=== PATIENT | female | born 1965 | race Caucasian/White ===

== ENCOUNTER 2019-01-25 20:58 | Inpatient (IN) ==
[2019-01-25] MEDS ORDERED: ACETAMINOPHEN 1,000 MG/100 ML VIAL IV STA (22:01)
[2019-01-25] MEDS ORDERED: SODIUM CHLORIDE 0.9% 1000ML 2,000 ML IV ONE (22:03)
[2019-01-25] MEDS ORDERED: METOCLOPRAMIDE HCL INJ 5 MG/ML 2 ML VIAL IV STA (22:03)
[2019-01-25] MEDS ORDERED: PANTOprazole 40 MG in SYRINGE 0 ML IV ONE (22:03)
[2019-01-25 22:33] LABS: Basophils # (auto) 0.04 K/uL (0-0.2); Basophils % (auto) 0.4 %; Eosinophils # (auto) 0.18 K/uL (0-0.5); Eosinophils % (auto) 1.7 %; Hematocrit (blood only) 42.1 % (37-47); Hemoglobin 14.2 g/dL (12.0-16.0); Immature Granulocytes # (auto) 0.02 K/uL (0.00-0.02); Immature Granulocytes % (auto) 0.2 %; Lymphocytes # (auto) 3.02 K/uL (1.2-3.4); Lymphocytes % (auto) 28.4 %; Mean Corpuscular Hgb Conc 33.7 g/dL (32-36); Mean Corpuscular Volume 88.3 fL (80-100); Monocytes # (auto) 0.67 K/uL (0.11-0.59); Monocytes % (auto) 6.3 %; Platelet Count 239 K/uL (130-400); RDW Coefficient of Variation 16.3 % (11.5-14.5); RDW Standard Deviation 53.2 fL (36.4-46.3); Red Blood Count 4.77 M/uL (4.2-5.4); White Blood Count 10.63 K/uL (4.8-10.8)
[2019-01-25 22:42] LABS: Prothrombin Time 10.3 Seconds (9.0-12.0)
[2019-01-25] MEDS ORDERED: AMPICILLIN/SULBACTAM SOD 3,000 MG in 0.9 % SODIUM CHLORIDE 100 ML IV STA (22:55)
[2019-01-25] MEDS ORDERED: MoRPHine SULFATE 4 MG/ML 1 ML CARP\\VIAL IV STA (22:56)
[2019-01-25 23:06] LABS: Albumin Globulin Ratio 0.9 (0.9-2); Albumin Level 3.7 gm/dl (3.4-5.0); BUN Creatinine Ratio 10.9 (10-20); Bilirubin,Total 0.4 mg/dl (0.2-1); Calcium 8.5 mg/dl (8.5-10.1); Creatinine Clr Calc Pharmacy 120.5 ml/min; Est GFR (African American) 121.1; Est GFR (Non-African American) 104.5; Globulin 3.9 gm/dl (2.5-4.0); Total Protein 7.6 gm/dl (6.4-8.2)
[2019-01-25 23:38] LABS: Potassium 3.8 mmol/L (3.5-5.1)
--- NOTE | 2019-01-26 00:06 | Emergency Department Note ---
Entered by Raquel De La Cruz acting as a scribe for History of Present Illness General Chief complaint: Rectal Bleed Stated complaint: RECTAL BLEEDING,ABDOMINAL PAIN,VOMITING Time Seen by Provider: 01/25/19 21:34 Source: patient Mode of arrival: ambulatory Limitations: no limitations History of Present Illness Provider complaint: rectal bleeding Onset (ago): hour(s) (APPLICATIONS COORDINATOR) Location: abdomen Pain Consistency: + other (episode) Maximum Pain Intensity: 10 Current Pain Intensity: 9 Quality: + other (rectal bleeding) Associated symptoms: + cough, + nausea/vomiting and + other (abdominal pain, gas, hematemesis) The patient is a 54 year old female who presents to the Emergency Room with complaints of an episode of rectal bleeding that occurred prior to arrival. The patient reports that following the episode, she also had a severe abdominal pain and gas, so she contacted the hospital who suggested she present to the ER. She states that she has had the same abdominal pain intermittently for the past month. She notes that she has also been vomiting and coughing. She states that she was evaluated by her PCP last week and referred to [facility] ER for hematemesis where she had an NG tube inserted which showed no blood. She denies being on any blood thinners. The patient also denies any alcohol use but does admit to being an everyday smoker. She reports that she has a history of a bowel obstruction as well as a back surgery and notes she does have chronic back pain and is prescribed oxycodone. She states that her last endoscopy was several years ago. Per EMR, the patient was seen at this hospital earlier today for abdominal pain which has been ongoing for past month. Today the patient had a normal WBC. The patient had multiple complaints including hematemesis, but her hemoglobin was 14.7 and her kidney and liver function were normal. CT showed increased stool burden, with question of diverticulitis. She was given Dilaudid. She was ordered for antibiotics and Magnesium citrate and was offered admission but declined stating she was upset with her care and was going to go to [facility]. Home Medications Home Medications Medication Instructions Recorded Confirmed Type oxycodone 10 mg PO Q6H PRN 07/30/18 01/25/19 History trazodone 300 mg PO HS 10/12/18 01/25/19 History amoxicillin-pot clavulanate 1 tab PO BID #20 tab 01/25/19 01/25/19 Rx [Augmentin] buspirone 15 - 45 mg PO DAILY 01/25/19 01/25/19 History carisoprodol 350 mg PO Q8H 01/25/19 01/25/19 History docusate sodium [Colace] 100 mg PO BID #60 cap 01/25/19 01/25/19 Rx famotidine [Pepcid] 40 mg PO HS #30 tab 01/25/19 01/25/19 Rx levothyroxine 125 mcg PO DAILY 01/25/19 01/25/19 History ondansetron HCl [Zofran] 4 mg PO Q6 PRN #6 tab 01/25/19 01/25/19 Rx oxcarbazepine 300 mg PO BID 01/25/19 01/25/19 History pramipexole 1 mg PO HS 01/25/19 01/25/19 History sennosides [Senokot] 8.6 mg PO HS #30 tab 01/25/19 01/25/19 Rx venlafaxine [Effexor XR] 75 mg PO HS 01/25/19 01/25/19 History venlafaxine [Effexor XR] 150 mg PO HS 01/25/19 01/25/19 History Allergies Allergy/AdvReac Type Severity Reaction Status Date / Time Sulfa (Sulfonamide Allergy Mild Gastrointestinal Verified 01/25/19 22:07 Antibiotics) Upset tetracycline Allergy Mild Rash Verified 01/25/19 22:07 Past Med/Surg History Medical History PTSD (post-traumatic stress disorder) (Chronic) Suicidal thoughts (Resolved) Anxiety (Chronic) Depression (Chronic) Chronic, continuous use of opioids 10 mg oxycodone every 6 hours as needed Broken wrist (Resolved) Surgical History Abnormal colonoscopy 2019: States she has a history of polyps on colonoscopy. Was told to return in 7 years, and is overdue for repeat scan. Previous back surgery Family History Other No pertinent family history Social History Preferred Language: Slovak Beliefs That Will Affect Care: None Current Living Situation: Alone Feels Safe at Home: Yes Safety Concerns: Feels Safe At This Time Smoking Status: Current every day smoker Hx Alcohol Use: No Hx Substance Use: Yes Review of Systems See HPI for pertinent positives & negatives. and A total of 10 systems reviewed and were otherwise negative Physical Exam Vital Signs Vital Signs - 24 hr 01/25/19 21:05 01/25/19 23:00 01/26/19 00:36 Temperature 36.7 C Temperature Source Oral Sepsis Recent Fever Within 48 Hours No Sepsis New/Unexplained Change in Mental Status No Sepsis Action Taken by Nursing No Action Required Pulse Rate 104 H Pulse Rate [Right Finger] 70 74 Pulse Rhythm Regular Pulse Rhythm [Right Finger] Pulse Strength Normal Respiratory Rate 20 18 18 Respiratory Effort / Characteristics Non-Labored Spontaneous Respiratory Depth Normal Respiratory Pattern Regular Blood Pressure 170/100 H Blood Pressure [Right Arm] 128/90 163/103 H Blood Pressure Mean 123 Blood Pressure Mean [Right Arm] 102 123 Blood Pressure Position Sitting Blood Pressure Position [Right Arm] Pulse Oximetry 93 94 95 Oxygen Delivery Method Room Air Room Air Room Air 01/26/19 02:33 01/26/19 03:11 01/26/19 07:21 Temperature 36.2 C L 36.7 C Temperature Source Oral Oral Sepsis Recent Fever Within 48 Hours Sepsis New/Unexplained Change in Mental Status Sepsis Action Taken by Nursing Pulse Rate Pulse Rate [Right Finger] 78 78 58 L Pulse Rhythm Pulse Rhythm [Right Finger] Regular Pulse Strength Respiratory Rate 20 24 16 Respiratory Effort / Characteristics Non-Labored Spontaneous Respiratory Depth Shallow Respiratory Pattern Tachypnea Blood Pressure Blood Pressure [Right Arm] 155/98 H 176/98 H 145/88 H Blood Pressure Mean Blood Pressure Mean [Right Arm] 117 124 107 Blood Pressure Position Blood Pressure Position [Right Arm] Lying Lying Pulse Oximetry 95 96 94 Oxygen Delivery Method Room Air Room Air 01/26/19 07:58 01/26/19 11:27 Temperature 36.8 C Temperature Source Oral Sepsis Recent Fever Within 48 Hours Sepsis New/Unexplained Change in Mental Status Sepsis Action Taken by Nursing Pulse Rate 60 Pulse Rate [Right Finger] 61 Pulse Rhythm Pulse Rhythm [Right Finger] Pulse Strength Respiratory Rate 18 Respiratory Effort / Characteristics Respiratory Depth Respiratory Pattern Blood Pressure Blood Pressure [Right Arm] 140/71 Blood Pressure Mean Blood Pressure Mean [Right Arm] 94 Blood Pressure Position Blood Pressure Position [Right Arm] Lying Pulse Oximetry 95 Oxygen Delivery Method Room Air GENERAL: Awake, alert, anxious, uncomfortable appearing, in no distress HENT: Normocephalic, atraumatic. Oropharynx with dry mucous membranes and otherwise unremarkable. EYES: Normal conjunctiva. Sclera non-icteric. NECK: Supple. No nuchal rigidity. FROM. No JVD. RESPIRATORY: Clear to auscultation. CARDIAC: Regular rate, normal rhythm. Extremities warm and well perfused. Pulses equal. ABDOMEN: Soft, non-distended. Generalized abdominal tenderness to palpation greatest in the LLQ. No rebound or guarding. No masses. RECTAL: Scant blood tinged brown stool, guaiac positive MUSCULOSKELETAL: Chest examination reveals no tenderness. The back is symmetrical on inspection without obvious abnormality. There is no CVA tenderness to palpation. No joint edema. LOWER EXTREMITIES: Calves are equal size bilaterally and non-tender. No edema. No discoloration. NEURO: Normal sensorium. No sensory or motor deficits noted. SKIN: No rash or jaundice noted. Course 2143: Past medical records reviewed. The patient was evaluated in room A2, and a complete history and physical examination were performed. 1145: I reviewed the patient's case with Dr. Gaytan - [facility] Hospitalist. He will evaluate the patient for further management. Administered Medications Diphenhydramine HCl (Benadryl) 12.5 mg IV HSZ PRN PRN Reason: Anxiety/Insomnia Stop: 02/25/19 03:50 Last Admin: 01/26/19 04:54 Dose: 12.5 mg Documented by: [id number] Sodium Chloride (Nss 1000ml) 1,000 mls @ 100 mls/hr IV .Q10H MADELYN Stop: 01/28/19 03:50 Last Infusion: 01/26/19 07:22 Dose: 100 mls/hr Documented by: [id number] Admin: 01/26/19 04:53 Dose: 100 mls/hr Documented by: [id number] Metronidazole (Flagyl) 500 mg in 100 mls @ 100 mls/hr IV Q8H MADELYN Stop: 02/05/19 03:59 Last Admin: 01/26/19 13:08 Dose: 100 mls/hr Documented by: [id number] Infusion: 01/26/19 07:21 Dose: 0 mls/hr Documented by: [id number] Admin: 01/26/19 05:56 Dose: 100 mls/hr Documented by: [id number] Ceftriaxone Sodium 1,000 mg/ (Dextrose) 50 mls @ 100 mls/hr IV Q24H MADELYN; Protocol Stop: 02/05/19 05:59 Last Infusion: 01/26/19 06:13 Dose: 0 mls/hr Documented by: [id number] Admin: 01/26/19 05:56 Dose: 100 mls/hr Documented by: [id number] Levothyroxine Sodium 65 mcg/ (Syringe) 3.25 mls @ 2 mls/min IV DAILY@0900 MADELYN Stop: 02/25/19 08:59 Last Admin: 01/26/19 10:10 Dose: 2 mls/min Documented by: [id number] Pantoprazole Sodium 40 mg/ (Syringe) 10 mls @ 5 mls/min IV BID MADELYN Stop: 02/25/19 08:59 Last Admin: 01/26/19 10:04 Dose: 5 mls/min Documented by: [id number] Acetaminophen (Ofirmev) 1,000 mg in 100 mls @ 400 mls/hr IV Q8H PRN PRN Reason: Pain or Fever Stop: 02/25/19 11:14 Last Admin: 01/26/19 12:48 Dose: 400 mls/hr Documented by: [id number] Morphine Sulfate (Morphine Sulfate) 4 mg IV Q4H PRN PRN Reason: Pain Stop: 02/09/19 03:50 Last Admin: 01/26/19 10:04 Dose: 4 mg Documented by: [id number] Admin: 01/26/19 04:53 Dose: 4 mg Documented by: [id number] Ondansetron HCl (Zofran) 4 mg IV Q4H PRN PRN Reason: Nausea Stop: 02/25/19 03:50 Last Admin: 01/26/19 04:54 Dose: 4 mg Documented by: [id number] Discontinued Medications Acetaminophen (Ofirmev) 1,000 mg in 100 mls @ 400 mls/hr IV NOW STA Stop: 01/25/19 22:15 Last Infusion: 01/25/19 22:39 Dose: 0 mls/hr Documented by: [id number] Admin: 01/25/19 22:23 Dose: 400 mls/hr Documented by: [id number] Pantoprazole Sodium 40 mg/ (Syringe) 10 mls @ 5 mls/min IV NOW ONE Stop: 01/25/19 22:04 Last Admin: 01/25/19 22:49 Dose: 5 mls/min Documented by: [id number] Sodium Chloride (Nss 1000ml) 2,000 mls @ 999 mls/hr IV .Q2H1M ONE Stop: 01/26/19 00:03 Last Infusion: 01/26/19 00:30 Dose: 0 mls/hr Documented by: [id number] Admin: 01/25/19 22:23 Dose: 999 mls/hr Documented by: [id number] Ampicillin Sodium/Sulbactam Sodium 3,000 mg/ Sodium Chloride 108 mls @ 200 mls/hr IV NOW STA Stop: 01/25/19 23:27 Last Infusion: 01/25/19 23:42 Dose: 0 mls/hr Documented by: [id number] Admin: 01/25/19 23:05 Dose: 200 mls/hr Documented by: [id number] Metoclopramide HCl (Reglan) 10 mg IV NOW STA Stop: 01/25/19 22:04 Last Admin: 01/25/19 22:23 Dose: 10 mg Documented by: [id number] Morphine Sulfate (Morphine Sulfate) 4 mg IV NOW STA Stop: 01/25/19 22:57 Last Admin: 01/25/19 23:04 Dose: 4 mg Documented by: [id number] Medical Decision Making Differential Diagnosis Differential Diagnosis includes: esophagitis, variceal bleed, [id number], [place] tear, gastritis, peptic ulcer disease, AVM, inflammatory bowel disease, ischemia, diverticulosis, colitis, malignancy, coagulopathy, thrombocytopenia, fissure, hemorrhoid, epistaxis , as well as others were entertained. Medical Records Attestation: I reviewed the patient's medical records. Home Medications Current Medication List: was personally reviewed by me Laboratory Data Attestation: I reviewed the patient's lab results. Result diagrams: 01/26/19 10:37 01/26/19 10:37 Lab Results 01/25/19 01/25/19 01/25/19 Range/Units 22:13 22:13 22:13 WBC 10.63 (4.8-10.8) K/uL RBC 4.77 (4.2-5.4) M/uL Hgb 14.2 (12.0-16.0) g/dL Hct 42.1 (37-47) % MCV 88.3 (80-100) fL MCH 29.8 (25-34) pg MCHC 33.7 (32-36) g/dL RDW Std Deviation 53.2 H (36.4-46.3) fL RDW Coeff of Xavi 16.3 H (11.5-14.5) % Plt Count 239 (130-400) K/uL MPV 11.0 H (7.4-10.4) fL Immature Gran % (Auto) 0.2 % Neut % (Auto) 63.0 % Lymph % (Auto) 28.4 % [place] % (Auto) 6.3 % Eos % (Auto) 1.7 % Baso % (Auto) 0.4 % Immature Gran # (Auto) 0.02 (0.00-0.02) K/uL Neut # (Auto) 6.70 H (1.4-6.5) K/uL Lymph # (Auto) 3.02 (1.2-3.4) K/uL [place] # (Auto) 0.67 H (0.11-0.59) K/uL Eos # (Auto) 0.18 (0-0.5) K/uL Baso # (Auto) 0.04 (0-0.2) K/uL PT 10.3 (9.0-12.0) Seconds INR 1.0 (0.9-1.1) Sodium 138 (136-145) mmol/L Potassium (3.5-5.1) mmol/L Chloride 107 (98-107) mmol/L Carbon Dioxide 25 (21-32) mmol/L Anion Gap 6.0 (3-11) BUN 6 L (7-18) mg/dl Creatinine 0.58 L (0.6-1.2) mg/dl Est Cr Clr Drug Dosing 120.5 ml/min Est GFR ( Amer) 121.1 Est GFR (Non-Af Amer) 104.5 BUN/Creatinine Ratio 10.9 (10-20) Glucose 107 H (70-99) mg/dl Calcium 8.5 (8.5-10.1) mg/dl Total Bilirubin 0.4 (0.2-1) mg/dl AST (15-37) U/L ALT 38 (12-78) U/L Alkaline Phosphatase 109 (45-117) U/L Total Protein 7.6 (6.4-8.2) gm/dl Albumin 3.7 (3.4-5.0) gm/dl Globulin 3.9 (2.5-4.0) gm/dl Albumin/Globulin Ratio 0.9 (0.9-2) Lipase 61 L (73-393) U/L TSH (0.300-4.500) uIu/ml Free T4 (0.8-1.6) ng/dl 01/25/19 01/26/19 01/26/19 Range/Units 23:14 10:37 10:37 WBC 11.11 H (4.8-10.8) K/uL RBC 4.66 (4.2-5.4) M/uL Hgb 13.8 (12.0-16.0) g/dL Hct 41.9 (37-47) % MCV 89.9 (80-100) fL MCH 29.6 (25-34) pg MCHC 32.9 (32-36) g/dL RDW Std Deviation 54.6 H (36.4-46.3) fL RDW Coeff of Xavi 16.6 H (11.5-14.5) % Plt Count 226 (130-400) K/uL MPV 10.7 H (7.4-10.4) fL Immature Gran % (Auto) 0.1 % Neut % (Auto) 69.3 % Lymph % (Auto) 21.7 % [place] % (Auto) 6.8 % Eos % (Auto) 1.8 % Baso % (Auto) 0.3 % Immature Gran # (Auto) 0.01 (0.00-0.02) K/uL Neut # (Auto) 7.71 H (1.4-6.5) K/uL Lymph # (Auto) 2.41 (1.2-3.4) K/uL Montgomery # (Auto) 0.75 H (0.11-0.59) K/uL Eos # (Auto) 0.20 (0-0.5) K/uL Baso # (Auto) 0.03 (0-0.2) K/uL PT (9.0-12.0) Seconds INR (0.9-1.1) Sodium 141 (136-145) mmol/L Potassium 3.8 3.9 (3.5-5.1) mmol/L Chloride 111 H (98-107) mmol/L Carbon Dioxide 26 (21-32) mmol/L Anion Gap 4.0 (3-11) BUN 4 L (7-18) mg/dl Creatinine 0.59 L (0.6-1.2) mg/dl Est Cr Clr Drug Dosing 122.3 ml/min Est GFR ( Amer) 120.4 Est GFR (Non-Af Amer) 103.9 BUN/Creatinine Ratio 7.2 L (10-20) Glucose 142 H (70-99) mg/dl Calcium 8.0 L (8.5-10.1) mg/dl Total Bilirubin (0.2-1) mg/dl AST 21 (15-37) U/L ALT (12-78) U/L Alkaline Phosphatase (45-117) U/L Total Protein (6.4-8.2) gm/dl Albumin (3.4-5.0) gm/dl Globulin (2.5-4.0) gm/dl Albumin/Globulin Ratio (0.9-2) Lipase (73-393) U/L TSH 6.130 H (0.300-4.500) uIu/ml Free T4 0.97 (0.8-1.6) ng/dl Blood Pressure Blood Pressure Findings: Normal blood pressure Blood Pressure Disposition: did not require urgent referral MDM Narrative The patient is a 54-year-old woman with a past medical history of chronic back pain chronically on oxycodone, anxiety/depression who presents to emergency department with 1 month of constant abdominal pain with development of which she reports has hematemesis and hematochezia per HPI. Of note the patient was evaluated at [facility] emergency department for these similar symptoms last week and had an unremarkable CT scan and per the patient's description received nasogastric lavage which was negative for blood. The patient was seen in the emergency department earlier today for the symptoms and had a CT scan that demonstrated mild stranding which could be consistent with colitis and possible diverticulitis. The patient left the emergency department despite being offered option for admission and did not receive her dose of IV Unasyn was given prescription for Augmentin for her diverticulitis. Additionally there is a significant stool burden throughout her colon which given the patient's report t hat she has not had regular bowel movements is highly suggestive of constipation which is likely contributing to her significant pain in the setting of her history of chronic pain on oxycodone regularly. On arrival patient is anxious appearing and uncomfortable but no acute distress, afebrile stable vital signs. On exam the patient has generalized abdominal tenderness which is most pronounced in the left lower quadrant. There are no peritoneal signs. Rectal exam demonstrates scant blood-tinged brown stool that is guaiac positive. However, WBC, H/H, platelets wnl. Chemistry without acidosis. LFTs and electrolytes unremarkable. Labs are essentially unchanged from 10 hours prior. Given the patient's rectal exam and her CT findings symptoms could be related to diverticulitis and her significant discomfort is likely related to her chronic narcotic use and constipation. I did explain this to the patient, however given her report of hematemesis in the setting of her hematochezia we will keep n.p.o. for now and provide equivalent IV Morphine dose of her regular 10 mg of oxycodone. Given IV dose of Unasyn. Of note, patient is unlikely to be having significant bleeding to the extent that she describes given her stable H&H. Case was discussed with Dr. Gaytan, [facility] hospitalist, who will evaluated the patient for admission. Impression & Plan Diverticulitis, Hematochezia Discharge Plan Visit Data *Final* Discharge Date/Time: 01/26/19 02:52 Chief Complaint: Rectal Bleed Stated Complaint: RECTAL BLEEDING,ABDOMINAL PAIN,VOMITING ED Provider: Segundo Mark Discharge Problem: Diverticulitis, Hematochezia Patient Disposition: Admitted As Inpatient Discharge Instructions Interventions: ED Discharge Assessment Last Done: 01/26/19 02:52 The scribe's documentation has been prepared under my direction and personally reviewed by me in its entirety. I confirm that the note above accurately reflects all work, treatment, procedures, and medical decision making performed by me.
--- NOTE | 2019-01-26 01:14 | History & Physical Report ---
Date of Service January 26, 2019 Assessment & Plan (1) Diverticulitis: 54 F here with intractable abdominal pain, melena concerning for diverticulitis complicated by severe constipation. Assessment -Diverticulitis on exam and CT Plan - observe med/tele - NPO, advance as tolerated - metronidazole + ceftriaxone -additional gastrointestinal problems as below, consider GI consult. FEN/GI: NSS @ 100ml/hr, NPO. Protonix BID for h/o coffee ground emesis prior to admission, per report. DVT ppx: will hold off on chemical anticoagulation at this time to see if bleeding becomes more evident/persistent. SCDs. CODE STATUS: patient states she is DNR/DNI -- pt does have documented h/o suicidal thoughts -- she denies suicidal ideation at this time, and declines a psychiatric consult. RECOMMEND REASSESS this in AM. DISPO: med/tele (2) Abdominal pain: Bowel rest, NPO -advance diet as tolerated -morphine 4 mg q4h -Please note: pt normally takes up to 60 morphine equivalents daily for her back pain chronically, may require up titration to cover acute pain. (3) Nausea & vomiting: pt has h/o SBO, but currently not visualized on CT. Likely etiology more c/w constipation as above. -zofran 4mg q4h PRN ordered IV -bowel rest as above (4) Constipation: Likely 2/2 chronic opioid use. Bowel regimen -daily suppository x 2 days -then PRN -add PO miralax, colace etc once tolerating PO (5) Hematochezia: +guaiac stool in ED. -Suspect internal hemorrhoids, given h/o constipation. Asymptomatic. -H/H stable upon admission, not anemic -monitor daily CBCs (6) Coffee ground vomiting: Not present on admission -CT is concerning for cirrhotic changes of liver. -CBC and CMP not consistent with acute coagualable issues. Pt is not anemic or thrombocytopenic. -NPO -Pt is on pepsid daily at home - will change to Protonix (IV while NPO) BID. (7) Anxiety: Restart Buspar, nightly trazodone once tolerating PO. -ordered IV benadryl nightly while NPO (8) Depression: Pt has not been able to take PO meds x 1 week d/t nausea -exam/history not concerning for withdrawal at this time. -restart effexor XR once tolerating PO -pt desires to be DNR/DNI code status, see discussion above. (9) Abnormal colonoscopy: Per pt, has h/o polyps on colonoscopy and was told to repeat colonoscopy in 7 years. Is overdue. -recommend f/u outpatient colonoscopy this year. (10) PTSD (post-traumatic stress disorder): No acute issues. History of Present Illness Primary Care Provider: Dimple Pandya DO This is a 54-year-old female who presents with complaint of intractable abdomin al pain, nausea, coffee-ground emesis, rectal bleed. Patient is somewhat of a poor historian, history reviewed from outpatient records as patient has been seen by multiple providers this month. Per outpatient records she was seen on January 16 in her outpatient office with complaint of nausea vomiting for 4 days. Complained of coffee-ground emesis, and fatigue. Normal bowel movements. Epigastric complaint radiating to the back. Patient does have a history of pancreatitis and pancreatic pseudocyst, last episode was in 2011 which resulted in a feeding tube for 6 months. Patient at that time also had complained of inability to keep fluids down, resulting in emesis. Also fevers 100-102, was taking Tylenol. She denied NSAID or alcohol use at that time. She was advised to go to the emergency room. She went to [facility]. I have reviewed the emergency room records which showed she was given fluids, Zofran, ketorolac. Other management details were not provided in this report. Per report was seen earlier today in the ER and was offered admission, but patient declined at the time stating she was upset with her care and wanted to go to [place]. Since then, her nausea and abdominal pain were persistent and so she sought medical care. She says she has felt sick in her stomach for an entire month. She vomits every day 5-6 times. This is associated with night sweats. She states she had [id number] vomit this morning. She is also had intermittent constipation all month. She denies any recent increase in her opioid medication which she takes chronically for back pain. She states she has lost 16 pounds this month because of decreased p.o. intake. She denies any rectal pain or itching. She states she hydrates well, at least half a gallon of water per day. Per reports she has not taken any of her psychiatric medications for at least a week due to these issues. She denies suicidality. She states her mood is at her baseline. ED course: Stool was found to be guac positive. 2 L fluid given. Tylenol, pantoprazole, Unasyn, Reglan, morphine given. Significant stool burden and possible diverticulitis on CT scan from earlier today. Labs reveal no anemia. H&H 14.2/42.1. White blood cell count is normal. Chemistry profile unremarkable. BUN/creatinine 6/0.58. Lipase normal. No transaminitis. Urinalysis negative for ketones, blood, nitrites. PMH: 1. PTSD 2. History of suicidal thoughts 3. Anxiety 4. Depression 5. Diabetes 6. History of bowel resection 7. History of pancreatitis 8. Hyperlipidemia 9. Hypothyroidism 10. Chronic back pain, on chronic opioid medication. 11. History of polyps seen on colonoscopy--was told to return in 7 years for repeat colonoscopy, she has yet to do so and she has passed the 7-year fausto. PSH 1. Back surgery 2. Bowel resection 3. Colonoscopy Social history: Lives alone. Denies alcohol. Endorses 1 pack of cigarettes per week. Endorses 3 rounds of marijuana smoked via pipe per day which she says she takes for her back pain. Follows with a psychiatrist Allergies Allergy/AdvReac Type Severity Reaction Status Date / Time Sulfa (Sulfonamide Allergy Mild Gastrointestinal Verified 01/25/19 22:07 Antibiotics) Upset tetracycline Allergy Mild Rash Verified 01/25/19 22:07 Home Medications Home Medications Medication Instructions Recorded Confirmed Type oxycodone 10 mg PO Q6H PRN 07/30/18 01/25/19 History trazodone 300 mg PO HS 10/12/18 01/25/19 History amoxicillin-pot clavulanate 1 tab PO BID #20 tab 01/25/19 01/25/19 Rx [Augmentin] buspirone 15 - 45 mg PO DAILY 01/25/19 01/25/19 History carisoprodol 350 mg PO Q8H 01/25/19 01/25/19 History docusate sodium [Colace] 100 mg PO BID #60 cap 01/25/19 01/25/19 Rx famotidine [Pepcid] 40 mg PO HS #30 tab 01/25/19 01/25/19 Rx levothyroxine 125 mcg PO DAILY 01/25/19 01/25/19 History ondansetron HCl [Zofran] 4 mg PO Q6 PRN #6 tab 01/25/19 01/25/19 Rx oxcarbazepine 300 mg PO BID 01/25/19 01/25/19 History pramipexole 1 mg PO HS 01/25/19 01/25/19 History sennosides [Senokot] 8.6 mg PO HS #30 tab 01/25/19 01/25/19 Rx venlafaxine [Effexor XR] 75 mg PO HS 01/25/19 01/25/19 History venlafaxine [Effexor XR] 150 mg PO HS 01/25/19 01/25/19 History Past Med/Surg History Medical History PTSD (post-traumatic stress disorder) (Chronic) Suicidal thoughts (Resolved) Anxiety (Chronic) Depression (Chronic) Chronic, continuous use of opioids 10 mg oxycodone every 6 hours as needed GERD (gastroesophageal reflux disease) Neuropathy Post-menopausal Broken wrist (Resolved) Surgical History Abnormal colonoscopy 2019: States she has a history of polyps on colonoscopy. Was told to return in 7 years, and is overdue for repeat scan. Previous back surgery Family History Other No pertinent family history Social History Preferred Language: Amharic Beliefs That Will Affect Care: None marital status: Single Current Living Situation: Alone Feels Safe at Home: Yes Safety Concerns: Feels Safe At This Time Smoking Status: Current every day smoker Hx Alcohol Use: No Hx Substance Use: Yes Review of Systems All systems reviewed & are unremarkable except as noted in HPI & below Physical Exam Vital Signs (Past 24 Hours): Last Vital Signs Temp 36.7 C 01/25/19 21:05 Pulse 74 01/26/19 00:36 Resp 18 01/26/19 00:36 BP 163/103 H 03/21/19 00:36 Pulse Ox 95 01/26/19 00:36 Physical Exam: Vitals noted as above and within normal limits with the exception of hypertension. GENERAL: Awake, alert to person, place, and time, nontoxic-appearing, in moderate distress HENT: Normocephalic, atraumatic. . Mucus membranes appear dry. EYES: Normal conjunctiva. Sclera non-icteric. EOMI. NECK: Supple. Full range of motion. RESPIRATORY: Expiratory wheeze heard bilaterally.. Normal work of breathing. On room air. CARDIAC: Regular rate, normal rhythm. Extremities warm and well perfused, ; . ABDOMEN: Soft, non-distended. + tenderness to palpation left lower quadrant. Bowel sounds are normal. NEURO: No focal gross focal motor deficits noted. . CN II-XII grossly in tact. SKIN: Rash not present. No jaundice noted. Significant lesions not present. PSYCH: Appropriate mood and affect. Cooperative. Denies suicidal ideation. Denies depressed mood at this time. Exam as done by Nancy Shahid MD, [employer]. Results & Data Laboratory Results 01/25/19 01/25/19 01/25/19 Range/Units 23:14 22:13 22:13 WBC 10.63 (4.8-10.8) K/uL RBC 4.77 (4.2-5.4) M/uL Hgb 14.2 (12.0-16.0) g/dL Hct 42.1 (37-47) % MCV 88.3 (80-100) fL MCH 29.8 (25-34) pg MCHC 33.7 (32-36) g/dL RDW Std Deviation 53.2 H (36.4-46.3) fL RDW Coeff of Xavi 16.3 H (11.5-14.5) % Plt Count 239 (130-400) K/uL MPV 11.0 H (7.4-10.4) fL Immature Gran % (Auto) 0.2 % Neut % (Auto) 63.0 % Lymph % (Auto) 28.4 % [place] % (Auto) 6.3 % Eos % (Auto) 1.7 % Baso % (Auto) 0.4 % Immature Gran # (Auto) 0.02 (0.00-0.02) K/uL Neut # (Auto) 6.70 H (1.4-6.5) K/uL Lymph # (Auto) 3.02 (1.2-3.4) K/uL [place] # (Auto) 0.67 H (0.11-0.59) K/uL Eos # (Auto) 0.18 (0-0.5) K/uL Baso # (Auto) 0.04 (0-0.2) K/uL PT (9.0-12.0) Seconds INR (0.9-1.1) Sodium 138 (136-145) mmol/L Potassium 3.8 (3.5-5.1) mmol/L Chloride 107 (98-107) mmol/L Carbon Dioxide 25 (21-32) mmol/L Anion Gap 6.0 (3-11) BUN 6 L (7-18) mg/dl Creatinine 0.58 L (0.6-1.2) mg/dl Est Cr Clr Drug Dosing 120.5 ml/min Est GFR ( Amer) 121.1 Est GFR (Non-Af Amer) 104.5 BUN/Creatinine Ratio 10.9 (10-20) Glucose 107 H (70-99) mg/dl Calcium 8.5 (8.5-10.1) mg/dl Total Bilirubin 0.4 (0.2-1) mg/dl AST 21 (15-37) U/L ALT 38 (12-78) U/L Alkaline Phosphatase 109 (45-117) U/L Total Protein 7.6 (6.4-8.2) gm/dl Albumin 3.7 (3.4-5.0) gm/dl Globulin 3.9 (2.5-4.0) gm/dl Albumin/Globulin Ratio 0.9 (0.9-2) Lipase 61 L (73-393) U/L 01/25/19 Range/Units 22:13 WBC (4.8-10.8) K/uL RBC (4.2-5.4) M/uL Hgb (12.0-16.0) g/dL Hct (37-47) % MCV (80-100) fL MCH (25-34) pg MCHC (32-36) g/dL RDW Std Deviation (36.4-46.3) fL RDW Coeff of Xavi (11.5-14.5) % Plt Count (130-400) K/uL MPV (7.4-10.4) fL Immature Gran % (Auto) % Neut % (Auto) % Lymph % (Auto) % [place] % (Auto) % Eos % (Auto) % Baso % (Auto) % Immature Gran # (Auto) (0.00-0.02) K/uL Neut # (Auto) (1.4-6.5) K/uL Lymph # (Auto) (1.2-3.4) K/uL [place] # (Auto) (0.11-0.59) K/uL Eos # (Auto) (0-0.5) K/uL Baso # (Auto) (0-0.2) K/uL PT 10.3 (9.0-12.0) Seconds INR 1.0 (0.9-1.1) Sodium (136-145) mmol/L Potassium (3.5-5.1) mmol/L Chloride (98-107) mmol/L Carbon Dioxide (21-32) mmol/L Anion Gap (3-11) BUN (7-18) mg/dl Creatinine (0.6-1.2) mg/dl Est Cr Clr Drug Dosing ml/min Est GFR ( Amer) Est GFR (Non-Af Amer) BUN/Creatinine Ratio (10-20) Glucose (70-99) mg/dl Calcium (8.5-10.1) mg/dl Total Bilirubin (0.2-1) mg/dl AST (15-37) U/L ALT (12-78) U/L Alkaline Phosphatase (45-117) U/L Total Protein (6.4-8.2) gm/dl Albumin (3.4-5.0) gm/dl Globulin (2.5-4.0) gm/dl Albumin/Globulin Ratio (0.9-2) Lipase (73-393) U/L Supervising Physician Co-Signing Physician Notes Attending addendum: I have physically seen this patient, have supervised the medical residents activities, and agree with the H&P unless as otherwise noted. Assessment and Plan: Diverticulitis/intractable abdominal pain/severe constipation-- NPO tonight, until assessed by gastroenterology. Ceftriaxone 1 g IV daily. Flagyl 500 mg IV every 8 hours. Pantoprazole 40 mg IV daily. Zofran 4 mg IV every 6 hours as needed. NSS 100 mils per hour. Repeat laboratories in a.m. H&H every 6 hours x4. Consult gastroenterology. Remainder of orders and notations as noted. Resident Activity Tracking Resident Involvement: Resident Care Provided Care Provided: Adult [facility] (1) Abdominal pain Abdominal location: unspecified location Qualified Code(s): R10.9 - Unspecified abdominal pain (2) Constipation Constipation type: unspecified constipation type Qualified Code(s): K59.00 - Constipation, unspecified
[2019-01-26] MEDS ORDERED: DiphenhydrAMINE HCL 50 MG/ML VIAL IV PRN (03:51)
[2019-01-26] MEDS: MoRPHine SULFATE 4 MG/ML 1 ML CARP\\VIAL IV PRN ×4 (04:53→21:03)
[2019-01-26] MEDS: SODIUM CHLORIDE 0.9% 1000ML 1,000 ML IV SCH ×2 (04:53→16:15)
[2019-01-26] MEDS: ONDANSETRON INJ 2 MG/ML 2 ML VIAL IV PRN ×2 (04:54→16:14)
[2019-01-26] MEDS: metroNIDAZOLE 500 MG/100 ML BAG IV SCH ×3 (05:56→21:01)
[2019-01-26] MEDS: cefTRIAXone SODIUM 1,000 MG in DEXTROSE 5% 50 ML IV SCH (05:56)
[2019-01-26] MEDS ORDERED: LEVOTHYROXINE SODIUM IV SCH (09:00)
[2019-01-26] MEDS: PANTOprazole 40 MG in SYRINGE 0 ML IV SCH ×2 (10:04→21:01)
[2019-01-26 10:50] LABS: Basophils # (auto) 0.03 K/uL (0-0.2); Basophils % (auto) 0.3 %; Eosinophils % (auto) 1.8 %; Hematocrit (blood only) 41.9 % (37-47); Hemoglobin 13.8 g/dL (12.0-16.0); Immature Granulocytes # (auto) 0.01 K/uL (0.00-0.02); Immature Granulocytes % (auto) 0.1 %; Lymphocytes # (auto) 2.41 K/uL (1.2-3.4); Lymphocytes % (auto) 21.7 %; Mean Corpuscular Hgb Conc 32.9 g/dL (32-36); Mean Corpuscular Volume 89.9 fL (80-100); Mean Platelet Volume 10.7 fL (7.4-10.4); Monocytes # (auto) 0.75 K/uL (0.11-0.59); Monocytes % (auto) 6.8 %; Neutrophils # (auto) 7.71 K/uL (1.4-6.5); Neutrophils % (auto) 69.3 %; Platelet Count 226 K/uL (130-400); RDW Coefficient of Variation 16.6 % (11.5-14.5); RDW Standard Deviation 54.6 fL (36.4-46.3); Red Blood Count 4.66 M/uL (4.2-5.4); White Blood Count 11.11 K/uL (4.8-10.8)
--- NOTE | 2019-01-26 11:03 | Gastrointestinal Consultation ---
Date of Consultation January 26, 2019 Assessment & Plan (1) Abdominal pain: 54 year old female with history of PTSD, anxiet, depression self D/C home psychiatric medications, history of chronic pain on home narcotics who presents with worsening abd pain, report of coffee ground emesis prior to arrival. CT w/ concern of nodularity to the liver with normal LFTs, PLT and coagulation studies. Imaging also suggestive of constipation w ?mild diverticulitis She is awake, alert and orietned x 3. She is hemodynamically stable w/ BP 145/88 and stable serial HGBs since arrival w/o elevation of BUN. - NPO - IV PPI bolus and drip - Trend H&H - Transfuse PRN per protocol - Monitor and document all GI output - Can have Bentyl 10 mg TID PRN pain - EGD timing to be determined - Thank you for allowing us to participate in the care of this patient. Please call with any acute changes, questions or concerns. Please see addendum below with additional recommendation from my supervising physician. Present on Admission?: Yes Supervising Physician Co-Signing Physician Notes Attending attestation I have seen, examined this patient, and agree with the findings and above by our mid-level provider HERMELINDA Glaser. Complicated medical and psychiatric history, patient with suspected coffee- ground emesis with abdominal pain in the left lower quadrant and CT scan findi ngs significant for possible diverticulitis. Hemodynamically stable no witnessed coffee-ground emesis since admission, hemodynamics and blood count stable. Planning for EGD today. She has had some quite bizarre behavior on the floor with opening the window, trying to climb out, smoking in her room, as well as leaving the hospital in which time she had to be escorted back. Will plan for EGD and then further recommendations but should have psychiatric consultation. History of Present Illness Reason for Consultation: coffee ground emesis, abd pain Requesting Physician: Kirill Attending Physician: Davis Roy MD History of Present Illness 54 year old female with history of PTSD, anxiety, depression, prior SI currently self-DC her psych meds, prior episode of pancreatitis, prior bowel resection she is unable to tell me why, chronic pain in OP narcotics who presents to the ED w/ abd pain, nausea and report of coffee ground emesis, BRBPR. Pt was seen and evaluated chart reviewed. She is histrionic on exam. She notes chronic abd pain which has acutely worsened over the past month. This is constant. Bilateral lower quadrants. Sharp. Unchanged with PO. Worse with bowel. Associated with worsening constipation. Moving small amount of stool w/ excessive straining. Will have BRBPR coating the stool or on the toilet tissue. No melena. Over the past week, worsening UGI symptoms. Daily GERD, epigastric burning, pressure. Daily nausea, vomiting. Emesis is either coffee ground in appearance or will have some flecks of BRB. No dysphagia. No lightheadedness, dizziness, CP, SOB. No fever, chills, CP, SOB.Per nursing, no vomiting since admission. They have not witinessed any coffee ground emesis or hematemesis. CT: Mild infiltration adjacent to the proximal sigmoid colon which is distended by stool. This represents a nonspecific colitis. Acute diverticulitis is within the differential. No free air or abscess. No bowel obstruction.Nodularity of the liver surface which raises the possibility of cirrhosis. Colonoscopy: per patient 10+ years ago due for recall EGD: per patient 10+ years ago Allergies Allergy/AdvReac Type Severity Reaction Status Date / Time Sulfa (Sulfonamide Allergy Mild Gastrointestinal Verified 01/25/19 22:07 Antibiotics) Upset tetracycline Allergy Mild Rash Verified 01/25/19 22:07 Home Medications Home Medications Medication Instructions Recorded Confirmed Type oxycodone 10 mg PO Q6H PRN 07/30/18 01/25/19 History trazodone 300 mg PO HS 10/12/18 01/25/19 History amoxicillin-pot clavulanate 1 tab PO BID #20 tab 01/25/19 01/25/19 Rx [Augmentin] buspirone 15 - 45 mg PO DAILY 01/25/19 01/25/19 History carisoprodol 350 mg PO Q8H 01/25/19 01/25/19 History docusate sodium [Colace] 100 mg PO BID #60 cap 01/25/19 01/25/19 Rx famotidine [Pepcid] 40 mg PO HS #30 tab 01/25/19 01/25/19 Rx levothyroxine 125 mcg PO DAILY 01/25/19 01/25/19 History ondansetron HCl [Zofran] 4 mg PO Q6 PRN #6 tab 01/25/19 01/25/19 Rx oxcarbazepine 300 mg PO BID 01/25/19 01/25/19 History pramipexole 1 mg PO HS 01/25/19 01/25/19 History sennosides [Senokot] 8.6 mg PO HS #30 tab 01/25/19 01/25/19 Rx venlafaxine [Effexor XR] 75 mg PO HS 01/25/19 01/25/19 History venlafaxine [Effexor XR] 150 mg PO HS 01/25/19 01/25/19 History Patient History Medical History PTSD (post-traumatic stress disorder) (Chronic) Suicidal thoughts (Resolved) Anxiety (Chronic) Depression (Chronic) Chronic, continuous use of opioids 10 mg oxycodone every 6 hours as needed Broken wrist (Resolved) Surgical History Abnormal colonoscopy 2019: States she has a history of polyps on colonoscopy. Was told to return in 7 years, and is overdue for repeat scan. Previous back surgery Family History Other No pertinent family history Social History Preferred Language: Icelandic Beliefs That Will Affect Care: None Current Living Situation: Alone Feels Safe at Home: Yes Safety Concerns: Feels Safe At This Time Smoking Status: Current every day smoker Hx Alcohol Use: No Hx Substance Use: Yes Review of Systems Constitutional: no fever, no body aches, no weakness and no weight gain Respiratory: no cough, no dyspnea, no pain on inspiration and no wheezing Cardiovascular: no chest pain, no radiating jaw, neck or arm pain, no dyspnea on exertion, no palpitations and no syncope Gastrointestinal: + heartburn, + nausea, + vomiting (prior to arrival), + coffee ground emesis (prior to arrival), + hematemesis (prior to arrival), + cramping, + change in bowel habits, + change in stools (worsening constipation w/ BRB on stool), + constipation and + blood in stools (BRB coating formed stool); no belching, no bloating, no early satiety, no pain with swallowing, no dysphagia, no excessive flatulence, no diarrhea/loose stools, no fecal incontinence, no constant urge to pass stools and no melena Physical Exam Vital Signs (Past 24 Hours): Last Vital Signs Temp 36.7 C 01/26/19 07:21 Pulse 60 01/26/19 07:58 Resp 16 01/26/19 07:21 BP 145/88 H 01/26/19 07:21 Pulse Ox 94 01/26/19 07:21 Constitutional: + acute distress (pt is crying in bed, reporting CADENA and abd pain) and + behavioral limitations; + uncooperative and + uncomfortable Respiratory: normal respiratory effort, lungs clear to auscultation Cardiovascular: Rate/Rhythm: regular rate and regular rhythm Heart Sounds: no click, no murmur and no cardiac rub Gastrointestinal (Abdomen): Inspection/Auscultation: normal bowel sounds Percussion/Palpation: + abdomen tender and abdomen soft; no guarding, abdomen not rigid and no abdominal mass Skin: no rashes, warm and dry Results & Data Laboratory Results 01/26/19 01/26/19 01/25/19 Range/Units 10:37 10:37 23:14 WBC 11.11 H (4.8-10.8) K/uL RBC 4.66 (4.2-5.4) M/uL Hgb 13.8 (12.0-16.0) g/dL Hct 41.9 (37-47) % MCV 89.9 (80-100) fL MCH 29.6 (25-34) pg MCHC 32.9 (32-36) g/dL RDW Std Deviation 54.6 H (36.4-46.3) fL RDW Coeff of Xavi 16.6 H (11.5-14.5) % Plt Count 226 (130-400) K/uL MPV 10.7 H (7.4-10.4) fL Immature Gran % (Auto) 0.1 % Neut % (Auto) 69.3 % Lymph % (Auto) 21.7 % [place] % (Auto) 6.8 % Eos % (Auto) 1.8 % Baso % (Auto) 0.3 % Immature Gran # (Auto) 0.01 (0.00-0.02) K/uL Neut # (Auto) 7.71 H (1.4-6.5) K/uL Lymph # (Auto) 2.41 (1.2-3.4) K/uL [place] # (Auto) 0.75 H (0.11-0.59) K/uL Eos # (Auto) 0.20 (0-0.5) K/uL Baso # (Auto) 0.03 (0-0.2) K/uL PT (9.0-12.0) Seconds INR (0.9-1.1) Sodium Pending (136-145) mmol/L Potassium Pending 3.8 (3.5-5.1) mmol/L Chloride Pending (98-107) mmol/L Carbon Dioxide Pending (21-32) mmol/L Anion Gap Pending (3-11) BUN Pending (7-18) mg/dl Creatinine Pending (0.6-1.2) mg/dl Est Cr Clr Drug Dosing Pending ml/min Est GFR ( Amer) Pending Est GFR (Non-Af Amer) Pending BUN/Creatinine Ratio Pending (10-20) Glucose Pending (70-99) mg/dl Calcium Pending (8.5-10.1) mg/dl Total Bilirubin (0.2-1) mg/dl AST 21 (15-37) U/L ALT (12-78) U/L Alkaline Phosphatase (45-117) U/L Total Protein (6.4-8.2) gm/dl Albumin (3.4-5.0) gm/dl Globulin (2.5-4.0) gm/dl Albumin/Globulin Ratio (0.9-2) Lipase (73-393) U/L TSH Pending 01/25/19 01/25/19 01/25/19 Range/Units 22:13 22:13 22:13 WBC 10.63 (4.8-10.8) K/uL RBC 4.77 (4.2-5.4) M/uL Hgb 14.2 (12.0-16.0) g/dL Hct 42.1 (37-47) % MCV 88.3 (80-100) fL MCH 29.8 (25-34) pg MCHC 33.7 (32-36) g/dL RDW Std Deviation 53.2 H (36.4-46.3) fL RDW Coeff of Xavi 16.3 H (11.5-14.5) % Plt Count 239 (130-400) K/uL MPV 11.0 H (7.4-10.4) fL Immature Gran % (Auto) 0.2 % Neut % (Auto) 63.0 % Lymph % (Auto) 28.4 % [place] % (Auto) 6.3 % Eos % (Auto) 1.7 % Baso % (Auto) 0.4 % Immature Gran # (Auto) 0.02 (0.00-0.02) K/uL Neut # (Auto) 6.70 H (1.4-6.5) K/uL Lymph # (Auto) 3.02 (1.2-3.4) K/uL [place] # (Auto) 0.67 H (0.11-0.59) K/uL Eos # (Auto) 0.18 (0-0.5) K/uL Baso # (Auto) 0.04 (0-0.2) K/uL PT 10.3 (9.0-12.0) Seconds INR 1.0 (0.9-1.1) Sodium 138 (136-145) mmol/L Potassium (3.5-5.1) mmol/L Chloride 107 (98-107) mmol/L Carbon Dioxide 25 (21-32) mmol/L Anion Gap 6.0 (3-11) BUN 6 L (7-18) mg/dl Creatinine 0.58 L (0.6-1.2) mg/dl Est Cr Clr Drug Dosing 120.5 ml/min Est GFR ( Amer) 121.1 Est GFR (Non-Af Amer) 104.5 BUN/Creatinine Ratio 10.9 (10-20) Glucose 107 H (70-99) mg/dl Calcium 8.5 (8.5-10.1) mg/dl Total Bilirubin 0.4 (0.2-1) mg/dl AST (15-37) U/L ALT 38 (12-78) U/L Alkaline Phosphatase 109 (45-117) U/L Total Protein 7.6 (6.4-8.2) gm/dl Albumin 3.7 (3.4-5.0) gm/dl Globulin 3.9 (2.5-4.0) gm/dl Albumin/Globulin Ratio 0.9 (0.9-2) Lipase 61 L (73-393) U/L TSH (1) Abdominal pain Abdominal location: unspecified location Qualified Code(s): R10.9 - Unspecified abdominal pain
[2019-01-26 11:12] LABS: BUN Creatinine Ratio 7.2 (10-20); Creatinine Clr Calc Pharmacy 122.3 ml/min; Est GFR (African American) 120.4; Est GFR (Non-African American) 103.9; Potassium 3.9 mmol/L (3.5-5.1)
[2019-01-26] MEDS ORDERED: ACETAMINOPHEN 1,000 MG/100 ML VIAL IV PRN (11:15)
[2019-01-26 11:36] LABS: T4 Free Thyroxine 0.97 ng/dl (0.8-1.6)
--- NOTE | 2019-01-26 13:41 | Anesthesiology Consultation ---
Date of Service January 26, 2019 Assessment & Plan (1) Encounter for pre-operative examination: (2) Encounter for pre-operative examination: Chart Review Chart Review: Acceptable Risk for Surgery History Surgery Operation Date: 01/26/19 09:15 Proposed Procedures p Esophagogastroduodenoscopy Dr Alonso - Craig Alonso Height/Weight Height: 5 ft 4 in Weight: 95.6 kg Allergies Allergy/AdvReac Type Severity Reaction Status Date / Time Sulfa (Sulfonamide Allergy Mild Gastrointestinal Verified 01/25/19 22:07 Antibiotics) Upset tetracycline Allergy Mild Rash Verified 01/25/19 22:07 Medications Home Medications Medication Instructions Recorded Confirmed Last Taken oxycodone 10 mg PO Q6H PRN 07/30/18 01/25/19 01/23/19 trazodone 300 mg PO HS 10/12/18 01/25/19 01/23/19 amoxicillin-pot clavulanate 1 tab PO BID #20 tab 01/25/19 01/25/19 Unknown [Augmentin] buspirone 15 - 45 mg PO DAILY 01/25/19 01/25/19 Unknown carisoprodol 350 mg PO Q8H 01/25/19 01/25/19 01/23/19 docusate sodium [Colace] 100 mg PO BID #60 cap 01/25/19 01/25/19 Unknown famotidine [Pepcid] 40 mg PO HS #30 tab 01/25/19 01/25/19 Unknown levothyroxine 125 mcg PO DAILY 01/25/19 01/25/19 Unknown ondansetron HCl [Zofran] 4 mg PO Q6 PRN #6 tab 01/25/19 01/25/19 Unknown oxcarbazepine 300 mg PO BID 01/25/19 01/25/19 Unknown pramipexole 1 mg PO HS 01/25/19 01/25/19 Unknown sennosides [Senokot] 8.6 mg PO HS #30 tab 01/25/19 01/25/19 Unknown venlafaxine [Effexor XR] 75 mg PO HS 01/25/19 01/25/19 Unknown venlafaxine [Effexor XR] 150 mg PO HS 01/25/19 01/25/19 Unknown Active Medications Generic Name Dose Route Start Last Admin Trade Name Freq PRN Reason Stop Dose Admin Bisacodyl 10 mg 01/26/19 09:00 01/26/19 14:22 Dulcolax NV 01/27/19 09:01 Not Given DAILY MADELYN Diphenhydramine HCl 12.5 mg 01/26/19 03:51 01/26/19 04:54 Benadryl IV 02/25/19 03:50 12.5 mg HSZ PRN Administration Anxiety/Insomnia Sodium Chloride 1,000 mls @ 100 mls/hr 01/26/19 03:51 01/26/19 14:00 Nss 1000ml IV 01/28/19 03:50 0 mls/hr .Q10H MADELYN Infusion Metronidazole 500 mg in 100 mls @ 100 mls/hr 01/26/19 04:00 01/26/19 14:08 Flagyl IV 02/05/19 03:59 Infused Q8H MADELYN Infusion Ceftriaxone Sodium 1,000 mg/ 50 mls @ 100 mls/hr 01/26/19 06:00 01/26/19 06:13 Dextrose IV 02/05/19 05:59 Infused Q24H MADELYN Infusion Protocol Levothyroxine Sodium 65 mcg/ 3.25 mls @ 2 mls/min 01/26/19 09:00 01/26/19 10:10 Syringe IV 02/25/19 08:59 2 mls/min DAILY@0900 MADELYN Administration Pantoprazole Sodium 40 mg/ 10 mls @ 5 mls/min 01/26/19 09:00 01/26/19 10:04 Syringe IV 02/25/19 08:59 5 mls/min BID MADELYN Administration Acetaminophen 1,000 mg in 100 mls @ 400 mls/hr 01/26/19 11:15 01/26/19 13:03 Ofirmev IV 02/25/19 11:14 Infused Q8H PRN Infusion Pain or Fever Morphine Sulfate 4 mg 01/26/19 03:51 01/26/19 10:04 Morphine Sulfate IV 02/09/19 03:50 4 mg Q4H PRN Administration Pain Ondansetron HCl 4 mg 01/26/19 03:51 01/26/19 04:54 Zofran IV 02/25/19 03:50 4 mg Q4H PRN Administration Nausea Past Medical History Medical History PTSD (post-traumatic stress disorder) (Chronic) Suicidal thoughts (Resolved) Anxiety (Chronic) Depression (Chronic) Chronic, continuous use of opioids 10 mg oxycodone every 6 hours as needed GERD (gastroesophageal reflux disease) Neuropathy Post-menopausal Broken wrist (Resolved) Past Family History Family History Other No pertinent family history Past Surgical History Surgical History Abnormal colonoscopy 2019: States she has a history of polyps on colonoscopy. Was told to return in 7 years, and is overdue for repeat scan. Previous back surgery Social History Smoking Status: Current every day smoker tobacco type: cigarettes Hx Alcohol Use: No Hx Substance Use: Yes substance use type: marijuana Last Used Substance: Days (ago) Physical Exam Vital Signs Last Vital Signs Temp 36.8 C 01/26/19 14:20 Pulse 62 01/26/19 14:20 Resp 20 01/26/19 14:20 BP 155/95 H 01/26/19 14:20 Pulse Ox 95 01/26/19 14:20 Testing Laboratory Results 01/26/19 10:37 01/26/19 10:37 PT 10.3 Seconds (9.0-12.0) 01/25/19 22:13 INR 1.0 (0.9-1.1) 01/25/19 22:13
[2019-01-26] MEDS: BISACODYL 10 MG SUPP PR SCH (14:22)
[2019-01-26] MEDS ORDERED: LIDOCAINE HCL 2% 2 ML VIAL/AMP(20MG/ML) INFIL ONE (14:36)
[2019-01-26] MEDS ORDERED: fentaNYL citrate 100 MCG/2 ML VIAL ONE (14:36)
[2019-01-26] MEDS ORDERED: PROPOFOL IV EMULSION 10 MG/ML 20 ML VIAL IV ONE (14:36)
[2019-01-26] MEDS ORDERED: MIDAZOLAM HCL 1 MG/ML 2ML VIAL ONE (14:36)
[2019-01-26] MEDS ORDERED: ONDANSETRON INJ 2 MG/ML 2 ML VIAL ONE (14:38)
--- NOTE | 2019-01-26 15:00 | GI REPORT ---
Patient Name: Alfreda Callahan Procedure Date: 01/26/2019 2:33 PM Date of : 1965 Admit Type: Inpatient Age: 54 Gender: Female Attending MD: Craig Alonso MD Procedure: Upper GI endoscopy Providers: Craig Alonso MD Referring MD: Davis Roy Md Indications: Heartburn, Coffee-ground emesis Medicines: Monitored Anesthesia Care Complications: No immediate complications. Estimated blood loss: None. Estimated Blood Loss: Estimated blood loss: none. Procedure: Pre-Anesthesia Assessment: - Pre-Anesthesia Assessment: - Prior to the procedure, a History and Physical was performed, and patient medications, allergies and sensitivities were reviewed. The patient's tolerance of previous anesthesia was reviewed. Please see HeartFlow for complete details. - The risks and benefits of the procedure and the sedation options and risks were discussed with the patient. All questions were answered and informed consent was obtained. - Patient identification and proposed procedure were verified prior to the procedure by the physician and the nurse. The procedure was verified in the pre-procedure area in the procedure room. After obtaining informed consent, the endoscope was passed carefully and meticuously under direct vision and only advanced when the lumen was clearly identified, C02 insuflation was utilized throughout the entirity of the procedure. Throughout the procedure, the patient's blood pressure, pulse, and oxygen saturations were monitored continuously. After obtaining informed consent, the endoscope was passed under direct vision. Throughout the procedure, the patient's blood pressure, pulse, and oxygen saturations were monitored continuously. The scope was introduced through the mouth, and advanced to the second part of duodenum. The upper GI endoscopy was accomplished without difficulty. The patient tolerated the procedure well. Findings: LA Grade B (one or more mucosal breaks greater than 5 mm, not extending between the tops of two mucosal folds) esophagitis with no bleeding was found. The entire examined stomach was normal. The examined duodenum was normal. Impression: - LA Grade B reflux esophagitis. - Normal stomach. - Normal examined duodenum. - No specimens collected. Recommendation: - Return patient to hospital [facility] for ongoing care. - Use Prilosec (omeprazole) 40 mg PO BID for 2 months. - Treat diverticulitis with IV abx as well as pain control. - Psychiatry evaluation for suicidality Craig Alonso MD 01/26/2019 2:59:56 PM This report has been signed electronically. Note Initiated On: 01/26/2019 2:33 PM Number of Addenda: 0 I attest to the content of the Intraoperative Record and orders documented therein, exceptions below {[id number]}
--- NOTE | 2019-01-26 15:51 | Hospitalist Progress Note ---
Date of Service January 26, 2019 Assessment & Plan (1) Esophagitis: Grade B esophagitis seen on EGD with Dr. Alonso on 01/26. - Recommend omeprazole 40mg PO BID x 2 months - Consider carafate if not improved in 1-2 days (2) Hematochezia: Per patient, has been having bloody, mucus-y BMs for several weeks. RN noted small bloody BM on 01/26. - Trend hgb - Treat for mild diverticulitis seen on CT a/p on 01/25 - Continue ceftriaxone & metronidazole - IV fluids - Pain management (3) Abdominal pain: Likely combinatino of esophagitis and constipation with mild diverticulitis. - Pain control (4) Depression: Has significant mental health issues with reports in the chart of depression, anxiety, and PTSD. - Patient reported self-discontinuing her venlafaxine due to feeling it was causing her GERD symptoms. - Psychiatry consult (5) Chronic back pain: Per patient has had quite a few back surgeries and has chronic back pain. - Follows with Itz Brice at [facility] in [place]: Uses carisoprodol 350mg PO Q8h & oxycodone 10mg PO Q6h PRN - PDMP checked, and she only gets meds from him (6) DVT prophylaxis: SCDs due to bleeding Subjective 54yo F w/ hx of anxiety and depression who presents with abdominal pain and coffee ground emesis, found to have esophagitis. She is very tearful for me today. She reports she has a headache and continued abdominal pain, which has not been improved by the morphine. She requests Tylenol. She is very distraught, and requesting more pain management. Physical Exam Vital Signs (Past 24 Hours): Last Vital Signs Temp 36.8 C 01/26/19 14:20 Pulse 60 01/26/19 15:34 Resp 16 01/26/19 15:34 BP 145/80 H 01/26/19 15:34 Pulse Ox 94 01/26/19 15:34 Constitutional: + acute distress (pt is crying in bed, reporting CADENA and abd pain) and + behavioral limitations; + uncomfortable ENMT: Mouth: + dentition abnormality Mallampati Class: II Neck: normal visual inspection Respiratory: normal respiratory effort, lungs clear to auscultation normal respiratory effort Auscultation: lungs clear to auscultation bilaterally Cardiovascular: Rate/Rhythm: regular rate and regular rhythm Heart Sounds: no click, no murmur and no cardiac rub Gastrointestinal (Abdomen): Inspection/Auscultation: normal bowel sounds Percussion/Palpation: + abdomen tender and abdomen soft; no guarding, abdomen not rigid and no abdominal mass Skin: no rashes, warm and dry Psychiatric: Orientation: alert and oriented x 3 (1) Abdominal pain Abdominal location: unspecified location Qualified Code(s): R10.9 - Unspecified abdominal pain
[2019-01-26] MEDS ORDERED: ACETAMINOPHEN 325 MG TAB PO PRN (16:07)
[2019-01-26] MEDS ORDERED: LORazepam 0.5 MG/1 ML VIAL IV PRN (16:09)
[2019-01-26] MEDS: NICOTINE 21 MG/24 HR TDSY TD SCH (16:13)
--- NOTE | 2019-01-26 16:29 | Anesthesiology Progress Note ---
Date of Service January 26, 2019 Anesthesia Post Procedure Vital Signs Vital Signs: Temp Pulse Pulse Resp BP BP Pulse Ox 01/26/19 15:50 36.6 C 55 L 18 158/84 H 96 01/26/19 15:38 58 L 58 L 18 161/82 H 161/82 H 92 01/26/19 15:34 60 16 145/80 H 94 01/26/19 15:20 57 L 18 145/80 H 92 01/26/19 15:05 63 16 118/59 L 95 01/26/19 14:20 36.8 C 62 20 155/95 H 95 01/26/19 11:27 36.8 C 61 18 140/71 95 01/26/19 07:58 60 01/26/19 07:21 36.7 C 58 L 16 145/88 H 94 01/26/19 03:11 36.2 C L 78 24 176/98 H 96 01/26/19 02:33 78 20 155/98 H 95 01/26/19 00:36 74 18 163/103 H 95 01/25/19 23:00 70 18 128/90 94 01/25/19 21:05 36.7 C 104 H 20 170/100 H 93 Pain Intensity Left Abdomen: Pain Intensity: 7 Notes Mental Status: alert / awake / arousable and participated in evaluation Nausea / Vomiting: adequately controlled Pain: adequately controlled Airway Patency, RR, SpO2: stable & adequate BP & HR: stable & adequate Hydration State: stable & adequate Anesthetic Complications: no major complications apparent and Pt Satisfied with anesthetic care
[2019-01-26] MEDS ORDERED: LORazepam 1 MG/2 ML VIAL IV STA (18:21)
[2019-01-26] MEDS ORDERED: LORazepam 2 MG/ML VIAL (IM USE) IM PRN (18:21)
[2019-01-26] MEDS ORDERED: HALOPERIDOL LACTATE 5 MG/ML 1 ML VIAL IV PRN (18:21)
[2019-01-26] MEDS ORDERED: HALOPERIDOL LACTATE 5 MG/ML 1 ML VIAL IM PRN (18:23)
[2019-01-26] MEDS: OXYCODONE HCL IR 5 MG TAB (IMMEDIATE RELEASE) PO PRN (19:00)
[2019-01-26] MEDS ORDERED: TRAZODONE HCL 100 MG TAB PO SCH (21:00)
[2019-01-26] MEDS: POLYETHYLENE (MIRALAX) 17 GM PACK PO SCH (21:00)
[2019-01-26] MEDS: DOCUSATE SODIUM/SENNA 50/8.6MG TAB PO SCH (21:03)
[2019-01-26] MEDS ORDERED: TRAZODONE HCL 100 MG TAB PO ONE (22:17)
[2019-01-27] MEDS: MoRPHine SULFATE 4 MG/ML 1 ML CARP\\VIAL IV PRN ×4 (00:50→19:04)
[2019-01-27] MEDS: OXYCODONE HCL IR 5 MG TAB (IMMEDIATE RELEASE) PO PRN ×3 (01:56→21:37)
[2019-01-27] MEDS: LORazepam 1 MG/2 ML VIAL IV PRN ×2 (02:27→14:31)
[2019-01-27] MEDS: metroNIDAZOLE 500 MG/100 ML BAG IV SCH ×3 (04:11→20:18)
[2019-01-27] MEDS: SODIUM CHLORIDE 0.9% 1000ML 1,000 ML IV SCH ×2 (05:40→17:15)
[2019-01-27] MEDS: cefTRIAXone SODIUM 1,000 MG in DEXTROSE 5% 50 ML IV SCH (05:41)
[2019-01-27] MEDS: LEVOTHYROXINE SODIUM 125 MCG TABLET PO SCH (05:45)
[2019-01-27] MEDS: NICOTINE 21 MG/24 HR TDSY TD SCH (07:30)
[2019-01-27] MEDS: POLYETHYLENE (MIRALAX) 17 GM PACK PO SCH (07:30)
[2019-01-27] MEDS: BISACODYL 10 MG SUPP PR SCH (09:03)
[2019-01-27] MEDS: DOCUSATE SODIUM/SENNA 50/8.6MG TAB PO SCH ×2 (09:03→20:20)
[2019-01-27] MEDS: PANTOprazole 40 MG in SYRINGE 0 ML IV SCH ×2 (09:09→20:18)
[2019-01-27] MEDS: LACTULOSE SYRUP 20 GM/30 ML UDC PO SCH ×2 (13:13→20:18)
--- NOTE | 2019-01-27 13:42 | Hospitalist Progress Note ---
Date of Service January 27, 2019 Assessment & Plan (1) Hematochezia: Per patient, has been having bloody, mucus-y BMs for several weeks. RN noted small bloody BM on 01/26. CT a/p on 01/25 showed significant stool/constipation with possible mild diverticulitis in area. - Continue ceftriaxone & metronidazole - Pain management - Treat with lactulose to help constipation - Discussed on 01/27 with GI who feel constipation/diverticulitis can account for the bloody/mucus-y stools and to continue current therapy. May need outpatient colonscopy in a few weeks. (2) Esophagitis: Grade B esophagitis seen on EGD with Dr. Alonso on 01/26. - Recommend omeprazole 40mg PO BID x 2 months - No inpatient hematemesis or coffee-ground emesis (3) Abdominal pain: Likely combination of esophagitis and constipation with mild diverticulitis. - Plan as above (4) Depression: Has significant mental health issues with reports in the chart of depression, anxiety, and PTSD. In the evening on 01/26, she became very agitated and upset. She could not give me feedback on what we were treating or how or what the steps at home would be for her care. She was deemed incapable of making her own decisions and kept in the hospital. - Patient reported self-discontinuing her venlafaxine due to feeling it was causing her GERD symptoms. - Psychiatry consult - No need for 302. Will be able to discharge in the morning if she desires. - Encourage good outpatient follow up (5) Chronic back pain: Per patient has had quite a few back surgeries and has chronic back pain. - Follows with Itz Brice at [facility] in [place]: Uses carisoprodol 350mg PO Q8h & oxycodone 10mg PO Q6h PRN - PDMP checked, and she only gets meds from him (6) DVT prophylaxis: SCDs due to bleeding Subjective 54yo F w/ hx of anxiety and depression who presents with abdominal pain and coffee ground emesis, found to have esophagitis. She is less tearful for me today. She continues to ask to go home and reports continued abdominal pain, which has not been improved by the morphine. Reports no fevers/chills, chest pain, shortness of breath. Physical Exam Vital Signs (Past 24 Hours): Last Vital Signs Temp 36.6 C 01/26/19 22:36 Pulse 65 01/26/19 22:36 Resp 18 01/26/19 22:36 BP 138/69 01/26/19 22:36 Pulse Ox 94 01/26/19 22:36 Constitutional: + acute distress (Pt is very tearful and reports abd pain); + uncomfortable Neck: normal visual inspection Respiratory: normal respiratory effort, lungs clear to auscultation Cardiovascular: Rate/Rhythm: regular rate and regular rhythm Heart Sounds: no click, no murmur and no cardiac rub Gastrointestinal (Abdomen): Inspection/Auscultation: normal bowel sounds Percussion/Palpation: + abdomen tender and abdomen soft; no guarding, abdomen not rigid and no abdominal mass Skin: no rashes, warm and dry Psychiatric: Orientation: alert Apperance: + disheveled Eye Contact: + fair eye contact Motor Behavior: no abnormal motor movements Speech: + pressured speech Affect: + tearful affect and + elated affect Mood: + anxious mood (1) Abdominal pain Abdominal location: unspecified location Qualified Code(s): R10.9 - Unspecified abdominal pain
[2019-01-27] MEDS: CARISOPRODOL 350 MG TABLET PO PRN (14:30)
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
[2019-01-27] MEDS ORDERED: TRAZODONE HCL 100 MG TAB PO SCH (21:00)
[2019-01-28] MEDS: MoRPHine SULFATE 4 MG/ML 1 ML CARP\\VIAL IV PRN ×4 (01:41→13:51)
[2019-01-28] MEDS ORDERED: BISACODYL 10 MG SUPP PR PRN (01:48)
[2019-01-28] MEDS: ONDANSETRON INJ 2 MG/ML 2 ML VIAL IV PRN (01:52)
[2019-01-28] MEDS: LORazepam 1 MG/2 ML VIAL IV PRN ×2 (02:07→13:56)
[2019-01-28] MEDS: metroNIDAZOLE 500 MG/100 ML BAG IV SCH ×2 (03:38→12:30)
[2019-01-28] MEDS: SODIUM CHLORIDE 0.9% 1000ML 1,000 ML IV SCH (03:45)
[2019-01-28] MEDS: cefTRIAXone SODIUM 1,000 MG in DEXTROSE 5% 50 ML IV SCH (05:38)
[2019-01-28] MEDS ORDERED: LORazepam 1 MG/2 ML VIAL IV STA (05:56)
[2019-01-28] MEDS: LEVOTHYROXINE SODIUM 125 MCG TABLET PO SCH (06:28)
--- NOTE | 2019-01-28 08:05 | XRay Report ---
KUB HISTORY: Generalized abdominal pain, constipation COMPARISON: Abdomen and pelvis CT 01/25/2019. FINDINGS: The bowel gas pattern is unremarkable. There are no dilated loops of small bowel to suggest an obstruction. No renal calculi. No ureteral calculi. No pneumoperitoneum or pneumatosis. Prior ch olecystectomy. Moderate well-formed stool seen throughout the colon. A few nondilated gas-filled loop s of bowel are seen within the abdomen. This remains unchanged. Extensive spinal fusion hardware from T12 through S1. IMPRESSION: No evidence for bowel obstruction. Moderate well-formed stool seen throughout the colon. Electronically signed by: Vel Fulton M.D. 01/28/2019 8:04 AM
[2019-01-28 08:13] VITALS: PULSE 79; TEMP 97.7; O2SAT 94
[2019-01-28] MEDS: DOCUSATE SODIUM/SENNA 50/8.6MG TAB PO SCH (08:28)
[2019-01-28] MEDS: PANTOprazole 40 MG in SYRINGE 0 ML IV SCH (08:28)
[2019-01-28] MEDS: LACTULOSE SYRUP 20 GM/30 ML UDC PO SCH (08:29)
[2019-01-28] MEDS: POLYETHYLENE (MIRALAX) 17 GM PACK PO SCH (08:29)
[2019-01-28] MEDS: NICOTINE 21 MG/24 HR TDSY TD SCH (08:29)
[2019-01-28 10:28] LABS: Hemoglobin 13.5 g/dL (12.0-16.0); Mean Corpuscular Hgb Conc 32.9 g/dL (32-36); Mean Corpuscular Volume 89.1 fL (80-100); Platelet Count 197 K/uL (130-400); RDW Coefficient of Variation 16.2 % (11.5-14.5); RDW Standard Deviation 52.9 fL (36.4-46.3); White Blood Count 7.15 K/uL (4.8-10.8)
[2019-01-28] MEDS: CARISOPRODOL 350 MG TABLET PO PRN (12:30)
[2019-01-28] MEDS: OXYCODONE HCL IR 5 MG TAB (IMMEDIATE RELEASE) PO PRN (12:31)
--- NOTE | 2019-01-28 13:30 | Hospitalist Progress Note ---
Date of Service January 28, 2019 Assessment & Plan (1) Diverticulitis: CT a/p on 01/25 showed significant stool/constipation with possible mild diverticulitis in area. Discussed with GI who feel that this could also represent mucosal lining irritation from the constipation/stool. - Discussed on 01/27 with GI who feel constipation/diverticulitis can account for the bloody/mucus-y stools and to continue current therapy. May need outpatient colonscopy in a few weeks. - Continue ceftriaxone & metronidazole - Pain management - Treat with lactulose to help constipation (increased to TID on 01/28 for continued constipation) - As of 01/28, still just mucus-y stool without significant fecal matter (2) Hematochezia: Per patient, has been having bloody, mucus-y BMs for several weeks. RN noted small bloody BM on 01/26 & 01/27. - Plan as above (3) Abdominal pain: Likely combination of esophagitis and constipation with mild diverticulitis. - Plan as above (4) Esophagitis: Grade B esophagitis seen on EGD with Dr. Alonso on 01/26. - Recommend omeprazole 40mg PO BID x 2 months - No inpatient hematemesis or coffee-ground emesis (5) Depression: Has significant mental health issues with reports in the chart of depression, anxiety, and PTSD. In the evening on 01/26, she became very agitated and upset. She could not give me feedback on what we were treating or how or what the steps at home would be for her care. She was deemed incapable of making her own decisions and kept in the hospital. - Patient reported self-discontinuing all her psychiatric medications; per psych liaison, do not continue on discharge. - Psychiatry consult - No need for 302. - Patient now clear for discharge at her discretion. Can leave AMA if she desires. (6) Chronic back pain: Per patient has had quite a few back surgeries and has chronic back pain. - Follows with Itz Brice at [facility] in [place]: Uses carisoprodol 350mg PO Q8h & oxycodone 10mg PO Q6h PRN - PDMP checked, and she only gets meds from him (7) DVT prophylaxis: SCDs due to bleeding Subjective 54yo F w/ hx of anxiety and depression who presents with abdominal pain and coffee ground emesis, found to have esophagitis. She is still tearful for me today. She continues to have abdominal pain; however, she is sleeping when I first arrive. Reports no fevers/chills, chest pain, shortness of breath. Physical Exam Vital Signs (Past 24 Hours): Last Vital Signs Temp 36.5 C 01/28/19 08:12 Pulse 79 01/28/19 08:12 Resp 18 01/28/19 08:12 BP 131/79 01/28/19 08:12 Pulse Ox 94 01/28/19 08:12 Constitutional: + acute distress (Pt is very tearful and reports abd pain); + uncomfortable Neck: normal visual inspection Respiratory: normal respiratory effort, lungs clear to auscultation Auscultation: lungs clear to auscultation bilaterally Cardiovascular: Rate/Rhythm: regular rate and regular rhythm Heart Sounds: no click, no murmur and no cardiac rub Gastrointestinal (Abdomen): Inspection/Auscultation: normal bowel sounds Percussion/Palpation: + abdomen tender and abdomen soft; no guarding, abdomen not rigid and no abdominal mass Skin: no rashes, warm and dry Psychiatric: Orientation: alert Apperance: + disheveled Affect: + tearful affect Mood: + anxious mood (1) Abdominal pain Abdominal location: unspecified location Qualified Code(s): R10.9 - Unspecified abdominal pain
[2019-01-28] MEDS ORDERED: LACTULOSE SYRUP 30 GM/45 ML UDP PO SCH (14:00)
[2019-01-28 16:40] VITALS: BP 138/77
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
== END 2019-01-28 17:25 | disposition home or self-care (01) | DRG 392 ==
LOC: 2N 20:58 → ED 20:58 → SUATTDRO 01-26 01:58 → 2N 01-26 02:52

== ENCOUNTER 2019-04-01 11:14 | Inpatient (IN) ==
[2019-04-01] MEDS ORDERED: ONDANSETRON INJ 2 MG/ML 2 ML VIAL IV STA (11:27)
[2019-04-01] MEDS ORDERED: HYDROmorphone INJ 0.5 MG/0.5 ML SYR IV STA ×3 (11:27→15:04)
[2019-04-01] MEDS ORDERED: SODIUM CHLORIDE 0.9% 1000ML 1,000 ML IV SCH (11:30)
[2019-04-01 11:43] LABS: Basophils # (auto) 0.03 K/uL (0-0.2); Basophils % (auto) 0.2 %; Eosinophils # (auto) 0.06 K/uL (0-0.5); Eosinophils % (auto) 0.4 %; Hematocrit (blood only) 46.2 % (37-47); Hemoglobin 16.7 g/dL (12.0-16.0); Immature Granulocytes # (auto) 0.05 K/uL (0.00-0.02); Immature Granulocytes % (auto) 0.3 %; Lymphocytes # (auto) 1.39 K/uL (1.2-3.4); Lymphocytes % (auto) 9.1 %; Mean Corpuscular Hgb Conc 36.1 g/dL (32-36); Mean Platelet Volume 10.9 fL (7.4-10.4); Monocytes # (auto) 0.75 K/uL (0.11-0.59); Monocytes % (auto) 4.9 %; Neutrophils # (auto) 12.95 K/uL (1.4-6.5); Neutrophils % (auto) 85.1 %; Platelet Count 203 K/uL (130-400); RDW Coefficient of Variation 14.3 % (11.5-14.5); RDW Standard Deviation 46.3 fL (36.4-46.3); Red Blood Count 5.25 M/uL (4.2-5.4); White Blood Count 15.23 K/uL (4.8-10.8)
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
[2019-04-01 12:18] LABS: C Reactive Protein 1.02 mg/dl (0-0.29); Magnesium 1.7 mg/dl (1.8-2.4)
--- NOTE | 2019-04-01 12:27 | XRay Report ---
XR abdomen 2V w PA chest CLINICAL HISTORY: LLQ abd pain radiating to left ribs COMPARISON STUDY: No previous studies for comparison. FINDINGS: The soft tissues, psoas shadows, renal outlines and intestinal gas pattern appear normal. T here is no evidence for bowel obstruction. There is no evidence for free intraperitoneal air. No abno rmal abdominal calcifications are seen. A frontal view of the chest was performed and is unremarkable . Increased fecal load noted throughout the colon IMPRESSION: 1. Negative chest. 2. Increased fecal load throughout the colon consistent with fecal stasis. The above report was generated using voice recognition software. It may contain grammatical, syntax or spelling errors. Electronically signed by: Raymond Verde M.D. 04/01/2019 12:26 PM
[2019-04-01] MEDS ORDERED: PIPERACILLIN/TAZOBACTAM 4.5 GM/120 ML BAG IV ONE (13:12)
[2019-04-01] MEDS ORDERED: KETOROLAC 30 MG/ML VIAL IV STA (13:12)
[2019-04-01] MEDS ORDERED: PIPERACILL/TAZOBAC CONSULT ACTIVE PRN (13:12)
[2019-04-01] MEDS ORDERED: metroNIDAZOLE 500 MG/100 ML BAG IV STA (13:17)
[2019-04-01] MEDS ORDERED: CIPROFLOXACIN 400 MG/200 ML BAG IV STA (13:17)
[2019-04-01 13:43] LABS: Albumin Globulin Ratio 0.9 (0.9-2); Albumin Level 2.5 gm/dl (3.4-5.0); BUN Creatinine Ratio 10.3 (10-20); Bilirubin,Total 0.3 mg/dl (0.2-1); Calcium 6.3 mg/dl (8.5-10.1); Creatinine Clr Calc Pharmacy 124.7 ml/min; Est GFR (African American) 123.2; Est GFR (Non-African American) 106.3; Globulin 2.8 gm/dl (2.5-4.0); Total Protein 5.3 gm/dl (6.4-8.2)
[2019-04-01] MEDS ORDERED: IOVERSOL 100ml IV PRN (14:28)
--- NOTE | 2019-04-01 14:53 | CT Scan Report ---
CT abd pelvis IV con only CT DOSE: 720.86 mGy.cm HISTORY: Pain Worsening abd pain TECHNIQUE: Multiaxial CT images of the abdomen and pelvis were performed following the use of intrave nous contrast. A dose lowering technique was utilized adhering to the principles of ALARA. COMPARISON STUDY: 03/31/2019. FINDINGS: lung bases remain generally clear. Mild biliary ductal prominence remains unchanged. There has been a prior cholecystectomy. Kidneys enhance uniformly. Persistent increase in colonic fecal load. Persistent diffuse small bowel enteritis. Findings a moderately progressive sigmoid diverticulitis. Moderate wall thickening of the sigmoid, so mewhat increased pericolonic infiltrative change. No evidence for abscess collection or true obstruct kendy change at this time. Stable postoperative changes involving the lumbar spine consistent with exte nsive laminectomy and fusion. IMPRESSION: 1. Acute sigmoid diverticulitis. Progressive from the prior study. 2. Persistent small bowel enteritis possibly on a secondary basis. 3. Increased colonic fecal load consistent with fecal stasis unchanged. 4. No evidence for abscess or collection at this time. The above report was generated using voice recognition software. It may contain grammatical, syntax or spelling errors. Electronically signed by: Raymond Verde M.D. 04/01/2019 2:52 PM
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
[2019-04-01] MEDS ORDERED: ACETAMINOPHEN 325 MG TAB PO PRN (15:52)
[2019-04-01] MEDS: HYDROmorphone INJ 0.5 MG/0.5 ML SYR IV PRN ×2 (17:20→21:36)
[2019-04-01] MEDS: SODIUM CHLORIDE 0.9% 1000ML 1,000 ML IV SCH (17:43)
[2019-04-01 18:52] LABS: Partial Thromboplastin Ratio 0.9; Partial Thromboplastin Time 25.3 Seconds (21.0-31.0); Prothrombin Time 10.2 Seconds (9.0-12.0)
[2019-04-01] MEDS: KETOROLAC 30 MG/ML VIAL IV PRN (19:43)
[2019-04-01] MEDS: POTASSIUM CHLORIDE / WTR 10 MEQ/100 ML PLCT IV SCH ×4 (19:44→23:59)
[2019-04-01] MEDS: TRAZODONE HCL 100 MG TAB PO SCH (20:48)
[2019-04-01] MEDS: GABAPENTIN 100 MG CAP PO SCH (20:48)
[2019-04-01] MEDS: CARISOPRODOL 350 MG TABLET PO SCH (20:55)
[2019-04-01] MEDS: metroNIDAZOLE 500 MG/100 ML BAG IV SCH (22:00)
[2019-04-01] MEDS ORDERED: PRAMIPEXOLE DIHYDROCHLO 0.5 MG TAB PO STA (23:05)
[2019-04-02] MEDS: OXYCODONE HCL IR 5 MG TAB (IMMEDIATE RELEASE) PO PRN (00:02)
[2019-04-02] MEDS: ONDANSETRON INJ 2 MG/ML 2 ML VIAL IV PRN ×3 (00:03→09:21)
[2019-04-02 00:33] LABS: Appearance Urine Clear (Clear); Bilirubin Urine Negative (Negative); Blood Urine Negative (Negative); Color Urine Yellow; Glucose Urine UA Negative (Negative); Ketones Urine Negative (Negative); Leukocyte Esterase Urine Negative (Negative); Nitrite Urine Negative (Negative); Protein Urine Negative (Negative); Specific Gravity Urine 1.018 (1.000-1.030); Urobilinogen Urine Negative (Negative)
[2019-04-02] MEDS: CIPROFLOXACIN 400 MG/200 ML BAG IV SCH ×2 (01:50→13:15)
[2019-04-02] MEDS: POTASSIUM CHLORIDE / WTR 10 MEQ/100 ML PLCT IV SCH ×2 (01:50→04:25)
[2019-04-02] MEDS: SODIUM CHLORIDE 0.9% 1000ML 1,000 ML IV SCH ×2 (03:52→15:10)
[2019-04-02] MEDS: LEVOTHYROXINE SODIUM 125 MCG TABLET PO SCH (05:09)
[2019-04-02] MEDS: metroNIDAZOLE 500 MG/100 ML BAG IV SCH ×3 (05:09→22:11)
[2019-04-02] MEDS: HYDROmorphone INJ 0.5 MG/0.5 ML SYR IV PRN (05:09)
--- NOTE | 2019-04-02 06:59 | Family Medicine Progress Note ---
Date of Service April 02, 2019 Assessment & Plan (1) Abdominal pain: 54-year-old female with PMH of chronic back pain on daily opiates (50 MME/day), PTSD, anxiety, and depression (noncompliant with psych meds historically), admitted medically due to intractable abdominal pain and worsening constipation with diverticulitis. Significant surgical history including appendectomy, total hysterectomy, cholecystectomy, colon resection. #Abdominal pain in setting of known Grade B Esophagitis, Diverticulitis and constipation -Multifactorial -2/2 prolonged constipation (no stools in last 5 days) -- likely from chronic opioid use. -bowel regimen: Senokot daily, miralax 2caps BID, and fluid hydration increased to maint 1.5. -esophagitis, Grade B esophagitis seen on EGD with Dr. Alonso on 01/26 and small bowel enteritis -continue daily acid reducing medications Protonix PO daily -- did have emesis prior to admission, nausea control with zofran - increase to 8mg q4h. Phenergan has worked well in the past as well, can consider switching to this instead if increased zofran dosing not effective. -Gastroenterology consulted, appreciate assistance. -General surgery consulted, appreciate assistance. -acute sigmoid diverticulitis, progressive, with h/o diverticulosis on last colonoscopy 03May -IV ciprofloxacin and flagyl -clears -Toradol and Dilaudid as needed, Zofran --EKG obtained shows normal QT. #Chronic narcotic use -states she takes 30mg oxycodone daily = 50 MME/day -PDMP checked, and pt receives only from her pain mgmt Dr. Villagran -increase dilaudid to 1mg q4h with good effect -treat constipation with bowel regimen as above #Hypokalemia -2/2 GI losses and emesis and poor PO -repleted with 6 bags of 10meq overnight -change fluids 26May to NSS + 20meq K -follow daily BMP FEN/GI: NSS with 20meq 180ml/hr x 2 days DVT ppx: Lovenox 40 qam CODE STATUS: DNR DISPO: med/surg Other ongoing medical problems: Chronic back pain s/p spinal fusion -follows outpatient pain mgmt Dr. Villagran -continue oxycodone 10mg TID PRN -continue carisoprodol muscle relaxant, gabapentin 200 mg 3 times daily Psychiatric issues -h/o PTSD, anxiety and depression - see Psych consultation from January of this year, denied SI and able to contract for safety. Close follow up with her psychiatrist was strongly recommended -continue daily prozac, trazodone Hypothyroidism -Continue Synthroid 125 mcg daily Restless leg -Continue Mirapex (2) Obesity (BMI 30.0-34.9): (3) Hypokalemia: (4) DVT prophylaxis: (5) Constipation: (6) Hypothyroidism: (7) Hyperlipidemia: (8) History of bowel resection: (9) Diabetes: (10) History of pancreatitis: (11) Nausea & vomiting: (12) Chronic back pain: (13) Anxiety: (14) Depression: (15) PTSD (post-traumatic stress disorder): (16) Esophagitis: (17) Diverticulitis: Supervising Physician Co-Signing Physician Notes Patient seen and examined with Dr. Shahid. Agree with history, exam findings, assessment and plan of care as outlined In brief, Ms. Callahan is a 5 year old female with hx of DM, hypothyroid, depression/anxiety, obesity and s/p bowel resection for bowel obstruction, chronic pain on oxy admitted with diverticulitis. She is tearful and reporting generalized abdominal pain and bloating. On exam, she appears uncomfortable but nontoxic. Has generalized abd tenderness. 1. diverticulitis. CT with sigmoid diverticulitis. Continue IV cipro and flagyl. Leukocytosis trending down. Clears. NS + KCl at 180/hr. pain control with toradol, 1mg IV dilaudid, home oxy. Zofran for nausea. If not effective, has had phenergan in the past with good results. GI and gen surg consulted. 2. constipation. No bowel movement in the last 5 days, not on a bowel regiment with her chronic opioids. Doc-senna + 2 capfuls of Miralax BID. If not effective, can try lactulose or even a partial bowel prep. At discharge, will need to be sent with a bowel regimen given her chronic opioid use. 3. ?hernia. Resident spoke with gen surg. [place] there may be a hernia that was not easily reducible. Will be checking CT to confirm. If there is a hernia, she will need a bowel prep prior to surgical intervention. 4. depression/anxiety. continue home prozac and trazodone. Subjective Seen and examined at the bedside this morning. Patient was lying on her left side sleeping. Soon after arousing her she did become tearful. Complaining of abdominal pain and nausea. Endorsed 5 days of constipation. Antibiotics running. Review of Systems Review of Systems: All systems reviewed & are unremarkable except as noted in HPI & below Physical Exam Physical Exam: Vitals noted as above and within normal limits with the exception of hypertension. GENERAL: Awake, alert to person, place, and time, nontoxic-appearing, in mild distress HENT: Normocephalic, atraumatic. . Mucus membranes appear moist. EYES: Normal conjunctiva. Sclera non-icteric. EOMI. NECK: Supple. Full range of motion. RESPIRATORY: Clear to auscultation. Normal work of breathing. CARDIAC: Regular rate, normal rhythm. Extremities warm and well perfused, 2+ radial pulses bilaterally; 2+ posterior tibialis pulses bilaterally. ABDOMEN: Soft, slightly distended. Moderate tenderness to palpation in all four quadrants. No rebound or guarding. No masses. Bowel sounds are normal. NEURO: No focal gross focal motor deficits noted. Sensation in tact. CN II-XII grossly in tact. SKIN: Rash not present. No jaundice noted. Significant lesions not present. PSYCH: Appropriate mood and affect. Cooperative. Tearful. Exam as done by Nancy Shahid MD, [employer]. Results & Data Vital Signs (Past 12 Hours) Vital Signs Temp Pulse Resp BP Pulse Ox 04/01/19 23:15 37.3 C 69 16 96/56 L 93 Laboratory Results 04/02/19 04/02/19 04/02/19 Range/Units 06:47 06:47 00:15 WBC 9.61 (4.8-10.8) K/uL RBC 3.99 L (4.2-5.4) M/uL Hgb 12.1 D (12.0-16.0) g/dL Hct 36.3 L (37-47) % MCV 91.0 (80-100) fL MCH 30.3 (25-34) pg MCHC 33.3 (32-36) g/dL RDW Std Deviation 48.1 H (36.4-46.3) fL RDW Coeff of Xavi 14.4 (11.5-14.5) % Plt Count 154 (130-400) K/uL MPV 10.9 H (7.4-10.4) fL PT (9.0-12.0) Seconds INR (0.9-1.1) APTT (21.0-31.0) Seconds PTT Ratio Sodium 138 (136-145) mmol/L Potassium 4.2 D (3.5-5.1) mmol/L Chloride 108 H (98-107) mmol/L Carbon Dioxide 24 (21-32) mmol/L Anion Gap 7.0 (3-11) BUN 5 L (7-18) mg/dl Creatinine 0.58 L (0.6-1.2) mg/dl Est Cr Clr Drug Dosing 120.2 ml/min Est GFR ( Amer) 121.1 Est GFR (Non-Af Amer) 104.5 BUN/Creatinine Ratio 8.8 L (10-20) Glucose 133 H (70-99) mg/dl Calcium 7.9 L D (8.5-10.1) mg/dl Total Bilirubin 0.5 (0.2-1) mg/dl AST 16 (15-37) U/L ALT 31 (12-78) U/L Alkaline Phosphatase 86 (45-117) U/L Total Protein 6.0 L (6.4-8.2) gm/dl Albumin 2.7 L (3.4-5.0) gm/dl Globulin 3.3 (2.5-4.0) gm/dl Albumin/Globulin Ratio 0.8 L (0.9-2) Urine Color Yellow Urine Appearance Clear (Clear) Urine pH 5.0 (4.5-7.5) Ur Specific [place] 1.018 (1.000-1.030) Urine Protein Negative (Negative) Urine Glucose (UA) Negative (Negative) Urine Ketones Negative (Negative) Urine Blood Negative (Negative) Urine Nitrite Negative (Negative) Urine Bilirubin Negative (Negative) Urine Urobilinogen Negative (Negative) Ur Leukocyte Esterase Negative (Negative) POC Ur Test 04/02/19 04/01/19 Range/Units 00:15 18:33 WBC (4.8-10.8) K/uL RBC (4.2-5.4) M/uL Hgb (12.0-16.0) g/dL Hct (37-47) % MCV (80-100) fL MCH (25-34) pg MCHC (32-36) g/dL RDW Std Deviation (36.4-46.3) fL RDW Coeff of Xavi (11.5-14.5) % Plt Count (130-400) K/uL MPV (7.4-10.4) fL PT 10.2 (9.0-12.0) Seconds INR 1.0 (0.9-1.1) APTT 25.3 (21.0-31.0) Seconds PTT Ratio 0.9 Sodium (136-145) mmol/L Potassium (3.5-5.1) mmol/L Chloride (98-107) mmol/L Carbon Dioxide (21-32) mmol/L Anion Gap (3-11) BUN (7-18) mg/dl Creatinine (0.6-1.2) mg/dl Est Cr Clr Drug Dosing ml/min Est GFR ( Amer) Est GFR (Non-Af Amer) BUN/Creatinine Ratio (10-20) Glucose (70-99) mg/dl Calcium (8.5-10.1) mg/dl Total Bilirubin (0.2-1) mg/dl AST (15-37) U/L ALT (12-78) U/L Alkaline Phosphatase (45-117) U/L Total Protein (6.4-8.2) gm/dl Albumin (3.4-5.0) gm/dl Globulin (2.5-4.0) gm/dl Albumin/Globulin Ratio (0.9-2) Urine Color Urine Appearance (Clear) Urine pH (4.5-7.5) Ur Specific [place] (1.000-1.030) Urine Protein (Negative) Urine Glucose (UA) (Negative) Urine Ketones (Negative) Urine Blood (Negative) Urine Nitrite (Negative) Urine Bilirubin (Negative) Urine Urobilinogen (Negative) Ur Leukocyte Esterase (Negative) POC Ur Test Pending Medications Administered Current Inpatient Medications Acetaminophen (Tylenol) 650 mg PO Q4H PRN PRN Reason: Moderate Pain Stop: 05/01/19 15:51 Carisoprodol (Soma) 350 mg PO TID MADELYN Stop: 05/01/19 20:59 Last Admin: 04/02/19 13:24 Dose: 350 mg Documented by: Enoxaparin Sodium (Lovenox) 40 mg SQ QAM ON LICENSE OF [facility] Stop: 05/02/19 08:59 Last Admin: 04/02/19 08:59 Dose: 40 mg Documented by: Fluoxetine HCl (Prozac) 20 mg PO DAILY ON LICENSE OF [facility] Stop: 05/02/19 08:59 Last Admin: 04/02/19 10:19 Dose: 20 mg Documented by: Gabapentin (Neurontin) 200 mg PO TID ON LICENSE OF [facility] Stop: 05/01/19 20:59 Last Admin: 04/02/19 13:24 Dose: 200 mg Documented by: Hydromorphone HCl (Dilaudid) 1 mg IV Q4H PRN PRN Reason: Pain Stop: 04/15/19 15:51 Last Admin: 04/02/19 15:25 Dose: 1 mg Documented by: Ciprofloxacin (Cipro) 400 mg in 200 mls @ 100 mls/hr IV Q12H ON LICENSE OF [facility] Stop: 04/12/19 01:59 Last Infusion: 04/02/19 15:30 Dose: Infused Documented by: Metronidazole (Flagyl) 500 mg in 100 mls @ 100 mls/hr IV Q8H ON LICENSE OF [facility] Stop: 04/11/19 21:59 Last Infusion: 04/02/19 14:22 Dose: Infused Documented by: Potassium Chloride/Sodium Chloride (Normal Saline W/20 Meq Kcl) 20 meq in 1,000 mls @ 180 mls/hr IV .Q5H34M ON LICENSE OF [facility] Stop: 04/04/19 10:14 Last Admin: 04/02/19 15:04 Dose: 180 mls/hr Documented by: Ondansetron HCl 8 mg/ Dextrose 54 mls @ 216 mls/hr IV Q4H PRN PRN Reason: Nausea And Vomiting Stop: 05/02/19 10:46 Acetaminophen (Ofirmev) 65 mls @ 200 mls/hr IV Q8H ON LICENSE OF [facility] Stop: 05/02/19 15:59 Last Admin: 04/02/19 16:49 Dose: 200 mls/hr Documented by: Ketorolac Tromethamine (Toradol) 30 mg IV Q6H PRN PRN Reason: Pain Stop: 04/06/19 15:51 Last Admin: 04/02/19 09:20 Dose: 30 mg Documented by: [facility]: 05/02/19 06:29 Last Admin: 04/02/19 05:09 Dose: 125 mcg Documented by: Oxycodone HCl (Roxicodone Immediate Rel) 10 mg PO Q4H PRN PRN Reason: Pain Stop: 04/15/19 16:51 Last Admin: 04/02/19 00:02 Dose: 10 mg Documented by: Pantoprazole Sodium (Protonix) 40 mg PO QAM ON LICENSE OF [facility] Stop: 05/02/19 10:44 Last Admin: 04/02/19 11:45 Dose: 40 mg Documented by: Polyethylene Glycol (Miralax Powder Packet) 34 gm PO BID ON LICENSE OF [facility] Stop: 04/05/19 10:14 Last Admin: 04/02/19 10:35 Dose: 34 gm Documented by: Pramipexole Dihydrochloride (Mirapex) 1 mg PO [facility] Stop: 05/02/19 20:59 Senna/Docusate Sodium (Senokot S) 1 tab PO [facility] Stop: 05/02/19 10:14 Last Admin: 04/02/19 10:34 Dose: 1 tab Documented by: Trazodone HCl (Desyrel) 300 mg PO [facility] Stop: 05/01/19 20:59 Last Admin: 04/01/19 20:48 Dose: 300 mg Documented by: Resident Activity Tracking Resident Involvement: Resident Care Provided Care Provided: Adult Hospital Medicine (1) Abdominal pain Abdominal location: left lower quadrant Qualified Code(s): R10.32 - Left lower quadrant pain (2) Constipation Constipation type: unspecified constipation type Qualified Code(s): K59.00 - Constipation, unspecified
[2019-04-02 07:10] LABS: Hematocrit (blood only) 36.3 % (37-47); Hemoglobin 12.1 g/dL (12.0-16.0); Mean Corpuscular Hgb Conc 33.3 g/dL (32-36); Mean Platelet Volume 10.9 fL (7.4-10.4); Platelet Count 154 K/uL (130-400); RDW Coefficient of Variation 14.4 % (11.5-14.5); RDW Standard Deviation 48.1 fL (36.4-46.3); Red Blood Count 3.99 M/uL (4.2-5.4); White Blood Count 9.61 K/uL (4.8-10.8)
[2019-04-02 07:42] LABS: Albumin Level 2.7 gm/dl (3.4-5.0); BUN Creatinine Ratio 8.8 (10-20); Calcium 7.9 mg/dl (8.5-10.1); Creatinine Clr Calc Pharmacy 120.2 ml/min; Est GFR (African American) 121.1; Est GFR (Non-African American) 104.5; Potassium 4.2 mmol/L (3.5-5.1)
[2019-04-02 07:45] LABS: Albumin Globulin Ratio 0.8 (0.9-2); Bilirubin,Total 0.5 mg/dl (0.2-1); Globulin 3.3 gm/dl (2.5-4.0)
[2019-04-02] MEDS: ENOXAPARIN INJ 40 MG/0.4 ML SYR SQ SCH (08:59)
[2019-04-02] MEDS: KETOROLAC 30 MG/ML VIAL IV PRN ×2 (09:20→18:53)
[2019-04-02] MEDS ORDERED: ONDANSETRON INJ 2 MG/ML 2 ML VIAL IV STA (10:03)
[2019-04-02] MEDS: CARISOPRODOL 350 MG TABLET PO SCH ×3 (10:19→21:05)
[2019-04-02] MEDS: FLUOXETINE HCL 20 MG CAP PO SCH (10:19)
[2019-04-02] MEDS: GABAPENTIN 100 MG CAP PO SCH ×3 (10:20→21:04)
[2019-04-02] MEDS ORDERED: FLUCONAZOLE 50 MG TAB PO ONE (10:30)
[2019-04-02] MEDS: DOCUSATE SODIUM/SENNA 50/8.6MG TAB PO SCH (10:34)
[2019-04-02] MEDS: HYDROmorphone INJ 1 MG/ML SYRINGE IV PRN ×3 (10:35→21:14)
[2019-04-02] MEDS: POLYETHYLENE (MIRALAX) 17 GM PACK PO SCH ×2 (10:35→21:05)
[2019-04-02] MEDS ORDERED: ONDANSETRON INJ 2 MG/ML 2 ML VIAL IV PRN (10:37)
[2019-04-02] MEDS: PANTOprazole 40 MG TAB PO SCH (11:45)
[2019-04-02] MEDS: NSS + 20MEQ KCL 20 MEQ/1,000 ML BAG IV SCH ×3 (15:04→21:13)
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
[2019-04-02] MEDS: ACETAMINOPHEN 65 ML IV SCH ×2 (16:49→23:39)
[2019-04-02] MEDS: ONDANSETRON HCL 8 MG in DEXTROSE 5% 50 ML IV PRN (17:49)
[2019-04-02] MEDS: TRAZODONE HCL 100 MG TAB PO SCH (21:04)
[2019-04-02] MEDS: PRAMIPEXOLE DIHYDROCHLO 0.5 MG TAB PO SCH (21:04)
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
--- NOTE | 2019-04-02 22:57 | Ultrasound Report ---
US abdomen ltd hernia CLINICAL HISTORY: r/o left ing incarcerated hernia. Left lower quadrant pain. COMPARISON STUDY: Abdomen and pelvis CT 04/01/2019. FINDINGS: Real-time sonographic imaging of the left lower quadrant was performed with product support sales representative images submitted. No hernia, fluid collections, or masses identified within the left lower quadrant a bdominal wall. IMPRESSION: No sonographic abnormality within the left lower quadrant abdominal wall. Electronically signed by: Vel Fulton M.D. 04/02/2019 10:56 PM
[2019-04-03] MEDS: HYDROmorphone INJ 1 MG/ML SYRINGE IV PRN ×5 (01:44→21:03)
[2019-04-03] MEDS: CIPROFLOXACIN 400 MG/200 ML BAG IV SCH ×2 (01:45→13:55)
[2019-04-03] MEDS: NSS + 20MEQ KCL 20 MEQ/1,000 ML BAG IV SCH ×3 (05:13→15:45)
[2019-04-03] MEDS: metroNIDAZOLE 500 MG/100 ML BAG IV SCH ×3 (05:14→22:06)
[2019-04-03] MEDS: LEVOTHYROXINE SODIUM 125 MCG TABLET PO SCH (05:14)
[2019-04-03 06:08] LABS: Hematocrit (blood only) 34.6 % (37-47); Hemoglobin 11.9 g/dL (12.0-16.0); Mean Corpuscular Hgb Conc 34.4 g/dL (32-36); Mean Corpuscular Volume 90.1 fL (80-100); Mean Platelet Volume 11.3 fL (7.4-10.4); Platelet Count 133 K/uL (130-400); RDW Coefficient of Variation 14.4 % (11.5-14.5); RDW Standard Deviation 47.5 fL (36.4-46.3); Red Blood Count 3.84 M/uL (4.2-5.4); White Blood Count 5.38 K/uL (4.8-10.8)
[2019-04-03 06:41] LABS: Albumin Globulin Ratio 0.8 (0.9-2); Albumin Level 2.7 gm/dl (3.4-5.0); BUN Creatinine Ratio 5.7 (10-20); Bilirubin,Total 0.2 mg/dl (0.2-1); Calcium 7.7 mg/dl (8.5-10.1); Creatinine Clr Calc Pharmacy 120.2 ml/min; Est GFR (African American) 121.1; Est GFR (Non-African American) 104.5; Globulin 3.2 gm/dl (2.5-4.0); Potassium 4.2 mmol/L (3.5-5.1); Total Protein 5.9 gm/dl (6.4-8.2)
--- NOTE | 2019-04-03 08:39 | Surgery Progress Note ---
Date of Service April 03, 2019 Assessment & Plan (1) Diverticulitis: LLQ U/S negative for mass/hernia WBC remains normal will give enema keep on clears seen with Dr. Beauchamp Subjective not feeling well, not passing flatus today Physical Exam Gastrointestinal (Abdomen): Inspection/Auscultation: abdomen not distended Percussion/Palpation: + abdomen tender (LLQ ) and abdomen soft Results & Data Vital Signs (Past 12 Hours) Vital Signs Temp Pulse Resp BP BP Pulse Ox 04/03/19 07:36 36.7 C 51 L 18 133/89 94 04/02/19 22:40 36.6 C 57 L 18 151/82 H 97
[2019-04-03] MEDS ORDERED: SOD PHOSPHATE/SOD BIPHOSPHATE ENEMA 132 ML BTL PR ONE (08:45)
[2019-04-03] MEDS: OXYCODONE HCL IR 5 MG TAB (IMMEDIATE RELEASE) PO PRN (08:50)
[2019-04-03] MEDS: POLYETHYLENE (MIRALAX) 17 GM PACK PO SCH (08:51)
[2019-04-03] MEDS: ENOXAPARIN INJ 40 MG/0.4 ML SYR SQ SCH (08:51)
[2019-04-03] MEDS: FLUOXETINE HCL 20 MG CAP PO SCH (08:52)
[2019-04-03] MEDS: GABAPENTIN 100 MG CAP PO SCH ×3 (08:52→21:08)
[2019-04-03] MEDS: PANTOprazole 40 MG TAB PO SCH (08:52)
[2019-04-03] MEDS: DOCUSATE SODIUM/SENNA 50/8.6MG TAB PO SCH (08:52)
[2019-04-03] MEDS: ONDANSETRON HCL 8 MG in DEXTROSE 5% 50 ML IV PRN (08:58)
[2019-04-03] MEDS: ACETAMINOPHEN 65 ML IV SCH ×2 (08:59→15:41)
[2019-04-03] MEDS: CARISOPRODOL 350 MG TABLET PO SCH ×3 (10:07→21:14)
[2019-04-03] MEDS ORDERED: POLYETHYLENE (MIRALAX) 17 GM PACK PO SCH (12:15)
--- NOTE | 2019-04-03 15:17 | Progress Note ---
DATE: 04/03/2019 GASTROENTEROLOGY PROGRESS NOTE AND CROSS COVERAGE FOR [facility] GI SUBJECTIVE: I had the pleasure of seeing Alfreda Callahan at her bedside today. She continues to complain of feelings of constipation as well as diffuse abdominal pain which she describes as 4/10 in intensity, mainly in the left lower quadrant throughout. She describes it as a chronic ache and has not been alleviated with narcotic analgesics or conservative measures to attempt to get the patient have a bowel movement including multiple doses of MiraLax. She states that she still has not moved her bowels. She denies any nausea, vomiting, hematemesis, melena or hematochezia and denies any further complaints. PHYSICAL EXAMINATION: VITAL SIGNS: Temp 36.7, pulse 51, respirations 18, blood pressure 133/89, pulse ox 94% on room air. GENERAL: She is awake, cooperative, in no acute distress. CHEST: Clear to auscultation bilaterally. CARDIOVASCULAR SYSTEM: Regular rate and rhythm. ABDOMEN: Soft, tender throughout. Nondistended. There are positive bowel sounds. EXTREMITIES: No clubbing, cyanosis, or edema. LABORATORY STUDIES: From today include a white blood cell count of 5.38, hemoglobin 11.9, hematocrit 34.6 and a platelet count of 133. Her liver panel was unremarkable. IMPRESSION: A 54-year-old female with recurrent diverticulitis and history of esophagitis with abnormal CT imaging showing diverticulitis. PLAN: At the present time, I would recommend she complete a course of IV antibiotics. She was seen by surgery team today and again was not felt to have any acute surgical issues, though she can follow with them as an outpatient. She was given multiple doses of MiraLax. I would recommend continuing this to aid in bowel movement. We will follow her clinical course and make further recommendations as needed. We may decide to repeat CT imaging in the next few days if she does not have any bowel movements or continues to have significant pain. Once again, thanks for allowing me to participate in the care of this patient. If you have any further questions, please do not hesitate in contacting me.
[2019-04-03] MEDS: LACTATED RINGER'S 1,000 ML IV SCH (15:36)
--- NOTE | 2019-04-03 15:45 | Family Medicine Progress Note ---
Date of Service April 03, 2019 Assessment & Plan (1) Diverticulitis: 54-year-old female was admitted on 01 Apr 2019 for worsening abdominal pain. Diverticulitis: Follows with Dr. Acosta as an outpatient. [id number] colonoscopy noted sigmoid diverticulosis and non-bleeding internal hemorrhoids. Also has history of SBO s/p resection November 2017 in [place]. Admitted at present due to worsening left-sided abdominal pain. No noted melena. 24May and 25May CT a/p suggestive of acute diverticulitis. 25May started on IV Cipro and Flagyl. Seen by GI, recommended continued antibiotics and surgery consult. Surgery noted no need for emergent intervention but will follow. - Pain control via as needed Dilaudid, oxycodone, Tylenol, and Toradol. Nausea control via as needed Zofran. Constipation, chronic back pain and s/p spinal fusion T12-S1: Related to chronic narcotic use including oxycodone 30 mg daily via her neurosurgeon. Here, on Dilaudid prn with good relief (as well as scheduled Soma and Neurontin). Last bowel movement around 23May. On scheduled Senokot. - Discussed constipation treatment options with patient. She prefers approach from above. Will increase MiraLAX to five capfuls daily. Enemas per general surgery. - Consider repeat imaging (KUB vs CT a/p) depending on how things do/do not progress. - Consider eventually sending home on bowel regimen including staged MiraLAX as needed. Hypokalemia: K as low as 3.0, replaced. Monitoring. Ongoing medical issues: - Diabetes: History of same, apparently resolved after 100 pound weight loss. Not presently on medication. - Hypothyroidism: Continue home levothyroxine 125 mcg daily. - Reflux esophagitis: Seen on EGD in January 2019. Continue Protonix. - Depression, anxiety, PTSD: Reported history of noncompliance with psych medicines and follows with psychiatry. Continue fluoxetine. - Obesity, hyperlipidemia, migraines. Code status: DO NOT RESUSCITATE. Diet: Clear liquid diet per surgery recommendations. DVT prophy: Lovenox daily, SCDs. PT/OT: Deferred. Disbo: Admitted to [facility]. Case management consulted. (2) Constipation: (3) Chronic back pain: (4) History of spinal fusion: (5) Hypokalemia: (6) Diabetes: (7) Hypothyroidism: (8) Reflux esophagitis: (9) Depression: (10) Anxiety: (11) PTSD (post-traumatic stress disorder): (12) Obesity (BMI 30.0-34.9): (13) Hyperlipidemia: (14) Migraines: Supervising Physician Co-Signing Physician Notes I personally examined the patient and verified all snyder points of history and exam, discussed case, and agree with decision making with Dr Robertson. Ongoing left lower quadrant abdominal pain, no significant bowel movement yet. Does feel better than earlier whenever she had just been given the enema. Vitals noted, in general she is fatigued but no distress. HEENT normocephalic atraumatic mucous members moist. Abdomen soft but left lower quadrant tenderness, no guarding no rebound no rigidity. She also has a degree of upper abdominal tenderness similar to the left lower quadrant. Again no guarding/rebound/rigidity Abdominal painappears to be a combination of diverticulitis and constipation. Continue antibiotics, work to affect a bowel movement. We discussed ongoing enemas versus more aggressive dosing of MiraLAX, she opted for the latter. Her abdomen exam is benign making it safe to attempt to aggressively clear her bowels. Continue to follow clinically. DVT proph - lovenox Subjective On initial rounding earlier this morning patient was noted to have significant increased abdominal pain. Patient says it was due to just administering an enema without any resultant bowel movements. She says her abdomen feels far more full now. She notes no present nausea due to antiemetics with some emesis this morning. She continues to complain of left-sided abdominal discomfort. No other acute concerns raised. On rounding later in the morning, patient was far more comfortable and was kni tting in bed. She says that she still has not yet had a bowel movement but that her pain was improved after Dilaudid. No interval acute concerns raised. Review of Systems Review of Systems: Per HPI as above. Physical Exam Physical Exam: General Appearance: Awake, alert & oriented, appears mildly uncomfortable at baseline but not in acute distress. CV: +S1S2 RRR, no murmur. Pulm: Clear to auscultation throughout. Abdomen: +BS, soft, positive tenderness to palpation in the left upper and left lower quadrant, non-distended. Extremities: No pedal edema or calf tenderness. Moving all extremities na turally and easily. Neuro: No gross neuro deficits. Results & Data Vital Signs (Past 12 Hours) Vital Signs Temp Pulse Resp BP Pulse Ox 04/03/19 15:39 36.9 C 59 L 18 173/97 H 97 04/03/19 07:36 36.7 C 51 L 18 133/89 94 Laboratory Results 04/03/19 04/03/19 Range/Units 05:44 05:44 WBC 5.38 (4.8-10.8) K/uL RBC 3.84 L (4.2-5.4) M/uL Hgb 11.9 L (12.0-16.0) g/dL Hct 34.6 L (37-47) % MCV 90.1 (80-100) fL MCH 31.0 (25-34) pg MCHC 34.4 (32-36) g/dL RDW Std Deviation 47.5 H (36.4-46.3) fL RDW Coeff of Xavi 14.4 (11.5-14.5) % Plt Count 133 (130-400) K/uL MPV 11.3 H (7.4-10.4) fL Sodium 137 (136-145) mmol/L Potassium 4.2 (3.5-5.1) mmol/L Chloride 107 (98-107) mmol/L Carbon Dioxide 27 (21-32) mmol/L Anion Gap 3.0 (3-11) BUN 3 L (7-18) mg/dl Creatinine 0.58 L (0.6-1.2) mg/dl Est Cr Clr Drug Dosing 120.2 ml/min Est GFR ( Amer) 121.1 Est GFR (Non-Af Amer) 104.5 BUN/Creatinine Ratio 5.7 L (10-20) Glucose 109 H (70-99) mg/dl Calcium 7.7 L (8.5-10.1) mg/dl Total Bilirubin 0.2 (0.2-1) mg/dl AST 15 (15-37) U/L ALT 29 (12-78) U/L Alkaline Phosphatase 78 (45-117) U/L Total Protein 5.9 L (6.4-8.2) gm/dl Albumin 2.7 L (3.4-5.0) gm/dl Globulin 3.2 (2.5-4.0) gm/dl Albumin/Globulin Ratio 0.8 L (0.9-2) Medications Administered Current Inpatient Medications Acetaminophen (Tylenol) 650 mg PO Q4H PRN PRN Reason: Moderate Pain Stop: 05/01/19 15:51 Carisoprodol (Soma) 350 mg PO TID [facility] Stop: 05/01/19 20:59 Last Admin: 04/03/19 13:55 Dose: 350 mg Documented by: Enoxaparin Sodium (Lovenox) 40 mg SQ QAM [facility] Stop: 05/02/19 08:59 Last Admin: 04/03/19 08:51 Dose: Not Given Documented by: Fluoxetine HCl (Prozac) 20 mg PO DAILY [facility] Stop: 05/02/19 08:59 Last Admin: 04/03/19 08:52 Dose: 20 mg Documented by: Gabapentin (Neurontin) 200 mg PO TID [facility] Stop: 05/01/19 20:59 Last Admin: 04/03/19 13:55 Dose: 200 mg Documented by: Hydromorphone HCl (Dilaudid) 1 mg IV Q4H PRN PRN Reason: Pain Stop: 04/15/19 15:51 Last Admin: 04/03/19 14:42 Dose: 1 mg Documented by: Ciprofloxacin (Cipro) 400 mg in 200 mls @ 100 mls/hr IV Q12H [facility] Stop: 04/12/19 01:59 Last Admin: 04/03/19 13:55 Dose: 100 mls/hr Documented by: Metronidazole (Flagyl) 500 mg in 100 mls @ 100 mls/hr IV Q8H [facility] Stop: 04/11/19 21:59 Last Infusion: 04/03/19 15:44 Dose: Infused Documented by: Ondansetron HCl 8 mg/ Dextrose 54 mls @ 216 mls/hr IV Q4H PRN PRN Reason: Nausea And Vomiting Stop: 05/02/19 10:46 Last Infusion: 04/03/19 09:43 Dose: Infused Documented by: Acetaminophen (Ofirmev) 65 mls @ 200 mls/hr IV Q8H [facility] Stop: 05/02/19 15:59 Last Admin: 04/03/19 15:41 Dose: 200 mls/hr Documented by: Lactated Ringer's (Lr) 1,000 mls @ 80 mls/hr IV .[id number] [facility] Stop: 05/03/19 15:14 Last Admin: 04/03/19 15:36 Dose: 80 mls/hr Documented by: Ketorolac Tromethamine (Toradol) 30 mg IV Q6H PRN PRN Reason: Pain Stop: 04/06/19 15:51 Last Admin: 04/02/19 18:53 Dose: 30 mg Documented by: Levothyroxine Sodium (Synthroid) 125 mcg PO DAILYBB [facility] Stop: 05/02/19 06:29 Last Admin: 04/03/19 05:14 Dose: 125 mcg Documented by: Oxycodone HCl (Roxicodone Immediate Rel) 10 mg PO Q4H PRN PRN Reason: Pain Stop: 04/15/19 16:51 Last Admin: 04/03/19 08:50 Dose: 10 mg Documented by: Pantoprazole Sodium (Protonix) 40 mg PO QAM [facility] Stop: 05/02/19 10:44 Last Admin: 04/03/19 08:52 Dose: 40 mg Documented by: Polyethylene Glycol (Miralax Powder Packet) 85 gm PO DAILY [facility] Stop: 05/03/19 12:14 Last Admin: 04/03/19 12:21 Dose: 85 gm Documented by: Pramipexole Dihydrochloride (Mirapex) 1 mg PO [facility] Stop: 05/02/19 20:59 Last Admin: 04/02/19 21:04 Dose: 1 mg Documented by: Senna/Docusate Sodium (Senokot S) 1 tab PO QAM [facility] Stop: 05/02/19 10:14 Last Admin: 04/03/19 08:52 Dose: 1 tab Documented by: Trazodone HCl (Desyrel) 300 mg PO [facility] Stop: 05/01/19 20:59 Last Admin: 04/02/19 21:04 Dose: 300 mg Documented by: Resident Activity Tracking Resident Involvement: Resident Care Provided Care Provided: Adult Hospital Medicine (1) Constipation Constipation type: unspecified constipation type Qualified Code(s): K59.00 - Constipation, unspecified
[2019-04-03] MEDS: KETOROLAC 30 MG/ML VIAL IV PRN (18:56)
[2019-04-03] MEDS: PRAMIPEXOLE DIHYDROCHLO 0.5 MG TAB PO SCH (21:07)
[2019-04-03] MEDS: TRAZODONE HCL 100 MG TAB PO SCH (21:07)
[2019-04-04] MEDS: ACETAMINOPHEN 65 ML IV SCH ×3 (00:13→15:48)
[2019-04-04] MEDS: CIPROFLOXACIN 400 MG/200 ML BAG IV SCH ×2 (02:25→13:44)
[2019-04-04] MEDS: HYDROmorphone INJ 1 MG/ML SYRINGE IV PRN ×5 (02:29→20:56)
[2019-04-04] MEDS: metroNIDAZOLE 500 MG/100 ML BAG IV SCH ×3 (05:47→21:00)
[2019-04-04] MEDS: LACTATED RINGER'S 1,000 ML IV SCH ×2 (05:47→19:38)
[2019-04-04] MEDS: LEVOTHYROXINE SODIUM 125 MCG TABLET PO SCH (05:47)
[2019-04-04 08:23] LABS: Hematocrit (blood only) 35.6 % (37-47); Hemoglobin 11.8 g/dL (12.0-16.0); Mean Corpuscular Hgb Conc 33.1 g/dL (32-36); Mean Corpuscular Volume 91.8 fL (80-100); Mean Platelet Volume 11.4 fL (7.4-10.4); Platelet Count 147 K/uL (130-400); RDW Coefficient of Variation 14.5 % (11.5-14.5); RDW Standard Deviation 49.1 fL (36.4-46.3); Red Blood Count 3.88 M/uL (4.2-5.4); White Blood Count 5.86 K/uL (4.8-10.8)
[2019-04-04] MEDS: OXYCODONE HCL IR 5 MG TAB (IMMEDIATE RELEASE) PO PRN ×2 (08:26→19:37)
[2019-04-04 08:54] LABS: Albumin Level 2.9 gm/dl (3.4-5.0); BUN Creatinine Ratio 3.3 (10-20); Calcium 8.7 mg/dl (8.5-10.1); Creatinine Clr Calc Pharmacy 108.9 ml/min; Est GFR (African American) 117.3; Est GFR (Non-African American) 101.2; Potassium 4.1 mmol/L (3.5-5.1)
[2019-04-04 08:56] LABS: Albumin Globulin Ratio 0.9 (0.9-2); Bilirubin,Total 0.2 mg/dl (0.2-1); Globulin 3.2 gm/dl (2.5-4.0); Total Protein 6.1 gm/dl (6.4-8.2)
[2019-04-04] MEDS: ONDANSETRON HCL 8 MG in DEXTROSE 5% 50 ML IV PRN ×2 (09:27→21:06)
[2019-04-04] MEDS: ENOXAPARIN INJ 40 MG/0.4 ML SYR SQ SCH (09:33)
[2019-04-04] MEDS: FLUOXETINE HCL 20 MG CAP PO SCH (09:33)
[2019-04-04] MEDS: DOCUSATE SODIUM/SENNA 50/8.6MG TAB PO SCH (09:33)
[2019-04-04] MEDS: PANTOprazole 40 MG TAB PO SCH (09:33)
[2019-04-04] MEDS: GABAPENTIN 100 MG CAP PO SCH ×3 (09:33→20:59)
--- NOTE | 2019-04-04 09:52 | Gastroenterology Progress Note ---
Date of Service April 04, 2019 Assessment & Plan (1) Diverticulitis: (2) Abdominal pain: 1. Continue IV Cipro and Flagyl. 2. Clear liquid diet. 3. Consider further imaging if abdominal pain does not improve. 4. Supportive care. Supervising Physician Co-Signing Physician Notes Agree with HERMELINDA George as above Abd: Soft, tender LLQ, ND, +BS Patient is asking for increased diet Decreased abd pain today and did have multiple BM's in the past 24 hours Continue current therapy Subjective Patient reports continued lower abdominal pain. Rates the pain as 6/10 at present. States her stools are liquid in consistency. No bowel movement this morning but passed 3 bms overnight. +nausea and emesis x1 yesterday. Tolerating liquid diet now. Continues IV antibiotics. Surgery is following. Review of Systems Review of Systems: All systems reviewed & are unremarkable except as noted in HPI & below Physical Exam Constitutional: WD/WN, vitals as above Respiratory: normal respiratory effort, lungs clear to auscultation Cardiovascular: Rate/Rhythm: regular rate and regular rhythm Gastrointestinal (Abdomen): Inspection/Auscultation: + hyperactive bowel sounds Percussion/Palpation: + abdomen tender (left lower quadrant) and abdomen soft Results & Data Vital Signs (Past 12 Hours) Vital Signs Temp Pulse Resp BP Pulse Ox 04/04/19 06:51 36.8 C 60 18 138/82 95 04/03/19 22:35 36.5 C 57 L 16 150/87 H 95 Laboratory Results Abnormal lab results 04/04/19 04/04/19 Range/Units 08:09 08:09 RBC 3.88 L (4.2-5.4) M/uL Hgb 11.8 L (12.0-16.0) g/dL Hct 35.6 L (37-47) % RDW Std Deviation 49.1 H (36.4-46.3) fL MPV 11.4 H (7.4-10.4) fL BUN 2 L (7-18) mg/dl BUN/Creatinine Ratio 3.3 L (10-20) Glucose 117 H (70-99) mg/dl Total Protein 6.1 L (6.4-8.2) gm/dl Albumin 2.9 L (3.4-5.0) gm/dl (1) Abdominal pain Abdominal location: left lower quadrant Qualified Code(s): R10.32 - Left lower quadrant pain
[2019-04-04] MEDS: CARISOPRODOL 350 MG TABLET PO SCH ×3 (10:16→21:14)
--- NOTE | 2019-04-04 11:19 | Surgery Progress Note ---
Date of Service April 04, 2019 Assessment & Plan (1) Diverticulitis: continue IV abx keep on full liquids until BMs begin to form seen with Dr. Beauchamp Subjective slow progress, having watery BMs Physical Exam Gastrointestinal (Abdomen): Inspection/Auscultation: abdomen not distended Percussion/Palpation: + abdomen tender (mild) and abdomen soft Results & Data Vital Signs (Past 12 Hours) Vital Signs Temp Pulse Resp BP Pulse Ox 04/04/19 06:51 36.8 C 60 18 138/82 95
--- NOTE | 2019-04-04 14:13 | Family Medicine Progress Note ---
Date of Service April 04, 2019 Assessment & Plan (1) Diverticulitis: 54-year-old female was admitted on 01 Apr 2019 for worsening abdominal pain. Diverticulitis: Follows with Dr. Acosta as an outpatient. [id number] colonoscopy noted sigmoid diverticulosis and non-bleeding internal hemorrhoids. Also has history of SBO s/p resection November 2017 in [place]. Admitted at present due to worsening left-sided abdominal pain. No noted melena. 24May and 25May CT a/p suggestive of acute diverticulitis. 25May started on IV Cipro and Flagyl. Ongoing surgery and GI evaluations, both recommend liquid diet and continued antibiotics + supportive care. - Pain control via as needed Dilaudid, oxycodone, Tylenol, and Toradol. Nausea control via as needed Zofran. Constipation, chronic back pain and s/p spinal fusion T12-S1: Related to chronic narcotic use including oxycodone 30 mg daily via her neurosurgeon. Here, on Dilaudid prn with good relief (as well as scheduled Soma and Neurontin). Last solid bowel movement around 23May. On scheduled Senokot. - Working on treatment with higher doses of MiraLAX. May ultimately need physical stool removal. - Consider repeat imaging (KUB vs CT a/p) depending on how things do/do not progress. - Consider eventually sending home on bowel regimen including staged MiraLAX as needed. Hypokalemia: K as low as 3.0, replaced. Monitoring. Ongoing medical issues: - Diabetes: History of same, apparently resolved after 100+ pound weight loss. Not presently on medication. - Hypothyroidism: Continue home levothyroxine 125 mcg daily. - Reflux esophagitis: Seen on EGD in January 2019. Continue Protonix. - Depression, anxiety, PTSD: Reported history of noncompliance with psych medicines and follows with psychiatry. Continue fluoxetine. - Obesity, hyperlipidemia, migraines. Code status: DO NOT RESUSCITATE. Diet: Full liquid diet. DVT prophy: Lovenox daily, SCDs. PT/OT: Deferred. Disbo: Admitted to [facility]. Case management onboard, plans for return home on eventual discharge. (2) Constipation: (3) Chronic back pain: (4) History of spinal fusion: (5) Hypokalemia: (6) Diabetes: (7) Hypothyroidism: (8) Reflux esophagitis: (9) Depression: (10) Anxiety: (11) PTSD (post-traumatic stress disorder): (12) Obesity (BMI 30.0-34.9): (13) Hyperlipidemia: (14) Migraines: Supervising Physician Co-Signing Physician Notes I personally examined the patient and verified all snyder points of history and exam, discussed case, and agree with decision making with Dr Robertson. sleeping comfortably at the time of my evaluation Vitals noted, nad. breathing unlabored no accessory muscles good effort. no pallor or icterus Abdominal painappears to be a combination of diverticulitis and constipation. Continue antibiotics, continue bowel regimen. continue supportive care. DVT proph - lovenox Subjective Found patient resting more comfortably earlier this morning. She says that she had about three bowel movements overnight but says that they were very liquidy. She does not think much stool actually came out. She says she continues to have ongoing abdominal discomfort which she describes as "glass" in her abdomen. Says her pain is presently controlled. Overall says she is hungry. Minimal nausea with no emesis overnight. No other acute noted concerns. Review of Systems Review of Systems: Per HPI as above. Physical Exam Physical Exam: General Appearance: Awake, alert & oriented, appears mildly uncomfortable at baseline but not in acute distress. CV: +S1S2 RRR, no murmur. Pulm: Clear to auscultation throughout. Abdomen: +BS, soft, positive tenderness to palpation in the left upper and left lower quadrant, non-distended [unchanged from 27May]. Extremities: No pedal edema or calf tenderness. Moving all extremities naturally and easily. Neuro: No gross neuro deficits. Results & Data Vital Signs (Past 12 Hours) Vital Signs Temp Pulse Resp BP Pulse Ox 04/04/19 06:51 36.8 C 60 18 138/82 95 Laboratory Results 04/04/19 04/04/19 04/02/19 Range/Units 08:09 08:09 00:15 WBC 5.86 (4.8-10.8) K/uL RBC 3.88 L (4.2-5.4) M/uL Hgb 11.8 L (12.0-16.0) g/dL Hct 35.6 L (37-47) % MCV 91.8 (80-100) fL MCH 30.4 (25-34) pg MCHC 33.1 (32-36) g/dL RDW Std Deviation 49.1 H (36.4-46.3) fL RDW Coeff of Xavi 14.5 (11.5-14.5) % Plt Count 147 (130-400) K/uL MPV 11.4 H (7.4-10.4) fL Sodium 141 (136-145) mmol/L Potassium 4.1 (3.5-5.1) mmol/L Chloride 107 (98-107) mmol/L Carbon Dioxide 28 (21-32) mmol/L Anion Gap 6.0 (3-11) BUN 2 L (7-18) mg/dl Creatinine 0.64 (0.6-1.2) mg/dl Est Cr Clr Drug Dosing 108.9 ml/min Est GFR ( Amer) 117.3 Est GFR (Non-Af Amer) 101.2 BUN/Creatinine Ratio 3.3 L (10-20) Glucose 117 H (70-99) mg/dl Calcium 8.7 (8.5-10.1) mg/dl Total Bilirubin 0.2 (0.2-1) mg/dl AST 19 (15-37) U/L ALT 29 (12-78) U/L Alkaline Phosphatase 76 (45-117) U/L Total Protein 6.1 L (6.4-8.2) gm/dl Albumin 2.9 L (3.4-5.0) gm/dl Globulin 3.2 (2.5-4.0) gm/dl Albumin/Globulin Ratio 0.9 (0.9-2) POC Ur Test Cancelled Medications Administered Current Inpatient Medications Acetaminophen (Tylenol) 650 mg PO Q4H PRN PRN Reason: Moderate Pain Stop: 05/01/19 15:51 Carisoprodol (Soma) 350 mg PO TID [facility] Stop: 05/01/19 20:59 Last Admin: 04/04/19 13:44 Dose: 350 mg Documented by: Enoxaparin Sodium (Lovenox) 40 mg SQ QAM [facility] Stop: 05/02/19 08:59 Last Admin: 04/04/19 09:33 Dose: Not Given Documented by: Fluoxetine HCl (Prozac) 20 mg PO DAILY [facility] Stop: 05/02/19 08:59 Last Admin: 04/04/19 09:33 Dose: 20 mg Documented by: Gabapentin (Neurontin) 200 mg PO TID [facility] Stop: 05/01/19 20:59 Last Admin: 04/04/19 13:44 Dose: 200 mg Documented by: Hydromorphone HCl (Dilaudid) 1 mg IV Q4H PRN PRN Reason: Pain Stop: 04/15/19 15:51 Last Admin: 04/04/19 11:51 Dose: 1 mg Documented by: Ciprofloxacin (Cipro) 400 mg in 200 mls @ 100 mls/hr IV Q12H [facility] Stop: 04/12/19 01:59 Last Admin: 04/04/19 13:44 Dose: 100 mls/hr Documented by: Metronidazole (Flagyl) 500 mg in 100 mls @ 100 mls/hr IV Q8H [facility] Stop: 04/11/19 21:59 Last Admin: 04/04/19 13:44 Dose: 100 mls/hr Documented by: Ondansetron HCl 8 mg/ Dextrose 54 mls @ 216 mls/hr IV Q4H PRN PRN Reason: Nausea And Vomiting Stop: 05/02/19 10:46 Last Infusion: 04/04/19 09:50 Dose: Infused Documented by: Acetaminophen (Ofirmev) 65 mls @ 200 mls/hr IV Q8H [facility] Stop: 05/02/19 15:59 Last Admin: 04/04/19 09:28 Dose: Not Given Documented by: Lactated Ringer's (Lr) 1,000 mls @ 80 mls/hr IV .[id number] [facility] Stop: 05/03/19 15:14 Last Admin: 04/04/19 05:47 Dose: 80 mls/hr Documented by: Ketorolac Tromethamine (Toradol) 30 mg IV Q6H PRN PRN Reason: Pain Stop: 04/06/19 15:51 Last Admin: 04/03/19 18:56 Dose: 30 mg Documented by: Levothyroxine S[facility] ([facility]throid) [facility] Stop: 05/02/19 06:29 Last Admin: 04/04/19 05:47 Dose: 125 mcg Documented by: Oxycodone HCl (Roxicodone Immediate Rel) 10 mg PO Q4H PRN PRN Reason: Pain Stop: 04/15/19 16:51 Last Admin: 04/04/19 08:26 Dose: 10 mg Documented by: Pantoprazole Sodium (Protonix) 40 mg PO QAM [facility] Stop: 05/02/19 10:44 Last Admin: 04/04/19 09:33 Dose: 40 mg Documented by: Polyethylene Glycol (Miralax Powder Packet) 85 gm PO DAILY [facility] Stop: 05/03/19 12:14 Last Admin: 04/03/19 12:21 Dose: 85 gm Documented by: Polyethylene Glycol (Miralax Powder Packet) 68 gm PO DAILY [facility] Stop: 05/04/19 12:29 Pramipexole Dihydrochloride (Mirapex) 1 mg PO [facility] Stop: 05/02/19 20:59 Last Admin: 04/03/19 21:07 Dose: 1 mg Documented by: Senna/Docusate Sodium (Senokot S) [facility] Stop: 05/02/19 10:14 Last Admin: 04/04/19 09:33 Dose: 1 tab Documented by: Trazodone HCl (Desyrel) 300 mg PO [facility] Stop: 05/01/19 20:59 Last Admin: 04/03/19 21:07 Dose: 300 mg Documented by: Resident Activity Tracking Resident Involvement: Resident Care Provided Care Provided: Adult Hospital Medicine (1) Constipation Constipation type: unspecified constipation type Qualified Code(s): K59.00 - Constipation, unspecified
[2019-04-04] MEDS: POLYETHYLENE (MIRALAX) 17 GM PACK PO SCH (14:43)
[2019-04-04] MEDS: PRAMIPEXOLE DIHYDROCHLO 0.5 MG TAB PO SCH (20:58)
[2019-04-04] MEDS: TRAZODONE HCL 100 MG TAB PO SCH (20:58)
[2019-04-05] MEDS: ACETAMINOPHEN 65 ML IV SCH ×3 (00:08→16:20)
[2019-04-05] MEDS: CIPROFLOXACIN 400 MG/200 ML BAG IV SCH ×2 (01:20→14:07)
[2019-04-05] MEDS: OXYCODONE HCL IR 5 MG TAB (IMMEDIATE RELEASE) PO PRN ×3 (04:34→19:44)
[2019-04-05] MEDS: metroNIDAZOLE 500 MG/100 ML BAG IV SCH ×3 (05:05→21:16)
[2019-04-05] MEDS: LEVOTHYROXINE SODIUM 125 MCG TABLET PO SCH (05:07)
[2019-04-05] MEDS: KETOROLAC 30 MG/ML VIAL IV PRN ×2 (06:24→18:07)
[2019-04-05] MEDS: LACTATED RINGER'S 1,000 ML IV SCH (08:47)
[2019-04-05] MEDS: HYDROmorphone INJ 1 MG/ML SYRINGE IV PRN ×3 (09:20→21:15)
[2019-04-05] MEDS: ENOXAPARIN INJ 40 MG/0.4 ML SYR SQ SCH (09:20)
[2019-04-05] MEDS: CARISOPRODOL 350 MG TABLET PO SCH ×3 (09:24→21:15)
[2019-04-05] MEDS: PANTOprazole 40 MG TAB PO SCH (09:24)
[2019-04-05] MEDS: FLUOXETINE HCL 20 MG CAP PO SCH (09:24)
[2019-04-05] MEDS: GABAPENTIN 100 MG CAP PO SCH ×3 (09:24→21:12)
[2019-04-05] MEDS: DOCUSATE SODIUM/SENNA 50/8.6MG TAB PO SCH (09:24)
[2019-04-05] MEDS: POLYETHYLENE (MIRALAX) 17 GM PACK PO SCH ×2 (09:25→18:03)
--- NOTE | 2019-04-05 10:00 | Gastroenterology Progress Note ---
Date of Service April 05, 2019 Assessment & Plan (1) Diverticulitis: (2) Abdominal pain: 1. Continue IV Cipro and Flagyl. 2. CT a/p now due to worsening pain. 3. Additional recommendations pending results of testing. Supervising Physician Co-Signing Physician Notes Agree with HERMELINDA George as above Abd: Soft, Tender LLQ, ND, +BS Continue current therapy Recommend 3 doses of Miralax this evening Will add Linzess 290 micrograms PO daily as outpatient CT scan showed significant improvement in Sigmoid inflammatory changes Subjective Patient reports worsening abdominal pain despite passing multiple loose stools. She did have her diet advanced last evening. States "I shouldn't have eaten breakfast". Reports significant nausea but no vomiting. States she is having LLQ and LUQ pain that is radiating into her ribs. Pain rated 7/10 at present. No abdominal firmness or fevers. Continues IV antibiotics. Review of Systems Review of Systems: All systems reviewed & are unremarkable except as noted in HPI & below Physical Exam Constitutional: + ill appearing Respiratory: normal respiratory effort, lungs clear to auscultation Cardiovascular: Rate/Rhythm: regular rate and regular rhythm Gastrointestinal (Abdomen): Inspection/Auscultation: + hyperactive bowel sounds Percussion/Palpation: + abdomen tender (left<right) and abdomen soft Psychiatric: A+Ox3, euthymic affect Results & Data Vital Signs (Past 12 Hours) Vital Signs Temp Pulse Pulse Resp BP Pulse Ox 04/05/19 08:10 37.3 C 60 17 114/80 94 04/04/19 23:10 37 C 55 L 16 142/92 H 93 (1) Abdominal pain Abdominal location: left lower quadrant Qualified Code(s): R10.32 - Left lower quadrant pain
--- NOTE | 2019-04-05 13:40 | Family Medicine Progress Note ---
Date of Service April 05, 2019 Assessment & Plan (1) Diverticulitis: 54-year-old female was admitted on 01 Apr 2019 for worsening abdominal pain. Diverticulitis: Follows with Dr. Acosta as an outpatient. [id number] colonoscopy noted sigmoid diverticulosis and non-bleeding internal hemorrhoids. Also has history of SBO s/p resection November 2017 in [place]. Admitted at present due to worsening left-sided abdominal pain. No noted melena. 24May and 25May CT a/p suggestive of acute diverticulitis. 25May started on IV Cipro and Flagyl. Ongoing surgery and GI evaluations, both recommend liquid diet and continued antibiotics + supportive care. - Pain control via as needed Dilaudid, oxycodone, Tylenol, and Toradol. Nausea control via as needed Zofran. - She did complain of some increased pain this (29May) morning after breakfast, so GI ordered a repeat CT a/p (which is pending). Constipation, chronic back pain and s/p spinal fusion T12-S1: Related to chronic narcotic use including oxycodone 30 mg daily via her neurosurgeon. Here, on Dilaudid prn with good relief (as well as scheduled Soma and Neurontin). Last solid bowel movement around 23May (with some watery stool in past 48 hours). On scheduled Senokot. - Working on treatment with higher doses of MiraLAX. May ultimately need physical stool removal. - Consider eventually sending home on bowel regimen including staged MiraLAX as needed. Hypokalemia: K as low as 3.0, replaced. Monitoring. Ongoing medical issues: - Diabetes: History of same, apparently resolved after 100+ pound weight loss. Not presently on medication. - Hypothyroidism: Continue home levothyroxine 125 mcg daily. - Reflux esophagitis: Seen on EGD in January 2019. Continue Protonix. - Depression, anxiety, PTSD: Reported history of noncompliance with psych medicines and follows with psychiatry. Continue fluoxetine. - Obesity, hyperlipidemia, migraines. Code status: DO NOT RESUSCITATE. Diet: Low fiber. DVT prophy: Lovenox daily, SCDs. PT/OT: Deferred. Disbo: Admitted to [facility] [place]. Case management onboard, plans for return home on eventual discharge. (2) Constipation: (3) Chronic back pain: (4) History of spinal fusion: (5) Hypokalemia: (6) Diabetes: (7) Hypothyroidism: (8) Reflux esophagitis: (9) Depression: (10) Anxiety: (11) PTSD (post-traumatic stress disorder): (12) Obesity (BMI 30.0-34.9): (13) Hyperlipidemia: (14) Migraines: Supervising Physician Co-Signing Physician Notes I personally examined the patient and verified all snyder points of history and exam, discussed case, and agree with decision making with Dr Robertson. abdominal pain worsened. CT ordered, not yet done but she is drinking contrast Vitals noted, nad. breathing unlabored no accessory muscles good effort. no pallor or icterus. LLQ tenderness worse, but no peritoneal signs Abdominal painappears to be a combination of diverticulitis and constipation. Continue antibiotics, continue bowel regimen. CT ordered, agree. DVT proph - lovenox Subjective Spoke with patient first early this morning. At that time patient said that overall she felt a bit improved regarding her abdominal discomfort. She says she still has not had a real bowel movement but continues to have some watery stool. Says her pain remains in the left side of her abdomen. No other concerns raised at that time. On re-rounding later in the morning, patient notes that her more severe abdominal pain returns. She says he continues to be mostly just under her left rib cage, still 7/10 on pain scale. Some nausea as well without emesis. She has been drinking her oral contrast for plan to repeat CT scan. No other acute concerns raised. Review of Systems Review of Systems: Per HPI as above. Physical Exam Physical Exam: On reevaluation around 11 AM General Appearance: Awake, alert & oriented, appears mildly uncomfortable at baseline but not in acute distress. CV: +S1S2 RRR, no murmur. Pulm: Clear to auscultation throughout. Abdomen: +BS, soft, positive tenderness to palpation in the left upper and left lower quadrant, non-distended [perhaps slightly worse than over the past 48 hours]. Extremities: No pedal edema or calf tenderness. Moving all extremities naturally and easily. Neuro: No gross neuro deficits. Results & Data Vital Signs (Past 12 Hours) Vital Signs Temp Pulse Resp BP Pulse Ox 04/05/19 08:10 37.3 C 60 17 114/80 94 Medications Administered Current Inpatient Medications Acetaminophen (Tylenol) 650 mg PO Q4H PRN PRN Reason: Moderate Pain Stop: 05/01/19 15:51 Carisoprodol (Soma) 350 mg PO TID [facility] Stop: 05/01/19 20:59 Last Admin: 04/05/19 09:24 Dose: 350 mg Documented by: Enoxaparin Sodium (Lovenox) 40 mg SQ QAM [facility] Stop: 05/02/19 08:59 Last Admin: 04/05/19 09:20 Dose: Not Given Documented by: Fluoxetine HCl (Prozac) 20 mg PO DAILY [facility] Stop: 05/02/19 08:59 Last Admin: 04/05/19 09:24 Dose: 20 mg Documented by: Gabapentin (Neurontin) 200 mg PO TID [facility] Stop: 05/01/19 20:59 Last Admin: 04/05/19 09:24 Dose: 200 mg Documented by: Hydromorphone HCl (Dilaudid) 1 mg IV Q4H PRN PRN Reason: Pain Stop: 04/15/19 15:51 Last Admin: 04/05/19 09:20 Dose: 1 mg Documented by: Ciprofloxacin (Cipro) 400 mg in 200 mls @ 100 mls/hr IV Q12H [facility] Stop: 04/12/19 01:59 Last Infusion: 04/05/19 03:20 Dose: Infused Documented by: Metronidazole (Flagyl) 500 mg in 100 mls @ 100 mls/hr IV Q8H [facility] Stop: 04/11/19 21:59 Last Infusion: 04/05/19 06:05 Dose: Infused Documented by: Ondansetron HCl 8 mg/ Dextrose 54 mls @ 216 mls/hr IV Q4H PRN PRN Reason: Nausea And Vomiting Stop: 05/02/19 10:46 Last Infusion: 04/04/19 21:21 Dose: Infused Documented by: Acetaminophen (Ofirmev) 65 mls @ 200 mls/hr IV Q8H [facility] Stop: 05/02/19 15:59 Last Infusion: 04/05/19 10:20 Dose: Infused Documented by: Ketorolac Tromethamine (Toradol) 30 mg IV Q6H PRN PRN Reason: Pain Stop: 04/06/19 15:51 Last Admin: 04/05/19 06:24 Dose: 30 mg Documented by: Levothyroxine Sodium (Synthroid) 125 mcg PO DAILYBB [facility] Stop: 05/02/19 06:29 Last Admin: 04/05/19 05:07 Dose: 125 mcg Documented by: Oxycodone HCl (Roxicodone Immediate Rel) 10 mg PO Q4H PRN PRN Reason: Pain Stop: 04/15/19 16:51 Last Admin: 04/05/19 11:58 Dose: 10 mg Documented by: Pantoprazole Sodium (Protonix) 40 mg PO QAM [facility] Stop: 05/02/19 10:44 Last Admin: 04/05/19 09:24 Dose: 40 mg Documented by: Polyethylene Glycol (Miralax Powder Packet) 68 gm PO DAILY [facility] Stop: 05/04/19 15:14 Last Admin: 04/05/19 09:25 Dose: 34 gm Documented by: Pramipexole Dihydrochloride (Mirapex) 1 mg PO [facility] Stop: 05/02/19 20:59 Last Admin: 04/04/19 20:58 Dose: 1 mg Documented by: Senna/Docusate Sodium ([facility]okot S) [facility] Stop: 05/02/19 10:14 Last Admin: 04/05/19 09:24 Dose: 1 tab Documented by: Trazodone HCl (Desyrel) 300 mg PO [facility] Stop: 05/01/19 20:59 Last Admin: 04/04/19 20:58 Dose: 300 mg Documented by: Resident Activity Tracking Resident Involvement: Resident Care Provided Care Provided: Adult Hospital Medicine (1) Constipation Constipation type: unspecified constipation type Qualified Code(s): K59.00 - Constipation, unspecified
--- NOTE | 2019-04-05 13:55 | Surgery Progress Note ---
Date of Service April 05, 2019 Assessment & Plan (1) Diverticula of colon: 04/05/19 hard to completely read pt reg pain wound rec continue with bowel regime told pt no surgery at this time primary problem is fecal load Supervising Physician Co-Signing Physician Notes I personally examined the patient and verified all snyder points of history and exam, discussed case, and agree with decision making with Dr Robertson. sleeping comfortably at the time of my evaluation Vitals noted, nad. breathing unlabored no accessory muscles good effort. no pallor or icterus Abdominal painappears to be a combination of diverticulitis and constipation. Continue antibiotics, continue bowel regimen. continue supportive care. DVT proph - lovenox Subjective 04/05/19 pt sleeping easily awakened states pain not better but tolerated diet without problems Spoke with patient first early this morning. At that time patient said that overall she felt a bit improved regarding her abdominal discomfort. She says she still has not had a real bowel movement but continues to have some watery stool. Says her pain remains in the left side of her abdomen. No other concerns raised at that time. On re-rounding later in the morning, patient notes that her more severe abdominal pain returns. She says he continues to be mostly just under her left rib cage, still 7/10 on pain scale. Some nausea as well without emesis. She has been drinking her oral contrast for plan to repeat CT scan. No other acute concerns raised. Review of Systems Review of Systems: moved bowels multiple times yesterday(liquid) Physical Exam Musculoskeletal: no further pain left lower quadrant and ing area has some discomfort left flank area Results & Data Vital Signs (Past 12 Hours) Vital Signs Temp Pulse Resp BP Pulse Ox 04/05/19 08:10 37.3 C 60 17 114/80 94
[2019-04-05] MEDS ORDERED: IOVERSOL 100ml IV PRN (13:58)
--- NOTE | 2019-04-05 14:13 | CT Scan Report ---
CT SCAN OF THE ABDOMEN AND PELVIS WITH IV CONTRAST CLINICAL HISTORY: Generalized abdominal pain. Diverticulitis. COMPARISON STUDY: Abdominal CT dated 04/01/2019. TECHNIQUE: Following the IV administration of 93 cc of Optiray 320, CT scan of the abdomen and pelv is is performed from the lung bases to the proximal femora. Images are reviewed in the axial, sagitta l, and coronal planes. IV contrast was administered without complication. Oral contrast was utilized. A dose lowering technique was utilized adhering to the principles of ALARA. The examination is degra ded by metallic streak artifact from extensive orthopedic spinal hardware. CT DOSE: 994.54 mGycm FINDINGS: Lung bases: The heart is normal in size and without pericardial effusion. There are trace pleural eff usions. The lung bases are otherwise clear noting bibasilar scarring/atelectasis. Liver: The contrast-enhanced liver is normal in size, contour, and attenuation. There is mild central intrahepatic biliary ductal dilatation. The hepatic veins and portal veins are patent. Gallbladder: Surgically absent noting clips in the gallbladder fossa. Spleen: Normal in size and attenuation. Pancreas: Unremarkable. Adrenal glands: Unremarkable. Kidneys: The contrast enhanced kidneys are normal in size and without hydronephrosis. The kidneys enh ance symmetrically. Abdominal vasculature: The abdominal aorta is normal in course and caliber. Bowel: There is mild colonic diverticulosis. Wall thickening and surrounding inflammatory change invo lving the sigmoid colon have almost completely resolved from 04/01/2019. Rest fluid collection is iden tified. Moderate constipation is observed. No bowel obstruction is seen. The appendix is not identi fied. Peritoneum: There is no intraperitoneal free air. Trace free fluid is noted in the pelvis. Lymphadenopathy: None. Pelvic viscera: The bladder is normal as visualized. The uterus is surgically absent. No adnexal lesi on is seen. Skeletal structures: The Skeletal structures are osteopenic. There are postoperative changes from ext ensive laminectomy and posterior fusion from T12-S1. There are compression deformities involving T12, L1, and L3. No lytic or blastic lesions are seen. IMPRESSION: 1. Wall thickening with surrounding inflammation involving the sigmoid colon has almost completely re solved from 04/01/2019. This likely represents resolving diverticulitis. 2. There is no evidence of abscess. 3. Moderate constipation. 4. Trace pleural effusions. 5. There is trace pelvic ascites. 6. Additional findings as above. Electronically signed by: Vinay Guillaume M.D. 04/05/2019 2:12 PM
[2019-04-05] MEDS ORDERED: FLUCONAZOLE 50 MG TAB PO ONE (15:43)
[2019-04-05] MEDS: PRAMIPEXOLE DIHYDROCHLO 0.5 MG TAB PO SCH (21:12)
[2019-04-05] MEDS: TRAZODONE HCL 100 MG TAB PO SCH (21:13)
[2019-04-06] MEDS: ACETAMINOPHEN 65 ML IV SCH ×3 (00:52→17:23)
[2019-04-06] MEDS: CIPROFLOXACIN 400 MG/200 ML BAG IV SCH ×2 (01:54→13:16)
[2019-04-06] MEDS: LEVOTHYROXINE SODIUM 125 MCG TABLET PO SCH (06:16)
[2019-04-06] MEDS: metroNIDAZOLE 500 MG/100 ML BAG IV SCH ×3 (06:16→21:21)
[2019-04-06] MEDS: HYDROmorphone INJ 1 MG/ML SYRINGE IV PRN ×3 (09:36→21:20)
[2019-04-06] MEDS: POLYETHYLENE (MIRALAX) 17 GM PACK PO SCH (09:40)
[2019-04-06] MEDS: CARISOPRODOL 350 MG TABLET PO SCH ×3 (09:55→21:21)
[2019-04-06] MEDS: DOCUSATE SODIUM/SENNA 50/8.6MG TAB PO SCH (09:55)
[2019-04-06] MEDS: FLUOXETINE HCL 20 MG CAP PO SCH (09:56)
[2019-04-06] MEDS: GABAPENTIN 100 MG CAP PO SCH ×3 (09:56→21:21)
[2019-04-06] MEDS: PANTOprazole 40 MG TAB PO SCH (09:56)
[2019-04-06] MEDS ORDERED: METHYLNALTREXONE BROMIDE 12 MG/0.6 ML VIAL SQ ONE (09:57)
[2019-04-06] MEDS: ENOXAPARIN INJ 40 MG/0.4 ML SYR SQ SCH (09:58)
--- NOTE | 2019-04-06 10:01 | Gastroenterology Progress Note ---
Date of Service April 06, 2019 Assessment & Plan (1) Abdominal pain: (2) Constipation: (3) Diverticulitis: 1. Continue IV antibiotics. 2. Continue MiraLAX as prescribed. 3. Due to opioid use and lack of response to MiraLAX, will add Relistor 12 mg SQ x 1 now. Could be repeated in 2 days if needed. 4. Encouraged ambulation and adequate fluid intake. 5. Supportive care. Subjective Patient reports continued abdominal pain. Reports she has been ambulating in the hallways and drinking fluids but has not had much output after receiving the large dose of MiraLAX last evening. Continues with opioid analgesics which she states she is requiring due to a back injury. CT yesterday with near resolution of diverticulitis but significant constipation. Continues antibiotic therapy. Review of Systems Constitutional: no problem reported Respiratory: no problem reported Cardiovascular: no problem reported Gastrointestinal: as per Subjective / HPI Physical Exam Respiratory: normal respiratory effort, lungs clear to auscultation Cardiovascular: Rate/Rhythm: regular rate and regular rhythm Gastrointestinal (Abdomen): Inspection/Auscultation: normal bowel sounds Percussion/Palpation: + abdomen tender and abdomen soft Results & Data Vital Signs (Past 12 Hours) Vital Signs Temp Pulse Resp BP BP Pulse Ox 04/06/19 07:16 36.6 C 51 L 16 151/77 H 92 04/06/19 00:05 36.8 C 55 L 16 166/83 H 93 (1) Abdominal pain Abdominal location: left lower quadrant Qualified Code(s): R10.32 - Left lower quadrant pain (2) Constipation Constipation type: unspecified constipation type Qualified Code(s): K59.00 - Constipation, unspecified
[2019-04-06] MEDS: ONDANSETRON HCL 8 MG in DEXTROSE 5% 50 ML IV PRN (11:23)
--- NOTE | 2019-04-06 12:15 | Family Medicine Progress Note ---
Date of Service April 06, 2019 Assessment & Plan (1) Diverticulitis: 54-year-old female was admitted on 01 Apr 2019 for worsening abdominal pain. Diverticulitis: [id number] colonoscopy noted sigmoid diverticulosis and non- bleeding internal hemorrhoids. Also has history of SBO s/p resection November 2017 in [place]. Presently admitted due to worsening left-sided abdominal pain. No noted melena. Repeat 29May CT a/p notes image resolution of previously-seen diverticulitis. 25May started on IV Cipro and Flagyl. Surgery signed off. GI gave dose of relistor, after which patient did have some formed BM. - Pain control via as needed Dilaudid, oxycodone, Tylenol, and Toradol. Nausea control via as needed Zofran - Surgery mentions can f/u with Dr. Beauchamp in 3-4 weeks upon eventual discharge. Constipation, chronic back pain and s/p spinal fusion T12-S1: Related to chronic narcotic use including oxycodone 30 mg daily via her neurosurgeon. Here, on Dilaudid prn with good relief (as well as scheduled Soma and Neurontin). On scheduled Senokot. GI gave dose of relistor, after which patient did have some formed BM. - GI mentions she could get a second Relistor 12 mg SQ dose on as needed. Continue supportive care. - Consider eventually sending home on bowel regimen including staged MiraLAX as needed. Hypokalemia: K as low as 3.0, replaced. Monitoring. Elevated blood pressure: Noted as high as 180/112 as inpatient. Would benefit from outpatient evaluation. Ongoing medical issues: - Diabetes: History of same, apparently resolved after 100+ pound weight loss. Not presently on medication. - Hypothyroidism: Continue home levothyroxine 125 mcg daily. - Reflux esophagitis: Seen on EGD in January 2019. Continue Protonix. - Depression, anxiety, PTSD: Reported history of noncompliance with psych medicines and follows with psychiatry. Continue fluoxetine. - Obesity, hyperlipidemia, migraines. Code status: DO NOT RESUSCITATE. Diet: Low fiber. DVT prophy: Lovenox daily, SCDs. PT/OT: Deferred. Disbo: Admitted to [facility]. Case management onboard, plans for return home on eventual discharge. Follows with Dr. Acosta (GI) as an outpatient. (2) Constipation: (3) Chronic back pain: (4) History of spinal fusion: (5) Hypokalemia: (6) Diabetes: (7) Hypothyroidism: (8) Reflux esophagitis: (9) Depression: (10) Anxiety: (11) PTSD (post-traumatic stress disorder): (12) Obesity (BMI 30.0-34.9): (13) Hyperlipidemia: (14) Migraines: (15) Elevated blood pressure reading without diagnosis of hypertension: Supervising Physician Co-Signing Physician Notes I personally examined the patient and verified all snyder points of history and exam, discussed case, and agree with decision making with Dr Robertson. Feels about the same as yesterday. No significant bowel movements yet since the previous ones. Vitals noted, nad. breathing unlabored no accessory muscles good effort. no pallor or icterus. No focal neuro deficits. Abdominal painappears to be a combination of diverticulitis and constipation, Although appears to be dominant from constipation at this point. Continue antibiotics, continue bowel regimen. Awaiting response from Relistor, if not may need to consider a GoLYTELY prep DVT proph - lovenox Subjective Spoke with patient earlier this morning. She says that she continues to have some loose watery stool that is about the same over the past few days. No noted actual significant bowel movements yet. Says her abdominal pain is about the same as it has been over the past couple of days. No present nausea or acute vomiting. No other acute concerns. Met with the patient again this afternoon, this time finding her reading in her bedside chair. She had received her single dose of Relistor. Following this, she says that she actually had a small but formed bowel movement. She asks if she continues to have good progress if she can go home tomorrow. No other noted acute concerns. Review of Systems Review of Systems: Per ROS as above. Physical Exam Physical Exam: Early this morning's exam.. General Appearance: Awake, alert & oriented, appears mildly uncomfortable at baseline but not in acute distress. CV: +S1S2 RRR, no murmur. Pulm: Clear to auscultation throughout. Abdomen: +BS, soft, positive tenderness to palpation in the left upper and left lower quadrant, non-distended [roughly the same since yesterday]. Extremities: No pedal edema or calf tenderness. Moving all extremities naturally and easily. Neuro: No gross neuro deficits. Results & Data Vital Signs (Past 12 Hours) Vital Signs Temp Pulse Resp BP Pulse Ox 04/06/19 07:16 36.6 C 51 L 16 151/77 H 92 Medications Administered Current Inpatient Medications Acetaminophen (Tylenol) 650 mg PO Q4H PRN PRN Reason: Moderate Pain Stop: 05/01/19 15:51 Carisoprodol (Soma) 350 mg PO TID [facility] Stop: 05/01/19 20:59 Last Admin: 04/06/19 13:16 Dose: 350 mg Documented by: Enoxaparin Sodium (Lovenox) 40 mg SQ QAM [facility] Stop: 05/02/19 08:59 Last Admin: 04/06/19 09:58 Dose: Not Given Documented by: Fluoxetine HCl (Prozac) 20 mg PO DAILY [facility] Stop: 05/02/19 08:59 Last Admin: 04/06/19 09:56 Dose: 20 mg Documented by: Gabapentin (Neurontin) 200 mg PO TID [facility] Stop: 05/01/19 20:59 Last Admin: 04/06/19 17:22 Dose: 200 mg Documented by: Hydromorphone HCl (Dilaudid) 1 mg IV Q4H PRN PRN Reason: Pain Stop: 04/15/19 15:51 Last Admin: 04/06/19 15:50 Dose: 1 mg Documented by: Ciprofloxacin (Cipro) 400 mg in 200 mls @ 100 mls/hr IV Q12H [facility] Stop: 04/12/19 01:59 Last Infusion: 04/06/19 16:57 Dose: Infused Documented by: Metronidazole (Flagyl) 500 mg in 100 mls @ 100 mls/hr IV Q8H [facility] Stop: 04/11/19 21:59 Last Infusion: 04/06/19 14:28 Dose: Infused Documented by: Ondansetron HCl 8 mg/ Dextrose 54 mls @ 216 mls/hr IV Q4H PRN PRN Reason: Nausea And Vomiting Stop: 05/02/19 10:46 Last Infusion: 04/06/19 12:09 Dose: Infused Documented by: Acetaminophen (Ofirmev) 65 mls @ 200 mls/hr IV Q8H [facility] Stop: 05/02/19 15:59 Last Admin: 04/06/19 17:23 Dose: 200 mls/hr Documented by: Ioversol (Optiray 320 100ml) 93 ml IV ONCE PRN PRN Reason: Interaction Checking Stop: 04/09/19 13:57 Last Admin: 04/05/19 13:59 Dose: 93 ml Documented by: Levothyroxine Sodium (Synthroid) 125 mcg PO DAILYBB [facility] Stop: 05/02/19 06:29 Last Admin: 04/06/19 06:16 Dose: 125 mcg Documented by: Oxycodone HCl (Roxicodone Immediate Rel) 10 mg PO Q4H PRN PRN Reason: Pain Stop: 04/15/19 16:51 Last Admin: 04/06/19 13:27 Dose: 10 mg Documented by: Pantoprazole Sodium (Protonix) 40 mg PO QAM [facility] Stop: 05/02/19 10:44 Last Admin: 04/06/19 09:56 Dose: 40 mg Documented by: Polyethylene Glycol (Miralax Powder Packet) 51 gm PO DAILY [facility] Stop: 05/05/19 17:44 Last Admin: 04/06/19 09:40 Dose: 17 gm Documented by: Pramipexole Dihydrochloride (Mirapex) 1 mg PO [facility] Stop: 05/02/19 20:59 Last Admin: 04/05/19 21:12 Dose: 1 mg Documented by: Senna/Docusate Sodium (Senokot S) 1 tab PO QAM [facility] Stop: 05/02/19 10:14 Last Admin: 04/06/19 09:55 Dose: 1 tab Documented by: Trazodone HCl (Desyrel) 300 mg PO [facility] Stop: 05/01/19 20:59 Last Admin: 04/05/19 21:13 Dose: 300 mg Documented by: Resident Activity Tracking Resident Involvement: Resident Care Provided Care Provided: Adult Hospital Medicine (1) Constipation Constipation type: unspecified constipation type Qualified Code(s): K59.00 - Constipation, unspecified
--- NOTE | 2019-04-06 13:20 | Surgery Progress Note ---
Date of Service April 06, 2019 Assessment & Plan (1) Constipation: resolving diverticulitis can follow-up with Dr. Beauchamp in 3-4 weeks, will sign off for now Subjective advanced to low fiber diet, large BM this AM after Relistor Physical Exam Gastrointestinal (Abdomen): Percussion/Palpation: abdomen soft; abdomen nontender Results & Data Vital Signs (Past 12 Hours) Vital Signs Temp Pulse Resp BP Pulse Ox 04/06/19 07:16 36.6 C 51 L 16 151/77 H 92 (1) Constipation Constipation type: unspecified constipation type Qualified Code(s): K59.00 - Constipation, unspecified
[2019-04-06] MEDS: OXYCODONE HCL IR 5 MG TAB (IMMEDIATE RELEASE) PO PRN ×2 (13:27→18:26)
[2019-04-06] MEDS: TRAZODONE HCL 100 MG TAB PO SCH (21:22)
[2019-04-06] MEDS: PRAMIPEXOLE DIHYDROCHLO 0.5 MG TAB PO SCH (21:22)
[2019-04-07] MEDS: ACETAMINOPHEN 65 ML IV SCH ×2 (00:12→08:53)
[2019-04-07] MEDS: CIPROFLOXACIN 400 MG/200 ML BAG IV SCH (02:26)
[2019-04-07] MEDS: OXYCODONE HCL IR 5 MG TAB (IMMEDIATE RELEASE) PO PRN ×2 (04:15→08:51)
[2019-04-07] MEDS: LEVOTHYROXINE SODIUM 125 MCG TABLET PO SCH (05:54)
[2019-04-07] MEDS: metroNIDAZOLE 500 MG/100 ML BAG IV SCH (05:54)
[2019-04-07] MEDS: GABAPENTIN 100 MG CAP PO SCH (08:45)
[2019-04-07] MEDS: PANTOprazole 40 MG TAB PO SCH (08:45)
[2019-04-07] MEDS: ENOXAPARIN INJ 40 MG/0.4 ML SYR SQ SCH (08:46)
[2019-04-07] MEDS: DOCUSATE SODIUM/SENNA 50/8.6MG TAB PO SCH (08:46)
[2019-04-07] MEDS: FLUOXETINE HCL 20 MG CAP PO SCH (08:46)
[2019-04-07] MEDS: POLYETHYLENE (MIRALAX) 17 GM PACK PO SCH (08:46)
[2019-04-07] MEDS: CARISOPRODOL 350 MG TABLET PO SCH (08:51)
--- NOTE | 2019-04-07 11:48 | Discharge Summary ---
Date of Service April 07, 2019 Admission HPI Per Admitting Provider This is a 54 yo F with PMHx of diverticulitis, admitted January 2019 for same complaints, s/p SBO requiring bowel resection Nov 2017, hemorrhoids, hypothyroidism, HLD, DM II, migraines, pancreatitis, chronic narcotic use for back pain, anxiety, depression and tobacco use who presents with worsening abdominal pain for the past week. Pain is localized to the LLQ and LUQ near her rib cage. She has not tolerated po intake well despite the use of antiemetics. Pt was seen in the ER yesterday regarding the same complaints. She was prescribed Cipro and Flagyl, but has not taken outpatient antibiotics yet. She has had chills but denies fever, does take tylenol along with oxycodone for chronic pain. Pt notes bowel movement sometimes has BRBPR and coffee ground at times. She feels better since being administered pain medication in the ER but remains on her right side due to pain. She is now requesting a cup of black coffee. Admission Exam Per Admitting Provider General: awake, alert, mild distress, laying on right side in darkened room Head: Normocephalic, atraumatic ENT: PERRL, EOMI, no pharyngeal exudate, mucous membranes slightly dry Chest: Clear to auscultation, on room air, no adventitious breath sounds Cardiac: Regular rate and rhythm, no murmur, no JVD, normal peripheral pulses, good capillary refill Abdominal: NABS x 4 quadrants, soft, nondistended, +tender to palpation in LLQ and LUQ, no rebound, guarding or tenderness Extremities: Normal inspection, no peripheral edema or erythema, calfs nontender to palpation Psych: Anxious mood, flat affect Neuro: AAO x 3, no motor deficits, speech is clear Principal Diagnosis Diverticulitis, constipation Discharge Exam General Appearance: Awake, alert & oriented, appears far more comfortable than on admit, and in NAD. CV: +S1S2 RRR, no murmur. Pulm: Clear to auscultation throughout. Abdomen: +BS, soft, positive tenderness to palpation in the LUQ and midline lower abdomen, non-distended (overall improved since admit). Extremities: No pedal edema or calf tenderness. Moving all extremities naturally and easily. Neuro: No gross neuro deficits. Discharge Data Allergies Allergy/AdvReac Type Severity Reaction Status Date / Time Sulfa (Sulfonamide Allergy Severe HIVES/LIPS Verified 04/01/19 11:57 Antibiotics) SWELLING tetracycline Allergy Severe SWELLING Verified 04/01/19 11:57 doxycycline [From Vibramycin] Allergy Unknown Verified 04/03/19 12:21 Consultations General surgery progress note on 06 Apr 2019 (1) Constipation: resolving diverticulitis can follow-up with Dr. Beauchamp in 3-4 weeks, will sign off for now Gastroenterology progress note on 06 Apr 2019 (1) Abdominal pain: (2) Constipation: (3) Diverticulitis: 1. Continue IV antibiotics. 2. Continue MiraLAX as prescribed. 3. Due to opioid use and lack of response to MiraLAX, will add Relistor 12 mg SQ x 1 now. Could be repeated in 2 days if needed. 4. Encouraged ambulation and adequate fluid intake. 5. Supportive care. Ordered Studies CT abdomen and pelvis with IV contrast on 05 Apr 2019 IMPRESSION: 1. Wall thickening with surrounding inflammation involving the sigmoid colon has almost completely resolved from 04/01/2019. This likely represents resolving diverticulitis. 2. There is no evidence of abscess. 3. Moderate constipation. 4. Trace pleural effusions. 5. There is trace pelvic ascites. 6. Additional findings as above. Hospital Course (1) Diverticulitis: 54-year-old female was admitted on 01 Apr 2019 for worsening abdominal pain. Diverticulitis: [id number] colonoscopy noted sigmoid diverticulosis and non- bleeding internal hemorrhoids. Also has history of SBO s/p resection in Nov 2017 in [place]. Presently admitted due to worsening left-sided abdominal pain without melena. 25May started on IV Cipro and Flagyl, completed 7 day course at time of discharge. Repeat 29May CT a/p notes image resolution of previously-seen diverticulitis. Surgery evaluation as well as inpatient. - As inpatient, pain control via as needed Dilaudid, oxycodone, and Tylenol. Nausea control via as needed Zofran. - Outpatient pain management per prior treating doctors. - Surgery mentions can f/u with Dr. Beauchamp in 3-4 weeks upon eventual discharge. Constipation, chronic back pain and s/p spinal fusion T12-S1: Related to chronic narcotic use including oxycodone 30 mg daily via her neurosurgeon. Here, on Dilaudid prn with good relief (as well as scheduled Soma and Neurontin). On scheduled Senokot. GI gave dose of relistor, after which patient did have some formed BM. - GI recommended daily linzess going forwards. - Recommended home on bowel regimen including staged MiraLAX as needed as well. Hypokalemia: K as low as 3.0, replaced. Monitoring. Elevated blood pressure: Noted as high as 180/112 as inpatient. Would benefit from outpatient evaluation. Ongoing medical issues: - Diabetes: History of same, apparently resolved after 100+ pound weight loss. Not presently on medication. - Hypothyroidism: Continue home levothyroxine 125 mcg daily. - Reflux esophagitis: Seen on EGD in January 2019. Continue Protonix. - Depression, anxiety, PTSD: Reported history of noncompliance with psych medicines and follows with psychiatry. Continue fluoxetine. - Restless leg syndrome: On pramipexole. - Obesity, hyperlipidemia, migraines. Code status: DO NOT RESUSCITATE. Diet: Low fiber. (2) Constipation: (3) Chronic back pain: (4) History of spinal fusion: (5) Hypokalemia: (6) Diabetes: (7) Hypothyroidism: (8) Reflux esophagitis: (9) Depression: (10) Anxiety: (11) PTSD (post-traumatic stress disorder): (12) Obesity (BMI 30.0-34.9): (13) Hyperlipidemia: (14) Migraines: (15) Elevated blood pressure reading without diagnosis of hypertension: Total Time Total Time Spent Total Time Spent (In Minutes): < 30 Discharge Plan Discharge Items Patient Disposition: Home - Self-Care Reason For Visit: DIVERTICULITIS Discharge Diagnosis: Diverticulitis, constipation Condition: Good Discharge Goals: Decrease discomfort, Improve disease control, Improve function and Learn about illness Activity: Per 'Additional Instructions' section Non-emergency contact: Primary Care Provider, Surgeon and Commercial Solar Sales Consultant Call non-emergency contact if: you have any medication questions Follow-up/Referrals: Carlene Garcia PA-C [Physician Data Management Analyst] - 04/12/19 10:50 am Abhijit Beauchamp MD [Surgeon] - (Call to make an appt in 3-4 weeks) Dimple Pandya DO [Primary Care Provider] - (A task was sent to Dr. Pandya's nurse regarding follow-up appointment. You will receive a call from Dr. Pandya's office with appointment date and time. ) Diet: Regular Diet Comment: Consider low fiber diet for next couple weeks Addtl Provider Instructions: You were admitted to the hospital on April 01, 2019 for worsening abdominal pain. While here, we evaluated the following issues: Diverticulitis: As seen on the CT scan of your abdomen and pelvis. You completed a 7-day course of ciprofloxacin and Flagyl (antibiotics). On a repeat CT scan, it appeared that your diverticulitis and resolved. Symptomatically you are also feeling better. - General surgery recommends that you follow-up with them (Dr. Beauchamp) in 3 to 4 weeks after hospital discharge. Please contact the [facility] surgery office to schedule an appointment. Constipation: This is likely due to your chronic narcotic use because of your chronic back pain. You were seen by gastroenterology who treated you here with Relistor and recommended that you go home on Linzess. - We also recommend that you start a plan to use MiraLAX as needed to help prevent future constipation. For example, if you do not have any bowel movements for 48 hours, please take 1 capful of MiraLAX. If no bowel movements for 72 hours, please take 3 capfuls of MiraLAX. If no bowel movements for 96 hours, please take 5 capfuls of MiraLAX and contact your doctor. Hypokalemia: At times in the hospital your potassium level was a bit low. We replaced this and it was okay at time of discharge. Elevated blood pressure: At times your blood pressure was quite high here in the hospital. This is not a formal diagnosis of hypertension. However, we do recommend that you follow-up with your doctor as well as check your blood pressure at home for ongoing evaluation. Overall, your only new medication should be Linzess. You can purchase MiraLAX [id number]. Please follow-up with your primary care provider as well as general surgery for good post-hospitalization continuity of care. Please return to the nearest emergency department if you develop any new severe abdominal pain, vomiting, bloody bowel movements, or with any other emergent concerns. Prescriptions: New trazodone 100 mg Tablet 300 mg PO HS 30 Days Qty: 90 RF: 0 gabapentin 100 mg Capsule 200 mg PO TID 30 Days Qty: 180 RF: 0 fluoxetine 20 mg Capsule 20 mg PO DAILY 30 Days Qty: 30 RF: 0 levothyroxine 125 mcg tablet 125 mcg PO DAILY 30 Days Qty: 30 RF: 0 sennosides-docusate sodium 8.6-50 mg tablet 1 tab PO QAM 30 Days Qty: 30 RF: 0 Linzess 72 mcg capsule 72 mcg PO QAM Qty: 30 RF: 0 pantoprazole 40 mg Tablet,Delayed Release (Dr/Ec) 40 mg PO QAM 30 Days Qty: 30 RF: 0 Continued carisoprodol 350 mg tablet 350 mg PO TID RF: 0 fluoxetine 20 mg capsule 20 mg PO QAM Qty: 30 RF: 0 gabapentin 100 mg capsule 200 mg PO TID Qty: 30 RF: 0 Chantix Starting Month Box 0.5 mg (11)- 1 mg (42) tablets,dose pack See Rx Instructions PO DAILY Qty: 53 RF: 0 ondansetron 4 mg tablet,disintegrating 4 mg PO Q6H PRN (Reason: nausea and vomiting) Qty: 14 RF: 0 Stand-Alone Forms: Call Back Authorization, [facility]/Other Patient Handouts: Diet Low Residue Discharge Orders: Discharge Order (Routine); Ordered 04/07/19 Ordered By: Luis Angel Robertson Admission Data Admit Date/Time: 04/01/19 15:50 Attending Provider: Bong Hirsch Admit Provider: Anson Escoto Primary Care Provider: Dimple Pandya Other Providers: Marlo Acosta ; Anson Escoto ; Huang Benedict ; Saeid Collado Service: Medical Other Interventions: Discharge Summary Assessment (RN) Last Done: 04/07/19 11:52 DC Date/Time DO NOT enter until pt leaves facility: 04/07/19 13:02 Supervising Physician Co-Signing Physician Notes I personally examined the patient and verified all snyder points of history and exam, discussed case, and agree with decision making with Dr Robertson. Had a good bowel movement with Relistor. Would like to go home. Eating okay. Vitals noted, nad. breathing unlabored no accessory muscles good effort. no pallor or icterus. No focal neuro deficits. Abdominal painappears to be a combination of diverticulitis and constipation, although appears to be dominant from constipation. Now improved. Stable for home as above. DVT proph - lovenox utilized during her stay Resident Activity Tracking Resident Involvement: Resident Care Provided Care Provided: Adult Hospital Medicine
== END 2019-04-07 13:02 | disposition home or self-care (01) | DRG 392 ==
LOC: ED 11:14 → SUATTDRO 15:50 → 3N 15:50
DX: K57.92 Diverticulitis of intestine, part unspecified, without perforation or abscess without bleeding; Z66 Do not resuscitate; G25.81 Restless legs syndrome; E78.5 Hyperlipidemia, unspecified; E66.9 Obesity, unspecified; K59.00 Constipation, unspecified; Z68.34 Body mass index [BMI] 34.0-34.9, adult; G89.29 Other chronic pain; Z83.3 Family history of diabetes mellitus; Z88.2 Allergy status to sulfonamides; E87.6 Hypokalemia; E03.9 Hypothyroidism, unspecified; Z79.899 Other long term (current) drug therapy; F41.8 Other specified anxiety disorders; K21.0 Gastro-esophageal reflux disease with esophagitis; F17.210 Nicotine dependence, cigarettes, uncomplicated; F43.10 Post-traumatic stress disorder, unspecified

== ENCOUNTER 2019-06-06 10:08 | Observation (INO) ==
[2019-06-06] MEDS ORDERED: ONDANSETRON INJ 2 MG/ML 2 ML VIAL ONE (10:21)
[2019-06-06] MEDS ORDERED: SODIUM CHLORIDE 0.9% 1000ML 2,000 ML IV SCH (11:00)
[2019-06-06 11:07] LABS: Basophils # (auto) 0.04 K/uL (0-0.2); Basophils % (auto) 0.3 %; Eosinophils # (auto) 0.06 K/uL (0-0.5); Eosinophils % (auto) 0.5 %; Hematocrit (blood only) 47.6 % (37-47); Hemoglobin 16.9 g/dL (12.0-16.0); Immature Granulocytes # (auto) 0.04 K/uL (0.00-0.02); Immature Granulocytes % (auto) 0.3 %; Lymphocytes # (auto) 3.11 K/uL (1.2-3.4); Lymphocytes % (auto) 24.6 %; Mean Corpuscular Hgb Conc 35.5 g/dL (32-36); Mean Corpuscular Volume 89.3 fL (80-100); Mean Platelet Volume 10.9 fL (7.4-10.4); Monocytes # (auto) 0.79 K/uL (0.11-0.59); Monocytes % (auto) 6.3 %; Neutrophils # (auto) 8.59 K/uL (1.4-6.5); Partial Thromboplastin Time 26.1 Seconds (21.0-31.0); Platelet Count 294 K/uL (130-400); Prothrombin Time 10.3 Seconds (9.0-12.0); RDW Coefficient of Variation 13.9 % (11.5-14.5); RDW Standard Deviation 45.4 fL (36.4-46.3); Red Blood Count 5.33 M/uL (4.2-5.4); White Blood Count 12.63 K/uL (4.8-10.8)
[2019-06-06] MEDS ORDERED: ONDANSETRON INJ 2 MG/ML 2 ML VIAL IV STA (11:25)
[2019-06-06] MEDS ORDERED: MoRPHine SULFATE 4 MG/ML 1 ML CARP\\VIAL IV STA (11:25)
[2019-06-06 11:29] LABS: Alanine Aminotransferase 44 U/L (12-78); Albumin Level 4.4 gm/dl (3.4-5.0); Aspartate Aminotransferase 18 U/L (15-37); BUN Creatinine Ratio 8.9 (10-20); Blood Urea Nitrogen 7 mg/dl (7-18); Calcium 9.8 mg/dl (8.5-10.1); Carbon Dioxide 25 mmol/L (21-32); Chloride 100 mmol/L (98-107); Creatinine Clr Calc Pharmacy 82.3 ml/min; Est GFR (African American) 95.4; Est GFR (Non-African American) 82.3; Glucose 186 mg/dl (70-99); Potassium 3.7 mmol/L (3.5-5.1); Sodium 134 mmol/L (136-145)
[2019-06-06 11:33] LABS: Alkaline Phosphatase 120 U/L (45-117); Bilirubin,Total 0.5 mg/dl (0.2-1); Globulin 4.6 gm/dl (2.5-4.0); Troponin I < 0.015 ng/ml (0-0.045)
--- NOTE | 2019-06-06 11:34 | XRay Report ---
XR chest 1V portable HISTORY: 54 years-old Female cough and fever acute cough with fever COMPARISON: Acute abdominal series radiographs 04/01/2019 TECHNIQUE: Portable AP view of the chest FINDINGS: Cardiac mediastinal and hilar silhouettes are within normal limits. No pneumothorax, pleural effusion , focal airspace consolidation or overt pulmonary edema. Bones of the chest appear grossly intact. Fu ermias hardware noted about the lumbar spine. IMPRESSION: No acute process. The above report was generated using voice recognition software. It may contain grammatical, syntax o r spelling errors. Electronically signed by: Luis Angel Jung M.D. 06/06/2019 11:32 AM
[2019-06-06] MEDS ORDERED: FAMOTIDINE 20MG/5ML IV PUSH IV STA (11:44)
[2019-06-06] MEDS ORDERED: IOVERSOL 100ml IV PRN (11:55)
--- NOTE | 2019-06-06 12:22 | CT Scan Report ---
ABDOMEN AND PELVIS CT WITH IV CONTRAST CT DOSE: HISTORY: Generalized abd pain and fever TECHNIQUE: Multiaxial CT images of the abdomen and pelvis were performed following the use of intrave nous contrast. A dose lowering technique was utilized adhering to the principles of ALARA. COMPARISON STUDY: Abdomen and pelvis CT 04/25/2019. FINDINGS: The lung bases are clear. No pneumoperitoneum. No pneumatosis. Extensive posterior fusion f rom T12 through S1 with pedicle screws and rods. Moderate compression deformity at T12, unchanged. Th ere appears to be mild periprostatic lucency at the T12 pedicle screws suggestive of loosening. Old m ild compression deformity at L3. Subtle nodular contour to the liver suggestive of mild cirrhosis. No hepatic or splenic masses. The adrenal glands, pancreas, and kidneys are unremarkable. No hydronephr osis. Cholecystectomy. Mild intrahepatic bile duct dilatation, unchanged. No retroperitoneal lymphade nopathy. Normal bladder. Prior hysterectomy. No bowel wall thickening. A few colonic diverticula. No evidence for diverticulitis. Fluid-filled large and small bowel which are mildly distended. No clear transition point within the small bowel. The small bowel measures up to 3.9 cm in diameter. The appen chioma appear surgically absent. IMPRESSION: 1. Mildly distended fluid-filled large and small bowel. No clear transition point to suggest a bowel obstruction. Therefore, this favors a gastroenteritis/diarrhea limits. A partial small bowel obstruct ion could also have a similar appearance but is considered less likely. 2. Cholecystectomy, hysterectomy, and appendectomy. 3. Extensive posterior fusion within the lower thoracic and lumbar spine. There are old compression d eformities and suggested loosening of the bilateral T12 pedicle screws as described above. This remai ns unchanged. 4. Additional stable findings as described above. Electronically signed by: Vel Fulton M.D. 06/06/2019 12:21 PM
--- NOTE | 2019-06-06 14:01 | History & Physical Report ---
Date of Service June 06, 2019 Assessment & Plan (1) GERD with esophagitis: Clear liquid diet. IV Pepcid. Oral Carafate. Consult GI service. Clear liquid diet Present on Admission?: Yes (2) Hematemesis: Treatment as above. Serial hemoglobin levels Present on Admission?: Yes (3) Diabetes mellitus, type 2: Sliding scale insulin coverage. Present on Admission?: Yes (4) Chronic back pain: Opioid dependent. IV morphine as needed for now Present on Admission?: Yes (5) DVT prophylaxis: Avoid heparin or Lovenox. SCDs only for now History of Present Illness Chief Complaint: Nausea, vomiting, hematemesis, GERD Primary Care Provider: Dimple Pandya, DO 54-year-old female with 4 days of nausea vomiting and GERD symptoms. She then had 2 days of intermittent hematemesis. She denies lightheadedness or near syncope. Hemoglobin 16.9. She has a history of esophagitis. I suspect she has erosive esophagitis, gastritis, or peptic ulcer disease. She is hemodynamically stable. She will be given intravenous Pepcid along with oral Carafate, clear liquid diet, IV fluids. Gastroenterology consultation requested. Allergies Allergy/AdvReac Type Severity Reaction Status Date / Time Sulfa (Sulfonamide Allergy Severe HIVES/LIPS Verified 06/06/19 11:02 Antibiotics) SWELLING tetracycline Allergy Severe SWELLING Verified 06/06/19 11:02 doxycycline [From Vibramycin] Allergy Unknown Verified 06/06/19 11:02 Home Medications Home Medications Medication Instructions Recorded Confirmed Type ondansetron 4 mg PO Q6H PRN #14 tab 03/31/19 06/06/19 Rx gabapentin 100 mg capsule 200 mg PO TID #30 cap 04/05/19 06/06/19 Rx varenicline 0.5 mg (11)-1 mg (42) See Rx Instructions PO DAILY #53 ea 04/05/19 06/06/19 Rx tablets in a dose pack oxycodone 10 mg tablet 10 mg PO Q4H PRN tab 04/11/19 06/06/19 History fluoxetine 40 mg PO QAM 04/25/19 06/06/19 History promethazine 25 mg PO TID PRN #12 tab 04/25/19 06/06/19 Rx carisoprodol 350 mg tablet 350 mg PO BID tab 05/19/19 06/06/19 History levothyroxine 125 mcg tablet 125 mcg PO DAILY #90 tab 05/19/19 06/06/19 Rx linaclotide 145 mcg capsule 145 mcg PO DAILY #30 cap 05/19/19 06/06/19 Rx pramipexole 1 mg tablet 1 mg PO QPM #90 tab 05/19/19 06/06/19 Rx Past Med/Surg History Medical History GERD with esophagitis Neuropathy Hyperlipidemia BORDERLINE Cardiac murmur Migraine HX OF Restless leg syndrome Hypothyroidism Diabetes mellitus, type 2 IN THE PAST (LOST OVER 150 LBS/NO LONGER A DX) Diverticula of colon Obesity (BMI 30.0-34.9) Hypothyroidism Chronic back pain PTSD (post-traumatic stress disorder) Anxiety Depression Coffee ground vomiting (Resolved) Diverticulitis (Resolved) Encounter for pre-operative examination (Resolved) Hematochezia (Resolved) Hypokalemia (Resolved) Nausea & vomiting (Resolved) Pancreatitis (Resolved) 2012/FEEDING TUBE FOR 6 MONTHS Suicidal thoughts (Resolved) DENIES Broken back FELL FROM TRUCK 1993 (CURRENT STRESS FRACTURE) Surgical History Salivary gland abscess REMOVED D/T INFECTION, L side Abnormal colonoscopy 2019: States she has a history of polyps on colonoscopy. Was told to return in 7 years, and is overdue for repeat scan. Fusion of spine LUMBAR (ANTERIOR PROCEDURE) History of appendectomy History of bowel resection D/T BOWEL OBSTRUCTION History of cholecystectomy History of colonoscopy History of esophagogastroduodenoscopy (EGD) History of spinal fusion History of tonsillectomy History of tooth extraction History of total abdominal hysterectomy and bilateral salpingo-oophorectomy Family History Mother Hypertension Myocardial infarction Kidney disease Breast cancer, Onset Age: 50 Anxiety Heart disease Depression Diabetes Drug abuse Gallbladder disease Sister Kidney disease Anxiety Depression Father Alcohol abuse Heart disease Depression Diabetes Hypertension Cancer Grandfather Stroke Heart disease Myocardial infarction Aunt Stroke Brother Diabetes Social History Preferred Language: Com[place] Communication Ability: Effective Visual Impairment: No Limitations Hearing Ability: Normal Beliefs That Will Affect Care: None marital status: Single Current Living Situation: Alone current occupational status: disabled Feels Safe at Home: Yes Smoking Status: Current every day smoker Tobacco Type: cigarettes Cigarettes Per Day: 15 Second Hand Exposure: No Hx Alcohol Use: No Hx Substance Use: No Dental Care, Regularly: No Physical Activity Frequency: Other Physical Activity Frequency Comment: Limited by physical condition Review of Systems Review of Systems: Constitutional-no fever or chills ENT-no blurred vision, no double vision, no epistaxis, no sore throat Respiratory-no cough, no wheezing, no shortness of breath Cardiac-no palpitations, no chest pain, no syncope GI-epigastric discomfort. Nausea. Vomiting. Hematemesis. -no urinary retention, no urinary incontinence, no dysuria, no hematuria Musculoskeletal-no joint pain, no muscle tenderness Skin-no bruising, no rashes, no pruritus Neuro-no isolated weakness, no paresthesia, no weakness Psych-no depression, no anxiety Physical Exam Physical Exam: General-alert and oriented x3, no fevers, no chills HEENT-head atraumatic and normocephalic, TMs intact bilaterally, pupils equal and reactive to light, extraocular muscles intact Neck-no lymphadenopathy or thyromegaly, trachea midline Chest-clear to auscultation percussion. No rales wheezing or rhonchi Cardiac-regular rate and rhythm, normal S1 and S2, no murmurs Abdomen-nondistended. Active bowel sounds. Epigastric tenderness. No rebound or guarding Extremities-no cyanosis, clubbing, or edema Neuro-cranial nerves II through XII intact, motor and sensory function within normal limits, strength symmetrical 5/5, no focal deficits Psych-normal affect, normal mood Results & Data Vital Signs (Past 12 Hours) Vital Signs Temp Pulse Pulse Resp BP BP Pulse Ox 06/06/19 12:16 79 18 136/76 99 06/06/19 11:57 87 20 130/112 H 98 06/06/19 10:13 36.9 C 101 H 20 166/104 H 97 Laboratory Results 06/06/19 10:35 06/06/19 10:35 PG Care Time/CCT Total # of Minutes Spent Total Time Spent with Patient: Total time spent is greater than 50% in coordination of care (as documented) at patient's floor/unit and/or counseling patient:
[2019-06-06] MEDS ORDERED: ACETAMINOPHEN 325 MG TAB PO PRN (15:03)
[2019-06-06] MEDS ORDERED: ONDANSETRON INJ 2 MG/ML 2 ML VIAL IV PRN (15:03)
[2019-06-06] MEDS ORDERED: GABAPENTIN 100 MG CAP PO SCH (15:30)
[2019-06-06] MEDS ORDERED: GLUCOSE 10 TABS/TUBE PO PRN (15:30)
[2019-06-06] MEDS ORDERED: DEXTROSE 50% 50 ML SYRINGE IV PRN (15:30)
[2019-06-06] MEDS ORDERED: GLUCOSE 40% GEL 15 GM TUBE PO PRN (15:30)
[2019-06-06] MEDS ORDERED: CARBOHYDRATES FOR HYPOGLYCEMIA PO PRN (15:30)
[2019-06-06] MEDS ORDERED: GLUCAGON FOR INJ 1 MG VIAL IM PRN (15:30)
[2019-06-06] MEDS: MoRPHine SULFATE 2 MG/ML CARP IV PRN ×3 (15:35→21:41)
[2019-06-06] MEDS: SODIUM CHLORIDE 0.9% 1000ML 1,000 ML IV SCH (15:35)
[2019-06-06] MEDS: SUCRALFATE 1 GM/10 ML UDC PO SCH ×2 (16:09→19:54)
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
[2019-06-06] MEDS: INSULIN ASPART 100 UNITS/ML 3 ML PEN SC SCH ×2 (17:34→21:04)
[2019-06-06] MEDS: GABAPENTIN 400 MG CAP PO SCH (19:54)
[2019-06-06] MEDS: CARISOPRODOL 350 MG TABLET PO SCH (20:03)
[2019-06-06] MEDS ORDERED: TRAZODONE HCL 100 MG TAB PO SCH (21:00)
[2019-06-06] MEDS ORDERED: PRAMIPEXOLE DIHYDROCHLO 0.5 MG TAB PO SCH (21:00)
[2019-06-06] MEDS ORDERED: MoRPHine SULFATE 4 MG/ML 1 ML CARP\\VIAL ONE (21:36)
[2019-06-06] MEDS ORDERED: PROMETHAZINE HCL 12.5 MG in SODIUM CHLORIDE 0.9% 50 ML IV ONE (22:00)
[2019-06-07] MEDS ORDERED: MoRPHine SULFATE 4 MG/ML 1 ML CARP\\VIAL ONE (00:30)
[2019-06-07] MEDS: MoRPHine SULFATE 2 MG/ML CARP IV PRN ×3 (00:36→09:36)
[2019-06-07] MEDS ORDERED: ALUMINUM/MAGNESIUM SUSP 18 ML, LIDOCAINE HCL VISCOUS 2% 6 ML, BARCODE IDENTIFIER 1 EA PO ONE (01:35)
[2019-06-07] MEDS: SODIUM CHLORIDE 0.9% 1000ML 1,000 ML IV SCH (04:00)
[2019-06-07] MEDS ORDERED: LEVOTHYROXINE SODIUM 125 MCG TABLET PO SCH (06:30)
[2019-06-07] MEDS: SUCRALFATE 1 GM/10 ML UDC PO SCH ×2 (07:48→11:33)
[2019-06-07] MEDS ORDERED: FLUOXETINE HCL 20 MG CAP PO SCH (09:00)
[2019-06-07] MEDS ORDERED: LINACLOTIDE 72 MCG CAPSULE PO SCH (09:00)
[2019-06-07] MEDS: GABAPENTIN 400 MG CAP PO SCH (09:09)
[2019-06-07] MEDS: INSULIN ASPART 100 UNITS/ML 3 ML PEN SC SCH ×2 (09:10→12:29)
[2019-06-07] MEDS ORDERED: PANTOprazole 40 MG TAB PO SCH (09:15)
[2019-06-07] MEDS: CARISOPRODOL 350 MG TABLET PO SCH (09:16)
--- NOTE | 2019-06-07 11:34 | Discharge Summary ---
Date of Service June 07, 2019 Admission HPI Per Admitting Provider 54-year-old female with 4 days of nausea vomiting and GERD symptoms. She then had 2 days of intermittent hematemesis. She denies lightheadedness or near syncope. Hemoglobin 16.9. She has a history of esophagitis. I suspect she has erosive esophagitis, gastritis, or peptic ulcer disease. She is hemodynamically stable. She will be given intravenous Pepcid along with oral Carafate, clear liquid diet, IV fluids. Gastroenterology consultation requested. Admission Exam Per Admitting Provider General-alert and oriented x3, no fevers, no chills HEENT-head atraumatic and normocephalic, TMs intact bilaterally, pupils equal and reactive to light, extraocular muscles intact Neck-no lymphadenopathy or thyromegaly, trachea midline Chest-clear to auscultation percussion. No rales wheezing or rhonchi Cardiac-regular rate and rhythm, normal S1 and S2, no murmurs Abdomen-nondistended. Active bowel sounds. Epigastric tenderness. No rebound or guarding Extremities-no cyanosis, clubbing, or edema Neuro-cranial nerves II through XII intact, motor and sensory function within normal limits, strength symmetrical 5/5, no focal deficits Psych-normal affect, normal mood Principal Diagnosis GERD w/ esophagitis Hematemesis DM2 Chronic Back Pain Discharge Exam Constitutional well developed and cooperative Eyes normal visual bazan by confrontation, + anicteric sclerae and PERRL ENMT Ears: no hearing impairment Nose: nasal mucous membranes not dry, face symmetric and no facial edema Mouth: + dental caries and + poor dentition Neck normal visual inspection and trachea midline Respiratory normal respiratory effort, lungs clear to auscultation Cardiovascular RRR, no murmur, no edema Gastrointestinal (Abdomen) Inspection/Auscultation: abdomen normal to inspection, normal bowel sounds and + abdominal surgical scar; abdomen not distended Percussion/Palpation: + abdomen tender and abdomen soft; no guarding, abdomen not rigid and abdomen not firm Musculoskeletal Spine: + thoracic spinal tenderness, + lumbar spinal tenderness and + paraspinal tenderness Discharge Data Allergies Allergy/AdvReac Type Severity Reaction Status Date / Time Sulfa (Sulfonamide Allergy Severe HIVES/LIPS Verified 06/07/19 15:04 Antibiotics) SWELLING tetracycline Allergy Severe SWELLING Verified 06/07/19 15:04 doxycycline [From Vibramycin] Allergy Unknown Verified 06/07/19 15:04 Consultations 06/06/19 15:03 Consult Gastroenterology Routine Ordered Studies 06/06/19 10:48 CT abd pelvis IV con only Stat Hospital Course (1) GERD with esophagitis: -Negative CT Ab/Pelvis -Clear liquid diet. -IV Pepcid. -Oral Carafate. -Consult GI service. -Patient no longer having emesis. -Hemodynamically stable. (2) Hematemesis: Treatment as above. Serial hemoglobin levels - Stable (3) Diabetes mellitus, type 2: Sliding scale insulin coverage. (4) Chronic back pain: Opioid dependent. IV morphine as needed for pain. (5) DVT prophylaxis: Avoid heparin or Lovenox. SCDs only for now Total Time Total Time Spent Total Time Spent (In Minutes): <60 Discharge Plan Discharge Items Patient Disposition: Home - Self-Care Reason For Visit: ACUTE GASTRITIS,HEMATEMESIS Discharge Diagnosis: GERD with Esophagitis Condition: Good Discharge Goals: Decrease discomfort and Improve disease control Activity: Resume your previous activity Non-emergency contact: Primary Care Provider and Technical Recruiter Call non-emergency contact if: you have any medication questions and your symptoms worsen Follow-up/Referrals: Dimple Pandya, [Primary Care Provider] - Diet: Carb Consistent or DM2 Addtl Provider Instructions: Sindy you were seen in the ED after 4 days of nausea and vomiting and 2 days of intermittent hematemesis. Upon presentation to the ED you underwent CT of abdomen/pelvis which showed you were more indicative to having a gastro enteritis. You were given some medication (Phenergan) which appeared to resolve your vomiting. Upon admission you were monitored, labs were drawn, and you were given medication to control your pain. Your lab values appear stable and you are currently no longer vomiting. I am prescribing you a medication which helps control stomach acid (PPI) and will assist in preventing further bleeds. You will be receiving Protonix 20mg twice a day for a short course of 2 weeks. -Please hot die picker and take Protonix 20mg twice a day as prescribed for the following 2 weeks. -I have also ordered a prescription for Phenergan which you can hot die picker at your pharmacy, please take as prescribed. -Please follow up with GI (Dr. Acosta) in 2 weeks as discussed. -Please follow up with your PCP in the next 2-3 days. -If you have any questions or notice worsening/return of your symptoms, please call your PCP or come to the ED. Prescriptions: New pantoprazole 20 mg tablet,delayed release (DR/EC) 20 mg PO BID 14 Days Qty: 28 RF: 0 Continued levothyroxine 125 mcg tablet 125 mcg PO DAILY Qty: 90 RF: 3 carisoprodol 350 mg tablet 350 mg PO BID RF: 0 Linzess 145 mcg capsule 145 mcg PO DAILY Qty: 30 RF: 2 pramipexole [Mirapex] 1 mg tablet 1 mg PO QPM Qty: 90 RF: 2 oxycodone 10 mg tablet 10 mg PO Q4H PRN (Reason: pain) RF: 0 fluoxetine 20 mg capsule 40 mg PO QAM RF: 0 promethazine 25 mg tablet 25 mg PO TID PRN (Reason: nausea and vomiting) Qty: 12 RF: 0 No Action gabapentin 400 mg capsule 400 mg PO TID RF: 0 promethazine PO PRNRF: 0 Blood Pressure Cuff misc .ROUTE .MEDSUPPLY Qty: 1 RF: 0 blood-glucose meter [Accu-Chek Guide Glucose Meter] misc .ROUTE .MEDSUPPLY Qty: 1 RF: 0 Accu-Chek Guide strip .ROUTE .MEDSUPPLY Qty: 100 RF: 1 lancets [Accu-Chek Softclix Lancets] misc .ROUTE .MEDSUPPLY Qty: 100 RF: 1 Stand-Alone Forms: [facility] Discharge Orders: Discharge Order (Routine); Ordered 06/07/19 Ordered By: Roger Merino Admission Data Admit Date/Time: 06/06/19 14:20 Attending Provider: Bong Hirsch Admit Provider: Anson Escoto Primary Care Provider: Dimple Pandya Other Providers: Marlo Acosta ; Anson Escoto Service: Telemetry Medical Other Interventions: Discharge Summary Assessment (RN) Last Done: 06/07/19 12:34 DC Date/Time DO NOT enter until pt leaves facility: 06/07/19 12:49 Supervising Physician Co-Signing Physician Notes I personally examined the patient and verified all snyder points of history and exam, discussed case, and agree with decision making with Dr Merino. feeling better stomach doing better no further bleeding vitals noted nad breathing unlabored no accessory muscles good effort UGI bleeding - resolved. no significant blood loss. more than likely vomiting mediated gastritis or similar. home on acid suppression, nausea suppression, outpt GI f/u stable for home Resident Activity Tracking Resident Involvement: Resident Care Provided Care Provided: Adult Hospital Medicine
--- NOTE | 2019-06-07 23:56 | Consultation Report ---
DATE OF CONSULTATION: 06/07/2019 GASTROENTEROLOGY CONSULTATION RACE: . ATTENDING PHYSICIAN: Dr. Escoto. CONSULTING PHYSICIAN: Dr. Acosta. REASON FOR CONSULTATION: Hematemesis, suspected acute gastritis or esophagitis. HISTORY OF PRESENT ILLNESS: Alfreda Callahan is a 54-year-old female who was last seen by our service on 04/06/2019 when she was admitted for abdominal pain, constipation and diverticulitis. She underwent an upper endoscopy by Dr. Alonso in 01/2019, which showed LA grade B reflux esophagitis. She also underwent a colonoscopy by myself on 03/10/2019 and was noted to have 2 sessile polyps in the sigmoid colon, sigmoid diverticulosis and nonbleeding internal hemorrhoids. The colon polyps returned showing evidence of tubular adenomas, the largest of which was 1 cm and repeat colonoscopy was recommended in 3 years. She does take Linzess therapy at home for treatment of her chronic constipation and was placed on twice daily Prilosec therapy by Dr. Alonso at the time of her endoscopy. She presented to the Department of Emergency Medicine on 06/06 with complaints of vomiting with reported coffee-ground emesis. She also complained of having a fever of 101.2 for 4 days, headaches and abdominal pain. She did state that her vomiting was exacerbated with coughing and she had laboratory studies in the ER, which showed an H and H of 16.9 and 47.6 with a white blood cell count of 12.63 and a platelet count of 294. Her BUN and creatinine on arrival were 7 and 0.81. Her UA was unremarkable. Her tox screen was unremarkable and imaging studies from the ER included a CT scan of the abdomen and pelvis, which showed mildly distended and filled large and small bowel with no transition point to suggest a bowel obstruction. She did have a prior cholecystectomy, hysterectomy and appendectomy. She was subsequently admitted and she was placed on pantoprazole 40 mg p.o. b.i.d. as well as Carafate 1 g p.o. a.c. and at bedtime. At the time that I saw the patient, she had tolerated a clear liquid breakfast and had no further episodes of hematemesis, melena, or hematochezia. She states that her abdominal pain had improved significantly. She states that she has not had any bowel movements, though she has not been taking her Linzess while she has been in the hospital and states the Linzess has been helpful. She states that she would like to be discharged and be seen as an outpatient if at all possible and a repeat H and H from this morning showed a hemoglobin of 14.5 and a second repeat was normal at 13.7. She denied any further complaints including jaundice, acholic stools, dark urine, pruritus, fevers, chills, nausea, vomiting, dysuria or hematuria. She had no further complaints. PAST MEDICAL HISTORY: Significant for GERD with esophagitis, neuropathy, hyperlipidemia, cardiac murmur, migraine headaches, restless legs syndrome, hypothyroidism, type 2 diabetes, diverticulosis, obesity, hypothyroidism, chronic back pain, PTSD, anxiety, depression, history of diverticulitis, history of pancreatitis, hematemesis, small-bowel obstruction. PAST SURGICAL HISTORY: Includes a colonoscopy and upper endoscopy, tonsillectomy, third molar extractions, appendectomy, cholecystectomy, bowel resection, hysterectomy with BSO, spinal fusion, salivary gland abscess I and D. ALLERGIES: SULFA, TETRACYCLINE AND DOXYCYCLINE. MEDICATIONS: During her hospitalization include trazodone 300 mg p.o. at bedtime, Carafate 1 g p.o. a.c. and at bedtime, pramipexole 1 mg p.o. q.p.m., pantoprazole 40 mg p.o. b.i.d., Zofran 4 mg IV q.6 p.r.n. nausea, morphine 2 mg IV q.3 p.r.n. pain, Linzess ____ mcg p.o. daily, levothyroxine 125 mcg p.o. daily, sliding scale insulin, gabapentin 200 mg p.o. t.i.d., gabapentin 400 mg p.o. t.i.d., Prozac 40 mg p.o. q.a.m., Tylenol 650 mg p.o. q.4 p.r.n. pain or fever. SOCIAL HISTORY: She is single. She lives alone. She is on disability. She smokes and has a [id number] history of smoking. No illicit drug use. No tobacco. FAMILY HISTORY: Negative for GI malignancy or inflammatory bowel disease. REVIEW OF SYSTEMS: Negative x12 system review other than pertinent positives listed in the HPI. PHYSICAL EXAMINATION: VITAL SIGNS: Include temperature 36.9, pulse 66, respirations 18, blood pressure 157/92, pulse ox 98% on room air. GENERAL: Obese, cooperative, chronic ill appearing, in no acute distress. HEAD: Normocephalic, atraumatic. EYES: Pupils equal, round. Extraocular muscles are intact. ENT: External evaluation of ears and nose are normal. Oropharynx is clear. NECK: Soft and supple. There is no JVD or lymphadenopathy. CHEST: Clear to auscultation bilaterally. CARDIOVASCULAR SYSTEM: Regular rate and rhythm. ABDOMEN: Soft, tender throughout, nondistended. Positive bowel sounds. There is no hepatosplenomegaly or stigmata of chronic liver disease. EXTREMITIES: No clubbing, cyanosis, or edema. LABORATORY STUDIES AND RADIOGRAPHIC STUDIES: Reviewed in the HPI. IMPRESSION: A 54-year-old female with a past medical history of chronic constipation as well as LA grade B reflux esophagitis who presented with vomiting and questionable coffee ground versus hematemesis. PLAN: Currently, the patient is hemodynamically stable. She has had no signs of overt GI blood loss during her stay here. She states she is feeling much better and is asking to be discharged and have an outpatient workup. I asked her to continue twice daily PPI therapy at home as well as her Linzess therapy and to follow up in our office within the next 10 days. She was in agreement with this plan. I would recommend advancing her diet as tolerated and discharging her for outpatient followup. Once again, thanks for allowing me to participate in the care of this patient. If you have any further questions, please do not hesitate in contacting me.
== END 2019-06-07 12:49 | disposition home or self-care (01) ==
LOC: ED 10:08 → 2N 10:08 → SUATTDRO 14:20 → 2N 14:25

== ENCOUNTER 2019-10-10 14:46 | Inpatient (IN) ==
--- NOTE | 2019-10-10 15:11 | XRay Report ---
XR chest 1V portable CLINICAL HISTORY: Dyspnea dyspnea COMPARISON STUDY: 11/20/2018 FINDINGS: Complete fusion of the thoracic and upper lumbar spine. The hardware appears to be intact. Lungs are grossly clear. Slight bronchovascular prominence. Diaphragms are smooth. IMPRESSION: Mild bronchitis. No focal infiltrate. The above report was generated using voice recognition software. It may contain grammatical, syntax or spelling errors. Electronically signed by: Raymond Verde M.D. 10/10/2019 3:10 PM
[2019-10-10] MEDS ORDERED: MoRPHine SULFATE 4 MG/ML 1 ML CARP\\VIAL IV STA (15:15)
[2019-10-10] MEDS ORDERED: ALBUT/IPRATROP 3MG/0.5MG NEB 3 ML VIAL NEB ONE (15:15)
[2019-10-10 15:59] LABS: Basophils # (auto) 0.03 K/uL (0-0.2); Basophils % (auto) 0.1 %; Eosinophils # (auto) 0.19 K/uL (0-0.5); Eosinophils % (auto) 0.8 %; Hematocrit (blood only) 29.3 % (37-47); Hemoglobin 8.8 g/dL (12.0-16.0); Immature Granulocytes # (auto) 0.13 K/uL (0.00-0.02); Immature Granulocytes % (auto) 0.6 %; Lymphocytes # (auto) 2.85 K/uL (1.2-3.4); Lymphocytes % (auto) 12.3 %; Mean Corpuscular Hemoglobin 23.8 pg (25-34); Mean Corpuscular Volume 79.4 fL (80-100); Mean Platelet Volume 9.3 fL (7.4-10.4); Monocytes # (auto) 1.79 K/uL (0.11-0.59); Monocytes % (auto) 7.7 %; Neutrophils # (auto) 18.23 K/uL (1.4-6.5); Neutrophils % (auto) 78.5 %; Platelet Count 547 K/uL (130-400); RDW Standard Deviation 58.4 fL (36.4-46.3); Red Blood Count 3.69 M/uL (4.2-5.4); White Blood Count 23.22 K/uL (4.8-10.8)
[2019-10-10 15:59] LABS: iSTAT Creatinine 0.3 mg/dl (0.6-1.3); iSTAT Hemoglobin 10.5 g/dl (12.0-16.0); iSTAT Ionized Calcium 1.15 mmol/l (1.12-1.32); iSTAT Potassium 4.3 mEq/L (3.3-5.0)
[2019-10-10 16:09] LABS: HCO3 VBG 30 mmol/L; PCO2 VBG 49 mmHg (38-50); PO2 VBG 30 mmHg; pH VBG 7.41 (7.36-7.41)
[2019-10-10 16:10] LABS: Oxygen Saturation VBG < 60.0 %
[2019-10-10] MEDS ORDERED: OPTIRAY 320 125ml IV PRN (16:11)
[2019-10-10 16:13] LABS: Alanine Aminotransferase 15 U/L (12-78); Aspartate Aminotransferase 9 U/L (15-37); BUN Creatinine Ratio 20.5 (10-20); Blood Urea Nitrogen 13 mg/dl (7-18); Calcium 9.7 mg/dl (8.5-10.1); Carbon Dioxide 25 mmol/L (21-32); Chloride 98 mmol/L (98-107); Est GFR (African American) 117.3; Est GFR (Non-African American) 101.2; Glucose 188 mg/dl (70-99); Magnesium 1.8 mg/dl (1.8-2.4); Potassium 4.1 mmol/L (3.5-5.1); Sodium 130 mmol/L (136-145)
[2019-10-10 16:18] LABS: Albumin Globulin Ratio 0.5 (0.9-2); Alkaline Phosphatase 121 U/L (45-117); Bilirubin,Total 0.2 mg/dl (0.2-1); Globulin 5.9 gm/dl (2.5-4.0); Total Protein 8.9 gm/dl (6.4-8.2); Troponin I < 0.015 ng/ml (0-0.045)
--- NOTE | 2019-10-10 16:20 | CT Scan Report ---
CT angio chest PE protocol CT DOSE: 1451.89 mGy.cm HISTORY: Dyspnea Dyspnea TECHNIQUE: Multiaxial CT images of the chest were performed following the intravenous administration of contrast to evaluate the pulmonary arteries. Maximal intensity projection images were also obtaine d. A dose lowering technique was utilized adhering to the principles of ALARA. COMPARISON STUDY: 09/13/2019 FINDINGS: The thoracic aorta is normal in course and caliber. The pulmonary vasculature enhances appr opriately. There are no significant filling defects. No significant mediastinal or hilar adenopathy. Findings are rather diffuse mid and upper lung inters titial change bilaterally. Possibility of a pneumonitis is considered. IMPRESSION: 1. No evidence for pulmonary embolus. 2. Diffuse parenchymal infiltrative changes throughout the mid to upper lungs bilaterally. 3. Stable postoperative changes of the thoracic spine. The above report was generated using voice recognition software. It may contain grammatical, syntax or spelling errors. Electronically signed by: Raymond Verde M.D. 10/10/2019 4:19 PM
[2019-10-10] MEDS: HYDROmorphone INJ 0.5 MG/0.5 ML SYR IV PRN ×3 (16:28→20:47)
--- NOTE | 2019-10-10 16:28 | CT Scan Report ---
CT lumbar spine w con HISTORY: 54 years-old Female recent back procedure, fall, fever acute low back pain status post fall . History of recent back surgery. COMPARISON: CT abdomen and pelvis 09/29/2019, MRI lumbar spine 08/03/2019 TECHNIQUE: Multiple axial CT images of the lumbar spine were obtained following the intravenous minis tration of 120 mL Optiray 320 IV contrast. A dose lowering technique was used consistent with the sangita ncipals of KENNETH. FINDINGS: Streak artifact from extensive posterior interbody claudio and screw fusion hardware limits the study. La minectomy changes are noted at multiple levels. Bilateral pedicle screws are noted at L1, L3, L5-S1. Evidence of prior pedicle screw removal bilaterally at L2. Left-sided pedicle screw at L4. Discectomy changes at L3-L4, L4-L5 and L5-S1. Posterior interbody rods are noted extending through the thoracic spine outside the [id number]. Evidence of prior screw removal at T12. No evidence of hardware fra cture or loosening. Severe multilevel facet arthrosis. There is no acute fracture or subluxation. Evaluation of the central canal and neuroforaminal structures are not well evaluated by CT. There is suggestion of a degree of neuroforaminal stenosis bilaterally at L1-L2. Moderate to severe L1-L2 disc space narrowing with mild spondylitic spurring. Remote superior endplate Schmorl's node at L1 with r emote T12 compression deformity. Straightening of the normal lumbar lordosis. Small remote Schmorl's node involves the superior endplate L3. Calcified plaque of the abdominal aorta without aneurysm. Colonic diverticulosis. No acute process of the imaged intra-abdominal structures. There is no adenopathy. Stranding and edema is noted within t he incision site of the dorsal midline distribution. No discrete drainable fluid collection identifie d. IMPRESSION: 1. No acute fracture or subluxation. 2. Extensive posterior interbody claudio and screw fusion and discectomy changes of the lumbar spine are redemonstrated as above. There is no evidence of hardware fracture or loosening. 3. Edema/stranding within the incision site of the dorsal midline tissues, likely expected postoperat kendy findings. No discrete drainable fluid collection identified. Streak artifact from the hardware li mits evaluation of the adjacent tissues. The above report was generated using voice recognition software. It may contain grammatical, syntax o r spelling errors. Electronically signed by: Luis Angel Jung M.D. 10/10/2019 4:27 PM
[2019-10-10 16:31] LABS: Anisocytosis Present
[2019-10-10] MEDS ORDERED: SODIUM CHLORIDE 0.9% 1000ML 1,000 ML IV ONE (17:05)
[2019-10-10] MEDS ORDERED: VANCOMYCIN HCL 2,250 MG in SODIUM CHLORIDE 0.9% 500 ML IV ONE (17:05)
[2019-10-10] MEDS ORDERED: VANCOMYCIN CONSULT ACTIVE PRN ×2 (17:05→19:57)
[2019-10-10] MEDS ORDERED: AZITHROMYCIN 500 MG in DEXTROSE 5% 250 ML IV STA (17:05)
[2019-10-10] MEDS ORDERED: CEFEPIME 2,000 MG/20 ML VIAL IV STA (17:05)
--- NOTE | 2019-10-10 17:43 | History & Physical Report ---
Date of Service October 10, 2019 Assessment & Plan (1) Pneumonia: (2) Acute respiratory distress: - Admit to PCU - CTPE negative for PE, shows diffuse parenchymal infiltrative changes throughout the mid to upper lungs bilaterally. - febrile with tmax = 37.9 -Continue on vancomycin & cefepime IV, azithromycin PO -Patient had 1 hour long DuoNeb while in the ER, symptoms slightly improved, will continue duo nebs Q4H and Q2H prn, flutter therapy, incentive spirometry, Mucinex, Tessalon Perles -Sputum culture if produces expectorant -WBC equals 23.22, WBC likely slightly elevated secondary to recent use of Solu- Medrol home pack x1 week, currently has had 5 days, will hold on further ster oids at this time. Trend a.m. CBC (3) Tobacco use: - Smokes at least 5 cigarettes a day, chronic, cessation encouraged. Pt declines nicotine patch. (4) Thoracolumbar back pain: -CT of the lumbar spine was negative for acute fracture or subluxation. There is edema/stranding within the incision site of the dorsal midline tissues, expected postop finding, no fluid collection which would be concerning for abscess. - underwent spinal fusion involving the thoracic and lumbar spine T12-S1 [facility] on 08/28/19 recently had follow-up on 10/02/2019 with her neurosurgeon. - Follows with Dr. Hdz neurosurgery - Pain control with oxycodone as per ROLL SETTER, additional IV analgesic prn - Continue linzess -Follows with pain management, Dr. Chelo Coe and do boys: Current regimen of oxycodone 10 mg Q4H, Flexeril, cyclobenzaprine, Tylenol, ibuprofen and Mobic (5) Microcytic anemia: -hgb significantly lower than her baseline prior to surgery was 15, today is only 8.8 -Guaiac stool x1 -Check iron studies: iron, ferritin, transferrin, TIBC -Hold Mobic and ibuprofen, may resume one a time for pain control if guaiac stool negative and no signs of acute bleed (6) GERD with esophagitis: -Continue pantoprazole 40 mg every morning -Noted that the patient has been using ibuprofen and Mobic as outpatient-we will hold (7) Diabetes mellitus, type 2: -Glucose elevated at 195 upon arrival, likely this higher secondary to recent steroid use -A1c unable to be found in the chart, follow a.m. labs -ISS with Accu-Michael HARO, does not appear the patient is on oral medication (8) Hypothyroidism: -Continue levothyroxine 125 mcg daily (9) Obesity (BMI 30.0-34.9): -BMI of 34.3 -Diet and exercise to be encouraged upon discharge, heart healthy/DM diet (10) Restless leg syndrome: -Continue Mirapex 1 mg p.o. QPM (11) Neuropathy: -Continue pregabalin 200 mg BID (12) Depression: (13) Anxiety: (14) PTSD (post-traumatic stress disorder): -Continue trazodone 300 mg at bedtime, Prozac 40 mg every morning (15) Hyponatremia: - NSS 100ml/hr x 1 day, follow with am PRP (16) Elevated liver enzymes: - Alk phos elevated slightly at 121, trend am lfts to ensure resolvement. - AST is low at 9, albumin also depressed at 3.0 (17) DVT prophylaxis: - bonifacio cornell subq CODE: DNR Dispo: From home, lives with , likely to remain in the hospital x 2 days. History of Present Illness Primary Care Provider: Dimple Pandya DO This is a 54 yo F with PMHx of chronic back pain who recently underwent spinal fusion involving the thoracic and lumbar spine T12-S1 fusion at [facility] on 08/28/19 recently had follow-up on 10/02/2019 with her neurosurgeon. Other past medical history includes kyphosis, compression fractures, DM type II, HLD, GERD, neuropathy, hypothyroidism, obesity with BMI of 34, restless leg syndrome, PTSD, anxiety, depression who presents with acute shortness of breath. Pt notes her main reason for coming to the ER was because of acute SOB which started this morning. She feels like she is not able to take a deep breath, and that when she attempts to it is significantly painful. She reports a cough with sputum, and coughing spells where she cannot catch her breath. She spiked a low grade fever of 100.4 2 nights ago, and reports subjective intermittent fevers since then. She denies any specific substernal chest pain. Recently the patient was placed on a Solu-Medrol home pack and is scheduled to finish this tomorrow. She did not take her dose yet today she feels generalized weakness and notes that she has had numerous falls recently. She has been working with home health twice per week, but otherwise is fairly sedentary. Her agrees with this. She has not been using her walker as has been instructed to as she reports her home is small and is able to hold onto large items in the home, or talbert. Patient has been fairly noncompliant with wearing the back brace, reports that this is very uncomfortable, painful to wear, and when she sits down it rides up into her armpits causing pain. CT PE was negative for PE but shows diffuse parenchymal infiltrative changes throughout the mid to upper lungs bilaterally. CT of the lumbar spine was negative for acute fracture or subluxation. There is edema/stranding within the incision site of the dorsal midline tissues, expected postop finding, no fluid collection which would be concerning for abscess. WBC equals 23.22, febrile with tmax = 37.9 Allergies Allergy/AdvReac Type Severity Reaction Status Date / Time doxycycline [From Vibramycin] Allergy Severe TONGUE Verified 10/10/19 16:09 SWELLS, SOB, RASH Sulfa (Sulfonamide Allergy Severe HIVES/LIPS Verified 10/10/19 16:09 Antibiotics) SWELLING tetracycline Allergy Severe TONGUE Verified 10/10/19 16:09 SWELLS, SOB, RASH Home Medications Home Medications Medication Instructions Recorded Confirmed Type Linzess 145 mcg PO DAILY PRN 08/04/19 10/10/19 History fluoxetine 40 mg PO QAM 08/04/19 10/10/19 History pantoprazole 40 mg PO QAM 08/04/19 10/10/19 History levothyroxine 125 mcg PO QAM 09/13/19 10/10/19 History pregabalin 200 mg PO BID 09/13/19 10/10/19 History promethazine 25 mg PO TID PRN 09/13/19 10/10/19 History trazodone 300 mg PO HS 09/13/19 10/10/19 History pramipexole [Mirapex] 1 mg PO QPM 09/22/19 10/10/19 History cyclobenzaprine 10 mg PO TID PRN 09/29/19 10/10/19 History acetaminophen [Tylenol Extra 1,000 mg PO Q6H PRN 10/05/19 10/10/19 History Strength] ibuprofen 400 mg PO Q6H PRN 10/05/19 10/10/19 History meloxicam [Mobic] 15 mg PO DAILY 10/05/19 10/10/19 History methylprednisolone 0 mg PO UD 10/05/19 10/10/19 History Past Med/Surg History Medical History Anxiety Broken back FELL FROM TRUCK 1993 (CURRENT STRESS FRACTURE) Broken wrist (Deleted) Cardiac murmur Chronic back pain Coffee ground vomiting (Resolved) Depression Diabetes mellitus, type 2 IN THE PAST (LOST OVER 150 LBS/NO LONGER A DX) Diverticula of colon Diverticulitis (Resolved) Encounter for pre-operative examination (Resolved) GERD with esophagitis Hematemesis (Resolved) Hematochezia (Resolved) Hyperlipidemia BORDERLINE Hypokalemia (Resolved) Hypothyroidism Hypothyroidism Migraine HX OF Nausea & vomiting (Resolved) Neuropathy Obesity (BMI 30.0-34.9) Pancreatitis (Resolved) 2012/FEEDING TUBE FOR 6 MONTHS PTSD (post-traumatic stress disorder) Restless leg syndrome Small bowel obstruction (Resolved) Suicidal thoughts (Resolved) DENIES Surgical History Abnormal colonoscopy 2019: States she has a history of polyps on colonoscopy. Was told to return in 7 years, and is overdue for repeat scan. Fusion of spine LUMBAR (ANTERIOR PROCEDURE) H/O Spinal surgery (Inactive) History of appendectomy History of bowel resection D/T BOWEL OBSTRUCTION History of cholecystectomy History of colonoscopy History of esophagogastroduodenoscopy (EGD) History of spinal fusion History of tonsillectomy History of tooth extraction History of total abdominal hysterectomy and bilateral salpingo-oophorectomy Salivary gland abscess REMOVED D/T INFECTION, L side Family History Mother Kidney disease Breast cancer, Onset Age: 50 Anxiety Heart disease Depression Diabetes Drug abuse Gallbladder disease Hypertension Myocardial infarction Sister Kidney disease Anxiety Depression Father Alcohol abuse Heart disease Depression Diabetes Hypertension Cancer Brain cancer Grandfather Stroke Heart disease Myocardial infarction Aunt Stroke Brother Diabetes Social History Preferred Language: Eritrean Communication Ability: Effective Visual Impairment: No Limitations Hearing Ability: Normal Highway Safety Engineer Required: No Beliefs That Will Affect Care: None marital status: Single Current Living Situation: Alone current occupational status: disabled Other Information That Helps Us Care for You: No Feels Safe at Home: Yes Safety Concerns: Feels Safe At This Time Smoking Status: Current every day smoker Tobacco Type: cigarettes ; Cigarettes Per Day: 4-5 ; Do You Dip or Chew Tobacco: No ; Second Hand Exposure: No ; Hx Alcohol Use: No Hx Substance Use: No Childhood Exposure to Second-Hand Smoke: Yes caffeine: Yes Dental Care, Regularly: No Physical Activity Frequency: Other Physical Activity Frequency Comment: Limited by physical condition Seatbelt Use: always Sunscreen Use: No Review of Systems Review of Systems: Constitutional: + fever, sweats and chills Eyes: No diplopia, no worsening or blurred vision ENT: normal hearing, no trouble swallowing Respiratory: + cough, sputum, dyspnea at rest and on exertion Cardiovascular: + circumferential chest pain worse with coughing, no substernal pain or palpitations Abdomen: No pain, nausea, vomiting, diarrhea or constipation Musculoskeletal: + back pain s/p surgery, otherwise no joint pain, calf pain, swelling Neurologic: No weakness, numbness/tingling, or balance problems Psychiatric: + anxiety and depression Skin: No rash or itch Physical Exam Physical Exam: General: awake, alert, + mild distress Head: Normocephalic, atraumatic ENT: PERRL, EOMI, no pharyngeal exudate, mucous membranes moist Chest: + Diminished breath sounds throughout with crackles, worse in the R compared to L, elevated RR of 26 at bedside, no wheeze, on room air Cardiac: + sinus tach, + UMANG, no JVD, normal peripheral pulses, good capillary refill Abdominal: NABS x 4 quadrants, soft, nondistended, nontender to palpation, no rebound, guarding or tenderness Back: surgical incision extending from thoracic to lumbar region, well healed, no point tenderness over spine. Extremities: Normal inspection, no peripheral edema or erythema, calfs nontender to palpation Psych: Normal mood and affect Neuro: AAO x 3, no gross motor deficits, speech is clear, no peripheral sensory deficits Results & Data Vital Signs (Past 12 Hours) Vital Signs Temp Pulse Pulse Resp BP Pulse Ox 10/10/19 17:31 112 H 26 H 95 10/10/19 17:30 111 H 21 93 10/10/19 17:01 114 H 23 96 10/10/19 17:00 113 H 30 H 122/104 H 96 10/10/19 16:31 104 H 19 100 10/10/19 16:30 104 H 18 140/73 100 10/10/19 16:14 107 H 28 H 140/86 100 10/10/19 16:12 112 H 19 140/86 99 10/10/19 15:31 104 H 106 H 23 92 10/10/19 15:20 108 H 20 93 10/10/19 15:19 93 10/10/19 14:54 94 10/10/19 14:48 37.9 C H 110 H 22 168/90 H [address] angio chest PE protocol CT DOSE: 1451.89 mGy.cm HISTORY: Dyspnea Dyspnea TECHNIQUE: Multiaxial CT images of the chest were performed following the intravenous administration of contrast to evaluate the pulmonary arteries. Maximal intensity projection images were also obtained. A dose lowering technique was utilized adhering to the principles of ALARA. COMPARISON STUDY: 09/13/2019 FINDINGS: The thoracic aorta is normal in course and caliber. The pulmonary vasculature enhances appropriately. There are no significant filling defects. No significant mediastinal or hilar adenopathy. Findings are rather diffuse mid and upper lung interstitial change bilaterally. Possibility of a pneumonitis is considered. IMPRESSION: 1. No evidence for pulmonary embolus. 2. Diffuse parenchymal infiltrative changes throughout the mid to upper lungs bilaterally. 3. Stable postoperative changes of the thoracic spine. XR chest 1V portable CLINICAL HISTORY: Dyspnea dyspnea COMPARISON STUDY: 11/20/2018 FINDINGS: Complete fusion of the thoracic and upper lumbar spine. The hardware appears to be intact. Lungs are grossly clear. Slight bronchovascular prominence. Diaphragms are smooth. IMPRESSION: Mild bronchitis. No focal infiltrate. CT lumbar spine w con HISTORY: 54 years-old Female recent back procedure, fall, fever acute low back pain status post fall. History of recent back surgery. COMPARISON: CT abdomen and pelvis 09/29/2019, MRI lumbar spine 08/03/2019 TECHNIQUE: Multiple axial CT images of the lumbar spine were obtained following the intravenous ministration of 120 mL Optiray 320 IV contrast. A dose lowering technique was used consistent with the principals of ALARA. FINDINGS: Streak artifact from extensive posterior interbody claudio and screw fusion hardware limits the study. Laminectomy changes are noted at multiple levels. Bilateral pedicle screws are noted at L1, L3, L5-S1. Evidence of prior pedicle screw removal bilaterally at L2. Left-sided pedicle screw at L4. Discectomy changes at L3-L4, L4-L5 and L5-S1. Posterior interbody rods are noted extending through the thoracic spine outside the [id number]. Evidence of prior screw removal at T12. No evidence of hardware fracture or loosening. Severe multilevel facet arthrosis. There is no acute fracture or subluxation. Evaluation of the central canal and neuroforaminal structures are not well evaluated by CT. There is suggestion of a degree of neuroforaminal stenosis bilaterally at L1-L2. Moderate to severe L1-L2 disc space narrowing with mild spondylitic spurring. Remote superior endplate Schmorl's node at L1 with remote T12 compression deformity. Straightening of the normal lumbar lordosis. Small remote Schmorl's node involves the superior endplate L3. Calcified plaque of the abdominal aorta without aneurysm. Colonic diverticulosis. No acute process of the imaged intra-abdominal structures. There is no adenopathy. Stranding and edema is noted within the incision site of the dorsal midline distribution. No discrete drainable fluid collection identified. IMPRESSION: 1. No acute fracture or subluxation. 2. Extensive posterior interbody claudio and screw fusion and discectomy changes of the lumbar spine are redemonstrated as above. There is no evidence of hardware fracture or loosening. 3. Edema/stranding within the incision site of the dorsal midline tissues, likely expected postoperative findings. No discrete drainable fluid collection identified. Streak artifact from the hardware limits evaluation of the adjacent tissues. The above report was generated using voice recognition software. It may contain grammatical, syntax or spelling errors. ECG Additional Comments: 10-OCT-2019 15:19:04 [facility]-EDSTAT ROUTINE RETRIEVAL Poor data quality, interpretation may be adversely affected Sinus tachycardia Possible Left atrial enlargement Borderline ECG When compared with ECG of 22-SEP-2019 10:24, No significant change was found Confirmed by Jose Cruz Miller ([id number]) on 10/10/2019 6:16:18 PM 25mm/s 10mm/mV 150Hz 9.0.9 12SL 241 JANINE: 15 Referred by: ED Confirmed By: Christopher Paul Vent. rate 109 BPM MN interval 122 ms QRS duration 74 ms QT/QTc 340/457 ms P-R-T axes 68 62 47 Code Status & VTE Plan Code Status DNR-discussed with the patient and her at bedside Supervising Physician Co-Signing Physician Notes Patient seen and examined, chart reviewed, case discussed with ARIC Archer and I agree with her assessment and plan as documented above. Briefly, patient is a 54-year-old female with multiple medical comorbidities presenting with shortness of breath. Patient recently had an extensive spinal fusion performed at [facility] on 08/28/2019, T12-S1. She reports significant neuropathic pain and muscle spasms since the surgery as well as areas of diminished sensation. These pains have become acutely worse over the last few days. Patient has been falling recently and states that her pain and spasm become worse with each fall. Additionally, she is complaining of shortness of breath, productive cough, fever and inability to take a deep breath secondary to pain and spasm. Patient with psychiatric history to include depression/anxiety as well as PTSD, prior suicide attempt by hanging this past summer. She reports that her daily pain has been feeling more depressed and hopeless and she has had increased and suicidal thoughts of late. No plan. No attempt. She is registered with a pain specialist and [facility] but it does not seem that she follows with them. She is hesitant to return to her surgeons at [facility]. is at bedside and corroborates patient's story. He reports that she has been in a considerable amount of pain lately. On physical exam she is afebrile, tachycardic at 107 bpm, blood pressure stable, tachypneic with adequate oxygenation on room air Generalpatient tearful, laying on left side, appears to be in considerable pain and anxious Skinlarge surgical scar on back, well approximated with no bleeding/drainage/erythema/dehiscence. No fluctuance. + Allodynia, extreme pain elicited with light touch on back HEENTnormocephalic/atraumatic, pupils equal round and reactive to light, moist mucous membranes, neck supple, no JVD Heart+ S1/S2, regular, tachycardic, no M/R/G Lungs+ crackles in anterior lung bazan bilaterally, deep breathing severely limited by pain Abdomen+ bowel sounds, soft, NT/ND Extremitiesno edema Labs and images reviewed. + Leukocytosis with WBC = 23.22, neutrophil predominant with bands. Microcytic/hypochromic anemia with Hgb = 8.8, HCT = 29.3 (significantly down from prior value of 15.2 and 45.1preoperative values on 08/04/2019) CTA with no PE, diffuse parenchymal infiltrative changes throughout the mid to upper lungs bilaterally. Stable postoperative changes of thoracic spine CT of L-spine confirm stable postoperative changes. Hardware in place, no evidence of infection Assessment/[id number] female with multiple medical comorbidities status post extensive spinal fusion performed on 08/28 at [facility] (T12-S1) presenting with shortness of breath/cough/hypoxia. Patient with splinting secondary to pain, at risk for developing pneumonia and atelectasis. -Pain control. Patient reports very limited function at home. She is unable to walk or carry out her ADLs secondary to her pain. Goals include a pain level of 6 or less, increased function and mobility. Patient with psychiatric history to include depression and PTSD. Recent increase in suicidal ideations in setting of chronic pain -Consult psychiatry. Patient verbally contracted for safety here -Pain management consultation appreciated. Patient resides in [place] and wishes to establish care with pain management services at [facility] -Scheduled Tylenol 1 g 3 times daily, Lidoderm patch, Flexeril, Dilaudid, Lyrica -Treatment of suspected pneumonia with broad-spectrum antibiotics given recent hospital stayVanco/cefepime/azithromycin Follow cultures Encourage deep breathing, incentive spirometer, flutter valve Nebs as needed -Consider consultation with ortho-spine team -Remainder of plan as above PG Care Time/CCT Total # of Minutes Spent Total Time Spent with Patient: Total time spent is greater than 50% in coordina tion of care (as documented) at patient's floor/unit and/or counseling patient:
--- NOTE | 2019-10-10 18:05 | Emergency Department Note ---
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 interbody claudio and screw fusion hardware limits the study. Laminectomy changes are noted at multiple levels. Bilateral pedicle screws are noted at L1, L3, L5-S1. Evidence of prior pedicle screw removal bilaterally at L2. Left-sided pedicle screw at L4. Discectomy changes at L3-L4, L4-L5 and L5-S1. Posterior interbody rods are noted extending through the thoracic spine outside the [id number]. Evidence of prior screw removal at T12. No evidence of hardware fracture or loosening. Severe multilevel facet arthrosis. There is no acute fracture or subluxation. Evaluation of the central canal and neuroforaminal structures are not well evaluated by CT. There is suggestion of a degree of neuroforaminal stenosis bilaterally at L1-L2. Moderate to severe L1-L2 disc space narrowing with mild spondylitic spurring. Remote superior endplate Schmorl's node at L1 with remote T12 compression deformity. Straightening of the normal lumbar lordosis. Small remote Schmorl's node involves the superior endplate L3. Calcified plaque of the abdominal aorta without aneurysm. Colonic diverticulosis. No acute process of the imaged intra-abdominal structures. There is no adenopathy. Stranding and edema is noted within the incision site of the dorsal midline distribution. No discrete drainable fluid collection identified. IMPRESSION: 1. No acute fracture or subluxation. 2. Extensive posterior interbody claudio and screw fusion and discectomy changes of the lumbar spine are redemonstrated as above. There is no evidence of hardware fracture or loosening. 3. Edema/stranding within the incision site of the dorsal midline tissues, likely expected postoperative findings. No discrete drainable fluid collection identified. Streak artifact from the hardware limits evaluation of the adjacent tissues. The above report was generated using voice recognition software. It may contain grammatical, syntax or spelling errors. Electronically signed by: Luis Angel Jung M.D. 10/10/2019 4:27 PM ECG Data Attestation: I personally reviewed and interpreted this ECG as follows: Indication: + chest pain Rate (beats per minute): 109 Rhythm: + sinus tachycardia ECG [place]: + Normal ECG Findings: + Other (normal interval, no ischemic changes ) Blood Pressure Blood Pressure Findings: Elevated blood pressure Blood Pressure Disposition: Referred to patients primary care provider MDM Narrative The patient is a 54 y/o female with a past medical history of chronic back pain, hyperlipidemia, diabetes and hypothyroidism, who presents to the emergency department for evaluation of constant shortness of breath following a fall 5 days ago. Patient was seen and evaluated the bedside. The patient did present with acute chest pain. The patient did relate that she had a recent fall several days ago and that she has had some difficulty with breathing. The patient is tachycardic as well as febrile. The patient also did relate that she had extensive back surgery back in August at [place]. The patient is also on chronic steroids due to her history of lung disease. The patient is a chronic smoker. I counseled patient on smoking cessation for 5 minutes. Treatment options discussed and resources provided. Patient was not receptive. The patient blood work does show an extensive white count greater than 20,000. The patient did have fairly unchanged hemoglobin. Patient's lactate was not elevated. Blood cultures were ordered. The patient did have a CT Angelica of the chest. No obvious hardware issues and no evidence of PE but did notice some infiltrative change in the upper lungs. This appeared more consistent with a pneumonia given the patient's tachycardia, fever, and lung changes. The patient was ordered antibiotics. Lactate was also ordered. I did speak the on-call hospitalist agreed to further evaluate treat the patient. The patient does not show evidence of cauda equina syndrome on exam and the patient does not have any obvious fluid collection based on CT there are some stranding changes in the lumbar spine but the patient's incision appears well only redness is due to scarring and no evidence of any fluctuance drainage or cellulitic change or abscess. Given that the CT Angelica of the chest does show some infiltrative changes with the associated fever the patient the fact is a smoker believe the patient would benefit from treatment due to possible infectious etiology of the lungs. I did speak the on-call hospitalist agreed to further evaluate treat the patient. Patient was admitted to the medicine service. Impression & Plan Pneumonia, Chest pain, Breath shortness, Encounter for smoking cessation counseling, Anemia, Hyperglycemia Discharge Plan Visit Data *Final* Discharge Date/Time: 10/10/19 19:00 Chief Complaint: Shortness of Breath/Dyspnea Stated Complaint: CANT BREATH,LOW 02 STATS, S/P BACK SURG 08/28 ED Provider: Jian Carroll Discharge Problem: Pneumonia, Chest pain, Breath shortness, Encounter for smoking cessation co unseling, Anemia, Hyperglycemia Patient Disposition: Admitted As Inpatient Discharge Instructions Interventions: ED Discharge Assessment Last Done: 10/10/19 19:00 Discharge Problem: Pneumonia Qualifiers: Pneumonia type: due to unspecified organism Laterality: bilateral Lung location: upper lobe of lung Qualified Code(s): J18.9 - Pneumonia, unspecified organism Chest pain Qualifiers: Chest pain type: unspecified Qualified Code(s): R07.9 - Chest pain, unspecified Anemia Qualifiers: Anemia type: unspecified type Qualified Code(s): D64.9 - Anemia, unspecified The scribe's documentation has been prepared under my direction and personally reviewed by me in its entirety. I confirm that the note above accurately reflects all work, treatment, procedures, and medical decision making performed by me.
[2019-10-10] MEDS ORDERED: LORazepam 1 MG TAB PO STA (18:49)
[2019-10-10] MEDS ORDERED: ACETAMINOPHEN 325 MG TAB PO STA (18:49)
[2019-10-10 19:04] LABS: Appearance Urine Clear (Clear); Bilirubin Urine Negative (Negative); Blood Urine Negative (Negative); Color Urine Yellow; Glucose Urine UA Negative (Negative); Ketones Urine Negative (Negative); Leukocyte Esterase Urine Negative (Negative); Nitrite Urine Negative (Negative); Protein Urine Negative (Negative); Specific Gravity Urine > 1.045 (1.000-1.030); Urobilinogen Urine Negative (Negative)
[2019-10-10] MEDS ORDERED: GLUCAGON FOR INJ 1 MG VIAL SQ PRN (19:57)
[2019-10-10] MEDS ORDERED: GLUCOSE 40% GEL 15 GM TUBE PO PRN (19:57)
[2019-10-10] MEDS ORDERED: GLUCOSE 10 TABS/TUBE PO PRN (19:57)
[2019-10-10] MEDS ORDERED: CARBOHYDRATES FOR HYPOGLYCEMIA PO PRN (19:57)
[2019-10-10] MEDS ORDERED: METHYLPREDNISOLONE PO SCH (19:57)
[2019-10-10] MEDS ORDERED: ONDANSETRON INJ 2 MG/ML 2 ML VIAL IV PRN (19:57)
[2019-10-10] MEDS ORDERED: IBUPROFEN 200 MG TAB PO PRN (19:57)
[2019-10-10] MEDS ORDERED: SODIUM CHLORIDE 0.9% 500 ML IV SCH (19:57)
[2019-10-10] MEDS ORDERED: DEXTROSE 50% 50 ML SYRINGE IV PRN (19:57)
[2019-10-10] MEDS ORDERED: LINACLOTIDE 72 MCG CAPSULE PO PRN (20:08)
[2019-10-10] MEDS: ALBUT/IPRATROP 3MG/0.5MG NEB 3 ML VIAL NEB SCH ×2 (20:37→23:16)
--- NOTE | 2019-10-10 20:44 | Pharmacy Report ---
Pharmacy Abx Initial Consult - Date of Service October 10, 2019 - Pharmacy Dosing Scope Date of Consult: 10/10/19 Consultation requested by: Amy Cardona Pharmacy is consulted to initiate Vancomycin IV dosing therapy, order appropriate labs and adjust drug dose/frequency. - Subjective The patient is a 54 year old F admitted on 10/10/19 17:46. - Objective Height: 5 ft 4 in Weight: 86.5 kg Vital Signs (Past 12hrs): Vital Signs Temp Pulse Pulse Resp BP BP Pulse Ox 10/10/19 19:55 37.1 C 105 H 26 H 139/84 92 10/10/19 19:00 107 H 32 H 92 10/10/19 18:30 109 H 24 133/92 93 10/10/19 18:00 115 H 28 H 109/92 93 10/10/19 17:42 112 H 19 141/79 H 94 10/10/19 17:32 110 H 24 92 10/10/19 17:31 112 H 26 H 95 10/10/19 17:30 111 H 21 93 10/10/19 17:01 114 H 23 96 10/10/19 17:00 113 H 30 H 122/104 H 96 10/10/19 16:31 104 H 19 100 10/10/19 16:30 104 H 18 140/73 100 10/10/19 16:14 107 H 28 H 140/86 100 10/10/19 16:12 112 H 19 140/86 99 10/10/19 15:31 104 H 106 H 23 92 10/10/19 15:20 108 H 20 93 10/10/19 15:19 93 10/10/19 14:54 94 10/10/19 14:48 37.9 C H 110 H 22 168/90 H 94 Lab Results (24hrs): Laboratory Tests (24 Hours) 10/10/19 10/10/19 15:35 15:35 WBC 23.22 H Neut # (Auto) 18.23 H Creatinine 0.64 Est Cr Clr Drug Dosing Not Reportable Micro Results: 10/10/19 15:48 Aerobic Blood Culture - Pending Blood Anaerobic Blood Culture - Pending 10/10/19 15:35 Aerobic Blood Culture - Pending Blood Anaerobic Blood Culture - Pending - Risk Factors for Resistance * Smoker * Antimicrobial use within the last 90 days: Cefdinir, Augmentin - Assessment & Plan Assessment 54 year old F initiated on Vanco + Zithromax + Cefepime for pneumonia. Plan Vancomycin IV * Based on weight and CrCl patient meets criteria for AUC vanco dosing nomogram. * Pt received appropriate loading dose of 25mg/kg vanco in ED (1,250mg) * Will initiate vanco 1,250 mg IV Q8hrs per nomogram * Will check trough with 4th maintenance dose on 10/12/19 @0130 Zithromax & Cefepime dosing are appropriate based on renal function. Pharmacy will continue to follow and will adjust dose/frequency as necessary. Thank you.
[2019-10-10] MEDS ORDERED: PRAMIPEXOLE DIHYDROCHLORIDE 1 MG TAB PO SCH (21:00)
[2019-10-10] MEDS: LIDOCAINE 5% 1 PATCH TD SCH (21:03)
[2019-10-10] MEDS: TRAZODONE HCL 100 MG TAB PO SCH (21:03)
[2019-10-10] MEDS: PRAMIPEXOLE DIHYDROCHLO 0.5 MG TAB PO SCH (21:05)
[2019-10-10] MEDS: guaiFENesin 600 MG TABCR PO SCH (21:06)
[2019-10-10] MEDS: BENZONATATE 100 MG CAPSULE PO SCH (21:10)
[2019-10-10] MEDS: INSULIN ASPART 100 UNITS/ML 3 ML PEN SC SCH (21:10)
[2019-10-10] MEDS: ACETAMINOPHEN 500 MG TAB PO SCH (21:11)
[2019-10-10] MEDS: PREGABALIN 100 MG CAP PO SCH (21:20)
[2019-10-10] MEDS: SODIUM CHLORIDE 0.9% 1000ML 1,000 ML IV SCH (22:08)
[2019-10-11] MEDS: HYDROmorphone INJ 0.5 MG/0.5 ML SYR IV PRN ×7 (01:02→21:16)
[2019-10-11] MEDS: VANCOMYCIN HCL 1,250 MG in SODIUM CHLORIDE 0.9% 250 ML IV SCH ×3 (01:04→17:27)
[2019-10-11] MEDS: CEFEPIME 1,000 MG in SYRINGE 0 ML IV SCH ×3 (01:04→17:26)
[2019-10-11] MEDS: CYCLOBENZAPRINE HCL 10 MG TAB PO PRN ×4 (03:33→21:02)
[2019-10-11] MEDS: ALBUT/IPRATROP 3MG/0.5MG NEB 3 ML VIAL NEB SCH ×6 (03:35→22:47)
[2019-10-11] MEDS: SODIUM CHLORIDE 0.9% 1000ML 1,000 ML IV SCH ×2 (06:32→16:24)
[2019-10-11 06:39] LABS: Hematocrit (blood only) 26.7 % (37-47); Hemoglobin 7.7 g/dL (12.0-16.0); Mean Corpuscular Hemoglobin 23.2 pg (25-34); Mean Corpuscular Hgb Conc 28.8 g/dL (32-36); Mean Corpuscular Volume 80.4 fL (80-100); Mean Platelet Volume 9.4 fL (7.4-10.4); Platelet Count 405 K/uL (130-400); RDW Coefficient of Variation 19.7 % (11.5-14.5); RDW Standard Deviation 58.4 fL (36.4-46.3); Red Blood Count 3.32 M/uL (4.2-5.4); White Blood Count 13.96 K/uL (4.8-10.8)
[2019-10-11] MEDS ORDERED: methylPREDNISolone 4 MG TAB PO SCH (07:00)
[2019-10-11 07:06] LABS: Alanine Aminotransferase 13 U/L (12-78); Albumin Level 2.5 gm/dl (3.4-5.0); Aspartate Aminotransferase 9 U/L (15-37); BUN Creatinine Ratio 17.4 (10-20); Bilirubin Direct < 0.1 mg/dl (0-0.2); Blood Urea Nitrogen 10 mg/dl (7-18); Calcium 8.8 mg/dl (8.5-10.1); Carbon Dioxide 26 mmol/L (21-32); Chloride 105 mmol/L (98-107); Creatinine Clr Calc Pharmacy 122.2 ml/min; Est GFR (African American) 122.5; Est GFR (Non-African American) 105.7; Glucose 229 mg/dl (70-99); Potassium 4.1 mmol/L (3.5-5.1); Sodium 135 mmol/L (136-145)
[2019-10-11 07:09] LABS: Albumin Globulin Ratio 0.5 (0.9-2); Alkaline Phosphatase 105 U/L (45-117); Bilirubin,Total 0.2 mg/dl (0.2-1); Globulin 5.2 gm/dl (2.5-4.0); Total Protein 7.7 gm/dl (6.4-8.2)
[2019-10-11 07:10] LABS: Estimated Average Glucose 154 mg/dl
[2019-10-11] MEDS: FLUOXETINE HCL 20 MG CAP PO SCH (07:59)
[2019-10-11] MEDS: AZITHROMYCIN 250 MG TAB PO SCH (07:59)
[2019-10-11] MEDS: PANTOprazole 40 MG TAB PO SCH (07:59)
[2019-10-11] MEDS: ENOXAPARIN INJ 40 MG/0.4 ML SYR SQ SCH (07:59)
[2019-10-11] MEDS: LEVOTHYROXINE SODIUM 125 MCG TABLET PO SCH (07:59)
[2019-10-11] MEDS: BENZONATATE 100 MG CAPSULE PO SCH ×3 (08:00→21:00)
[2019-10-11] MEDS: guaiFENesin 600 MG TABCR PO SCH ×2 (08:00→20:57)
[2019-10-11] MEDS: ACETAMINOPHEN 500 MG TAB PO SCH ×3 (08:01→21:01)
[2019-10-11] MEDS: PREGABALIN 100 MG CAP PO SCH ×2 (08:05→20:56)
[2019-10-11] MEDS: INSULIN ASPART 100 UNITS/ML 3 ML PEN SC SCH ×4 (08:12→20:59)
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
[2019-10-11] MEDS: OXYCODONE HCL IR 5 MG TAB (IMMEDIATE RELEASE) PO PRN ×3 (09:00→17:26)
[2019-10-11] MEDS ORDERED: MELOXICAM 7.5 MG TAB PO SCH (09:00)
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
--- NOTE | 2019-10-11 13:11 | Psychiatric Consultation ---
Date of Consultation October 11, 2019 Impression / Recommendations Impression 54-year-old female admitted medically on 10/10/2019 after presenting to the ED with shortness of breath and reports of chronic back pain. Patient underwent a spinal fusion on 08/28/2019, but states concerns are shortness of breath that began in the morning of admission. Patient is being treated medically for pneumonia, and acute respiratory distress. Pain management has been consulted during her admission to address chronic back pain. Psychiatric consultation is requested to evaluate the patient for "worsening suicidality." Patient does have a history of suicide attempts and inpatient psychiatric hospitalizations in the past. She is currently seen by the psychiatric nurse practitioner in [place], as well as an outpatient therapist. Patient admits that her mood is greatly affected by her pain level; however, she is feeling comfortable knowing she is in place where concerns can be addressed. Patient admits to rather chronic thoughts of hopelessness, but denies specific suicidal ideation, plan, or intent to harm herself. Patient verbalizes to this provider she is "nowhere close to that point." She is able to verbalize a constructive safety plan, identify various outpatient supports, and reports awareness of crisis services. She states that her cousin, Kenton, is her primary support, and she is agreeable with us communicating with him to determine if there are any safety concerns with patient being discharged home. Patient does not feel any medication adjustments are necessary at this time, as she had been feeling rather stable prior to this hospitalization, with regard to mood. She denies active suicidality, plan, or intent. She denies hallucinations, paranoia, and symptoms of acute psychosis. Unless does not verbalize a specific safety concerns, there does not seem to be an indication for inpatient psychiatric hospitalization at this time. Patient should continue outpatient follow-up with her psychiatric nurse practitioner and therapist. We appreciate the opportunity to participate in the care of this patient. Dr. Sherice Altamirano was directly involved in review and discussion of the patient's case and participated in medical decision making regarding treatment recommendations. Psych History Identifying Data 54-year-old female admitted medically on 10/10/19 after presenting to the ED with reports of shortness of breath and exacerbation of back pain. Pt had recently undergone a spinal fusion on 08/28/19. She has a reported history of anxiety, depression, and PTSD. Psychiatric consultation is requested in order to evaluate patient for reported worsening suicidality. Chief Complaint "Take a look at my back. I'm in so much pain and I can't breathe." History of Present Illness Alfreda Callahan is a 54-year-old female admitted medically on 10/10/2019 after presenting to the ED with reports of shortness of breath and exacerbation of chronic back pain. Patient has reported history of anxiety, depression, and PTSD. Psychiatric consultation is requested to evaluate patient for worsening suicidal ideation. Patient was observed to be sitting upright on edge of bed, appearing to be in significant pain. Patient states "just take a look at my back." And verbalizes that she "cannot breathe." Patient is welcoming conversation, as a means to distract herself from pain. Patient reports to this provider that she has had chronic back pain for several years. She recently underwent a spinal fusion, and states that at times her back pain is exacerbated. She does admit that her pain often affects her mood and anxiety level, but states "I feel comfortable being here, I know this is where I can get help." Patient denies acute suicidal ideation, stating that her mood has actually been rather consistent since May 2019. When asked about previous history of suicidal ideation, patient states "I do feel that way sometimes. I get in my head and cannot stop the negative thoughts. That is when I call my cousin to come over." Patient is able to verbalize to this provider her usual safety plan, which includes calling her cousin along with other coping strategies. Patient is aware of crisis services in the area, as she has utilized them in the past. She does admit to previous history of suicide attempts, at least one in 10/2018 by overdose and another in 05/2019 by attempted hanging. Patient states "ever since then, my mood had been very good up until my surgery." Despite recent physical concerns, patient states "I am not even close to that point right now" as it relates to suicidal plan or intent. Patient states that she has monthly visits with her outpatient psychiatric nurse practitioner, and does not feel that adjustments to medications are necessary at this time. She also follows weekly with an outpatient therapist, and states she has case management services through [facility] [employer]. Patient tells this provider "if I could get my pain under control, I would be a whole different person right now. My mood would not even be a question." Patient does request 1 mg of IV lorazepam to address her muscle stiffness and anxiety. She was reminded of the pain management consultation, and informed that recommendation should be available shortly. Patient denies any specific needs from our service at this time. She does not have other acute concerns presently.She is agreeable with signing a release of information for her cousin, in order to ensure he does not have any safety concerns that will need to be mitigated prior to her discharge home. Patient states she feels comfortable with the idea of returning home, and does not verbalize any safety concerns. Past Psychiatric History Previous Psych History: Reported diagnoses of anxiety, depression, and PTSD. Pt follows with HERMELINDA Feliciano at [facility] in [place], [place]. Pt meets weekly with a therapist - Raj Pereira. She also states she has been working with a case manager specialist through [employer]. Previous Psych Admissions: Multiple prior inpatient admissions History of Previous Suicide Attempt: Yes Describe Attempts in the Past: Overdose, hanging - reports most recently in 05/2019 Past Medication Trials: Per patient reports: 1. Effexor 2. Trileptal 3. BuSpar 4. Trazodone 5. Prozac 6. Gabapentin 7. Ativan 8. Lyrica 9. Lamotrigine Allergies Allergy/AdvReac Type Severity Reaction Status Date / Time doxycycline [From Vibramycin] Allergy Severe TONGUE Verified 10/10/19 16:09 SWELLS, SOB, RASH Sulfa (Sulfonamide Allergy Severe HIVES/LIPS Verified 10/10/19 16:09 Antibiotics) SWELLING tetracycline Allergy Severe TONGUE Verified 10/10/19 16:09 SWELLS, SOB, RASH Home Medications Home Medications Medication Instructions Recorded Confirmed Type Linzess 145 mcg PO DAILY PRN 08/04/19 10/10/19 History fluoxetine 40 mg PO QAM 08/04/19 10/10/19 History pantoprazole 40 mg PO QAM 08/04/19 10/10/19 History levothyroxine 125 mcg PO QAM 09/13/19 10/10/19 History pregabalin 200 mg PO BID 09/13/19 10/10/19 History promethazine 25 mg PO TID PRN 09/13/19 10/10/19 History trazodone 300 mg PO HS 09/13/19 10/10/19 History pramipexole [Mirapex] 1 mg PO QPM 09/22/19 10/10/19 History cyclobenzaprine 10 mg PO TID PRN 09/29/19 10/10/19 History acetaminophen [Tylenol Extra 1,000 mg PO Q6H PRN 10/05/19 10/10/19 History Strength] ibuprofen 400 mg PO Q6H PRN 10/05/19 10/10/19 History meloxicam [Mobic] 15 mg PO DAILY 10/05/19 10/10/19 History methylprednisolone 0 mg PO UD 10/05/19 10/10/19 History Family History Father - alcohol abuse; mother - substance abuse Substance Abuse History Pt admits to current tobacco use, smoking 5 cigarettes daily. Denies routine alcohol use or use of other illicit substances. Personal History Living Arrangements: Home (lives independently ) Employment Status: Disabled Number Of Children: None History of Legal Problems: Denies Patient History Medical History Anxiety Broken back FELL FROM TRUCK 1993 (CURRENT STRESS FRACTURE) Broken wrist (Deleted) Cardiac murmur Chronic back pain Coffee ground vomiting (Resolved) Depression Diabetes mellitus, type 2 IN THE PAST (LOST OVER 150 LBS/NO LONGER A DX) Diverticula of colon Diverticulitis (Resolved) Encounter for pre-operative examination (Resolved) GERD with esophagitis Hematemesis (Resolved) Hematochezia (Resolved) Hyperlipidemia BORDERLINE Hypokalemia (Resolved) Hypothyroidism Hypothyroidism Migraine HX OF Nausea & vomiting (Resolved) Neuropathy Obesity (BMI 30.0-34.9) Opioid dependence (Chronic) Pancreatitis (Resolved) 2012/FEEDING TUBE FOR 6 MONTHS PTSD (post-traumatic stress disorder) (Chronic) Restless leg syndrome Small bowel obstruction (Resolved) Suicidal thoughts (Resolved) DENIES Surgical History Abnormal colonoscopy 2019: States she has a history of polyps on colonoscopy. Was told to return in 7 years, and is overdue for repeat scan. Fusion of spine LUMBAR (ANTERIOR PROCEDURE) H/O Spinal surgery (Inactive) History of appendectomy History of bowel resection D/T BOWEL OBSTRUCTION History of cholecystectomy History of colonoscopy History of esophagogastroduodenoscopy (EGD) History of spinal fusion History of tonsillectomy History of tooth extraction History of total abdominal hysterectomy and bilateral salpingo-oophorectomy Salivary gland abscess REMOVED D/T INFECTION, L side Family History Mother Kidney disease Breast cancer, Onset Age: 50 Anxiety Heart disease Depression Diabetes Drug abuse Gallbladder disease Hypertension Myocardial infarction Sister Kidney disease Anxiety Depression Father Alcohol abuse Heart disease Depression Diabetes Hypertension Cancer Brain cancer Grandfather Stroke Heart disease Myocardial infarction Aunt Stroke Brother Diabetes Social History Preferred Language: Croatian Communication Ability: Effective Visual Impairment: No Limitations Hearing Ability: Normal Pile Driver Operator Required: No marital status: Single Current Living Situation: Alone current occupational status: disabled Other Information That Helps Us Care for You: No Feels Safe at Home: Yes Safety Concerns: Feels Safe At This Time Smoking Status: Current every day smoker Tobacco Type: cigarettes ; Cigarettes Per Day: 4-5 ; Do You Dip or Chew Tobacco: No ; Second Hand Exposure: No ; Hx Alcohol Use: No Hx Substance Use: No Childhood Exposure to Second-Hand Smoke: Yes caffeine: Yes Dental Care, Regularly: No Physical Activity Frequency: Other Physical Activity Frequency Comment: Limited by physical condition Seatbelt Use: always Sunscreen Use: No Physical Exam Psychiatric: Orientation: alert, oriented x 3 and cooperative (mildly limited participation due to severity of back pain) Apperance: appropriately dressed (in hospital gown) and + disheveled Eye Contact: + fair eye contact Motor Behavior: + abnormal motor movements Rather rigid posture, sitting on edge of bed, holding lower back for duration of visit Speech: normal rate/rhythm/volume of speech Affect: + anxious affect Mood: + anxious mood (admits to situational anxiety related to SOB and back pain) Thought Process: goal directed thought process, clear/coherent thought process and thought association intact Thought Content: + preoccupation (with level of pain and respiratory symptoms) and reality based without delusions; no hopelessness Suicidal Thoughts: denies suicidal thoughts (passive thoughts to "escape" are not uncommon, denies active SI presently), denies suicidal plan and denies suicidal intent reports "I am nowhere near that point" Homicidal Thoughts: denies homicidal thoughts Hallucinations: no auditory hallucinations and no visual hallucinations Cognition: attention grossly intact and language grossly intact Insight: + fair insight Judgement: + fair judgement Vital Signs (Past 24 Hours): Last Vital Signs Temp 37.5 C 10/11/19 11:10 Pulse 89 10/11/19 11:10 Resp 18 10/11/19 11:10 BP 144/94 H 10/11/19 11:10 Pulse Ox 94 10/11/19 11:10 Review of Systems Constitutional: denied Cardiovascular: denied Respiratory: reports ongoing SOB Gastrointestinal: denied Neurological: denied Musculoskeletal: reports significant back pain Psychiatric: denies symptoms other than stated above Total of at least 10 systems reviewed, pertinent positives as above and in HPI. Results & Data Medications Administered Acetaminophen (Tylenol) 1,000 mg PO TID [facility] Stop: 11/09/19 20:59 Last Admin: 10/11/19 08:01 Dose: 1,000 mg Documented by: [id number] Admin: 10/10/19 21:11 Dose: 1,000 mg Documented by: [id number] Albuterol (Duoneb) 3 ml NEB Q4R [facility] Stop: 11/09/19 19:56 Last Admin: 10/11/19 10:46 Dose: 3 ml Documented by: [id number] Admin: 10/11/19 07:14 Dose: Not Given Documented by: [id number] Admin: 10/11/19 03:35 Dose: 3 ml Documented by: [id number] Admin: 10/10/19 23:16 Dose: 3 ml Documented by: [id number] Admin: 10/10/19 20:37 Dose: Not Given Documented by: [id number] Azithromycin (Zithromax) 250 mg PO QAM [facility] Stop: 10/18/19 08:59 Last Admin: 10/11/19 07:59 Dose: 250 mg Documented by: [id number] Benzonatate (Tessalon Perle) 100 mg PO TID [facility] Stop: 11/09/19 20:59 Last Admin: 10/11/19 08:00 Dose: 100 mg Documented by: [id number] Admin: 10/10/19 21:10 Dose: 100 mg Documented by: [id number] Cyclobenzaprine HCl (Flexeril) 10 mg PO TID PRN PRN Reason: MUSCLE SPASMS Stop: 11/09/19 20:21 Last Admin: 10/11/19 07:59 Dose: 10 mg Documented by: [id number] Admin: 10/11/19 03:33 Dose: 10 mg Documented by: [id number] Enoxaparin S[place] (Lovenox) [facility] [place] [facility] [place]: 11/10/19 08:59 Last Admin: 10/11/19 07:59 Dose: Not Given Documented by: [id number] Fluoxetine HCl (Prozac) 40 mg PO QAM [facility] Stop: 11/10/19 08:59 Last Admin: 10/11/19 07:59 Dose: 40 mg Documented by: [id number] Guaifenesin (Mucinex) 1,200 mg PO Q12 [facility] Stop: 11/09/19 20:59 Last Admin: 10/11/19 08:00 Dose: 1,200 mg Documented by: [id number] Admin: 10/10/19 21:06 Dose: 1,200 mg Documented by: [id number] Hydromorphone HCl (Dilaudid) 0.5 mg IV Q3H PRN PRN Reason: Pain Stop: 10/24/19 19:56 Last Admin: 10/11/19 10:52 Dose: 0.5 mg Documented by: [id number] Admin: 10/11/19 07:57 Dose: 0.5 mg Documented by: [id number] Admin: 10/11/19 04:12 Dose: 0.5 mg Documented by: [id number] Admin: 10/11/19 01:02 Dose: 0.5 mg Documented by: [id number] Admin: 10/10/19 20:47 Dose: 0.5 mg Documented by: [id number] Vancomycin HCl 1,250 mg/ (Sodium Chloride) 275 mls @ 125 mls/hr IV Q8H [facility]; Protocol Stop: 10/18/19 01:59 Last Infusion: 10/11/19 11:25 Dose: 0 mls/hr Documented by: [id number] Admin: 10/11/19 09:01 Dose: 125 mls/hr Documented by: [id number] Infusion: 10/11/19 03:16 Dose: 0 mls/hr Documented by: [id number] Admin: 10/11/19 01:04 Dose: 125 mls/hr Documented by: [id number] Cefepime HCl 1,000 mg/ Syringe 11.3 mls @ 5.5 mls/min IV Q8H [facility]; Protocol Stop: 10/18/19 01:59 Last Admin: 10/11/19 09:01 Dose: 5.5 mls/min Documented by: [id number] Admin: 10/11/19 01:04 Dose: 5.5 mls/min Documented by: [id number] Sodium Chloride (Nss 1000ml) 1,000 mls @ 100 mls/hr IV .Q10H [facility] Stop: 10/11/19 20:59 Last Admin: 10/11/19 06:32 Dose: 100 mls/hr Documented by: [id number] Infusion: 10/11/19 06:32 Dose: 100 mls/hr Documented by: [id number] Admin: 10/10/19 22:08 Dose: 100 mls/hr Documented by: [id number] Insulin Aspart (Novolog Flexpen) 0 units SC ACHS [facility] Stop: 11/09/19 20:59 Last Admin: 10/11/19 12:12 Dose: 4 units Documented by: [id number] Cosigned by: [id number] Admin: 10/11/19 08:12 Dose: 6 units Documented by: [id number] Cosigned by: [id number] Admin: 10/10/19 21:10 Dose: 7 units Documented by: [id number] Cosigned by: [id number] Ioversol (Optiray 320 125ml) 120 ml IV ONCE PRN PRN Reason: Interaction Checking Stop: 10/14/19 16:10 Last Admin: 10/10/19 16:12 Dose: 120 ml Documented by: [id number] Levothyroxine Sodium (Synthroid) 125 mcg PO DAILYBB [facility] Stop: 11/10/19 06:29 Last Admin: 10/11/19 07:59 Dose: 125 mcg Documented by: [id number] Lidocaine (Lidoderm 5%) 1 patch TD HS [facility] Stop: 11/09/19 20:59 Last Admin: 10/10/19 21:03 Dose: 1 patch Documented by: [id number] Miscellaneous (Remove Lidoderm Patch) 1 ea N/A DAILY@0900 [facility] Stop: 11/10/19 08:59 Last Admin: 10/11/19 08:00 Dose: Not Given Documented by: [id number] Oxycodone HCl (Roxicodone Immediate Rel) 10 mg PO Q4H PRN PRN Reason: Pain Stop: 10/25/19 08:18 Last Admin: 10/11/19 09:00 Dose: 10 mg Documented by: [id number] Pantoprazole Sodium (Protonix) 40 mg PO QAM [facility] Stop: 11/10/19 08:59 Last Admin: 10/11/19 07:59 Dose: 40 mg Documented by: [id number] Pramipexole Dihydrochloride (Mirapex) 1 mg PO QPM [facility] Stop: 11/09/19 20:59 Last Admin: 10/10/19 21:05 Dose: 1 mg Documented by: [id number] Pregabalin (Lyrica) 200 mg PO BID [facility] Stop: 11/09/19 20:59 Last Admin: 10/11/19 08:05 Dose: 200 mg Documented by: [id number] Admin: 10/10/19 21:20 Dose: 200 mg Documented by: [id number] Trazodone HCl (Desyrel) 300 mg PO HS [facility] Stop: 11/09/19 20:59 Last Admin: 10/10/19 21:03 Dose: 300 mg Documented by: [id number] Coding Level of Care Code 66909 [facility] Lvl 3
[2019-10-11] MEDS ORDERED: LORazepam 1 MG TAB PO ONE (14:24)
[2019-10-11 14:53] LABS: Hematocrit (blood only) 26.1 % (37-47); Hemoglobin 7.6 g/dL (12.0-16.0)
--- NOTE | 2019-10-11 15:36 | Hospitalist Progress Note ---
Date of Service October 11, 2019 Assessment & Plan (1) Sepsis: Patient has gram positive bacteremia causing her to have WBC of over 20 and elevated HR. Patient is on antbiotics. WBC did improve today. consulted ID. concern that source may be from spine, however no fluctance or drainange noted. will await final cultures. It appears soucre is from lung. will continue current antibiotics. (2) Pneumonia: (3) Acute respiratory distress: - Admitted to PCU - CTPE negative for PE, shows diffuse parenchymal infiltrative changes throughout the mid to upper lungs bilaterally. - febrile with tmax = 37.9 -Continue on vancomycin & cefepime IV, azithromycin PO blood cultures positive as noted above. -Patient had 1 hour long DuoNeb while in the ER, symptoms slightly improved, will continue duo nebs Q4H and Q2H prn, flutter therapy, incentive spirometry, Mucinex, Tessalon Perles -Sputum culture if produces expectorant -WBC equals 23.22, WBC likely slightly elevated secondary to recent use of Solu- Medrol home pack x1 week, currently has had 5 days, will hold on further steroids at this time. Trend a.m. CBC (4) Tobacco use: - Smokes at least 5 cigarettes a day, chronic, cessation encouraged. Pt declines nicotine patch. (5) Thoracolumbar back pain: -CT of the lumbar spine was negative for acute fracture or subluxation. There is edema/stranding within the incision site of the dorsal midline tissues, expected postop finding, no fluid collection which would be concerning for abscess. - underwent spinal fusion involving the thoracic and lumbar spine T12-S1 [facility] on 08/28/19 recently had follow-up on 10/02/2019 with her neurosurgeon. - Follows with Dr. Hdz neurosurgery - Pain control with oxycodone as per [employer], additional IV analgesic prn - Continue linzess -Follows with pain management, Dr. Chelo Coe and do boys: Current regimen of oxycodone 10 mg Q4H, Flexeril, cyclobenzaprine, Tylenol, ibuprofen and Mobic (6) Microcytic anemia: -hgb significantly lower than her baseline prior to surgery was 15, today is only 8.8 -Guaiac stool x1 -Check iron studies: iron, ferritin, transferrin, TIBC -Hold Mobic and ibuprofen, may resume one a time for pain control if guaiac stool negative and no signs of acute bleed (7) GERD with esophagitis: -Continue pantoprazole 40 mg every morning -Noted that the patient has been using ibuprofen and Mobic as outpatient-we will hold (8) Diabetes mellitus, type 2: -Glucose elevated at 195 upon arrival, likely this higher secondary to recent steroid use -A1c unable to be found in the chart, follow a.m. labs -ISS with Accu-Cheks ACHS, does not appear the patient is on oral medication (9) Hypothyroidism: -Continue levothyroxine 125 mcg daily (10) Obesity (BMI 30.0-34.9): -BMI of 34.3 -Diet and exercise to be encouraged upon discharge, heart healthy/DM diet (11) Restless leg syndrome: -Continue Mirapex 1 mg p.o. QPM (12) Neuropathy: -Continue pregabalin 200 mg BID (13) Depression: (14) Anxiety: (15) PTSD (post-traumatic stress disorder): -Continue trazodone 300 mg at bedtime, Prozac 40 mg every morning (16) Hyponatremia: (17) Elevated liver enzymes: - Alk phos elevated slightly at 121, trend am lfts to ensure resolvement. - AST is low at 9, albumin also depressed at 3.0 (18) Gram-positive cocci bacteremia: as noted above. (19) DVT prophylaxis: - bonifacio cornell subq CODE: DNR Dispo: From home, lives with , likely to remain in the hospital at least until weekend Subjective Patient has been complaiining of pain all over her body. But she focuses more pain towards her neck and states she has difficulty moving her neck. She states her left neck is stiff and is asking for a neck brace. atient denies any fever chills, nausea or vomiting. Review of Systems Review of Systems: All systems reviewed & are unremarkable except as noted in HPI & below Physical Exam Physical Exam: General: awake, alert, no distress HEENTnormocephalic/atraumatic, pupils equal round and reactive to light, moist mucous membranes, neck supple, no JVD Heart+ S1/S2, regular, tachycardic, no M/R/G Lungs+ crackles in anterior lung bazan bilaterally, deep breathing severely limited by pain Abdomen+ bowel sounds, soft, NT/ND Extremitiesno edema Psych: Normal mood and affect Neuro: AAO x 3, no gross motor deficits, speech is clear, no peripheral sensory deficits Results & Data Vital Signs (Past 12 Hours) Vital Signs Temp Pulse Resp BP Pulse Ox 10/11/19 14:59 37.1 C 87 18 130/82 93 10/11/19 11:10 37.5 C 89 18 144/94 H 94 10/11/19 10:47 79 19 94 10/11/19 07:09 37.0 C 105 H 18 149/88 H 86 L 10/11/19 04:48 108 H 24 92 10/11/19 04:12 106 H 20 90 PG Care Time/CCT Total # of Minutes Spent Total Time Spent with Patient: Total time spent is greater than 50% in coordination of care (as documented) at patient's floor/unit and/or counseling patient:
[2019-10-11] MEDS: LIDOCAINE 5% 1 PATCH TD SCH (20:44)
[2019-10-11] MEDS: TRAZODONE HCL 100 MG TAB PO SCH (20:56)
[2019-10-11] MEDS: PRAMIPEXOLE DIHYDROCHLO 0.5 MG TAB PO SCH (20:56)
[2019-10-12] MEDS: HYDROmorphone INJ 0.5 MG/0.5 ML SYR IV PRN ×7 (00:48→22:15)
[2019-10-12] MEDS ORDERED: VANCOMYCIN TROUGH ONE (01:30)
[2019-10-12] MEDS: VANCOMYCIN HCL 1,250 MG in SODIUM CHLORIDE 0.9% 250 ML IV SCH (01:51)
[2019-10-12] MEDS: CEFEPIME 1,000 MG in SYRINGE 0 ML IV SCH ×3 (01:52→17:51)
[2019-10-12] MEDS: ALBUT/IPRATROP 3MG/0.5MG NEB 3 ML VIAL NEB SCH ×6 (02:28→23:18)
[2019-10-12] MEDS: PREGABALIN 100 MG CAP PO SCH ×2 (08:09→20:21)
[2019-10-12] MEDS: ENOXAPARIN INJ 40 MG/0.4 ML SYR SQ SCH (08:09)
[2019-10-12] MEDS: FLUOXETINE HCL 20 MG CAP PO SCH (08:10)
[2019-10-12] MEDS: ACETAMINOPHEN 500 MG TAB PO SCH ×3 (08:10→20:23)
[2019-10-12] MEDS: AZITHROMYCIN 250 MG TAB PO SCH (08:10)
[2019-10-12] MEDS: INSULIN ASPART 100 UNITS/ML 3 ML PEN SC SCH ×4 (08:10→21:04)
[2019-10-12] MEDS: PANTOprazole 40 MG TAB PO SCH (08:11)
[2019-10-12] MEDS: guaiFENesin 600 MG TABCR PO SCH ×2 (08:11→20:21)
[2019-10-12] MEDS: CYCLOBENZAPRINE HCL 10 MG TAB PO PRN ×3 (08:11→21:49)
[2019-10-12] MEDS: BENZONATATE 100 MG CAPSULE PO SCH ×3 (08:11→20:23)
[2019-10-12] MEDS: LEVOTHYROXINE SODIUM 125 MCG TABLET PO SCH (08:11)
[2019-10-12 08:45] LABS: Hematocrit (blood only) 26.8 % (37-47); Mean Corpuscular Hemoglobin 23.3 pg (25-34); Mean Corpuscular Hgb Conc 29.9 g/dL (32-36); Mean Corpuscular Volume 78.1 fL (80-100); Mean Platelet Volume 9.7 fL (7.4-10.4); Platelet Count 462 K/uL (130-400); RDW Coefficient of Variation 20.1 % (11.5-14.5); RDW Standard Deviation 57.7 fL (36.4-46.3); Red Blood Count 3.43 M/uL (4.2-5.4); White Blood Count 12.12 K/uL (4.8-10.8)
[2019-10-12 08:56] LABS: Lymphocytes % (auto) 13.8 %; Neutrophils % (auto) 76.5 %
[2019-10-12 08:57] LABS: Basophils # (auto) 0.02 K/uL (0-0.2); Basophils % (auto) 0.2 %; Eosinophils # (auto) 0.32 K/uL (0-0.5); Eosinophils % (auto) 2.6 %; Hypochromasia Present; Immature Granulocytes # (auto) 0.03 K/uL (0.00-0.02); Immature Granulocytes % (auto) 0.2 %; Lymphocytes # (auto) 1.67 K/uL (1.2-3.4); Microcytosis Present; Monocytes # (auto) 0.81 K/uL (0.11-0.59); Monocytes % (auto) 6.7 %; Neutrophils # (auto) 9.27 K/uL (1.4-6.5); Polychromasia 1+
--- NOTE | 2019-10-12 09:01 | Pharmacy Report ---
Pharmacy Abx Dose Short Note - Date of Service October 12, 2019 - Assessment & Plan Assessment 54 year old F receiving vancomycin for Gm positive cocci bacteremia Day # 3 of antimicrobial therapy. Plan Vancomycin * Trough level came back at ~14.6 - slightly below range for bacteremia / due to severity of infection will increase to dose to 1500 mg iv q 8 hrs to target higher trough level closer to ~20 mcg/ml * Patient with higher BMI, therefore chance of accumulation with vancomycin. Will recheck trough on 10/13 prior to the 1000 dose * Awaiting sensitivities from blood cultures at this time. ID also consulted to follow the patient Pharmacy will continue to follow and will adjust dose/frequency as necessary. Thank you. (
[2019-10-12 09:06] LABS: Albumin Level 2.5 gm/dl (3.4-5.0); BUN Creatinine Ratio 16.8 (10-20); Calcium 9.2 mg/dl (8.5-10.1); Creatinine Clr Calc Pharmacy 131.7 ml/min
[2019-10-12 09:08] LABS: Albumin Globulin Ratio 0.5 (0.9-2); Bilirubin,Total 0.3 mg/dl (0.2-1); Globulin 5.5 gm/dl (2.5-4.0)
[2019-10-12] MEDS: OXYCODONE HCL IR 5 MG TAB (IMMEDIATE RELEASE) PO PRN ×4 (09:53→21:50)
[2019-10-12] MEDS: VANCOMYCIN HCL 1,500 MG in SODIUM CHLORIDE 0.9% 500 ML IV SCH ×2 (09:57→17:52)
--- NOTE | 2019-10-12 17:19 | Infectious Disease Progress Nt ---
Date of Service October 12, 2019 Assessment & Plan (1) Staphylococcus aureus sepsis: 54-year-old female with staph aureus sepsis, evidence of pneumonia on CT scan, both with recent significant spinal surgery. Not clear whether source is pulmonary or related to her previous spine surgery. Pending sensitivity results, would continue on present antibiotics. Would obtain echocardiogram to ensure no evidence of endocarditis. Will follow. (2) Pneumonia: Subjective Patient seen in follow-up for bacteremia and pneumonia. Blood cultures identified as staph aureus, sensitivities are pending. Continues to complain of significant amount of pain in her back and shortness of breath. Currently afebrile and hemodynamically stable. Review of Systems Review of Systems: All systems reviewed & are unremarkable except as noted in HPI & below Physical Exam Constitutional: well developed, well nourished and + in distress Eyes: PERRL, conjunctivae normal, anicteric sclerae ENMT: external ear and nose normal, oropharynx normal Neck: trachea midline, no thyromegaly neck nontender Respiratory: normal respiratory effort; no respiratory distress Auscultati on: + rales and + rhonchi Cardiovascular: RRR, no murmur, no edema Gastrointestinal (Abdomen): normal bowel sounds, soft, nontender, no hepatosplenomegaly Musculoskeletal: Head/Neck/Chest: normocephalic, head atraumatic and neck supple Skin: no rashes, warm and dry no lesions Neurologic: moves all extremities and awake; no meningeal signs Psychiatric: A+Ox3, euthymic affect Lymphatic: no cervical or axillary lymphadenopathy no inguinal lymphadenopathy Results & Data Vital Signs (Past 12 Hours) Vital Signs Temp Pulse Pulse Resp BP BP Pulse Ox 10/12/19 16:00 82 10/12/19 15:16 36.9 C 94 H 24 156/83 H 94 10/12/19 14:34 81 18 95 10/12/19 11:24 37.1 C 81 18 152/90 H 92 10/12/19 11:15 83 18 94 10/12/19 10:35 108 H 10/12/19 07:48 37.4 C 96 H 20 156/91 H 90 10/12/19 05:18 108 H Laboratory Results Short CBC 10/12/19 Range/Units 08:30 WBC 12.12 H (4.8-10.8) K/uL Hgb 8.0 L (12.0-16.0) g/dL Hct 26.8 L (37-47) % Plt Count 462 H (130-400) K/uL BMP 10/12/19 08:18 Sodium 134 L Potassium 4.0 Chloride 104 Carbon Dioxide 26 BUN 9 Creatinine 0.54 L Glucose 179 H Calcium 9.2 Liver Function 10/12/19 Range/Units 08:18 Total Bilirubin 0.3 (0.2-1) mg/dl AST 10 L (15-37) U/L ALT 13 (12-78) U/L Alkaline Phosphatase 108 (45-117) U/L Albumin 2.5 L (3.4-5.0) gm/dl Diagnostic Findings Microbiology 10/10/19 15:48 Blood Aerobic Blood Culture - Preliminary No growth in Aerobic bottle after 48 hours. 10/10/19 15:48 Blood Anaerobic Blood Culture - Preliminary Staphylococcus aureus 10/10/19 15:35 Blood Aerobic Blood Culture - Preliminary No growth in Aerobic bottle after 48 hours. 10/10/19 15:35 Blood Anaerobic Blood Culture - Preliminary Staphylococcus aureus PG Care Time/CCT Total # of Minutes Spent Total Time Spent with Patient: Total time spent is greater than 50% in coordination of care (as documented) at patient's floor/unit and/or counseling patient: (1) Pneumonia Laterality: bilateral Lung location: upper lobe of lung Pneumonia type: due to unspecified organism Qualified Code(s): J18.9 - Pneumonia, unspecified organism
[2019-10-12] MEDS: TRAZODONE HCL 100 MG TAB PO SCH (20:22)
[2019-10-12] MEDS: PRAMIPEXOLE DIHYDROCHLO 0.5 MG TAB PO SCH (20:22)
[2019-10-12] MEDS: LIDOCAINE 5% 1 PATCH TD SCH (21:03)
--- NOTE | 2019-10-12 21:54 | Hospitalist Progress Note ---
Date of Service October 12, 2019 Assessment & Plan (1) Sepsis: Patient has gram positive bacteremia causing her to have WBC of over 20 and elevated HR. Patient is on antbiotics. WBC did improve. consulted ID. concern that source may be from spine, however no fluctance or drainange noted. will await final cultures. Still not available at 10/12 It appears source is from lung. will continue current antibiotics. (2) Pneumonia: as stated above (3) Acute respiratory distress: - Admitted to PCU - CTPE negative for PE, shows diffuse parenchymal infiltrative changes throughout the mid to upper lungs bilaterally. - febrile with tmax = 37.9 -Continue on vancomycin & cefepime IV, azithromycin PO blood cultures positive as noted above. -Patient had 1 hour long DuoNeb while in the ER, symptoms slightly improved, will continue duo nebs Q4H and Q2H prn, flutter therapy, incentive spirometry, Mucinex, Tessalon Perles -Sputum culture if produces expectorant -WBC equals 23.22, WBC likely slightly elevated secondary to recent use of Solu- Medrol home pack x1 week, currently has had 5 days, will hold on further steroids at this time. Trend a.m. CBC (4) Tobacco use: - Smokes at least 5 cigarettes a day, chronic, cessation encouraged. Pt declines nicotine patch. (5) Thoracolumbar back pain: -CT of the lumbar spine was negative for acute fracture or subluxation. There is edema/stranding within the incision site of the dorsal midline tissues, expected postop finding, no fluid collection which would be concerning for ab scess. - underwent spinal fusion involving the thoracic and lumbar spine T12-S1 [facility] [place] on 08/28/19 recently had follow-up on 10/02/2019 with her neurosurgeon. - Follows with Dr. Hdz neurosurgery - Pain control with oxycodone as per [employer], additional IV analgesic prn - Continue linzess -Follows with pain management, Dr. Chelo Coe and do boys: Current regimen of oxycodone 10 mg Q4H, Flexeril, cyclobenzaprine, Tylenol, ibuprofen and Mobic (6) Microcytic anemia: -hgb significantly lower than her baseline prior to surgery was 15, today is only 8.8 -Guaiac stool x1 -Check iron studies: iron, ferritin, transferrin, TIBC -Hold Mobic and ibuprofen, may resume one a time for pain control if guaiac stool negative and no signs of acute bleed (7) GERD with esophagitis: -Continue pantoprazole 40 mg every morning -Noted that the patient has been using ibuprofen and Mobic as outpatient-we will hold (8) Diabetes mellitus, type 2: -Glucose elevated at 195 upon arrival, likely this higher secondary to recent steroid use -A1c unable to be found in the chart, follow a.m. labs -ISS with Accu-Cheks ACHS, does not appear the patient is on oral medication (9) Hypothyroidism: -Continue levothyroxine 125 mcg daily (10) Obesity (BMI 30.0-34.9): -BMI of 34.3 -Diet and exercise to be encouraged upon discharge, heart healthy/DM diet (11) Restless leg syndrome: -Continue Mirapex 1 mg p.o. QPM (12) Neuropathy: -Continue pregabalin 200 mg BID (13) Depression: (14) Anxiety: (15) PTSD (post-traumatic stress disorder): -Continue trazodone 300 mg at bedtime, Prozac 40 mg every morning (16) Hyponatremia: - NSS 100ml/hr x 1 day, follow with am PRP (17) Elevated liver enzymes: - Alk phos elevated slightly at 121, trend am lfts to ensure resolvement. - AST is low at 9, albumin also depressed at 3.0 (18) Gram-positive cocci bacteremia: as noted above. (19) DVT prophylaxis: - teds, lovenox subq CODE: DNR Subjective Patient reports no new symptoms. Continues to complain of neck and bilateral shoulder pain. She states it is very painful to light touch. Review of Systems Review of Systems: All systems reviewed & are unremarkable except as noted in HPI & below Physical Exam Physical Exam: General: awake, alert, no distress HEENTnormocephalic/atraumatic, pupils equal round and reactive to light, moist mucous membranes, neck supple, no JVD Heart+ S1/S2, regular, tachycardic, no M/R/G Lungs+ crackles in anterior lung bazan bilaterally, deep breathing severely limited by pain Abdomen+ bowel sounds, soft, NT/ND Extremitiesno edema Psych: Normal mood and affect Neuro: AAO x 3, no gross motor deficits, speech is clear, no peripheral sensory deficits Results & Data Vital Signs (Past 12 Hours) Vital Signs Temp Pulse Pulse Resp BP BP Pulse Ox 10/12/19 19:29 77 18 93 10/12/19 18:50 37.2 C 80 20 165/75 H 98 10/12/19 16:00 82 10/12/19 15:16 36.9 C 94 H 24 156/83 H 94 10/12/19 14:34 81 18 95 10/12/19 11:24 37.1 C 81 18 152/90 H 92 10/12/19 11:15 83 18 94 10/12/19 10:35 108 H PG Care Time/CCT Total # of Minutes Spent Total Time Spent with Patient: Total time spent is greater than 50% in coordination of care (as documented) at patient's floor/unit and/or counseling patient:
[2019-10-12] MEDS: PROMETHAZINE HCL 25 MG TAB PO PRN (22:31)
[2019-10-13] MEDS: VANCOMYCIN HCL 1,500 MG in SODIUM CHLORIDE 0.9% 500 ML IV SCH ×3 (01:33→17:42)
[2019-10-13] MEDS: CEFEPIME 1,000 MG in SYRINGE 0 ML IV SCH ×3 (01:33→17:41)
[2019-10-13] MEDS: HYDROmorphone INJ 0.5 MG/0.5 ML SYR IV PRN ×7 (01:34→22:30)
[2019-10-13] MEDS: OXYCODONE HCL IR 5 MG TAB (IMMEDIATE RELEASE) PO PRN ×4 (03:13→20:41)
[2019-10-13] MEDS: CYCLOBENZAPRINE HCL 10 MG TAB PO PRN ×3 (03:13→18:22)
[2019-10-13] MEDS: ALBUT/IPRATROP 3MG/0.5MG NEB 3 ML VIAL NEB SCH ×6 (03:57→23:10)
[2019-10-13] MEDS ORDERED: LORazepam 0.5 MG/1 ML VIAL IV STA (04:10)
[2019-10-13] MEDS: LEVOTHYROXINE SODIUM 125 MCG TABLET PO SCH (05:34)
[2019-10-13] MEDS: LINACLOTIDE 72 MCG CAPSULE PO PRN (05:42)
[2019-10-13 06:19] LABS: Hematocrit (blood only) 25.6 % (37-47); Hemoglobin 7.4 g/dL (12.0-16.0); Mean Corpuscular Hemoglobin 22.9 pg (25-34); Mean Corpuscular Hgb Conc 28.9 g/dL (32-36); Mean Corpuscular Volume 79.3 fL (80-100); Mean Platelet Volume 9.3 fL (7.4-10.4); Platelet Count 457 K/uL (130-400); RDW Coefficient of Variation 19.9 % (11.5-14.5); RDW Standard Deviation 58.1 fL (36.4-46.3); Red Blood Count 3.23 M/uL (4.2-5.4); White Blood Count 9.21 K/uL (4.8-10.8)
[2019-10-13 06:27] LABS: Albumin Level 2.3 gm/dl (3.4-5.0); BUN Creatinine Ratio 16.3 (10-20); Calcium 8.8 mg/dl (8.5-10.1); Creatinine Clr Calc Pharmacy 127.8 ml/min; Est GFR (African American) 122.5; Est GFR (Non-African American) 105.7
[2019-10-13 06:30] LABS: Albumin Globulin Ratio 0.4 (0.9-2); Bilirubin,Total 0.2 mg/dl (0.2-1); Globulin 5.2 gm/dl (2.5-4.0); Total Protein 7.5 gm/dl (6.4-8.2)
[2019-10-13] MEDS: LIDOCAINE 5% 1 PATCH TD SCH (07:36)
[2019-10-13] MEDS: ENOXAPARIN INJ 40 MG/0.4 ML SYR SQ SCH (07:36)
[2019-10-13] MEDS: PREGABALIN 100 MG CAP PO SCH ×2 (07:36→20:41)
[2019-10-13] MEDS: AZITHROMYCIN 250 MG TAB PO SCH (07:37)
[2019-10-13] MEDS: ACETAMINOPHEN 500 MG TAB PO SCH ×3 (07:37→20:42)
[2019-10-13] MEDS: BENZONATATE 100 MG CAPSULE PO SCH ×3 (07:38→20:41)
[2019-10-13] MEDS: guaiFENesin 600 MG TABCR PO SCH ×2 (07:38→20:42)
[2019-10-13] MEDS: PANTOprazole 40 MG TAB PO SCH (07:38)
[2019-10-13] MEDS: FLUOXETINE HCL 20 MG CAP PO SCH (07:38)
[2019-10-13] MEDS: INSULIN ASPART 100 UNITS/ML 3 ML PEN SC SCH ×4 (08:46→21:00)
[2019-10-13] MEDS ORDERED: VANCOMYCIN TROUGH ONE (09:30)
--- NOTE | 2019-10-13 11:38 | Pharmacy Report ---
Pharmacy Abx Dose Short Note - Date of Service October 13, 2019 - Assessment & Plan Assessment 54 year old F receiving vancomycin for treatment of bacteremia Day # 4 of antimicrobial therapy. Plan Vancomycin * Trough level came back therapeutic today at 17 mcg/ml (goal 15-20 mcg/ml) for bacteremia * Will continue current regimen of vancomycin for now * Renal function remains stable / would recommend rechecking trough in next 1-2 days if to be continued * Blood cultures positive for MSSA - ID following and had recommended echocardiogram to rule out endocarditits / likely abx will be deescalated soon pending results Pharmacy will continue to follow and will adjust dose/frequency as necessary. Thank you.
--- NOTE | 2019-10-13 14:13 | Infectious Disease Progress Nt ---
Date of Service October 13, 2019 Assessment & Plan (1) Staphylococcus aureus sepsis: 54-year-old female with staph aureus sepsis, evidence of pneumonia on CT scan, both with recent significant spinal surgery. Not clear whether source is pulmonary or related to her previous spine surgery. Patient will be changed to IV cefazolin given isolate is methicillin sensitive. Await echocardiogram. Would obtain follow-up chest x-ray. Pulmonary findings not really suggestive of staphylococcal pneumonia, would worry about possibility of surgical site infection. Would recommend continuing IV antibiotics until evaluated by her surgeon. Follow-up blood cultures ordered to ensure clearance of bacteremia. As I will be leaving hospital after today, Dr. Camarillo will provide ID follow- up hereafter. (2) Pneumonia: Subjective Patient seen in follow-up for bacteremia and pneumonia. Blood cultures identified as staph aureus, methicillin sensitive.. Continues to complain of significant amount of pain in her back and shortness of breath. Currently afebrile and hemodynamically stable. Review of Systems Review of Systems: All systems reviewed & are unremarkable except as noted in HPI & below Physical Exam Constitutional: well developed, well nourished and + in distress Eyes: PERRL, conjunctivae normal, anicteric sclerae ENMT: external ear and nose normal, oropharynx normal Neck: trachea midline, no thyromegaly neck nontender Respiratory: normal respiratory effort; no respiratory distress Auscultation: + rales and + rhonchi Cardiovascular: RRR, no murmur, no edema Gastrointestinal (Abdomen): normal bowel sounds, soft, nontender, no hepatosplenomegaly Musculoskeletal: Head/Neck/Chest: normocephalic, head atraumatic and neck supple Skin: no rashes, warm and dry no lesions Neurologic: moves all extremities and awake; no meningeal signs Psychiatric: A+Ox3, euthymic affect Lymphatic: no cervical or axillary lymphadenopathy no inguinal lymphadenopathy Results & Data Vital Signs (Past 12 Hours) Vital Signs Temp Pulse Pulse Resp BP BP Pulse Ox 10/13/19 11:33 36.6 C 80 18 158/88 H 92 10/13/19 11:16 91 H 10/13/19 09:26 91 H 10/13/19 07:44 37.0 C 79 18 150/85 H 90 10/13/19 03:44 37.1 C 82 18 170/104 H 95 Laboratory Results Short CBC 10/13/19 Range/Units 05:30 WBC 9.21 (4.8-10.8) K/uL Hgb 7.4 L (12.0-16.0) g/dL Hct 25.6 L (37-47) % Plt Count 457 H (130-400) K/uL BMP 10/13/19 05:30 Sodium 136 Potassium 4.0 Chloride 103 Carbon Dioxide 27 BUN 9 Creatinine 0.56 L Glucose 151 H Calcium 8.8 Liver Function 10/13/19 Range/Units 05:30 Total Bilirubin 0.2 (0.2-1) mg/dl AST 10 L (15-37) U/L ALT 12 (12-78) U/L Alkaline Phosphatase 98 (45-117) U/L Albumin 2.3 L (3.4-5.0) gm/dl Diagnostic Findings Microbiology 10/10/19 15:35 Blood Aerobic Blood Culture - Preliminary No growth in Aerobic bottle after 48 hours. 10/10/19 15:35 Blood Anaerobic Blood Culture - Preliminary Staphylococcus aureus 10/10/19 15:48 Blood Aerobic Blood Culture - Preliminary No growth in Aerobic bottle after 48 hours. 10/10/19 15:48 Blood Anaerobic Blood Culture - Preliminary Staphylococcus aureus PG Care Time/CCT Total # of Minutes Spent Total Time Spent with Patient: Total time spent is greater than 50% in coordina tion of care (as documented) at patient's floor/unit and/or counseling patient: (1) Pneumonia Laterality: bilateral Lung location: upper lobe of lung Pneumonia type: due to unspecified organism Qualified Code(s): J18.9 - Pneumonia, unspecified organism
[2019-10-13] MEDS: PRAMIPEXOLE DIHYDROCHLO 0.5 MG TAB PO SCH (20:42)
[2019-10-13] MEDS: TRAZODONE HCL 100 MG TAB PO SCH (20:43)
--- NOTE | 2019-10-13 22:36 | Hospitalist Progress Note ---
Date of Service October 13, 2019 Assessment & Plan (1) Sepsis: Patient has gram positive bacteremia causing her to have WBC of over 20 and elevated HR. Patient is on antbiotics. WBC did improve. consulted ID. concern that source may be from spine, however no fluctance or drainange noted. Final cultures showing staph aureus bacteremia. It appears source is from lung. will continue current antibiotics. (2) Pneumonia: as stated above (3) Acute respiratory distress: - Admitted to PCU - CTPE negative for PE, shows diffuse parenchymal infiltrative changes throughout the mid to upper lungs bilaterally. - febrile with tmax = 37.9 on 10/12, no fever since. -Continue on vancomycin & cefepime IV, azithromycin PO blood cultures positive as noted above. -Patient had 1 hour long DuoNeb while in the ER, symptoms slightly improved, will continue duo nebs Q4H and Q2H prn, flutter therapy, incentive spirometry, Mucinex, Tessalon Perles -Sputum culture if produces expectorant (4) Tobacco use: - Smokes at least 5 cigarettes a day, chronic, cessation encouraged. Pt declines nicotine patch. (5) Thoracolumbar back pain: -CT of the lumbar spine was negative for acute fracture or subluxation. There is edema/stranding within the incision site of the dorsal midline tissues, expected postop finding, no fluid collection which would be concerning for abscess. - underwent spinal fusion involving the thoracic and lumbar spine T12-S1 [facility] [place] on 08/28/19 recently had follow-up on 10/02/2019 with her neurosurgeon. - Follows with Dr. Hdz neurosurgery - Pain control with oxycodone as per [employer], additional IV analgesic prn - Continue linzess -Follows with pain management, Dr. Chelo Coe and do boys: Current regimen of oxycodone 10 mg Q4H, Flexeril, cyclobenzaprine, Tylenol, ibuprofen and Mobic (6) Microcytic anemia: -hgb significantly lower than her baseline prior to surgery was 15, today is only 8.8 -Guaiac stool x1 does point towards iron def. anemia. -Hold Mobic and ibuprofen, may resume one a time for pain control if guaiac stool negative and no signs of acute bleed (7) GERD with esophagitis: -Continue pantoprazole 40 mg every morning -Noted that the patient has been using ibuprofen and Mobic as outpatient-we will hold (8) Diabetes mellitus, type 2: -Glucose elevated at 195 upon arrival, likely this higher secondary to recent steroid use -A1c unable to be found in the chart, follow a.m. labs -ISS with Accu-Cheks ACHS, does not appear the patient is on oral medication (9) Hypothyroidism: -Continue levothyroxine 125 mcg daily (10) Obesity (BMI 30.0-34.9): -BMI of 34.3 -Diet and exercise to be encouraged upon discharge, heart healthy/DM diet (11) Restless leg syndrome: -Continue Mirapex 1 mg p.o. QPM (12) Neuropathy: -Continue pregabalin 200 mg BID (13) Depression: (14) Anxiety: (15) PTSD (post-traumatic stress disorder): -Continue trazodone 300 mg at bedtime, Prozac 40 mg every morning (16) Hyponatremia: - NSS 100ml/hr x 1 day, follow with am PRP (17) Elevated liver enzymes: - Alk phos elevated slightly at 121, trend am lfts to ensure resolvement. - AST is low at 9, albumin also depressed at 3.0 (18) Gram-positive cocci bacteremia: as noted above. (19) DVT prophylaxis: - bonifacio cornell subq CODE: DNR Subjective 54 yo female reports no new complaints. Her main comlaint is that she wants a PICC line as it has been difficult obtain blood draws. Review of Systems Review of Systems: All systems reviewed & are unremarkable except as noted in HPI & below Physical Exam Physical Exam: Constitutional: well developed, well nourished and + in distress Eyes: PERRL, conjunctivae normal, anicteric sclerae ENMT: external ear and nose normal, oropharynx normal Neck: trachea midline, no thyromegaly neck nontender Respiratory: normal respiratory effort; no respiratory distress Ausc ultation: + rales and + rhonchi Cardiovascular: RRR, no murmur, no edema Gastrointestinal (Abdomen): normal bowel sounds, soft, nontender, no hepatosplenomegaly Musculoskeletal: Head/Neck/Chest: normocephalic, head atraumatic and neck supple Skin: no rashes, warm and dry no lesions Neurologic: moves all extremities and awake; no meningeal signs Psychiatric: A+Ox3, euthymic affect Lymphatic: no cervical or axillary lymphadenopathy no inguinal lymphadenopathy Results & Data Vital Signs (Past 12 Hours) Vital Signs Temp Pulse Pulse Resp BP BP Pulse Ox 10/13/19 20:00 37.2 C 80 20 159/102 H 93 10/13/19 16:00 84 10/13/19 15:55 36.6 C 80 17 155/98 H 92 10/13/19 11:33 36.6 C 80 18 158/88 H 92 10/13/19 11:16 91 H PG Care Time/CCT Total # of Minutes Spent Total Time Spent with Patient: Total time spent is greater than 50% in coordination of care (as documented) at patient's floor/unit and/or counseling patient:
[2019-10-14] MEDS: OXYCODONE HCL IR 5 MG TAB (IMMEDIATE RELEASE) PO PRN ×5 (01:33→22:48)
[2019-10-14] MEDS: CEFAZOLIN 2000MG 2,000 MG/15 ML SYR IV SCH ×3 (01:34→18:02)
[2019-10-14] MEDS: HYDROmorphone INJ 0.5 MG/0.5 ML SYR IV PRN ×7 (02:34→23:36)
[2019-10-14] MEDS: ALBUT/IPRATROP 3MG/0.5MG NEB 3 ML VIAL NEB SCH ×6 (03:19→23:34)
[2019-10-14] MEDS: CYCLOBENZAPRINE HCL 10 MG TAB PO PRN (05:33)
[2019-10-14] MEDS: LEVOTHYROXINE SODIUM 125 MCG TABLET PO SCH (05:33)
[2019-10-14] MEDS: PREGABALIN 100 MG CAP PO SCH ×2 (08:18→20:56)
[2019-10-14] MEDS: ACETAMINOPHEN 500 MG TAB PO SCH ×3 (08:18→20:50)
[2019-10-14] MEDS: PANTOprazole 40 MG TAB PO SCH (08:18)
[2019-10-14] MEDS: guaiFENesin 600 MG TABCR PO SCH ×2 (08:19→21:00)
[2019-10-14] MEDS: AZITHROMYCIN 250 MG TAB PO SCH (08:19)
[2019-10-14] MEDS: FLUOXETINE HCL 20 MG CAP PO SCH (08:19)
[2019-10-14] MEDS: BENZONATATE 100 MG CAPSULE PO SCH ×3 (08:19→20:52)
[2019-10-14] MEDS: LIDOCAINE 5% 1 PATCH TD SCH (08:19)
[2019-10-14] MEDS: ENOXAPARIN INJ 40 MG/0.4 ML SYR SQ SCH (08:19)
[2019-10-14] MEDS: INSULIN ASPART 100 UNITS/ML 3 ML PEN SC SCH ×4 (08:21→20:51)
--- NOTE | 2019-10-14 11:08 | Psychiatric Progress Note ---
Date of Service October 14, 2019 Impression / Recommendations Impression as per initial consult. Order lower dose Lamictal, should be directed to contact her outpatient provider (Seb) to determine when to resume 100 mg. Subjective Subjective chart review, records and liaison able to confirm ongoing RX of Lamictal 100 mg, last fill 10/02/19. was not available on admission [facility] and now has missed >3 days worth of doses. Physical Exam Vital Signs (Past 24 Hours) Last Vital Signs Temp 37.2 C 10/14/19 07:25 Pulse 82 10/14/19 07:25 Resp 18 10/14/19 07:25 BP 150/74 H 10/14/19 07:25 Pulse Ox 90 10/14/19 07:25 Results & Data Laboratory Results Laboratory Results - last 24 hr 10/13/19 10/13/19 10/13/19 11:27 16:11 20:59 POC Glucose 172 H 135 H 113 H 10/14/19 07:48 POC Glucose 162 H Current Inpatient Medications Current Inpatient Medications: Current Inpatient Medications Acetaminophen (Tylenol) 1,000 mg PO TID [facility] Stop: 11/09/19 20:59 Last Admin: 10/14/19 08:18 Dose: 1,000 mg Documented by: Albuterol (Duoneb) 3 ml NEB Q4R [facility] Stop: 11/09/19 19:56 Last Admin: 10/14/19 06:57 Dose: Not Given Documented by: Azithromycin (Zithromax) 250 mg PO QAM [facility] Stop: 10/18/19 08:59 Last Admin: 10/14/19 08:19 Dose: 250 mg Documented by: Benzonatate (Tessalon Perle) 100 mg PO TID [facility] Stop: 11/09/19 20:59 Last Admin: 10/14/19 08:19 Dose: 100 mg Documented by: Cyclobenzaprine HCl (Flexeril) 10 mg PO TID PRN PRN Reason: MUSCLE SPASMS Stop: 11/09/19 20:21 Last Admin: 10/14/19 05:33 Dose: 10 mg Documented by: Dextrose (Dextrose 50%) 25 - 50 ml IV UD PRN; Protocol PRN Reason: Hypoglycemia Protocol Stop: 11/09/19 19:56 Enoxaparin Sodium (Lovenox) 40 mg SQ QAM [facility] Stop: 11/10/19 08:59 Last Admin: 10/14/19 08:19 Dose: Not Given Documented by: Fluoxetine HCl (Prozac) 40 mg PO QAM [facility] Stop: 11/10/19 08:59 Last Admin: 10/14/19 08:19 Dose: 40 mg Documented by: Glucagon (Glucagen) 1 mg SQ UD PRN; Protocol PRN Reason: Hypoglycemia Protocol Stop: 11/09/19 19:56 Glucose (Dex4 Glucose) 4 - 8 tabs PO UD PRN; Protocol PRN Reason: Hypoglycemia Protocol Stop: 11/09/19 19:56 Glucose (Glucose 40%) 15 - 30 gm PO UD PRN; Protocol PRN Reason: Hypoglycemia Protocol Stop: 11/09/19 19:56 Guaifenesin (Mucinex) 1,200 mg PO Q12 [facility] Stop: 11/09/19 20:59 Last Admin: 10/14/19 08:19 Dose: 1,200 mg Documented by: Hydromorphone HCl (Dilaudid) 0.5 mg IV Q3H PRN PRN Reason: Pain Stop: 10/24/19 19:56 Last Admin: 10/14/19 10:01 Dose: 0.5 mg Documented by: Cefazolin Sodium (Ancef 2000mg) 2,000 mg in 15 mls @ 3.75 mls/min IV Q8H [facility] Stop: 10/28/19 01:59 Last Admin: 10/14/19 10:01 Dose: 3.75 mls/min Documented by: Insulin Aspart (Novolog Flexpen) 0 units SC ACHS [facility] Stop: 11/09/19 20:59 Last Admin: 10/14/19 08:21 Dose: 5 units Documented by: Ioversol (Optiray 320 125ml) 120 ml IV ONCE PRN PRN Reason: Interaction Checking Stop: 10/14/19 16:10 Last Admin: 10/10/19 16:12 Dose: 120 ml Documented by: Lamotrigine (Lamictal) 50 mg PO QAM [facility] Stop: 11/13/19 11:14 Levothyroxine Sodium (Synthroid) 125 mcg PO DAILYBB [facility] Stop: 11/10/19 06:29 Last Admin: 10/14/19 05:33 Dose: 125 mcg Documented by: [facility]idocaine ([facility]oderm 5%) [facility] [place] Stop: 11/12/19 08:59 Last Admin: 10/14/19 08:19 Dose: 2 patch Documented by: Linaclotide (Linzess) 144 mcg PO DAILY PRN PRN Reason: CONSTIPATION Stop: 11/12/19 05:38 Last Admin: 10/13/19 05:42 Dose: 144 mcg Documented by: Miscellaneous (Carbohydrates For Hypoglycemia) 15 - 30 gm PO UD PRN PRN Reason: Hypoglycemia Protocol Stop: 11/09/19 19:56 Miscellaneous (Remove Lidoderm Patch) 1 ea N/A DAILY@0900 [facility] Stop: 11/10/19 08:59 Last Admin: 10/14/19 08:20 Dose: Not Given Documented by: Miscellaneous (Remove Lidoderm Patch) 1 ea N/A DAILY@2100 [facility] Stop: 11/11/19 20:59 Last Admin: 10/13/19 20:44 Dose: 1 ea Documented by: Ondansetron HCl (Zofran) 4 mg IV Q4H PRN PRN Reason: Nausea And Vomiting Stop: 11/09/19 19:56 Oxycodone HCl (Roxicodone Immediate Rel) 10 mg PO Q4H PRN PRN Reason: Pain Stop: 10/25/19 08:18 Last Admin: 10/14/19 08:18 Dose: 10 mg Documented by: Pantoprazole Sodium (Protonix) 40 mg PO QAM [facility] Stop: 11/10/19 08:59 Last Admin: 10/14/19 08:18 Dose: 40 mg Documented by: Pramipexole Dihydrochloride (Mirapex) 1 mg PO QPM [facility] Stop: 11/09/19 20:59 Last Admin: 10/13/19 20:42 Dose: 1 mg Documented by: Pregabalin (Lyrica) 200 mg PO BID [facility] Stop: 11/09/19 20:59 Last Admin: 10/14/19 08:18 Dose: 200 mg Documented by: Promethazine HCl (Phenergan) 25 mg PO TID PRN PRN Reason: Nausea And Vomiting Stop: 11/09/19 19:56 Last Admin: 10/12/19 22:31 Dose: 25 mg Documented by: Trazodone HCl (Desyrel) 300 mg PO HS [facility] Stop: 11/09/19 20:59 Last Admin: 10/13/19 20:43 Dose: 300 mg Documented by:
[2019-10-14] MEDS: lamoTRIgine 25 MG TAB PO SCH ×2 (12:45→13:59)
[2019-10-14] MEDS ORDERED: LORazepam 1 MG/2 ML VIAL IV STA (16:23)
--- NOTE | 2019-10-14 18:09 | Magnetic Resonance Report ---
MR lumbar spine wo con CLINICAL HISTORY: 54 years-old Female with swelling, pain lumbar spine/ sp surgery. Acute low back p ain with sepsis. Lumbar spinal fusion on 08/28/2019 COMPARISON: CT lumbar spine 10/10/2019, MRI lumbar spine 08/03/2019 TECHNIQUE: Multiplanar, multi sequence MRI of the lumbar spine was performed without intravenous cont rast. FINDINGS: Large buduk-qe-azia aircraft armorer localizer images demonstrate no gross extraspinal abnormality. No aortic an eurysm or adenopathy. No acute abnormality identified within the imaged intra-abdominal or intrapelvi c structures. Postoperative changes from extensive posterior interbody claudio and screw fusion hardware. Artifact from the hardware limits the study with obscuration of the adjacent tissues. There is poste rior interbody claudio and screw fusion hardware extending from T10 through S1 with discectomy changes at L3-L4, L4-L5 and L5-S1. Remote T12 compression deformity. Evaluation of the bone marrow on the STIR images is very difficult secondary to the aforementioned artifact. No definitive bone marrow edema id entified. No definitive epidural abscess or hematoma identified. Epidural tissues however are subopti zhane visualized. Micrometallic artifact within the ventral midline subcutaneous tissues at the surgi peace incision site are noted along with a thick-walled fluid collection which measures up to approxima tely 2.5 x 3.2 x 17.0 cm in AP, transverse and craniocaudal dimensions extending superiorly outside t he [id number]. T12-L1: No central canal or neural foraminal stenosis. L1-L2: There is 4 mm retrolisthesis L1 on L2 with severe disc space narrowing. No high-grade central canal stenosis. And neuroforaminal structures are not well seen. L2-L3: No high-grade central canal stenosis. No definite foraminal narrowing. L3-L4: No central canal or neural foraminal stenosis. L4-L5: No central canal or neural foraminal stenosis. L5-S1: No central canal or neural foraminal stenosis. IMPRESSION: 1. Extensive posterior interbody claudio and screw fusion of the thoracolumbar spine as above. Artifact f rom the hardware limits evaluation of the adjacent tissues. 2. No acute fracture, subluxation, definite bone marrow edema or epidural fluid collection identified . 3. There is a large partially imaged thick-walled fluid collection within the subcutaneous incision s ite measuring over 17 cm in length which is partially imaged and is largest at the level of the lower thoracic spine. Seroma, hematoma or abscess are the differential considerations. Correlate clinicall y. The above report was generated using voice recognition software. It may contain grammatical, syntax o r spelling errors. Electronically signed by: Luis Angel Jung M.D. 10/14/2019 6:08 PM
[2019-10-14] MEDS: PRAMIPEXOLE DIHYDROCHLO 0.5 MG TAB PO SCH (20:52)
[2019-10-14] MEDS: TRAZODONE HCL 100 MG TAB PO SCH (20:53)
--- NOTE | 2019-10-14 21:18 | Hospitalist Progress Note ---
Date of Service October 14, 2019 Assessment & Plan (1) Sepsis: Patient has gram positive bacteremia causing her to have WBC of over 20 and elevated HR. Patient is on antbiotics. improved to normal on 10/13 consulted ID. concern that source may be from spine; small fluctuane is noted with no d rainage. will consult ortho spine.. Final cultures showing staph aureus bacteremia. It appears source is from lung. will continue current antibiotics. plan is to obtain a PICC line on 10/15 Will also obtain MRI of lower back to reassess for fluid collection. (2) Pneumonia: as stated above (3) Acute respiratory distress: - Admitted to PCU - CTPE negative for PE, shows diffuse parenchymal infiltrative changes throughout the mid to upper lungs bilaterally. - febrile with tmax = 37.9 on 10/12, no fever since. -Continue on vancomycin & cefepime IV, azithromycin PO blood cultures positive as noted above. -Patient had 1 hour long DuoNeb while in the ER, symptoms slightly improved, will continue duo nebs Q4H and Q2H prn, flutter therapy, incentive spirometry, Mucinex, Tessalon Perles -Sputum culture if produces expectorant (4) Tobacco use: - Smokes at least 5 cigarettes a day, chronic, cessation encouraged. Pt declines nicotine patch. (5) Thoracolumbar back pain: -CT of the lumbar spine was negative for acute fracture or subluxation. There is edema/stranding within the incision site of the dorsal midline tissues, expected postop finding, no fluid collection which would be concerning for abscess. - underwent spinal fusion involving the thoracic and lumbar spine [place]12[place] [facility] [place] recently had follow-up on 10/02/2019 with her neurosurgeon. - Follows with Dr. Hdz neurosurgery - Pain control with oxycodone as per [employer] SETTER HELPER, additional IV analgesic prn - Continue linzess -Follows with pain management, Dr. Chelo Coe and do hummel: Current regimen of oxycodone 10 mg Q4H, Flexeril, cyclobenzaprine, Tylenol, ibuprofen and Mobic (6) Microcytic anemia: -hgb significantly lower than her baseline prior to surgery was 15, today is only 8.8 -Guaiac stool x1 does point towards iron def. anemia. -Hold Mobic and ibuprofen, may resume one a time for pain control if guaiac stool negative and no signs of acute bleed (7) GERD with esophagitis: -Continue pantoprazole 40 mg every morning -Noted that the patient has been using ibuprofen and Mobic as outpatient-we will hold (8) Diabetes mellitus, type 2: -Glucose elevated at 195 upon arrival, likely this higher secondary to recent steroid use -A1c unable to be found in the chart, follow a.m. labs -ISS with Accu-Cheks ACHS, does not appear the patient is on oral medication (9) Hypothyroidism: -Continue levothyroxine 125 mcg daily (10) Obesity (BMI 30.0-34.9): -BMI of 34.3 -Diet and exercise to be encouraged upon discharge, heart healthy/DM diet (11) Restless leg syndrome: -Continue Mirapex 1 mg p.o. QPM (12) Neuropathy: -Continue pregabalin 200 mg BID (13) Depression: (14) Anxiety: (15) PTSD (post-traumatic stress disorder): -Continue trazodone 300 mg at bedtime, Prozac 40 mg every morning (16) Hyponatremia: resolved (17) Elevated liver enzymes: - Alk phos elevated slightly at 121, trend am lfts to ensure resolvement. - AST is low at 9, albumin also depressed at 3.0 (18) Gram-positive cocci bacteremia: as noted above. (19) DVT prophylaxis: - bonifacio cornell subq CODE: DNR Subjective 54 yo female reports having signifcant pain in her shoulder and lower back. She feels the sweliing in her lower back around the incision site has increased in size. Review of Systems Review of Systems: All systems reviewed & are unremarkable except as noted in HPI & below Physical Exam Physical Exam: Constitutional: well developed, well nourished and + in distress Eyes: PERRL, conjunctivae normal, anicteric sclerae ENMT: external ear and nose normal, oropharynx normal Neck: trachea midline, no thyromegaly neck nontender Respiratory: normal respiratory effort; no respiratory distress Auscultation: decreased lung sounds Cardiovascular: RRR, no murmur, no edema Gastrointestinal (Abdomen): normal bowel sounds, soft, nontender, no hepatosplenomegaly Musculoskeletal: Head/Neck/Chest: normocephalic, head atraumatic and neck supple Skin: no rashes, warm and dry no lesions Neurologic: moves all extremities and awake; no meningeal signs Psychiatric: A+Ox3, euthymic affect Lymphatic: no cervical or axillary lymphadenopathy no inguinal lymphadenopathy Results & Data Vital Signs (Past 12 Hours) Vital Signs Temp Pulse Pulse Resp BP BP Pulse Ox 10/14/19 20:00 37.0 C 86 18 139/80 90 10/14/19 19:12 83 16 95 10/14/19 15:19 37.2 C 79 18 149/84 H 93 10/14/19 11:12 82 10/14/19 11:00 37.1 C 68 18 139/79 94 PG Care Time/CCT Total # of Minutes Spent Total Time Spent with Patient: Total time spent is greater than 50% in coordination of care (as documented) at patient's floor/unit and/or counseling patient:
[2019-10-15] MEDS: CEFAZOLIN 2000MG 2,000 MG/15 ML SYR IV SCH ×3 (01:41→17:18)
[2019-10-15] MEDS: HYDROmorphone INJ 0.5 MG/0.5 ML SYR IV PRN ×7 (03:06→23:17)
[2019-10-15] MEDS: ALBUT/IPRATROP 3MG/0.5MG NEB 3 ML VIAL NEB SCH ×2 (03:27→06:57)
[2019-10-15] MEDS: LEVOTHYROXINE SODIUM 125 MCG TABLET PO SCH (05:42)
[2019-10-15] MEDS: PROMETHAZINE HCL 25 MG TAB PO PRN ×2 (06:10→23:24)
[2019-10-15] MEDS: LINACLOTIDE 72 MCG CAPSULE PO PRN (06:34)
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
[2019-10-15] MEDS ORDERED: ALBUT/IPRATROP 3MG/0.5MG NEB 3 ML VIAL NEB PRN (08:12)
[2019-10-15] MEDS: guaiFENesin 600 MG TABCR PO SCH ×2 (08:46→20:14)
[2019-10-15] MEDS: ACETAMINOPHEN 500 MG TAB PO SCH ×3 (08:46→20:13)
[2019-10-15] MEDS: FLUOXETINE HCL 20 MG CAP PO SCH (08:46)
[2019-10-15] MEDS: PANTOprazole 40 MG TAB PO SCH (08:46)
[2019-10-15] MEDS: lamoTRIgine 25 MG TAB PO SCH (08:46)
[2019-10-15] MEDS: AZITHROMYCIN 250 MG TAB PO SCH (08:47)
[2019-10-15] MEDS: ENOXAPARIN INJ 40 MG/0.4 ML SYR SQ SCH ×2 (08:47→08:52)
[2019-10-15] MEDS: BENZONATATE 100 MG CAPSULE PO SCH ×3 (08:47→20:14)
[2019-10-15] MEDS: PREGABALIN 100 MG CAP PO SCH ×2 (08:47→20:18)
[2019-10-15] MEDS: INSULIN ASPART 100 UNITS/ML 3 ML PEN SC SCH ×4 (08:47→21:32)
[2019-10-15] MEDS: LIDOCAINE 5% 1 PATCH TD SCH (11:15)
[2019-10-15] MEDS: GABAPENTIN 400 MG CAP PO SCH ×2 (14:41→20:14)
[2019-10-15] MEDS ORDERED: LORazepam 1 MG TAB PO STA (16:51)
[2019-10-15] MEDS: CLOTRIMAZOLE VAGINAL CR 7 APPLN/45 GM TUBE PV SCH (17:14)
[2019-10-15] MEDS: PRAMIPEXOLE DIHYDROCHLO 0.5 MG TAB PO SCH (20:13)
[2019-10-15] MEDS: TRAZODONE HCL 100 MG TAB PO SCH (20:13)
[2019-10-15] MEDS ORDERED: lamoTRIgine 100 MG TAB PO SCH (21:00)
--- NOTE | 2019-10-15 21:49 | Hospitalist Progress Note ---
Date of Service October 15, 2019 Assessment & Plan (1) Sepsis: Patient has gram positive bacteremia causing her to have WBC of over 20 and elevated HR. Patient is on antbiotics. WBC improved to normal on 10/13 consulted ID. concern that source may be from spine; small fluctuane is noted with no drainage. will consult ortho spine. For now plan is to have patient f/u with sylvia at discharge and place PICC line and continue with IV antibiotics. will need to discuss with ID for duration. Final cultures showing staph aureus bacteremia. It appears source is from lung. will continue current antibiotics. (2) Pneumonia: as stated above (3) Acute respiratory distress: - Admitted to PCU - CTPE negative for PE, shows diffuse parenchymal infiltrative changes throughout the mid to upper lungs bilaterally. - febrile with tmax = 37.9 on 10/12, no fever since. -Continue on vancomycin & cefepime IV, azithromycin PO blood cultures positive as noted above. -Patient had 1 hour long DuoNeb while in the ER, symptoms slightly improved, will continue duo nebs Q4H and Q2H prn, flutter therapy, incentive spirometry, Mucinex, Tessalon Perles -Sputum culture if produces expectorant (4) Tobacco use: - Smokes at least 5 cigarettes a day, chronic, cessation encouraged. Pt declines nicotine patch. (5) Thoracolumbar back pain: -CT of the lumbar spine was negative for acute fracture or subluxation. There is edema/stranding within the incision site of the dorsal midline tissues, expected postop finding, no fluid collection which would be concerning for abscess. - underwent spinal fusion involving the thoracic and lumbar spine T12-S1 [facility] [place] on 08/28/19 recently had follow-up on 10/02/2019 with her neurosurgeon. - Follows with Dr. Hdz neurosurgery - Pain control with oxycodone as per [employer]AKER HELPER, additional IV analgesic prn - Continue linzess -Follows with pain management, Dr. Chelo Coe and do boys: Current regimen of oxycodone 10 mg Q4H, Flexeril, cyclobenzaprine, Tylenol, ibuprofen and Mobic (6) Microcytic anemia: -hgb significantly lower than her baseline prior to surgery was 15, today is only 8.8 -Guaiac stool x1 does point towards iron def. anemia. -Hold Mobic and ibuprofen, may resume one a time for pain control if guaiac stool negative and no signs of acute bleed (7) GERD with esophagitis: -Continue pantoprazole 40 mg every morning -Noted that the patient has been using ibuprofen and Mobic as outpatient-we will hold (8) Diabetes mellitus, type 2: -Glucose elevated at 195 upon arrival, likely this higher secondary to recent steroid use -A1c unable to be found in the chart, follow a.m. labs -ISS with Accu-Cheks ACHS, does not appear the patient is on oral medication (9) Hypothyroidism: -Continue levothyroxine 125 mcg daily (10) Obesity (BMI 30.0-34.9): -BMI of 34.3 -Diet and exercise to be encouraged upon discharge, heart healthy/DM diet (11) Restless leg syndrome: -Continue Mirapex 1 mg p.o. QPM (12) Neuropathy: -Continue pregabalin 200 mg BID (13) Depression: (14) Anxiety: (15) PTSD (post-traumatic stress disorder): -Continue trazodone 300 mg at bedtime, Prozac 40 mg every morning (16) Hyponatremia: resolved (17) Elevated liver enzymes: - Alk phos elevated slightly at 121, trend am lfts to ensure resolvement. - AST is low at 9, albumin also depressed at 3.0 (18) Gram-positive cocci bacteremia: as noted above. Vaginal Candidasis: patient complained of this. ordered antifungal treatment. (19) DVT prophylaxis: - teds, lovenox subq CODE: DNR Subjective Patient reports no new symptoms. Continues to have generalized musculoskeletal pain, mainly in upper back. Review of Systems Review of Systems: All systems reviewed & are unremarkable except as noted in HPI & below Physical Exam Physical Exam: Constitutional: well developed, well nourished and + in distress Eyes: PERRL, conjunctivae normal, anicteric sclerae ENMT: external ear and nose normal, oropharynx normal Neck: trachea midline, no thyromegaly neck nontender Respiratory: normal respiratory effort; no respiratory distress Auscultation: decreased lung sounds Cardiovascular: RRR, no murmur, no edema Gastrointestinal (Abdomen): normal bowel sounds, soft, nontender, no hepatosplenomegaly Musculoskeletal: Head/Neck/Chest: normocephalic, head atraumatic and neck supple Skin: no rashes, warm and dry no lesions Neurologic: moves all extremities and awake; no meningeal signs Psychiatric: A+Ox3, euthymic affect Lymphatic: no cervical or axillary lymphadenopathy no inguinal lymphadenopathy Results & Data Vital Signs (Past 12 Hours) Vital Signs Temp Pulse Pulse Resp BP Pulse Ox 10/15/19 20:38 37.2 C 70 18 152/90 H 95 10/15/19 16:00 72 10/15/19 15:25 36.8 C 69 18 142/88 H 96 10/15/19 10:45 37.0 C 71 18 148/90 H 91 PG Care Time/CCT Total # of Minutes Spent Total Time Spent with Patient: Total time spent is greater than 50% in coordination of care (as documented) at patient's floor/unit and/or counseling patient:
[2019-10-16] MEDS: CEFAZOLIN 2000MG 2,000 MG/15 ML SYR IV SCH ×3 (01:16→18:06)
[2019-10-16] MEDS: HYDROmorphone INJ 0.5 MG/0.5 ML SYR IV PRN ×8 (02:22→23:46)
[2019-10-16] MEDS: LEVOTHYROXINE SODIUM 125 MCG TABLET PO SCH (05:59)
[2019-10-16] MEDS: LINACLOTIDE 72 MCG CAPSULE PO PRN (05:59)
--- NOTE | 2019-10-16 06:38 | Orthopedic Progress Note ---
Date of Service October 16, 2019 Assessment & Plan (1) Thoracolumbar back pain: Clinically, I do not feel the infection is coming from her spine. I did talk to her more this morning and she said when her upper lumbar wound was draining, it was a watery yellowish fluid. This would indicate a seroma. I do not see any clinical signs of there is an abscess, erythema or infection in the area. Most of her pain is in the upper thoracic region. She does have a diagnosis of pneumonia and we should continue the antibiotics for that. She is only 6 weeks out from her spine surgery. She does need to follow-up with her neurosurgeon in the future. At this point there are no operative indications. If her status changes please feel free to call me personally on my cell phone at [phone]. Present on Admission?: Yes Ruth Gant was seen and examined at bedside this morning. She continues to have some back pain especially in her upper thoracic spine. She has had no acute events since I seen her yesterday. Overall she feels her lung status is improving. Review of Systems Review of Systems: All systems reviewed & are unremarkable except as noted in HPI & below Physical Exam Musculoskeletal: On physical examination of the lumbar spine, the incision is well-healed. There is a little bit of fluctuance in the upper lumbar region. There are no signs of abscess or infection. There is no erythema. She has a lot of tenderness palpation along the length of her spine especially in the upper thoracic region. Results & Data Vital Signs (Past 12 Hours) Vital Signs Temp Pulse Pulse Resp BP Pulse Ox 10/16/19 04:01 36.7 C 76 18 148/90 H 92 10/16/19 00:37 76 10/16/19 00:24 36.9 C 76 17 129/83 92 10/15/19 20:38 37.2 C 70 18 152/90 H 95 PG Care Time/CCT Total # of Minutes Spent Total Time Spent with Patient: Total time spent is greater than 50% in coordination of care (as documented) at patient's floor/unit and/or counseling patient:
[2019-10-16] MEDS: ENOXAPARIN INJ 40 MG/0.4 ML SYR SQ SCH (07:46)
[2019-10-16] MEDS: LIDOCAINE 5% 1 PATCH TD SCH (07:46)
[2019-10-16] MEDS: OXYCODONE HCL IR 5 MG TAB (IMMEDIATE RELEASE) PO PRN (07:46)
[2019-10-16] MEDS: PREGABALIN 100 MG CAP PO SCH ×2 (07:46→21:21)
[2019-10-16] MEDS: FLUOXETINE HCL 20 MG CAP PO SCH (07:47)
[2019-10-16] MEDS: GABAPENTIN 400 MG CAP PO SCH ×3 (07:47→21:05)
[2019-10-16] MEDS: AZITHROMYCIN 250 MG TAB PO SCH (07:47)
[2019-10-16] MEDS: ACETAMINOPHEN 500 MG TAB PO SCH ×3 (07:47→21:06)
[2019-10-16] MEDS: guaiFENesin 600 MG TABCR PO SCH ×2 (07:48→21:05)
[2019-10-16] MEDS: PANTOprazole 40 MG TAB PO SCH (07:48)
[2019-10-16] MEDS: BENZONATATE 100 MG CAPSULE PO SCH ×3 (07:48→21:06)
[2019-10-16] MEDS: INSULIN ASPART 100 UNITS/ML 3 ML PEN SC SCH ×4 (08:42→21:08)
[2019-10-16 09:01] LABS: BUN Creatinine Ratio 20.4 (10-20); Calcium 9.4 mg/dl (8.5-10.1); Creatinine Clr Calc Pharmacy 113.9 ml/min; Est GFR (African American) 118.5; Est GFR (Non-African American) 102.2; Potassium 3.9 mmol/L (3.5-5.1)
--- NOTE | 2019-10-16 10:19 | Infectious Disease Progress Nt ---
Date of Service October 16, 2019 Assessment & Plan (1) Staphylococcus aureus sepsis: Highly concerned for surgical site as source of infection. would consider transfer to [facility] [place] for neurosurgery eval. doubt pna. continue IV abx, follow cultures. will need prolonged course of abx. will check esr. Subjective pt seen in f/u. continues to c/o back pain, diffuse. no cough, sob, cp, wheeze. now on ancef, tolerating well. afebrile. MRI spine done on 10/14 - 17 cm fluid collection at hardware, s/p ortho eval, no intervention planned, suggest follow with neurosugery. most recent cxr negative for infiltrate. sputum culture growing nml anup. Initial blood cultures growing MSSA, repeat cultures on 10/13 negative to date. no f/c. no abd pain, no n/v/d. Review of Systems Review of Systems: All systems reviewed & are unremarkable except as noted in HPI & below Physical Exam Constitutional: WD/WN, vitals as above Eyes: PERRL, conjunctivae normal, anicteric sclerae ENMT: external ear and nose normal, oropharynx normal Neck: normal visual inspection Respiratory: normal respiratory effort, lungs clear to auscultation Cardiovascular: RRR, no murmur, no edema Gastrointestinal (Abdomen): normal bowel sounds, soft, nontender, no hepatosplenomegaly Musculoskeletal: no cyanosis or clubbing, extremities motor strength 5/5 Skin: no rashes, warm and dry Psychiatric: A+Ox3, euthymic affect Results & Data Vital Signs (Past 12 Hours) Vital Signs Temp Pulse Pulse Resp BP Pulse Ox 10/16/19 09:54 75 10/16/19 07:26 37.1 C 75 18 158/93 H 94 10/16/19 04:01 36.7 C 76 18 148/90 H 92 10/16/19 00:37 76 10/16/19 00:24 36.9 C 76 17 129/83 92 Laboratory Results Microbiology 10/10/19 15:48 Blood Aerobic Blood Culture - Final No growth in Aerobic bottle after 5 days. 10/10/19 15:48 Blood Anaerobic Blood Culture - Preliminary Staphylococcus aureus 10/10/19 15:35 Blood Aerobic Blood Culture - Final No growth in Aerobic bottle after 5 days. 10/10/19 15:35 Blood Anaerobic Blood Culture - Preliminary Staphylococcus aureus 10/13/19 15:20 Blood Aerobic Blood Culture - Preliminary No growth in Aerobic bottle after 48 hours. 10/13/19 15:20 Blood Anaerobic Blood Culture - Final 10/13/19 15:14 Blood Aerobic Blood Culture - Preliminary No growth in Aerobic bottle after 48 hours. 10/13/19 15:14 Blood Anaerobic Blood Culture - Preliminary No growth in Anaerobic bottle after 48 hours. 10/13/19 19:30 Sputum, Expectorated Gram Stain - Final 10/13/19 19:30 Sputum, Expectorated Sputum Culture - Final Moderate normal anup. PG Care Time/CCT Total # of Minutes Spent Total Time Spent with Patient: Total time spent is greater than 50% in coordination of care (as documented) at patient's floor/unit and/or counseling patient:
--- NOTE | 2019-10-16 10:47 | XCELERA ---
[id number] \\[email or web address]\[id number]_[email or web address]\[id number]___[id number]
[2019-10-16] MEDS ORDERED: LORazepam 1 MG/2 ML VIAL IV STA (16:32)
--- NOTE | 2019-10-16 18:53 | Hospitalist Progress Note ---
Date of Service October 16, 2019 Assessment & Plan (1) MSSA bacteremia: IV cefazolin Follow up blood cultures negative for 48 hours TTE - negative for vegetations but suboptimal images, would consider RONNELL if source not thought to be back. Although no signs/symptoms of IE, her symptoms are difficult to assess as there does appear to be an underlying anxiety element to her symptoms in addition to multiple extensive back surgeries. Doubtful PNA as source given negative procalcitonin, mild diffuse parenchymal changes on CT but no changes on CXR and lungs clear to auscultation today. Agree with Dr Camarillo's assessment today that patient should be evaluated by her surgeon as inpatient and discussed with Dr Lowe ([facility]) and Dr Wright ([facility]ist) and patient will be transferred for further care under the hospitalist service pending transport availability. (2) Sepsis: Elevated WBC and HR on arrival Secondary to MSSA bacteremia see above Sepsis now resolved (3) Pneumonia: Possible source of bacteremia but concern of lack of findings suggestive of this given she has been on room air since admission, procalcitonin negative and minimal changes on CXR, CT. Received 5 days total of azithromycin for atypical PNA in addition to cefepime/cefazolin for MSSA above (4) Acute respiratory distress: Suspect elevated respiratory rate on admission secondary to sepsis vs. anxiety. No hypoxia during hospital stay (5) Tobacco use: 5 cigarettes/day. Continue to advise cessation. (6) Thoracolumbar back pain: - MRI lumbar spine 10/14 concerning for fluid collection. Although no overlying cellulitic changes I am concerned for an abscess given no sufficient alternative source of infection- underwent spinal fusion involving the thoracic and lumbar spine T12-S1 [facility] on 08/28/19 recently had follow-up on 10/02/2019 with her neurosurgeon. - Follows with Dr. Eason ([facility]) - Follows with pain management, Dr. Love: Current regimen of oxycodone 10 mg Q4H, cyclobenzaprine, Tylenol, ibuprofen and Mobic Patient to be transferred to [facility] for further evaluation as inpatient (7) Microcytic anemia: FOB still pending since admission - not collected! No melena as per patient. Hgb stable during this admission with iron deficiency (iron sats 4%) in setting of recent steroid and NSAID use post operatively concerning for UGI bleed. Appears asymptomatic with this. Start ferrous sulphate 325mg PO daily. Consider iron infusions. - will defer this given patient pending transfer at this time to [facility]. Continue pantoprazole 40mg PO daily. Continue holding mobic and ibuprofen. (8) GERD with esophagitis: Continue pantoprazole 40mg po daily as above. (9) Diabetes mellitus, type 2: HbA1C 7.0. Not on outpatient medication Glucose elevated at 195 upon arrival, suspected secondary to recent steroid use. Consider insulin sliding scale while admitted pending transfer to [facility]. (10) Hypothyroidism: TSH (08/04/19) 0.859 Continue levothyroxine 125 mcg daily (11) Obesity (BMI 30.0-34.9): -BMI of 34.3 -Diet and exercise to be encouraged upon discharge, heart healthy/DM diet (12) Restless leg syndrome: -Continue Mirapex 1 mg p.o. QPM (13) Neuropathy: On both gabapentin and pregabalin - I believe this may be in error after her last discharge from [place] post operatively she appears to have been switched from gabapentin to lyrica. Will discontinue gabapentin at this time. (14) Depression: Extensive history os depression, anxiety, PTSD with multiple prior suicidal attempts Prescribed Lamictal as outpatient but reports only ever taken this medication twice and she does not like how it makes her feel therefore will discontinue this (only had one dose when admitted). Continue trazodone 300 mg at bedtime, Prozac 40 mg every morning (15) Anxiety: as above for depression. Will give intermittent doses of Ativan while admitted but no PRN or MADELYN dosing given high risk of side effects given concurrent opiate use (16) PTSD (post-traumatic stress disorder): as above for depression (17) Hyponatremia: resolved (18) DVT prophylaxis: - lovenox subq Code Status: DNR as per prior providers discussions with patient Subjective Patient seen in AM. No acute events overnight. No further fevers or chills. Reports multiple concerns including increasing size of a lump in her back. Ongoing chest (all around front and back pain, worse on palpation, present since prior to admission). Right arm shooting pain which started prior to admission and already noted by her outpatient neurosurgeon but has been persistent (she reports they had planned to get an cervical spine MRI but she hadn't yet had this done. She denies any ongoing shortness of breath. When seen in afternoon she appeared more anxious and requesting Ativan noting she takes this at home but had not been getting it here. On review of PDMP she has had 3 pills of this in the last year which I confronted her with and she reports they might not be on there as she didn't pick them up locally but when I told her this was for all of [place] and she did not argue the accuracy of this information. Review of Systems Review of Systems: All systems reviewed & are unremarkable except as noted in HPI & below Physical Exam Constitutional: well developed and + obese; no acute distress Eyes: + anicteric sclerae; normal pupil size ENMT: external ear and nose normal, oropharynx normal Neck: trachea midline Respiratory: normal respiratory effort; no respiratory distress, no labored breathing and no retractions Auscultation: lungs clear to auscultation bilaterally Cardiovascular: Rate/Rhythm: regular rate and regular rhythm Heart Sounds: no murmur Vessels: posterior tibial pulses present, dorsalis pedis pulses present and radial pulses present (equal b/l) Extremities: normal capillary refill and + pedal edema (trace b/l) No peripheral stigmata of infective endocarditis Chest (Breasts): Chest: normal inspection of chest (markedly tender on even light palpation over mainly left chest wall) Gastrointestinal (Abdomen): Inspection/Auscultation: abdomen normal to inspection and normal bowel sounds; abdomen not distended Percussion/Palpation: + abdomen rigid and abdomen soft; abdomen nontender and no guarding Musculoskeletal: no cyanosis or clubbing, extremities motor strength 5/5 Skin: no rashes, warm and dry Neurologic: moves all extremities and awake; no focal motor deficits and not confused Motor/Sensory: no sensory deficit Psychiatric: Orientation: alert and oriented x 3 Eye Contact: good eye contact Affect: + anxious affect Mood: + anxious mood Thought Process: goal directed thought process Results & Data Vital Signs (Past 12 Hours) Vital Signs Temp Pulse Pulse Resp BP BP Pulse Ox 10/16/19 15:47 75 10/16/19 15:34 99.1 F 75 18 145/86 H 94 10/16/19 11:38 98.8 F 82 18 157/90 H 97 10/16/19 09:54 75 10/16/19 07:26 98.8 F 75 18 158/93 H 94 PG Care Time/CCT Total # of Minutes Spent Total Time Spent with Patient: Total time spent is greater than 50% in coordination of care (as documented) at patient's floor/unit and/or counseling patient: (1) Diabetes mellitus, type 2 Diabetes mellitus complication status: with hyperglycemia Diabetes mellitus terminal gauger insulin use: without nursing home use Qualified Code(s): E11.65 - Type 2 diabetes mellitus with hyperglycemia (2) Sepsis Sepsis acute organ dysfunction status: without acute organ dysfunction Sepsis type: methicillin susceptible Staphylococcus aureus Qualified Code(s): A41.01 - Sepsis due to Methicillin susceptible Staphylococcus aureus (3) Pneumonia Laterality: bilateral Lung location: unspecified part of lung Pneumonia type: due to methicillin-sensitive Staphylococcus aureus (MSSA) Qualified Code(s): J15.211 - Pneumonia due to Methicillin susceptible Staphylococcus aureus
--- NOTE | 2019-10-16 19:25 | Discharge Summary ---
Date of Service October 16, 2019 Admission HPI Per Admitting Provider Alfreda Callahan is a 54-year-old female admitted medically on 10/10/2019 after presenting to the ED with reports of shortness of breath and exacerbation of chronic back pain. Patient has reported history of anxiety, depression, and PTSD. Psychiatric consultation is requested to evaluate patient for worsening suicidal ideation. Patient was observed to be sitting upright on edge of bed, appearing to be in significant pain. Patient states "just take a look at my back." And verbalizes that she "cannot breathe." Patient is welcoming conversation, as a means to distract herself from pain. Patient reports to this provider that she has had chronic back pain for several years. She recently underwent a spinal fusion, and states that at times her back pain is exacerbated. She does admit that her pain often affects her mood and anxiety level, but states "I feel comfortable being here, I know this is where I can get help." Patient denies acute suicidal ideation, stating that her mood has actually been rather consistent since May 2019. When asked about previous history of suicidal ideation, patient states "I do feel that way sometimes. I get in my head and cannot stop the negative thoughts. That is when I call my cousin to come over." Patient is able to verbalize to this provider her usual safety plan, which includes calling her cousin along with other coping strategies. Patient is aware of crisis services in the area, as she has utilized them in the past. She does admit to previous history of suicide attempts, at least one in 10/2018 by overdose and another in 05/2019 by attempted hanging. Patient states "ever since then, my mood had been very good up until my surgery." Despite recent physical concerns, patient states "I am not even close to that point right now" as it relates to suicidal plan or intent. Patient states that she has monthly visits with her outpatient psychiatric nurse practitioner, and does not feel that adjustments to medications are necessary at this time. She also follows weekly with an outpatient therapist, and states she has case management services through [facility]. Patient tells this provider "if I could get my pain under control, I would be a whole different person right now. My mood would not even be a question." Patient does request 1 mg of IV lorazepam to address her muscle stiffness and anxiety. She was reminded of the pain management consultation, and informed that recommendation should be available shortly. Patient denies any specific needs from our service at this time. She does not have other acute concerns presently.She is agreeable with signing a release of information for her cousin, in order to ensure he does not have any safety concerns that will need to be mitigated prior to her discharge home. Patient states she feels comfortable with the idea of returning home, and does not verbalize any safety concerns. Discharge Data Allergies Allergy/AdvReac Type Severity Reaction Status Date / Time doxycycline [From Vibramycin] Allergy Severe TONGUE Verified 10/10/19 16:09 SWELLS, SOB, RASH Sulfa (Sulfonamide Allergy Severe HIVES/LIPS Verified 10/10/19 16:09 Antibiotics) SWELLING tetracycline Allergy Severe TONGUE Verified 10/10/19 16:09 SWELLS, SOB, RASH Consultations 10/10/19 17:40 ED Decision to Admit Stat 10/10/19 19:57 Consult Case Management - Discharge Planning Routine Consult Pain Management Routine 10/10/19 20:07 Consult Psychiatry Routine 10/11/19 08:22 Consult Infectious Diseases Routine 10/14/19 16:27 Consult Orthopedic Surgery Routine 10/16/19 17:12 Burn CD for patient Stat Ordered Studies 10/10/19 14:58 CT angio chest PE protocol Stat 10/10/19 15:14 CT lumbar spine w con Stat 10/14/19 16:24 MR lumbar spine wo con Urgent Hospital Course (1) Sepsis: Patient has gram positive bacteremia causing her to have WBC of over 20 and elevated HR. Patient is on antbiotics. WBC improved to normal on 10/13 consulted ID. concern that source may be from spine; small fluctuane is noted with no drainage. will consult ortho spine. For now plan is to have patient f/u with sylvia at discharge and place PICC line and continue with IV antibiotics. will need to discuss with ID for duration. Final cultures showing staph aureus bacteremia. It appears source is from lung. will continue current antibiotics. (2) Pneumonia: as stated above (3) Acute respiratory distress: - Admitted to PCU - CTPE negative for PE, shows diffuse parenchymal infiltrative changes throughout the mid to upper lungs bilaterally. - febrile with tmax = 37.9 on 10/12, no fever since. -Continue on vancomycin & cefepime IV, azithromycin PO blood cultures positive as noted above. -Patient had 1 hour long DuoNeb while in the ER, symptoms slightly improved, will continue duo nebs Q4H and Q2H prn, flutter therapy, incentive spirometry, Mucinex, Tessalon Perles -Sputum culture if produces expectorant (4) Tobacco use: - Smokes at least 5 cigarettes a day, chronic, cessation encouraged. Pt declines nicotine patch. (5) Thoracolumbar back pain: -CT of the lumbar spine was negative for acute fracture or subluxation. There is edema/stranding within the incision site of the dorsal midline tissues, expected postop finding, no fluid collection which would be concerning for abscess. - underwent spinal fusion involving the thoracic and lumbar spine T12-S1 [facility] [place]28[place]19 recently had follow-up on 10/02/2019 with her neurosurgeon. - Follows with Dr. Hdz neurosurgery - Pain control with oxycodone as per G[employer]VERSER, additional IV analgesic prn - Continue linzess -Follows with pain management, Dr. Chelo Coe and do boys: Current regimen of oxycodone 10 mg Q4H, Flexeril, cyclobenzaprine, Tylenol, ibuprofen and Mobic (6) Microcytic anemia: -hgb significantly lower than her baseline prior to surgery was 15, today is only 8.8 -Guaiac stool x1 does point towards iron def. anemia. -Hold Mobic and ibuprofen, may resume one a time for pain control if guaiac stool negative and no signs of acute bleed (7) GERD with esophagitis: -Continue pantoprazole 40 mg every morning -Noted that the patient has been using ibuprofen and Mobic as outpatient-we will hold (8) Diabetes mellitus, type 2: -Glucose elevated at 195 upon arrival, likely this higher secondary to recent steroid use -A1c unable to be found in the chart, follow a.m. labs -ISS with Accu-Cheks ACHS, does not appear the patient is on oral medication (9) Hypothyroidism: -Continue levothyroxine 125 mcg daily (10) Obesity (BMI 30.0-34.9): -BMI of 34.3 -Diet and exercise to be encouraged upon discharge, heart healthy/DM diet (11) Restless leg syndrome: -Continue Mirapex 1 mg p.o. QPM (12) Neuropathy: -Continue pregabalin 200 mg BID (13) Depression: (14) Anxiety: (15) PTSD (post-traumatic stress disorder): -Continue trazodone 300 mg at bedtime, Prozac 40 mg every morning (16) Hyponatremia: resolved (17) Elevated liver enzymes: - Alk phos elevated slightly at 121, trend am lfts to ensure resolvement. - AST is low at 9, albumin also depressed at 3.0 (18) Gram-positive cocci bacteremia: as noted above. Vaginal Candidasis: patient complained of this. ordered antifungal treatment. (19) DVT prophylaxis: - teds, lovenox subq CODE: DNR Discharge Plan Discharge Items Patient Disposition: Transfer Acute Care Hospital Reason For Visit: PNA, ACUTE RESPIRATORY DISTRESS Discharge Diagnosis: MSSA bacteremia Pneumonia Post operative fluid collection - possible abscess Activity: Resume your previous activity Non-emergency contact: Primary Care Provider Call non-emergency contact if: you have any medication questions and your symptoms worsen Follow-up/Referrals: Dimple Pandya DO [Primary Care Provider] - Diet: Carb Consistent or DM2 Addtl Attending Provider Instructions: Alfreda Callahan is a 54 year old female admitted to [facility] from October 10 to for acute onset shortness of breath and thoracic back and chest pain. She was diagnosed with MSSA bacteremia initially treated with cefepime, transitioned to cefazolin since pansensitive (recommended by infectious disease). TTE - negative for vegetations although images noted to be suboptimal. CXR negative for infection on admission. Subsequent CT for PE ordered given presentation and showed diffuse parenchymal infiltrative changes throughout mid and upper level of lungs b/l, therefore she was diagnosed with pneumonia based on this and presentation for shortness of breath. However she has been on room air since admission and procalcitonin was negative. Lumbar spine MRI did show a large partially imaged thick-walled fluid collection within the subcutaneous incision site measuring over 17 cm in length concerning for an abscess. She was evaluated by orthopedic surgery at this facility and did not feel this represented an abscess but given lack of alternative source (pneumonia diagnosis is quite weak) infectious disease recommended evaluation by her neurosurgeon (Dr Eason) at [facility]. I discussed her care with Dr Lowe (Neuro surgery) and Dr Wright (Hospitalist) at [facility] and she will be transferred for further care there under the hospitalist team. No symptoms or signs of infective endocarditis at this time however if back felt not to be source of infection would recommend evaluation for transesophageal echocardiogram for further evaluation of infective endocarditis. Blood cultures as of 10/13/2019 are negative to date. Please note medication list below is home meds. Please see additional scan for inpatient meds. She does not take the Lamictal however therefore this has been discontinued. Pending Studies at Discharge: No Studies:: CT angio chest PE protocol CT DOSE: 1451.89 mGy.cm HISTORY: Dyspnea Dyspnea TECHNIQUE: Multiaxial CT images of the chest were performed following the intravenous administration of contrast to evaluate the pulmonary arteries. Maximal intensity projection images were also obtained. A dose lowering techn ique was utilized adhering to the principles of ALARA. COMPARISON STUDY: 09/13/2019 FINDINGS: The thoracic aorta is normal in course and caliber. The pulmonary vasculature enhances appropriately. There are no significant filling defects. No significant mediastinal or hilar adenopathy. Findings are rather diffuse mid and upper lung interstitial change bilaterally. Possibility of a pneumonitis is considered. IMPRESSION: 1. No evidence for pulmonary embolus. 2. Diffuse parenchymal infiltrative changes throughout the mid to upper lungs bilaterally. 3. Stable postoperative changes of the thoracic spine. XR chest 1V portable CLINICAL HISTORY: Dyspnea dyspnea COMPARISON STUDY: 11/20/2018 FINDINGS: Complete fusion of the thoracic and upper lumbar spine. The hardware a ppears to be intact. Lungs are grossly clear. Slight bronchovascular prominence. Diaphragms are smooth. IMPRESSION: Mild bronchitis. No focal infiltrate. CT lumbar spine w con HISTORY: 54 years-old Female recent back procedure, fall, fever acute low back pain status post fall. History of recent back surgery. COMPARISON: CT abdomen and pelvis 09/29/2019, MRI lumbar spine 08/03/2019 TECHNIQUE: Multiple axial CT images of the lumbar spine were obtained following the intravenous ministration of 120 mL Optiray 320 IV contrast. A dose lowering technique was used consistent with the principals of ALARA. FINDINGS: Streak artifact from extensive posterior interbody claudio and screw fusion hardware limits the study. Laminectomy changes are noted at multiple levels. Bilateral pedicle screws are noted at L1, L3, L5-S1. Evidence of prior pedicle screw removal bilaterally at L2. Left-sided pedicle screw at L4. Discectomy changes at L3-L4, L4-L5 and L5-S1. Posterior interbody rods are noted extending through the thoracic spine outside the [id number]. Evidence of prior screw removal at T12. No evidence of hardware fracture or loosening. Severe multilevel facet arthrosis. There is no acute fracture or subluxation. Evaluation of the central canal and neuroforaminal structures are not well evaluated by CT. There is suggestion of a degree of neuroforaminal stenosis bilaterally at L1-L2. Moderate to severe L1-L2 disc space narrowing with mild spondylitic spurring. Remote superior endplate Schmorl's node at L1 with remote T12 compression deformity. Straightening of the normal lumbar lordosis. Small remote Schmorl's node involves the superior endplate L3. Calcified plaque of the abdominal aorta without aneurysm. Colonic diverticulosis. No acute process of the imaged intra-abdominal structures. There is no adenopathy. Stranding and edema is noted within the incision site of the dorsal midline distribution. No discrete drainable fluid collection identified. IMPRESSION: 1. No acute fracture or subluxation. 2. Extensive posterior interbody claudio and screw fusion and discectomy changes of the lumbar spine are redemonstrated as above. There is no evidence of hardware fracture or loosening. 3. Edema/stranding within the incision site of the dorsal midline tissues, likely expected postoperative findings. No discrete drainable fluid collection identified. Streak artifact from the hardware limits evaluation of the adjacent tissues. MR lumbar spine wo con CLINICAL HISTORY: 54 years-old Female with swelling, pain lumbar spine/ sp surgery. Acute low back pain with sepsis. Lumbar spinal fusion on 08/28/2019 COMPARISON: CT lumbar spine 10/10/2019, MRI lumbar spine 08/03/2019 TECHNIQUE: Multiplanar, multi sequence MRI of the lumbar spine was performed without intravenous contrast. 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 No aortic aneurysm or adenopathy. No acute abnormality identified within the imaged intra-abdominal or intrapelvic structures. Postoperative changes from extensive posterior interbody claudio and screw fusion hardware. Artifact from the hardware limits the study with obscuration of the adjacent tissues. There is posterior interbody claudio and screw fusion hardware extending from T10 through S1 with discectomy changes at L3-L4, L4-L5 and L5-S1. Remote T12 compression deformity. Evaluation of the bone marrow on the STIR images is very difficult secondary to the aforementioned artifact. No definitive bone marrow edema identified. No definitive epidural abscess or hematoma identified. Epidural tissues however are suboptimally visualized. Micrometallic artifact within the ventral midline subcutaneous tissues at the surgical incision site are noted along with a thick-walled fluid collection which measures up to approximately 2.5 x 3.2 x 17.0 cm in AP, transverse and craniocaudal dimensions extending superiorly outside the [id number]. T12-L1: No central canal or neural foraminal stenosis. L1-L2: There is 4 mm retrolisthesis L1 on L2 with severe disc space narrowing. No high-grade central canal stenosis. And neuroforaminal structures are not well seen. L2-L3: No high-grade central canal stenosis. No definite foraminal narrowing. L3-L4: No central canal or neural foraminal stenosis. L4-L5: No central canal or neural foraminal stenosis. L5-S1: No central canal or neural foraminal stenosis. IMPRESSION: 1. Extensive posterior interbody claudio and screw fusion of the thoracolumbar spine as above. Artifact from the hardware limits evaluation of the adjacent tissues. 2. No acute fracture, subluxation, definite bone marrow edema or epidural fluid collection identified. 3. There is a large partially imaged thick-walled fluid collection within the subcutaneous incision site measuring over 17 cm in length which is partially imaged and is largest at the level of the lower thoracic spine. Seroma, hematoma or abscess are the differential considerations. Correlate clinically. Stand-Alone Forms: [facility] Skilled Items Patient informed of condition?: Yes DNR: Yes Discharge Level of Care: Other Communicable Disease: No Discharge Prognosis: Stable Lines: Peripheral IV Urinary Catheter: No Medications and DC Order Prescriptions: Continued cyclobenzaprine 10 mg tablet 10 mg PO TID PRN (Reason: muscle spasms) RF: 0 acetaminophen [Tylenol Extra Strength] 500 mg Tablet 1,000 mg PO Q6H PRN (Reason: Pain) RF: 0 ibuprofen 200 mg Tablet 400 mg PO Q6H PRN (Reason: Pain) RF: 0 meloxicam [Mobic] 15 mg tablet 15 mg PO DAILY RF: 0 methylprednisolone 4 mg tablets,dose pack 0 mg PO UD RF: 0 gabapentin 400 mg capsule 400 mg PO TID RF: 0 fluoxetine 40 mg Capsule 40 mg PO QAM RF: 0 pantoprazole 40 mg tablet,delayed release (DR/EC) 40 mg PO QAM RF: 0 Linzess 145 mcg capsule 145 mcg PO DAILY PRN (Reason: Constipation) RF: 0 trazodone 150 mg tablet 300 mg PO HS RF: 0 pregabalin 100 mg capsule 200 mg PO BID RF: 0 levothyroxine 125 mcg tablet 125 mcg PO QAM RF: 0 promethazine 25 mg tablet 25 mg PO TID PRN (Reason: Nausea And Vomiting) RF: 0 pramipexole [Mirapex] 1 mg tablet 1 mg PO QPM RF: 0 Discontinued lamotrigine [Lamictal] 100 mg Tablet 100 mg PO HS RF: 0 Discharge Orders: Discharge Order (Routine); Ordered 10/16/19 Ordered By: Minesh Liu/Other Patient Handouts: Diabetes Icer Hand Complications, Diabetes Healthy Meals, Diabetes Carbs, Diabetes Exercise Benefits, Diabetes Activity Tips, Diabetes Living Life, A1C Admission Data Admit Date/Time: 10/10/19 17:46 Attending Provider: Minesh Bowden Admit Provider: Cheryl Hauser Primary Care Provider: Dimple Pandya Other Providers: Cheryl Hauser ; Noel Mclean ; Sherice Altamirano ; Ramona Camarillo ; Itz Rico Other Interventions: PSY Interdisciplinary Discharge Planning Last Done: 10/16/19 09:31
[2019-10-16] MEDS: TRAZODONE HCL 100 MG TAB PO SCH (21:05)
[2019-10-16] MEDS: PRAMIPEXOLE DIHYDROCHLO 0.5 MG TAB PO SCH (21:06)
[2019-10-16] MEDS: CLOTRIMAZOLE VAGINAL CR 7 APPLN/45 GM TUBE PV SCH (21:22)
[2019-10-17] MEDS: CEFAZOLIN 2000MG 2,000 MG/15 ML SYR IV SCH ×3 (02:05→17:37)
[2019-10-17] MEDS: HYDROmorphone INJ 0.5 MG/0.5 ML SYR IV PRN ×8 (02:36→23:41)
[2019-10-17] MEDS: LEVOTHYROXINE SODIUM 125 MCG TABLET PO SCH (05:42)
[2019-10-17 07:45] LABS: Basophils # (auto) 0.02 K/uL (0-0.2); Basophils % (auto) 0.2 %; Eosinophils # (auto) 0.19 K/uL (0-0.5); Eosinophils % (auto) 2.1 %; Hematocrit (blood only) 26.9 % (37-47); Hemoglobin 7.8 g/dL (12.0-16.0); Immature Granulocytes # (auto) 0.02 K/uL (0.00-0.02); Immature Granulocytes % (auto) 0.2 %; Lymphocytes # (auto) 1.94 K/uL (1.2-3.4); Lymphocytes % (auto) 21.8 %; Mean Corpuscular Hemoglobin 22.5 pg (25-34); Mean Corpuscular Volume 77.5 fL (80-100); Mean Platelet Volume 8.9 fL (7.4-10.4); Monocytes # (auto) 0.67 K/uL (0.11-0.59); Monocytes % (auto) 7.5 %; Neutrophils # (auto) 6.05 K/uL (1.4-6.5); Neutrophils % (auto) 68.2 %; Platelet Count 388 K/uL (130-400); RDW Coefficient of Variation 20.1 % (11.5-14.5); RDW Standard Deviation 57.2 fL (36.4-46.3); Red Blood Count 3.47 M/uL (4.2-5.4); White Blood Count 8.89 K/uL (4.8-10.8)
[2019-10-17 08:15] LABS: BUN Creatinine Ratio 22.7 (10-20); Creatinine Clr Calc Pharmacy 115.1 ml/min; Est GFR (African American) 119.1; Est GFR (Non-African American) 102.8; Potassium 4.1 mmol/L (3.5-5.1)
[2019-10-17 08:17] LABS: Anisocytosis Present; Hypochromasia Present
[2019-10-17] MEDS: BENZONATATE 100 MG CAPSULE PO SCH ×2 (08:28→13:57)
[2019-10-17] MEDS: FERROUS SULFATE 325 MG TAB PO SCH (08:28)
[2019-10-17] MEDS: PREGABALIN 100 MG CAP PO SCH ×2 (08:28→20:41)
[2019-10-17] MEDS: PANTOprazole 40 MG TAB PO SCH (08:29)
[2019-10-17] MEDS: ENOXAPARIN INJ 40 MG/0.4 ML SYR SQ SCH (08:29)
[2019-10-17] MEDS: guaiFENesin 600 MG TABCR PO SCH (08:29)
[2019-10-17] MEDS: ACETAMINOPHEN 500 MG TAB PO SCH ×3 (08:29→20:43)
[2019-10-17] MEDS: FLUOXETINE HCL 20 MG CAP PO SCH (08:29)
[2019-10-17] MEDS: LIDOCAINE 5% 1 PATCH TD SCH (08:30)
[2019-10-17] MEDS: INSULIN ASPART 100 UNITS/ML 3 ML PEN SC SCH ×4 (08:33→20:42)
[2019-10-17] MEDS ORDERED: MELOXICAM 7.5 MG TAB PO SCH (09:00)
[2019-10-17] MEDS ORDERED: LORazepam 1 MG TAB PO STA (11:33)
[2019-10-17] MEDS ORDERED: LORazepam 1 MG TAB ONE (11:39)
[2019-10-17] MEDS ORDERED: LORazepam 1 MG/2 ML VIAL IV PRN (11:43)
--- NOTE | 2019-10-17 16:50 | Hospitalist Progress Note ---
Date of Service October 17, 2019 Assessment & Plan (1) MSSA bacteremia: IV cefazolin Follow up blood cultures negative for 3 days. TTE - negative for vegetations but suboptimal images, would consider [facility] if source not thought to be back. Although no signs/symptoms of IE, her symptoms are difficult to assess as there does appear to be an underlying anxiety element to her symptoms in addition to multiple extensive back surgeries. A lot of the pain appears muscular and unrelated to current MSSA as she is complained about it on multiple prior notes previous to this admission. Troponin negative on admission. Doubtful PNA as source given negative procalcitonin, mild diffuse parenchymal changes on CT but no changes on CXR and lungs clear to auscultation today. Patient discussed 10/[address] Lowe ([facility]) and Dr Wright ([facility] [place] Hospitalist) and patient will be transferred for further care under the hospitalist service pending transport and bed availability (this apparently is expected tomorrow). Since her transfer is delayed and she has worsening thoracic/chest symptoms will get MRI thoracic spine with and without contrast since fluid collection not fully defined on Lumbar MRI. Patient will need IV ativan before scan otherwise likely to have significant motion artifact. (2) Sepsis: Elevated WBC and HR on arrival Secondary to MSSA bacteremia see above Hemodynamically stable and if staying overnight will transfer off telemetry. (3) Pneumonia: Possible source of bacteremia but concern of lack of findings suggestive of this given she has been on room air since admission, procalcitonin negative and minimal changes on CXR, CT. Received 5 days total of azithromycin for atypical PNA in addition to cefepime- >cefazolin for MSSA above (4) Acute respiratory distress: Suspect elevated respiratory rate on admission secondary to sepsis vs. anxiety. No hypoxia during hospital stay. (5) Tobacco use: 5 cigarettes/day. Continue to advise cessation. (6) Thoracolumbar back pain: - MRI lumbar spine 10/14 concerning for fluid collection. Although no overlying cellulitic changes I am concerned for an abscess given no sufficient alternative source of infection- underwent spinal fusion involving the thoracic and lumbar spine [id number] [facility] [place] on 08/28/19 recently had follow-up on 10/02/2019 with her neurosurgeon. - since transfer is delayed will get MRI thoracic spine here since her pain is mostly superior to this collection. - I am reluctant to continue to increase her dilaudid as this appears to be similar to her escalate opiate use after her most recent surgery as per pain management consultation at that time. Unless there is something on MRI of her thoracic spine I feel it may be unrelated to her current complaint. - Follows with Dr. Esaon ([facility] [place] [place] [facility]) - Follows with pain management, Dr. Love: Current outpatient regimen of oxycodone 10 mg Q4H, cyclobenzaprine, Tylenol, ibuprofen and Mobic Patient to be transferred to [facility] [place] [place] for further evaluation as inpatient as above (7) Microcytic anemia: FOB still pending since admission - not collected! No melena as per patient. Hgb stable during this admission with iron deficiency (iron sats 4%) in setting of recent steroid and NSAID use post operatively concerning for UGI bleed. However patient notes she was told she lost a lot of blood during her operation in August which would also fit timeframe. Appears asymptomatic with this. Started ferrous sulphate 325mg PO daily 10/17. Consider iron infusions. - will defer this given patient pending transfer at this time to [facility] [place]. Continue pantoprazole 40mg PO daily. Continue holding mobic and ibuprofen. (8) GERD with esophagitis: Continue pantoprazole 40mg po daily as above. No current symptoms as per patient. (9) Diabetes mellitus, type 2: HbA1C 7.0. Not on outpatient medication Glucose elevated at 195 upon arrival, suspected secondary to recent steroid use. Needing approximately 12 units daily of sliding scale. Will start metformin (previously started on last hospital admission at [facility] and unclear why she is not still on this. (10) Hypothyroidism: TSH (08/04/19) 0.859 Continue levothyroxine 125 mcg daily (11) Obesity (BMI 30.0-34.9): -BMI of 34.3 -Diet and exercise to be encouraged upon discharge, heart healthy/DM diet (12) Restless leg syndrome: -Continue Mirapex 1 mg p.o. QPM (13) Neuropathy: Pregabalin -confirm with patient she should be just taking Lyrica. Gabapentin on her her medication list appears to be an error as this was discontinued on her last hospital admission. (14) Depression: Extensive history of depression, anxiety, PTSD with multiple prior suicidal attempts Prescribed Lamictal as outpatient but only ever taken this medication twice and she does not like how it makes her feel therefore will discontinue further doses (only had one dose when admitted). Continue trazodone 300 mg at bedtime, Prozac 40 mg every morning (15) Anxiety: as above for depression. Will give intermittent doses of Ativan while admitted but no PRN or MADELYN dosing given high risk of side effects given concurrent opiate use (16) PTSD (post-traumatic stress disorder): as above for depression (17) Hyponatremia: resolved (18) DVT prophylaxis: - lovenox subq Code Status: DNR as per prior providers discussions with patient Subjective Patient reports worsening thoracic and chest pain with multiple worsening lumps in her back. Main concern is now right-sided chest pain worse on palpation and inspiration, aching. She tells me this is the worst pain she has ever had and requesting increases in her Dilaudid. She denies any fevers or chills. Discussed her ongoing anemia with iron deficiency. She reports being told she lost a lot of blood during her last back operation however was not put on iron tablet at that time. She was due to be transferred to [facility] yesterday however we do not have a bed assignment at present. Review of Systems Review of Systems: All systems reviewed & are unremarkable except as noted in HPI & below Physical Exam Constitutional: well developed, + acute distress (Lying on left side, very stable due to pain) and + obese Eyes: + anicteric sclerae; normal pupil size ENMT: external ear and nose normal, oropharynx normal Neck: trachea midline Respiratory: normal respiratory effort; no respiratory distress, no labored breathing and no retractions Auscultation: lungs clear to auscultation bilaterally Cardiovascular: Rate/Rhythm: regular rate and regular rhythm Heart Sounds: no murmur Vessels: radial pulses present (equal b/l) Extremities: normal capillary refill and + pedal edema (trace b/l) Chest (Breasts): Chest: normal inspection of chest (markedly tender on even light palpation over mainly right inferior lateral chest wall) Gastrointestinal (Abdomen): Inspection/Auscultation: abdomen normal to inspection and normal bowel sounds; abdomen not distended Percussion/Palpation: + abdomen rigid and abdomen soft; abdomen nontender and no guarding Musculoskeletal: Tender throughout her back on light palpation with no overlying skin changes. Reported lumps do not appear fluctuant and most likely muscle spasms. Skin: no rashes, warm and dry (Well-healed back surgical scar) Neurologic: moves all extremities and awake; no focal motor deficits and not confused Motor/Sensory: no sensory deficit Subjective paresthesias in right hand and forearm Psychiatric: Orientation: alert and oriented x 3 Eye Contact: + fair eye contact Affect: + anxious affect Mood: + anxious mood Thought Process: goal directed thought process Results & Data Vital Signs (Past 12 Hours) Vital Signs Temp Pulse Pulse Resp BP Pulse Ox 10/17/19 16:05 98.8 F 74 20 130/73 94 10/17/19 15:10 67 10/17/19 11:24 98.8 F 68 18 128/76 95 10/17/19 07:26 98.2 F 69 20 132/84 90 PG Care Time/CCT Total # of Minutes Spent Total Time Spent with Patient: Total time spent is greater than 50% in coordination of care (as documented) at patient's floor/unit and/or counseling patient: (1) Sepsis Sepsis type: methicillin susceptible Staphylococcus aureus Sepsis acute organ dysfunction status: without acute organ dysfunction Qualified Code(s): A41.01 - Sepsis due to Methicillin susceptible Staphylococcus aureus (2) Pneumonia Pneumonia type: due to methicillin-sensitive Staphylococcus aureus (MSSA) Laterality: bilateral Lung location: unspecified part of lung Qualified Code(s): J15.211 - Pneumonia due to Methicillin susceptible Staphylococcus aureus (3) Diabetes mellitus, type 2 Diabetes mellitus marine oil terminal superintendent insulin use: without mcc use Diabetes mellitus complication status: with hyperglycemia Qualified Code(s): E11.65 - Type 2 diabetes mellitus with hyperglycemia (4) Hypothyroidism Hypothyroidism type: unspecified Qualified Code(s): E03.9 - Hypothyroidism, unspecified (5) Depression Depression Type: major depressive disorder Major depression recurrence: recurrent Active/Remission status: currently active Major depression episode severity: unspecified Qualified Code(s): F33.9 - Major depressive disorder, recurrent, unspecified
[2019-10-17] MEDS ORDERED: GADOBUTROL 65ML VIAL IV PRN (16:54)
--- NOTE | 2019-10-17 17:21 | Magnetic Resonance Report ---
MR thoracic spine wo/w con HISTORY: Concern for abscess, subq vs. epidural, MSSA TECHNIQUE: Multiplanar multisequence MRI of the thoracic spine was performed both before and after th e intravenous administration of contrast. COMPARISON: 10/17/2019, 10/14/2019. FINDINGS: Extensive postoperative change consistent with laminectomy and fusion at virtually all levels of the thoracic and visualized components of the lumbar spine are noted. There is a large fluid collection extending from the low cervical region throughout the entire thorac olumbar spine as has been described previously. This is most consistent with that of a postprocedural seroma/old hematoma, although abscess is not excluded.. There is no evidence for a significant component of enhancement at the upper thoracic region. There i s a small to moderate amount of wall enhancement at its inferior aspect which potentially relates to granulation tissue. This enhancement, however makes it impossible to entirely exclude the possibility of abscess. IMPRESSION: 1. Extensive postoperative fluid collection extending from the cervical thoracic junction throughout the entire lumbar spine as has been previously described. 2. This measures within the thoracic region no less than 32 cm with maximum transaxial dimensions of 6 x 3 cm. 3. This is most consistent with that of a hematoma/postprocedural seroma, although abscess is not exc luded as discussed above. 4. Near complete thoracic laminectomy and fusion The above report was generated using voice recognition software. It may contain grammatical, syntax or spelling errors. Electronically signed by: Raymond Verde M.D. 10/17/2019 5:20 PM
[2019-10-17] MEDS: TRAZODONE HCL 100 MG TAB PO SCH (20:43)
[2019-10-17] MEDS: PRAMIPEXOLE DIHYDROCHLO 0.5 MG TAB PO SCH (20:44)
[2019-10-17] MEDS: CLOTRIMAZOLE VAGINAL CR 7 APPLN/45 GM TUBE PV SCH (20:44)
[2019-10-17] MEDS ORDERED: METFORMIN HCL ER 500 MG TABCR PO SCH (21:00)
[2019-10-18] MEDS: CEFAZOLIN 2000MG 2,000 MG/15 ML SYR IV SCH ×3 (02:36→17:28)
[2019-10-18] MEDS: HYDROmorphone INJ 0.5 MG/0.5 ML SYR IV PRN ×7 (02:36→20:29)
[2019-10-18] MEDS: LEVOTHYROXINE SODIUM 125 MCG TABLET PO SCH (05:40)
[2019-10-18 08:16] LABS: Hematocrit (blood only) 27.5 % (37-47); Hemoglobin 7.8 g/dL (12.0-16.0); Mean Corpuscular Hemoglobin 22.5 pg (25-34); Mean Corpuscular Hgb Conc 28.4 g/dL (32-36); Mean Corpuscular Volume 79.3 fL (80-100); Mean Platelet Volume 9.1 fL (7.4-10.4); Platelet Count 387 K/uL (130-400); RDW Coefficient of Variation 20.1 % (11.5-14.5); RDW Standard Deviation 58.4 fL (36.4-46.3); Red Blood Count 3.47 M/uL (4.2-5.4); White Blood Count 8.12 K/uL (4.8-10.8)
[2019-10-18 08:33] LABS: BUN Creatinine Ratio 26.4 (10-20); Calcium 9.1 mg/dl (8.5-10.1); Creatinine Clr Calc Pharmacy 115.3 ml/min; Est GFR (African American) 119.1; Est GFR (Non-African American) 102.8; Potassium 3.9 mmol/L (3.5-5.1)
[2019-10-18] MEDS: LIDOCAINE 5% 1 PATCH TD SCH (08:52)
[2019-10-18] MEDS: ACETAMINOPHEN 500 MG TAB PO SCH ×2 (08:53→14:35)
[2019-10-18] MEDS: INSULIN ASPART 100 UNITS/ML 3 ML PEN SC SCH ×4 (08:53→20:46)
[2019-10-18] MEDS: PREGABALIN 100 MG CAP PO SCH ×2 (08:53→20:45)
[2019-10-18] MEDS: PANTOprazole 40 MG TAB PO SCH (08:54)
[2019-10-18] MEDS: FLUOXETINE HCL 20 MG CAP PO SCH (08:54)
[2019-10-18] MEDS: FERROUS SULFATE 325 MG TAB PO SCH (08:55)
--- NOTE | 2019-10-18 11:53 | Infectious Disease Progress Nt ---
Date of Service October 18, 2019 Assessment & Plan (1) Staphylococcus aureus sepsis: Highly concerned for surgical site as source of infection. would consider transfer to [facility] [place]surgery eval. doubt pna. continue IV abx, follow cultures. will need prolonged course of abx. discussed with primary, even if fluid is seroma and not abscess, remain concerned for this as source, with collection of fluid this size, will require drainage. await transfer. Subjective pt awaiting transfer. thoracic MRI done due to ongoing pain, [id number] collection noted. spoke with primary, surgical team aware, no beds available. afebrile. remains on IV ancef, tolerating well. repeat blood cultures negative. Results & Data Vital Signs (Past 12 Hours) Vital Signs Temp Pulse Pulse Resp BP Pulse Ox 10/18/19 08:08 67 10/18/19 07:27 36.8 C 62 18 110/66 96 10/18/19 04:00 37 C 56 L 20 107/71 92 Laboratory Results Microbiology 10/10/19 15:48 Blood Aerobic Blood Culture - Final No growth in Aerobic bottle after 5 days. 10/10/19 15:48 Blood Anaerobic Blood Culture - Final Staphylococcus aureus 10/10/19 15:35 Blood Aerobic Blood Culture - Final No growth in Aerobic bottle after 5 days. 10/10/19 15:35 Blood Anaerobic Blood Culture - Final Staphylococcus aureus 10/13/19 15:20 Blood Aerobic Blood Culture - Preliminary No growth in Aerobic bottle after 48 hours. 10/13/19 15:20 Blood Anaerobic Blood Culture - Final 10/13/19 15:14 Blood Aerobic Blood Culture - Preliminary No growth in Aerobic bottle after 48 hours. 10/13/19 15:14 Blood Anaerobic Blood Culture - Preliminary No growth in Anaerobic bottle after 48 hours. 10/13/19 19:30 Sputum, Expectorated Gram Stain - Final 10/13/19 19:30 Sputum, Expectorated Sputum Culture - Final Moderate normal anup. PG Care Time/CCT Total # of Minutes Spent Total Time Spent with Patient: Total time spent is greater than 50% in coordination of care (as documented) at patient's floor/unit and/or counseling patient:
[2019-10-18] MEDS: TRAZODONE HCL 100 MG TAB PO SCH (20:40)
[2019-10-18] MEDS: PRAMIPEXOLE DIHYDROCHLO 0.5 MG TAB PO SCH (20:41)
[2019-10-18] MEDS: CLOTRIMAZOLE VAGINAL CR 7 APPLN/45 GM TUBE PV SCH (20:46)
[2019-10-18] MEDS ORDERED: LORazepam 0.5 MG/1 ML VIAL IV STA (21:08)
--- NOTE | 2019-10-19 09:12 | Discharge Summary ---
Date of Service October 18, 2019 Admission HPI Per Admitting Provider Alfreda Callahan is a 54-year-old female admitted medically on 10/10/2019 after presenting to the ED with reports of shortness of breath and exacerbation of chronic back pain. Patient has reported history of anxiety, depression, and PTSD. Psychiatric consultation is requested to evaluate patient for worsening suicidal ideation. Patient was observed to be sitting upright on edge of bed, appearing to be in significant pain. Patient states "just take a look at my back." And verbalizes that she "cannot breathe." Patient is welcoming conversation, as a means to distract herself from pain. Patient reports to this provider that she has had chronic back pain for several years. She recently underwent a spinal fusion, and states that at times her back pain is exacerbated. She does admit that her pain often affects her mood and anxiety level, but states "I feel comfortable being here, I know this is where I can get help." Patient denies acute suicidal ideation, stating that her mood has actually been rather consistent since May 2019. When asked about previous history of suicidal ideation, patient states "I do feel that way sometimes. I get in my head and cannot stop the negative thoughts. That is when I call my cousin to come over." Patient is able to verbalize to this provider her usual safety plan, which includes calling her cousin along with other coping strategies. Patient is aware of crisis services in the area, as she has utilized them in the past. She does admit to previous history of suicide attempts, at least one in 10/2018 by overdose and another in 05/2019 by attempted hanging. Patient states "ever since then, my mood had been very good up until my surgery." Despite recent physical concerns, patient states "I am not even close to that point right now" as it relates to suicidal plan or intent. Patient states that she has monthly visits with her outpatient psychiatric nurse practitioner, and does not feel that adjustments to medications are necessary at this time. She also follows weekly with an outpatient therapist, and states she has case management services through [employer]. Patient tells this provider "if I could get my pain under control, I would be a whole different person right now. My mood would not even be a question." Patient does request 1 mg of IV lorazepam to address her muscle stiffness and anxiety. She was reminded of the pain management consultation, and informed that recommendation should be available shortly. Patient denies any specific needs from our service at this time. She does not have other acute concerns presently.She is agreeable with signing a release of information for her cousin, in order to ensure he does not have any safety concerns that will need to be mitigated prior to her discharge home. Patient states she feels comfortable with the idea of returning home, and does not verbalize any safety concerns. Admission Exam Per Admitting Provider General: awake, alert, + mild distress Head: Normocephalic, atraumatic ENT: PERRL, EOMI, no pharyngeal exudate, mucous membranes moist Chest: + Diminished breath sounds throughout with crackles, worse in the R compared to L, elevated RR of 26 at bedside, no wheeze, on room air Cardiac: + sinus tach, + UMANG, no JVD, normal peripheral pulses, good capillary refill Abdominal: NABS x 4 quadrants, soft, nondistended, nontender to palpation, no rebound, guarding or tenderness Back: surgical incision extending from thoracic to lumbar region, well healed, no point tenderness over spine. Extremities: Normal inspection, no peripheral edema or erythema, calfs nontender to palpation Psych: Normal mood and affect Neuro: AAO x 3, no gross motor deficits, speech is clear, no peripheral sensory deficits Principal Diagnosis MSSA bacteremia Pneumonia Post operative fluid collection - suspected seroma Discharge Exam Constitutional well developed, + acute distress (due to ongoing pain) and + obese Eyes + anicteric sclerae; normal pupil size ENMT external ear and nose normal, oropharynx normal Neck trachea midline Respiratory normal respiratory effort; no respiratory distress, no labored breathing and no retractions Auscultation: lungs clear to auscultation bilaterally Cardiovascular Rate/Rhythm: regular rate and regular rhythm Heart Sounds: no murmur Vessels: radial pulses present (equal b/l) Extremities: normal capillary refill and + pedal edema (trace b/l) Chest (Breasts) Chest: normal inspection of chest (markedly tender on light palpation over mainly right inferior lateral chest wall) Gastrointestinal (Abdomen) Inspection/Auscultation: abdomen normal to inspection and normal bowel sounds; abdomen not distended Percussion/Palpation: abdomen soft; abdomen nontender, no guarding and abdomen not rigid Musculoskeletal no cyanosis or clubbing, extremities motor strength 5/5 Skin no rashes, warm and dry (Well-healed back surgical scar, without cellulitic changes) Neurologic moves all extremities and awake; no focal motor deficits and not confused Motor/Sensory: no sensory deficit Psychiatric Orientation: alert and oriented x 3 Eye Contact: + fair eye contact Affect: + anxious affect Mood: + anxious mood Thought Process: goal directed thought process Lymphatic no cervical or axillary lymphadenopathy Discharge Data Allergies Allergy/AdvReac Type Severity Reaction Status Date / Time doxycycline [From Vibramycin] Allergy Severe TONGUE Verified 10/10/19 16:09 SWELLS, SOB, RASH Sulfa (Sulfonamide Allergy Severe HIVES/LIPS Verified 10/10/19 16:09 Antibiotics) SWELLING tetracycline Allergy Severe TONGUE Verified 10/10/19 16:09 SWELLS, SOB, RASH Consultations 10/10/19 17:40 ED Decision to Admit Stat 10/10/19 19:57 Consult Case Management - Discharge Planning Routine Consult Pain Management Routine 10/10/19 20:07 Consult Psychiatry Routine 10/11/19 08:22 Consult Infectious Diseases Routine 10/14/19 16:27 Consult Orthopedic Surgery Routine 10/16/19 17:12 Burn CD for patient Stat 10/18/19 18:45 Burn CD for patient Stat Ordered Studies 10/10/19 14:58 CT angio chest PE protocol Stat 10/10/19 15:14 CT lumbar spine w con Stat 10/14/19 16:24 MR lumbar spine wo con Urgent 10/17/19 11:42 MR thoracic spine wo/w con Routine Hospital Course (1) MSSA bacteremia: Alfreda Callahan is a 54 year old female admitted to [facility] from October 10 to for acute onset shortness of breath and thoracic back and chest pain. She was diagnosed with MSSA bacteremia initially treated with cefepime, transitioned to cefazolin given sensitivities (recommended by infectious disease). TTE - negative for vegetations although images noted to be suboptimal. CXR negative for infection on admission. Subsequent CT for PE ordered given presentation and showed diffuse parenchymal infiltrative changes throughout mid and upper level of lungs b/l, therefore she was diagnosed with pneumonia based on this and presentation for shortness of breath. However she has been on room air since admission and procalcitonin was negative. Lumbar and thoracic spine MRIs show a large thick-walled fluid collection within the subcutaneous incision site measuring over 17 cm in length on lumbar spine and 32cm from thoracic to cervical spine. She was evaluated by orthopedic surgery at this facility and did not feel this represented an abscess but given lack of alternative source (pneumonia diagnosis is thought unlikely) infectious disease recommended evaluation by her neurosurgeon (Dr Eason) at [facility] for possible aspiration/drain due to ongoing concern. I discussed her care with Dr Lowe/Yumi (Neurosurgery) and Dr Wright (Hospitalist) at [facility] and she will be transferred for further care there under the hospitalist team. No symptoms or signs of infective endocarditis at this time. Recommend infectious disease consult if seroma not felt to be seeding infection. Follow up blood cultures as of 10/13/2019 are negative to date. In addition she was noted to have an iron deficiency anemia. She is asymptomatic with this and is stable since September 13 prior to this admission. She was started on ferrous sulphate and steroids/NSAIDs were held as suspect this is most likely cause although fecal occult stool remains uncollected a this time. The patient denies any melena. We had planned to give an iron infusion however bed now found at [facility] and she will be transferred today. Please note medication list below is home meds. Please see additional scan for inpatient meds. She does not take the Lamictal as she doesn't like how it makes her feel therefore this has been discontinued. In addition I believe the gabapentin is in error since she was last discharged from [facility] on just Lyrica having switched on that admission. (2) Sepsis: (3) Pneumonia: (4) Acute respiratory distress: (5) Tobacco use: (6) Thoracolumbar back pain: (7) Microcytic anemia: (8) GERD with esophagitis: (9) Diabetes mellitus, type 2: (10) Hypothyroidism: (11) Obesity (BMI 30.0-34.9): (12) Restless leg syndrome: (13) Neuropathy: (14) Depression: (15) Anxiety: (16) PTSD (post-traumatic stress disorder): (17) Hyponatremia: (18) DVT prophylaxis: Total Time Total Time Spent Total Time Spent (In Minutes): 45 Total Time Includes: Examination of the Patient, Discharge Planning, Medication Reconciliation and Communication With Other Providers (Dr Camarillo) Discharge Plan Discharge Items Patient Disposition: Transfer Acute Care Hospital Reason For Visit: PNA, ACUTE RESPIRATORY DISTRESS Discharge Diagnosis: MSSA bacteremia Pneumonia Post operative fluid collection - suspected seroma Activity: Resume your previous activity Non-emergency contact: Primary Care Provider Call non-emergency contact if: you have any medication questions and your symptoms worsen Follow-up/Referrals: Dimple Pandya DO [Primary Care Provider] - Diet: Carb Consistent or DM2 Addtl Attending Provider Instructions: Alfreda Callahan is a 54 year old female admitted to [facility] from October 10 to for acute onset shortness of breath and thoracic back and chest pain. She was diagnosed with MSSA bacteremia initially treated with cefepime, transitioned to cefazolin given sensitivities (recommended by infectious disease). TTE - negative for vegetations although images noted to be suboptimal. CXR negative for infection on admission. Subsequent CT for PE ordered given presentation and showed diffuse parenchymal infiltrative changes throughout mid and upper level of lungs b/l, therefore she was diagnosed with pneumonia based on this and presentation for shortness of breath. However she has been on room air since admission and procalcitonin was negative. Lumbar and thoracic spine MRIs show a large thick-walled fluid collection within the subcutaneous incision site measuring over 17 cm in length on lumbar spine and 32cm from thoracic to cervical spine. She was evaluated by orthopedic surgery at this facility and did not feel this represented an abscess but given lack of alternative source (pneumonia diagnosis is thought unlikely) infectious disease recommended evaluation by her neurosurgeon (Dr Eason) at [facility] for possible aspiration/drain. I discussed her care with Dr Lowe/Yumi (Neurosurgery) and Dr Wright (Hospitalist) at [facility] and she will be transferred for further care there under the hospitalist team. No symptoms or signs of infective endocarditis at this time. Recommend infectious disease consult if seroma not felt to be seeding infection. Blood cultures as of 10/13/2019 are negative to date. In addition she was noted to have an iron deficiency anemia. She is asymptomatic with this and is stable since September 13 prior to this admission. She was started on ferrous sulphate and steroids/NSAIDs were held as suspect this is most likely cause although fecal occult stool remains uncollected a this time. The patient denies any melena. We had planned to give an iron infusion however bed now found at [facility] and she will likely be transfered today. Please note medication list below is home meds. Please see additional scan for inpatient meds. She does not take the Lamictal as she doesn't like how it makes her feel therefore this has been discontinued. In addition I believe the sierra pentin is in error since she was last discharged from [facility] on just Lyrica having switched on that admission. Pending Studies at Discharge: No Studies:: CT angio chest PE protocol CT DOSE: 1451.89 mGy.cm HISTORY: Dyspnea Dyspnea TECHNIQUE: Multiaxial CT images of the chest were performed following the intravenous administration of contrast to evaluate the pulmonary arteries. Maximal intensity projection images were also obtained. A dose lowering technique was utilized adhering to the principles of ALARA. COMPARISON STUDY: 09/13/2019 FINDINGS: The thoracic aorta is normal in course and caliber. The pulmonary vasculature enhances appropriately. There are no significant filling defects. No significant mediastinal or hilar adenopathy. Findings are rather diffuse mid and upper lung interstitial change bilaterally. Possibility of a pneumonitis is considered. IMPRESSION: 1. No evidence for pulmonary embolus. 2. Diffuse parenchymal infiltrative changes throughout the mid to upper lungs bilaterally. 3. Stable postoperative changes of the thoracic spine. XR chest 1V portable CLINICAL HISTORY: Dyspnea dyspnea COMPARISON STUDY: 11/20/2018 FINDINGS: Complete fusion of the thoracic and upper lumbar spine. The hardware appears to be intact. Lungs are grossly clear. Slight bronchovascular prominence. Diaphragms are smooth. IMPRESSION: Mild bronchitis. No focal infiltrate. CT lumbar spine w con HISTORY: 54 years-old Female recent back procedure, fall, fever acute low back pain status post fall. History of recent back surgery. COMPARISON: CT abdomen and pelvis 09/29/2019, MRI lumbar spine 08/03/2019 TECHNIQUE: Multiple axial CT images of the lumbar spine were obtained following the intravenous ministration of 120 mL Optiray 320 IV contrast. A dose lowering technique was used consistent with the principals of ALARA. FINDINGS: Streak artifact from extensive posterior interbody claudio and screw fusion hardware limits the study. Laminectomy changes are noted at multiple levels. Bilateral pedicle screws are noted at L1, L3, L5-S1. Evidence of prior pedicle screw removal bilaterally at L2. Left-sided pedicle screw at L4. Discectomy changes at L3-L4, L4-L5 and L5-S1. Posterior interbody rods are noted extending through the thoracic spine outside the [id number]. Evidence of prior screw removal at T12. No evidence of hardware fracture or loosening. Severe multilevel facet arthrosis. There is no acute fracture or subluxation. Evaluation of the central canal and neuroforaminal structures are not well evaluated by CT. There is suggestion of a degree of neuroforaminal stenosis bilaterally at L1-L2. Moderate to severe L1-L2 disc space narrowing with mild spondylitic spurring. Remote superior endplate Schmorl's node at L1 with remote T12 compression deformity. Straightening of the normal lumbar lordosis. Small remote Schmorl's node involves the superior endplate L3. Calcified plaque of the abdominal aorta without aneurysm. Colonic diverticulosis. No acute process of the imaged intra-abdominal structures. There is no adenopathy. Stranding and edema is noted within the incision site of the dorsal midline distribution. No discrete drainable fluid collection identified. IMPRESSION: 1. No acute fracture or subluxation. 2. Extensive posterior interbody claudio and screw fusion and discectomy changes of the lumbar spine are redemonstrated as above. There is no evidence of hardware fracture or loosening. 3. Edema/stranding within the incision site of the dorsal midline tissues, likely expected postoperative findings. No discrete drainable fluid collection identified. Streak artifact from the hardware limits evaluation of the adjacent tissues. MR lumbar spine wo con CLINICAL HISTORY: 54 years-old Female with swelling, pain lumbar spine/ sp surgery. Acute low back pain with sepsis. Lumbar spinal fusion on 08/28/2019 COMPARISON: CT lumbar spine 10/10/2019, MRI lumbar spine 08/03/2019 TECHNIQUE: Multiplanar, multi sequence MRI of the lumbar spine was performed without intravenous contrast. FINDINGS: Large [id number] automation mechanic localizer images demonstrate no gross extraspinal abnormality. No aortic aneurysm or adenopathy. No acute abnormality identified within the imaged intra-abdominal or intrapelvic structures. Postoperative changes from extensive posterior interbody claudio and screw fusion hardware. Artifact from the hardware limits the study with obscuration of the adjacent tissues. There is posterior interbody claudio and screw fusion hardware extending from T10 through S1 with discectomy changes at L3-L4, L4-L5 and L5-S1. Remote T12 compression deformity. Evaluation of the bone marrow on the STIR images is very difficult secondary to the aforementioned artifact. No definitive bone marrow edema identified. No definitive epidural abscess or hematoma identified. Epidural tissues however are suboptimally visualized. Micrometallic artifact within the ventral midline subcutaneous tissues at the surgical incision site are noted along with a thick-walled fluid collection which measures up to approximately 2.5 x 3.2 x 17.0 cm in AP, transverse and craniocaudal dimensions extending superiorly outside the [id number]. T12-L1: No central canal or neural foraminal stenosis. L1-L2: There is 4 mm retrolisthesis L1 on L2 with severe disc space narrowing. No high-grade central canal stenosis. And neuroforaminal structures are not well seen. L2-L3: No high-grade central canal stenosis. No definite foraminal narrowing. L3-L4: No central canal or neural foraminal stenosis. L4-L5: No central canal or neural foraminal stenosis. L5-S1: No central canal or neural foraminal stenosis. IMPRESSION: 1. Extensive posterior interbody claudio and screw fusion of the thoracolumbar spine as above. Artifact from the hardware limits evaluation of the adjacent tissues. 2. No acute fracture, subluxation, definite bone marrow edema or epidural fluid collection identified. 3. There is a large partially imaged thick-walled fluid collection within the subcutaneous incision site measuring over 17 cm in length which is partially imaged and is largest at the level of the lower thoracic spine. Seroma, hematoma or abscess are the differential considerations. Correlate clinically. MR thoracic spine wo/w con HISTORY: Concern for abscess, subq vs. epidural, MSSA TECHNIQUE: Multiplanar multisequence MRI of the thoracic spine was performed both before and after the intravenous administration of contrast. COMPARISON: 10/17/2019, 10/14/2019. FINDINGS: Extensive postoperative change consistent with laminectomy and fusion at virtually all levels of the thoracic and visualized components of the lumbar spine are noted. There is a large fluid collection extending from the low cervical region throughout the entire thoracolumbar spine as has been described previously. This is most consistent with that of a postprocedural seroma/old hematoma, although abscess is not excluded.. There is no evidence for a significant component of enhancement at the upper thoracic region. There is a small to moderate amount of wall enhancement at its inferior aspect which potentially relates to granulation tissue. This enhancement, however makes it impossible to entirely exclude the possibility of abscess. IMPRESSION: 1. Extensive postoperative fluid collection extending from the cervical thoracic junction throughout the entire lumbar spine as has been previously described. 2. This measures within the thoracic region no less than 32 cm with maximum transaxial dimensions of 6 x 3 cm. 3. This is most consistent with that of a hematoma/postprocedural seroma, although abscess is not excluded as discussed above. 4. Near complete thoracic laminectomy and fusion Stand-Alone Forms: My [facility] Skilled Items Patient informed of condition?: Yes DNR: Yes Discharge Level of Care: Other Communicable Disease: No Discharge Prognosis: Stable Lines: Peripheral IV Urinary Catheter: No Medications and DC Order Prescriptions: Continued cyclobenzaprine 10 mg tablet 10 mg PO TID PRN (Reason: muscle spasms) RF: 0 acetaminophen [Tylenol Extra Strength] 500 mg Tablet 1,000 mg PO Q6H PRN (Reason: Pain) RF: 0 ibuprofen 200 mg Tablet 400 mg PO Q6H PRN (Reason: Pain) RF: 0 meloxicam [Mobic] 15 mg tablet 15 mg PO DAILY RF: 0 methylprednisolone 4 mg tablets,dose pack 0 mg PO UD RF: 0 fluoxetine 40 mg Capsule 40 mg PO QAM RF: 0 pantoprazole 40 mg tablet,delayed release (DR/EC) 40 mg PO QAM RF: 0 Linzess 145 mcg capsule 145 mcg PO DAILY PRN (Reason: Constipation) RF: 0 trazodone 150 mg tablet 300 mg PO HS RF: 0 pregabalin 100 mg capsule 200 mg PO BID RF: 0 levothyroxine 125 mcg tablet 125 mcg PO QAM RF: 0 promethazine 25 mg tablet 25 mg PO TID PRN (Reason: Nausea And Vomiting) RF: 0 pramipexole [Mirapex] 1 mg tablet 1 mg PO QPM RF: 0 Discontinued lamotrigine [Lamictal] 100 mg Tablet 100 mg PO HS RF: 0 gabapentin 400 mg capsule 400 mg PO TID RF: 0 Discharge Orders: Discharge Order (Routine); Ordered 10/18/19 Ordered By: Minesh Liu/Other Patient Handouts: Diabetes Drain Technician Complications, Diabetes Healthy Meals, Diabetes Carbs, Diabetes Exercise Benefits, Diabetes Activity Tips, Diabetes Living Life, A1C Admission Data Admit Date/Time: 10/10/19 17:46 Attending Provider: Minesh Bowden Admit Provider: Cheryl Hauser Primary Care Provider: Dimple Pandya. Other Providers: Cheryl Hauser ; Noel Mclean ; Sherice Altamirano ; Ramona Camarillo ; Itz Rico Other Interventions: Discharge Summary Assessment (RN) Last Done: 10/18/19 22:48 PSY Interdisciplinary Discharge Planning Last Done: 10/18/19 22:48 DC Date/Time DO NOT enter until pt leaves facility: 10/18/19 21:45
== END 2019-10-18 21:45 | disposition short-term general hospital (02) | DRG 871 ==
LOC: ED 14:46 → 2N 17:46 → SUATTDRO 17:46 → 2N 19:00

== ENCOUNTER 2023-01-26 13:05 | Inpatient (IN) ==
[2023-01-26 13:40] LABS: Basophils # (auto) 0.05 K/uL (0-0.2); Basophils % (auto) 0.5 %; Eosinophils # (auto) 0.03 K/uL (0-0.50); Eosinophils % (auto) 0.3 %; Hematocrit (blood only) 49.1 % (37.0-47.0); Hemoglobin 16.8 g/dl (12.0-16.0); Immature Granulocytes # (auto) 0.04 K/uL (0.01-0.20); Immature Granulocytes % (auto) 0.4 %; Lymphocytes # (auto) 1.88 K/uL (1.2-3.4); Lymphocytes % (auto) 17.2 %; Mean Corpuscular Hemoglobin 30.4 pg (25.0-34.0); Mean Corpuscular Hgb Conc 34.2 g/dL (32.0-36.0); Mean Corpuscular Volume 88.9 fL (80.0-100.0); Mean Platelet Volume 10.6 fL (9.4-12.4); Monocytes # (auto) 0.47 K/uL (0.11-0.59); Monocytes % (auto) 4.3 %; Neutrophils # (auto) 8.48 K/uL (1.40-6.50); Neutrophils % (auto) 77.3 %; Platelet Count 248 K/uL (130-400); RDW Coefficient of Variation 13.8 % (11.5-14.5); RDW Standard Deviation 44.7 fL (36.4-46.3); Red Blood Count 5.52 M/uL (4.20-5.40); White Blood Count 10.95 K/ul (4.8-10.8)
[2023-01-26 14:00] LABS: Alanine Aminotransferase 19 U/L (7-52); Albumin Globulin Ratio 1.3 (0.9-2); Albumin Level 4.5 gm/dl (3.4-5.0); Alkaline Phosphatase 95 U/L (34-104); Anion Gap 7 (3-11); BUN Creatinine Ratio 21.4 (10-20); Bilirubin,Total 0.6 mg/dl (0.2-1.0); Blood Urea Nitrogen 15 mg/dl (6-23); Calcium 9.7 mg/dl (8.5-10.1); Carbon Dioxide 23 mmol/L (21-32); Chloride 107 mmol/L (98-107); Est GFR (African American) 110.7 ml/min; Est GFR (Non-African American) 95.5 ml/min; Globulin 3.5 gm/dl (2.5-4.0); Glucose 125 mg/dl (70-99(Fasting)); Sodium 137 mmol/L (136-145)
[2023-01-26] MEDS ORDERED: SODIUM CHLORIDE 0.9% 1000ML 1,000 ML IV ONE (15:48)
[2023-01-26] MEDS ORDERED: ONDANSETRON INJ 2 MG/ML 2 ML VIAL IV STA (15:48)
[2023-01-26] MEDS ORDERED: MoRPHine SULFATE 4 MG/ML 1 ML CARP\\VIAL IV STA (15:50)
[2023-01-26] MEDS ORDERED: ALBUTEROL HFA 8 GM INHALER INH ONE (15:53)
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
[2023-01-26] MEDS ORDERED: OPTIRAY 320 500ml IV ONE (16:24)
[2023-01-26 16:28] LABS: Magnesium 1.9 mg/dl (1.7-2.4)
--- NOTE | 2023-01-26 17:00 | CT Scan Report ---
CT ANGIOGRAM OF THE CHEST CLINICAL HISTORY: Covid. Cough and fever. Dyspnea. Right upper quadrant abdominal pain. COMPARISON STUDY: Chest CT dated 06/12/2022. TECHNIQUE: Following the IV administration of 114 cc of Optiray 320, CT angiogram of the chest was pe rformed from the upper abdomen to the thoracic inlet utilizing the pulmonary embolus protocol. Images are reviewed in the axial, sagittal, and coronal planes. 3-D MIPS images are created and assessed. I V contrast was administered without complication. A dose lowering technique was utilized adhering to the principles of ALARA. The examination is degraded by streak artifact from metallic spinal rods. FINDINGS: Thyroid: Atrophic. Thoracic aorta: There is atherosclerotic calcification of the thoracic aorta, which is normal in manfred alber and demonstrates standard 3-vessel arch anatomy. No dissection is seen. Pulmonary vasculature: The pulmonary trunk is normal in caliber. There are no filling defects identif ied in main, lobar, or segmental pulmonary branches to suggest pulmonary embolus. Heart: The heart is normal in size and without pericardial effusion. There are scattered coronary art teressa calcifications. Lungs and pleural spaces: Evaluation of the lung parenchyma is modestly degraded by motion artifact. No airspace consolidation or pleural effusion is identified. The trachea and central airways are renetta r. Diffuse peribronchial thickening is observed. Dependent scarring/atelectasis is seen in both lungs . Mediastinum: There is no mediastinal lymphadenopathy. Mayte: Clear. Axillae: There is no axillary lymphadenopathy. Upper abdomen: Cholecystectomy clips are noted. The liver is steatotic and cirrhotic in morphology. Skeletal structures: The skeletal structures are osteopenic. No lytic or blastic bony lesions are see n. Extensive postsurgical changes seen throughout the imaged thoracolumbar spine with spinal rods in place. Note that the left interpedicular screw at T5 is located lateral to the pedicle and vertebral body. There is a chronic compression deformity of T12. Arthritic change is seen in the shoulders. The re are chronic/healed left-sided rib fractures, as was chronic posttraumatic deformity of the left pr oximal humerus IMPRESSION: 1. There is no evidence of pulmonary embolus in the main, lobar, or segmental pulmonary arteries. 2. There is no airspace consolidation or pleural effusion. 3. Diffuse peribronchial thickening suggests bronchitis/reactive airway disease. Clinical correlation will be required. 4. The liver steatotic and cirrhotic in morphology. 5. Additional findings as above. ACT 112: Negative or not required by law. Electronically signed by: Vinay Guillaume M.D. 01/26/2023 4:58 PM
[2023-01-26 17:08] LABS: Appearance Urine Clear (Clear); Bilirubin Urine Negative (Negative); Blood Urine Negative (Negative); Color Urine Yellow; Glucose Urine UA 3+ (Negative); Ketones Urine Negative (Negative); Leukocyte Esterase Urine Negative (Negative); Nitrite Urine Negative (Negative); Protein Urine Negative (Negative); Specific Gravity Urine > 1.045 (1.000-1.030); Urobilinogen Urine Negative (Negative)
--- NOTE | 2023-01-26 17:11 | CT Scan Report ---
CT abd pelvis IV con only CLINICAL HISTORY: covid+ wk. new fevers cough SOB diarrhea RUQ pain TECHNIQUE: Helical axial images of the abdomen and pelvis were obtained and displayed. Automated dose lowering techniques and/or adjustment according to patient size were utilized for this exam. This e xam was performed with intravenous contrast. CT DOSE: 1889.39 mGy.cm COMPARISON: Comparison is made to CT abdomen pelvis 02/04/2022 FINDINGS: Lower chest: Peripheral scarring is seen in the lungs. Liver: Focal fatty change is seen about the falciform ligament. Gallbladder and biliary tree: Patient is status post cholecystectomy. No intra- or extrahepatic bilia ry ductal dilation. Pancreas: Unremarkable, no focal lesions. Spleen: Unremarkable. Adrenals: Unremarkable. Kidneys and ureters: Unremarkable. Bladder: Unremarkable. Reproductive organs: Patient is status post hysterectomy. Bowel: Numerous diverticula are seen. Multiple distended loops of small bowel are in the left abdomen measuring up to 34 mm in diameter with a transition point in the left mid abdomen. Some distal loops of small bowel also contain fluid and there is mild fecal content the large bowel. Lymph nodes Retroperitoneal: Unremarkable. Pelvic: Unremarkable. Mesenteric: Unremarkable. Peritoneum: Normal. Vessels: Unremarkable. Abdominal wall: Unremarkable. Bones: Degenerative changes in the visualized spine. Posterior fixation hardware is seen. There is a compression deformity of T12 which is unchanged from prior exam. IMPRESSION: 1. Distended loops of small bowel in the left abdomen may represent partial small bowel obstruction versus ileus. Of note, distal loops of large and small bowel are not completely decompressed. 2. Diverticulosis without diverticulitis. 3. Postsurgical changes and chronic deformities of the spine. ACT 112: Negative or not required by law. Electronically signed by: Mychal Mantilla M.D. 01/26/2023 5:10 PM
[2023-01-26] MEDS ORDERED: HYDROmorphone INJ 0.5 MG/0.5 ML SYR IV STA (17:42)
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
[2023-01-26] MEDS: HYDROmorphone INJ 0.5 MG/0.5 ML SYR IV PRN (20:17)
[2023-01-26] MEDS: LACTATED RINGER'S 1,000 ML IV SCH (20:24)
[2023-01-26] MEDS: ONDANSETRON INJ 2 MG/ML 2 ML VIAL IV PRN (21:53)
[2023-01-26] MEDS: ACETAMINOPHEN 1,000 MG/100 ML VIAL IV PRN (21:55)
[2023-01-26] MEDS ORDERED: GLUCAGON FOR INJ 1 MG VIAL SQ PRN (22:11)
[2023-01-26] MEDS ORDERED: DEXTROSE 50% 50 ML SYRINGE IV PRN (22:11)
[2023-01-26] MEDS ORDERED: GLUCOSE 40% GEL 15 GM TUBE PO PRN (22:11)
[2023-01-26] MEDS ORDERED: GLUCOSE 10 TAB/TUBE PO PRN (22:11)
[2023-01-26] MEDS ORDERED: CARBOHYDRATES FOR HYPOGLYCEMIA PO PRN (22:11)
[2023-01-26] MEDS ORDERED: diphenhydrAMINE 50 MG/ML VIAL IV ONE (22:15)
[2023-01-26] MEDS: LANTUS PER UNIT CHARGE SQ SCH (23:20)
[2023-01-26] MEDS: Patient's HEIGHT &/or WEIGHT Needed SCH (23:29)
[2023-01-27] MEDS: HYDROmorphone INJ 1 MG/ML SYRINGE IV PRN ×6 (00:29→22:23)
[2023-01-27] MEDS: LACTATED RINGER'S 1,000 ML IV SCH ×3 (05:15→15:56)
[2023-01-27 06:52] LABS: Basophils # (auto) 0.04 K/uL (0-0.2); Basophils % (auto) 0.4 %; Eosinophils # (auto) 0.13 K/uL (0-0.50); Eosinophils % (auto) 1.4 %; Hematocrit (blood only) 43.8 % (37.0-47.0); Hemoglobin 14.6 g/dl (12.0-16.0); Immature Granulocytes # (auto) 0.04 K/uL (0.01-0.20); Immature Granulocytes % (auto) 0.4 %; Lymphocytes # (auto) 2.53 K/uL (1.2-3.4); Lymphocytes % (auto) 27.3 %; Mean Corpuscular Hemoglobin 30.3 pg (25.0-34.0); Mean Corpuscular Hgb Conc 33.3 g/dL (32.0-36.0); Mean Corpuscular Volume 90.9 fL (80.0-100.0); Mean Platelet Volume 10.5 fL (9.4-12.4); Monocytes # (auto) 0.74 K/uL (0.11-0.59); Neutrophils # (auto) 5.79 K/uL (1.40-6.50); Neutrophils % (auto) 62.5 %; Platelet Count 185 K/uL (130-400); RDW Coefficient of Variation 14.2 % (11.5-14.5); RDW Standard Deviation 47.1 fL (36.4-46.3); Red Blood Count 4.82 M/uL (4.20-5.40); White Blood Count 9.27 K/ul (4.8-10.8)
[2023-01-27] MEDS: Patient's HEIGHT &/or WEIGHT Needed SCH (06:54)
[2023-01-27 07:09] LABS: Calcium 8.5 mg/dl (8.5-10.1); Creatinine Clr Calc Pharmacy 110.4 ml/min; Est GFR (African American) 115.8 ml/min; Est GFR (Non-African American) 99.9 ml/min
[2023-01-27] MEDS ORDERED: INSULIN ASPART PER UNIT CHARGE SC SCH ×2 (07:30→12:00)
[2023-01-27] MEDS ORDERED: MAGNESIUM SULFATE / D5W 1 GM/100 ML BAG IV ONE ×2 (08:36→12:15)
--- NOTE | 2023-01-27 08:38 | Hospitalist Progress Note ---
Date of Service January 27, 2023 Assessment & Plan (1) Small bowel obstruction: Plan: In patient with hx SBO in 2016 requiring resection Presented after nausea/vomiting/inability to keep oral down CTAP w/ Distended loops of small bowel in the left abdomen may represent partial small bowel obstruction versus ileus. Of note, distal loops of large and small bowel are not completely decompressed. General surgery consulted No NGT at this time, conservative treatment recommended LR @ 125cc/hr WBC 10.9k--> 9.2k, afebrile Mag to keep ~2, K~4 Check stool studies when moving bowels Pain control/antiemetics prn (of note on chronic pain medications for back pain) KUB-- No significant small bowel gas is seen. Exam is equivocal for small bowel obstruction. The colon is not entirely decompressed suggesting no high-grade obstruction has been present. Continuing NPO for now, ordered ativan Q8H scheduled as takes at home. 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 She is not hypoxic and no additional treatment is indicated for this at this time CTA on admission for residual cough shows peribronchial thickening possibly consistent with reactive airway disease/bronchitis, but no consolidations or effusions and no evidence of PE 98% on RA Maintaining isolation precautions (4) Diabetes mellitus, type 2: Plan: Last A1c 6.0 in Dec 2022 BSG AC/HS, SSI while inpatient BSGs acceptable (5) GERD with esophagitis: Plan: Will place on protonix IVP daily while NPO (6) Hyperlipidemia: Plan: Statin held while n.p.o. (7) Hypothyroidism: Plan: Synthroid held while NPO. Patient has not been able to take this in several days, we will start at 70% IV dose conversion for AM dose at 88mcg IV daily Resume PO when able Plan Will start Lovenox SQ for DVT prophylaxis continued inpatient stay, NPO, IVF, supportive care, general surgery following Monitor KUB in AM Admission and Anticipated Discharge Date Admission Date: January 26, 2023 Supervising Physician Co-Signing Physician Notes The patient was seen by me. The chart was reviewed. Case discussed with ARIC Rodriguez. Agree with assessment and plan Subjective eval this morning, doing alright. having pain/nausea but no vomiting. not passing gas/bowel movements seen by surgery and planning to remain NPO for now. anxious and her ativan made IV scheduled while inpatient. No fever/chills/chest pain/shortness of breath. questions/concerns addressed at this time. Review of Systems Review of Systems: All systems reviewed & are unremarkable except as noted in HPI & below Physical Exam Physical Exam: General: Well developed, well nourished female resting in bed, NAD, anxious at times HEENT: Atraumatic, normocephalic. Vision/hearing intact. Pulm: CTAB A&P. -wheezes, -rales, -rhonchi. Symmetrical chest rise. No increased work of breathing. No respiratory distress. 98% on RA Cardiac: RRR faint systolic murmur, no r/g, no pitting edema, pulses palpable Abdominal: prior incision well healed, +BS RUQ/LLQ, slightly hypoactive RLQ/LUQ, tenderness lower abdomen on deep palpation, soft, voluntary guarding, no rigidity MSK/Neuro: no focal deficit Psych: AOx3, cooperative with care Results & Data Results & Data Vital Signs (Past 12 Hours) Vital Signs Temp Pulse Resp BP Pulse Ox O2 Del Method 01/27/23 08:13 36.4 C L 63 18 159/84 H 98 Room Air 01/26/23 21:29 Room Air 01/26/23 21:29 36.8 C 66 18 138/84 97 Room Air Laboratory Results 01/27/23 01/27/23 01/27/23 Range/Units 11:56 08:12 05:24 WBC (4.8-10.8) K/ul RBC (4.20-5.40) M/uL Hgb (12.0-16.0) g/dl Hct (37.0-47.0) % MCV (80.0-100.0) fL MCH (25.0-34.0) pg MCHC (32.0-36.0) g/dL RDW Std Deviation (36.4-46.3) fL RDW Coeff of Xavi (11.5-14.5) % Plt Count (130-400) K/uL MPV (9.4-12.4) fL Immature Gran % (Auto) % Neut % (Auto) % Lymph % (Auto) % [place] % (Auto) % Eos % (Auto) % Baso % (Auto) % Neut # (Auto) (1.40-6.50) K/uL Lymph # (Auto) (1.2-3.4) K/uL [place] # (Auto) (0.11-0.59) K/uL Eos # (Auto) (0-0.50) K/uL Baso # (Auto) (0-0.2) K/uL Immature Gran # (Auto) (0.01-0.20) K/uL Sodium 138 (136-145) mmol/L Potassium 4.0 Chloride 111 H (98-107) mmol/L Carbon Dioxide 20 L (21-32) mmol/L Anion Gap 7 (3-11) BUN 14 (6-23) mg/dl Creatinine 0.61 (0.6-1.2) mg/dl Est Cr Clr Drug Dosing 110.4 Est GFR ( Amer) 115.8 ml/min Est GFR (Non-Af Amer) 99.9 ml/min BUN/Creatinine Ratio 23.0 H (10-20) Glucose 83 (70-99(Fasting)) mg/dl POC Glucose 112 H 85 (70-99) mg/dl Calcium 8.5 (8.5-10.1) mg/dl Magnesium 1.8 (1.7-2.4) mg/dl Total Bilirubin (0.2-1.0) mg/dl AST ALT (7-52) U/L Alkaline Phosphatase (34-104) U/L Total Protein (6.0-8.3) gm/dl Albumin (3.4-5.0) gm/dl Globulin (2.5-4.0) gm/dl Albumin/Globulin Ratio (0.9-2) Urine Color Urine Appearance (Clear) Urine pH (4.5-7.5) Ur Specific [place] (1.000-1.030) Urine Protein (Negative) Urine Glucose (UA) (Negative) Urine Ketones (Negative) Urine Blood (Negative) Urine Nitrite (Negative) Urine Bilirubin (Negative) Urine Urobilinogen (Negative) Ur Leukocyte Esterase (Negative) SARS-CoV-2 (PCR) (Negative) 01/27/23 01/26/23 01/26/23 Range/Units 05:24 23:29 17:50 WBC 9.27 (4.8-10.8) K/ul RBC 4.82 (4.20-5.40) M/uL Hgb 14.6 (12.0-16.0) g/dl Hct 43.8 (37.0-47.0) % MCV 90.9 (80.0-100.0) fL MCH 30.3 (25.0-34.0) pg MCHC 33.3 (32.0-36.0) g/dL RDW Std Deviation 47.1 H (36.4-46.3) fL RDW Coeff of Xavi 14.2 (11.5-14.5) % Plt Count 185 (130-400) K/uL MPV 10.5 (9.4-12.4) fL Immature Gran % (Auto) 0.4 % Neut % (Auto) 62.5 % Lymph % (Auto) 27.3 % [place] % (Auto) 8.0 % Eos % (Auto) 1.4 % Baso % (Auto) 0.4 % Neut # (Auto) 5.79 (1.40-6.50) K/uL Lymph # (Auto) 2.53 (1.2-3.4) K/uL [place] # (Auto) 0.74 H (0.11-0.59) K/uL Eos # (Auto) 0.13 (0-0.50) K/uL Baso # (Auto) 0.04 (0-0.2) K/uL Immature Gran # (Auto) 0.04 (0.01-0.20) K/uL Sodium (136-145) mmol/L Potassium Chloride (98-107) mmol/L Carbon Dioxide (21-32) mmol/L Anion Gap (3-11) BUN (6-23) mg/dl Creatinine (0.6-1.2) mg/dl Est Cr Clr Drug Dosing Est GFR ( Amer) ml/min Est GFR (Non-Af Amer) ml/min BUN/Creatinine Ratio (10-20) Glucose (70-99(Fasting)) mg/dl POC Glucose 92 (70-99) mg/dl Calcium (8.5-10.1) mg/dl Magnesium (1.7-2.4) mg/dl Total Bilirubin (0.2-1.0) mg/dl AST ALT (7-52) U/L Alkaline Phosphatase (34-104) U/L Total Protein (6.0-8.3) gm/dl Albumin (3.4-5.0) gm/dl Globulin (2.5-4.0) gm/dl Albumin/Globulin Ratio (0.9-2) Urine Color Urine Appearance (Clear) Urine pH (4.5-7.5) Ur Specific [place] (1.000-1.030) Urine Protein (Negative) Urine Glucose (UA) (Negative) Urine Ketones (Negative) Urine Blood (Negative) Urine Nitrite (Negative) Urine Bilirubin (Negative) Urine Urobilinogen (Negative) Ur Leukocyte Esterase (Negative) SARS-CoV-2 (PCR) POSITIVE A* (Negative) 01/26/23 01/26/23 01/26/23 Range/Units 17:00 15:49 12:20 WBC (4.8-10.8) K/ul RBC (4.20-5.40) M/uL Hgb (12.0-16.0) g/dl Hct (37.0-47.0) % MCV (80.0-100.0) fL MCH (25.0-34.0) pg MCHC (32.0-36.0) g/dL RDW Std Deviation (36.4-46.3) fL RDW Coeff of Xavi (11.5-14.5) % Plt Count (130-400) K/uL MPV (9.4-12.4) fL Immature Gran % (Auto) % Neut % (Auto) % Lymph % (Auto) % [place] % (Auto) % Eos % (Auto) % Baso % (Auto) % Neut # (Auto) (1.40-6.50) K/uL Lymph # (Auto) (1.2-3.4) K/uL [place] # (Auto) (0.11-0.59) K/uL Eos # (Auto) (0-0.50) K/uL Baso # (Auto) (0-0.2) K/uL Immature Gran # (Auto) (0.01-0.20) K/uL Sodium 137 (136-145) mmol/L Potassium 4.0 TNP Chloride 107 (98-107) mmol/L Carbon Dioxide 23 (21-32) mmol/L Anion Gap 7 (3-11) BUN 15 (6-23) mg/dl Creatinine 0.70 (0.6-1.2) mg/dl Est Cr Clr Drug Dosing Not Reportable Est GFR ( Amer) 110.7 ml/min Est GFR (Non-Af Amer) 95.5 ml/min BUN/Creatinine Ratio 21.4 H (10-20) Glucose 125 H (70-99(Fasting)) mg/dl POC Glucose (70-99) mg/dl Calcium 9.7 (8.5-10.1) mg/dl Magnesium 1.9 (1.7-2.4) mg/dl Total Bilirubin 0.6 (0.2-1.0) mg/dl AST 17 TNP ALT 19 (7-52) U/L Alkaline Phosphatase 95 (34-104) U/L Total Protein 8.0 (6.0-8.3) gm/dl Albumin 4.5 (3.4-5.0) gm/dl Globulin 3.5 (2.5-4.0) gm/dl Albumin/Globulin Ratio 1.3 (0.9-2) Urine Color Yellow Urine Appearance Clear (Clear) Urine pH 5.0 (4.5-7.5) Ur Specific [place] > 1.045 H (1.000-1.030) Urine Protein Negative (Negative) Urine Glucose (UA) 3+ H (Negative) Urine Ketones Negative (Negative) Urine Blood Negative (Negative) Urine Nitrite Negative (Negative) Urine Bilirubin Negative (Negative) Urine Urobilinogen Negative (Negative) Ur Leukocyte Esterase Negative (Negative) SARS-CoV-2 (PCR) (Negative) 01/26/23 Range/Units 12:20 WBC 10.95 H (4.8-10.8) K/ul RBC 5.52 H (4.20-5.40) M/uL Hgb 16.8 H (12.0-16.0) g/dl Hct 49.1 H (37.0-47.0) % MCV 88.9 (80.0-100.0) fL MCH 30.4 (25.0-34.0) pg MCHC 34.2 (32.0-36.0) g/dL RDW Std Deviation 44.7 (36.4-46.3) fL RDW Coeff of Xavi 13.8 (11.5-14.5) % Plt Count 248 (130-400) K/uL MPV 10.6 (9.4-12.4) fL Immature Gran % (Auto) 0.4 % Neut % (Auto) 77.3 % Lymph % (Auto) 17.2 % [place] % (Auto) 4.3 % Eos % (Auto) 0.3 % Baso % (Auto) 0.5 % Neut # (Auto) 8.48 H (1.40-6.50) K/uL Lymph # (Auto) 1.88 (1.2-3.4) K/uL [place] # (Auto) 0.47 (0.11-0.59) K/uL Eos # (Auto) 0.03 (0-0.50) K/uL Baso # (Auto) 0.05 (0-0.2) K/uL Immature Gran # (Auto) 0.04 (0.01-0.20) K/uL Sodium (136-145) mmol/L Potassium Chloride (98-107) mmol/L Carbon Dioxide (21-32) mmol/L Anion Gap (3-11) BUN (6-23) mg/dl Creatinine (0.6-1.2) mg/dl Est Cr Clr Drug Dosing Est GFR ( Amer) ml/min Est GFR (Non-Af Amer) ml/min BUN/Creatinine Ratio (10-20) Glucose (70-99(Fasting)) mg/dl POC Glucose (70-99) mg/dl Calcium (8.5-10.1) mg/dl Magnesium (1.7-2.4) mg/dl Total Bilirubin (0.2-1.0) mg/dl AST ALT (7-52) U/L Alkaline Phosphatase (34-104) U/L Total Protein (6.0-8.3) gm/dl Albumin (3.4-5.0) gm/dl Globulin (2.5-4.0) gm/dl Albumin/Globulin Ratio (0.9-2) Urine Color Urine Appearance (Clear) Urine pH (4.5-7.5) Ur Specific [place] (1.000-1.030) Urine Protein (Negative) Urine Glucose (UA) (Negative) Urine Ketones (Negative) Urine Blood (Negative) Urine Nitrite (Negative) Urine Bilirubin (Negative) Urine Urobilinogen (Negative) Ur Leukocyte Esterase (Negative) SARS-CoV-2 (PCR) (Negative) Diagnostic Findings Abdomen/Pelvis CT 01/26/23 15:48 CT abd pelvis IV con only CLINICAL HISTORY: covid+ wk. new fevers cough SOB diarrhea RUQ pain TECHNIQUE: Helical axial images of the abdomen and pelvis were obtained and displayed. Automated dose lowering techniques and/or adjustment according to patient size were utilized for this exam. This exam was performed with intravenous contrast. CT DOSE: 1889.39 mGy.cm COMPARISON: Comparison is made to CT abdomen pelvis 02/04/2022 FINDINGS: Lower chest: Peripheral scarring is seen in the lungs. Liver: Focal fatty change is seen about the falciform ligament. Gallbladder and biliary tree: Patient is status post cholecystectomy. No intra- or extrahepatic biliary ductal dilation. Pancreas: Unremarkable, no focal lesions. Spleen: Unremarkable. Adrenals: Unremarkable. Kidneys and ureters: Unremarkable. Bladder: Unremarkable. Reproductive organs: Patient is status post hysterectomy. Bowel: Numerous diverticula are seen. Multiple distended loops of small bowel are in the left abdomen measuring up to 34 mm in diameter with a transition point in the left mid abdomen. Some distal loops of small bowel also contain fluid and there is mild fecal content the large bowel. Lymph nodes Retroperitoneal: Unremarkable. Pelvic: Unremarkable. Mesenteric: Unremarkable. Peritoneum: Normal. Vessels: Unremarkable. Abdominal wall: Unremarkable. Bones: Degenerative changes in the visualized spine. Posterior fixation hardware is seen. There is a compression deformity of T12 which is unchanged from prior exam. IMPRESSION: 1. Distended loops of small bowel in the left abdomen may represent partial small bowel obstruction versus ileus. Of note, distal loops of large and small bowel are not completely decompressed. 2. Diverticulosis without diverticulitis. 3. Postsurgical changes and chronic deformities of the spine. ACT 112: Negative or not required by law. Electronically signed by: Mychal Mantilla M.D. 01/26/2023 5:10 PM Chest CTA 01/26/23 15:48 CT ANGIOGRAM OF THE CHEST CLINICAL HISTORY: Covid. Cough and fever. Dyspnea. Right upper quadrant abdominal pain. COMPARISON STUDY: Chest CT dated 06/12/2022. TECHNIQUE: Following the IV administration of 114 cc of Optiray 320, CT angiogram of the chest was performed from the upper abdomen to the thoracic inlet utilizing the pulmonary embolus protocol. Images are reviewed in the axial, sagittal, and coronal planes. 3-D MIPS images are created and assessed. IV contrast was administered without complication. A dose lowering technique was utilized adhering to the principles of ALARA. The examination is degraded by streak artifact from metallic spinal rods. FINDINGS: Thyroid: Atrophic. Thoracic aorta: There is atherosclerotic calcification of the thoracic aorta, which is normal in caliber and demonstrates standard 3-vessel arch anatomy. No dissection is seen. Pulmonary vasculature: The pulmonary trunk is normal in caliber. There are no filling defects identified in main, lobar, or segmental pulmonary branches to suggest pulmonary embolus. Heart: The heart is normal in size and without pericardial effusion. There are scattered coronary artery calcifications. Lungs and pleural spaces: Evaluation of the lung parenchyma is modestly degraded by motion artifact. No airspace consolidation or pleural effusion is identified. The trachea and central airways are clear. Diffuse peribronchial thickening is observed. Dependent scarring/atelectasis is seen in both lungs. Mediastinum: There is no mediastinal lymphadenopathy. [place]: Clear. Axillae: There is no axillary lymphadenopathy. Upper abdomen: Cholecystectomy clips are noted. The liver is steatotic and cirrhotic in morphology. Skeletal structures: The skeletal structures are osteopenic. No lytic or blastic bony lesions are seen. Extensive postsurgical changes seen throughout the imaged thoracolumbar spine with spinal rods in place. Note that the left interpedicular screw at T5 is located lateral to the pedicle and vertebral body. There is a chronic compression deformity of T12. Arthritic change is seen in the shoulders. There are chronic/healed left-sided rib fractures, as was chronic posttraumatic deformity of the left proximal humerus IMPRESSION: 1. There is no evidence of pulmonary embolus in the main, lobar, or segmental pulmonary arteries. 2. There is no airspace consolidation or pleural effusion. 3. Diffuse peribronchial thickening suggests bronchitis/reactive airway disease. Clinical correlation will be required. 4. The liver steatotic and cirrhotic in morphology. 5. Additional findings as above. ACT 112: Negative or not required by law. Electronically signed by: Vinay Guillaume M.D. 01/26/2023 4:58 PM KUB X-Ray 01/27/23 08:38 XR KUB/Abdomen 1 view CLINICAL HISTORY: f/u sbo TECHNIQUE: 1 view of the abdomen was obtained. Comparison: Comparison is made to chest radiograph 12/13/[address] abdomen pelvis 01/26/2023 FINDINGS: Cholecystomy clips are seen in the right upper quadrant. Posterior fixation hardware is seen in the spine. No significant small bowel gas is seen. A small amount of gas and stool is seen in the large bowel. IMPRESSION: No significant small bowel gas is seen. Exam is equivocal for small bowel obstruction. The colon is not entirely decompressed suggesting no high-grade obstruction has been present. ACT 112: Negative or not required by law. Electronically signed by: Mychal Mantilla M.D. 01/27/2023 11:09 AM PG Care Time/CCT Total # of Minutes Spent Total Time Spent with Patient: Total time spent is greater than 50% in coordination of care (as documented) at patient's floor/unit and/or counseling patient: Coding Level of Care Code 09103 SUB INP/OBS CARE 3/50MIN Diagnoses Small bowel obstruction K56.609 Diarrhea R19.7 COVID-19 U07.1 Diabetes mellitus, type 2 E11.65 Diabetes mellitus complication status: with hyperglycemia Diabetes mellitus intermediate insulin use: without intermediate use GERD with esophagitis K21.0 Hyperlipidemia E78.5 Hypothyroidism E03.9 (4) Diabetes mellitus, type 2 Diabetes mellitus complication status: with hyperglycemia Diabetes mellitus intermediate insulin use: without superintendent [employer] use Qualified Code(s): E11.65 - Type 2 diabetes mellitus with hyperglycemia
[2023-01-27] MEDS: ONDANSETRON INJ 2 MG/ML 2 ML VIAL IV PRN ×2 (08:39→14:17)
[2023-01-27] MEDS ORDERED: LORazepam 0.5 MG TAB PO PRN (09:05)
[2023-01-27 09:12] LABS: Magnesium 1.8 mg/dl (1.7-2.4)
[2023-01-27] MEDS: LANTUS PER UNIT CHARGE SQ SCH (09:18)
[2023-01-27] MEDS: PANTOprazole 40 MG in SYRINGE 0 ML IV SCH (10:00)
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
--- NOTE | 2023-01-27 11:10 | XRay Report ---
XR KUB/Abdomen 1 view CLINICAL HISTORY: f/u sbo TECHNIQUE: 1 view of the abdomen was obtained. Comparison: Comparison is made to chest radiograph 12/13/[address] abdomen pelvis 01/26/2023 FINDINGS: Cholecystomy clips are seen in the right upper quadrant. Posterior fixation hardware is seen in the s pine. No significant small bowel gas is seen. A small amount of gas and stool is seen in the large tessa wel. IMPRESSION: No significant small bowel gas is seen. Exam is equivocal for small bowel obstruction. The colon is n ot entirely decompressed suggesting no high-grade obstruction has been present. ACT 112: Negative or not required by law. Electronically signed by: Mychal Mantilla M.D. 01/27/2023 11:09 AM
[2023-01-27] MEDS: LORazepam 2 MG/1 ML VIAL IV SCH ×2 (11:50→21:17)
[2023-01-27] MEDS: ENOXAPARIN INJ 40 MG/0.4 ML SYR SQ SCH (13:52)
[2023-01-27] MEDS: ACETAMINOPHEN 1,000 MG/100 ML VIAL IV PRN (15:53)
[2023-01-27 16:24] LABS: Adenovirus F 40/41 PCR Not Detected (NotDetected); Astrovirus PCR Not Detected (NotDetected); Campylobacter PCR Not Detected (NotDetected); Cryptosporidium PCR Not Detected (NotDetected); Cyclospora cayetanensis PCR Not Detected (NotDetected); Entamoeba histolytica PCR Not Detected (NotDetected); Enteroaggregative E.coli(EAEC) Not Detected (NotDetected); Enteropathogenic E.coli (EPEC) Not Detected (NotDetected); Enterotoxigenic E.coli (ETEC) Not Detected (NotDetected); Giardia lamblia PCR Not Detected (NotDetected); Norovirus GI/GII PCR Not Detected (NotDetected); Plesiomonas shigelloides PCR Not Detected (NotDetected); Rotavirus A PCR Not Detected (NotDetected); Salmonella PCR Not Detected (NotDetected); Sapovirus PCR Not Detected (NotDetected); Shiga-like Toxin E.coli (STEC) Not Detected (NotDetected); Shigella/Enteroinvasive E.coli Not Detected (NotDetected); Vibrio cholerae PCR Not Detected (NotDetected); Vibrio species PCR Not Detected (NotDetected); Yersinia enterocolitica PCR Not Detected (NotDetected)
[2023-01-27] MEDS: INSULIN ASPART PER UNIT CHARGE SC SCH (17:02)
[2023-01-27] MEDS ORDERED: LANTUS PER UNIT CHARGE SQ SCH (21:00)
[2023-01-27] MEDS: LORazepam 2 MG/1 ML VIAL IV PRN (21:17)
[2023-01-27] MEDS ORDERED: MICONAZOLE NITRATE POWDER 85 GM EXT PRN (22:46)
[2023-01-28] MEDS: LACTATED RINGER'S 1,000 ML IV SCH (00:01)
[2023-01-28] MEDS: INSULIN ASPART PER UNIT CHARGE SC SCH ×5 (00:26→23:59)
[2023-01-28] MEDS: D5W AND LACTATED RINGERS 1,000 ML IV SCH ×3 (00:31→15:23)
[2023-01-28] MEDS: HYDROmorphone INJ 1 MG/ML SYRINGE IV PRN ×5 (02:27→19:31)
[2023-01-28] MEDS: LORazepam 2 MG/1 ML VIAL IV SCH ×3 (06:25→23:33)
[2023-01-28 07:59] LABS: Basophils # (auto) 0.03 K/uL (0-0.2); Basophils % (auto) 0.4 %; Eosinophils # (auto) 0.12 K/uL (0-0.50); Eosinophils % (auto) 1.6 %; Hematocrit (blood only) 47.3 % (37.0-47.0); Immature Granulocytes # (auto) 0.03 K/uL (0.01-0.20); Immature Granulocytes % (auto) 0.4 %; Lymphocytes # (auto) 1.96 K/uL (1.2-3.4); Lymphocytes % (auto) 25.6 %; Mean Corpuscular Hemoglobin 30.4 pg (25.0-34.0); Mean Corpuscular Hgb Conc 33.8 g/dL (32.0-36.0); Mean Corpuscular Volume 89.9 fL (80.0-100.0); Mean Platelet Volume 10.6 fL (9.4-12.4); Monocytes # (auto) 0.46 K/uL (0.11-0.59); Neutrophils # (auto) 5.06 K/uL (1.40-6.50); Platelet Count 196 K/uL (130-400); RDW Coefficient of Variation 13.8 % (11.5-14.5); RDW Standard Deviation 45.7 fL (36.4-46.3); Red Blood Count 5.26 M/uL (4.20-5.40); White Blood Count 7.66 K/ul (4.8-10.8)
--- NOTE | 2023-01-28 08:02 | Hospitalist Progress Note ---
Date of Service January 28, 2023 Assessment & Plan (1) Small bowel obstruction: Plan: In patient with hx SBO in 2016 requiring resection. COVID 19 positive from recent illness but not requiring supplemental O2 or other at present, no SOB reported and on room air Presented after nausea/vomiting/inability to tolerate PO intake at home CTAP w/ Distended loops of small bowel in the left abdomen may represent partial small bowel obstruction versus ileus. Of note, distal loops of large and small bowel are not completely decompressed. Repeat KUB essentially unchanged and notes no more small bowel gas, some distended loops of bowel measuring up to 35mm Did have small BM last evening, no further flatus Discussed w/ general surgery and continue NPO for now, did order her Cymbalta to prevent withdrawal until eval by them for consideration for clear liquids IVF changed to D5LR given hypoglycemia. Will hold long acting insulin and utilize SSI for now No NGT at present Supportive care with antiemetic/pain control -- added Phenergan for nausea given zofran ineffective Protonix IV daily while NPO WBC wnl, afebrile Mag to keep ~2, K~4 Stool PCR negative, cdiff negative Lovenox SQ for DVT prophylaxis ordered Monitor KUB/labs in AM, appreciate surgery assistance (2) Diarrhea: Plan: reported, stool studies negative General surgery as above for SBO/ileus, appreciate recs rec outpt f/u for c-scope once above resolved (3) COVID-19: Plan: Patient feels she is recovering well from this, her breathing has actually improved. She is not hypoxic and no additional treatment is indicated for this at this time CTA on admission for residual cough shows peribronchial thickening possibly consistent with reactive airway disease/bronchitis, but no consolidations or effusions and no evidence of PE on RA but will add incentive spirometer to prevent pulmonary toilet Maintaining isolation precautions (4) Diabetes mellitus, type 2: Plan: Last A1c 6.0 in Dec 2022 BSG AC/HS, SSI while inpatient hypoglycemic last evening, IVF switched to D5LR and use SSI for now and adjustment as needed Add back long acting once diet advanced (5) GERD with esophagitis: Plan: Placed on protonix IVP daily while NPO (6) Hyperlipidemia: Plan: Statin held while NPO (7) Hypothyroidism: Plan: Synthroid held while NPO. Patient has not been able to take this in several days, started at 70% IV dose conversion for AM dose 01/28 at 88mcg IV daily Resume PO when able (8) Anxiety: Plan: and depression resumed Cymbalta to prevent withdrawal -- takes 90mg daily scheduled Ativan IV Q8H while npo -- timing adjusted as got dose early this morning while sleeping Plan continued inpatient stay Admission and Anticipated Discharge Date Admission Date: January 26, 2023 Supervising Physician Co-Signing Physician Notes The patient was not seen by me. The chart was reviewed. Case discussed with ARIC Rodriguez. Agree with assessment and plan Subjective eval this morning, doing alright would like phenergan for nausea, no vomiting reported discussed givin dose cymbalta, reports takes 90mg at home but holding off diet until see by surgery given KUB/hypoactive BS and reporting no further flatus since movement yesterday. Discussed phenergan but if worsening nausea or reports of vomiting may require NGT. On PPI IVP daily for reflux. Asked RN to admin dose phenergan now. No fever/chills. Questions/concerns addressed at this time. Review of Systems Review of Systems: All systems reviewed & are unremarkable except as noted in HPI & below Physical Exam Physical Exam: General: Well developed, well nourished female resting in bed, NAD, anxious at times and reporting nausea HEENT: Atraumatic, normocephalic. Vision/hearing intact. Pulm: CTAB, no w/c/r. No increased work of breathing. No respiratory distress. On RA Cardiac: RRR/slightly bradycardic, faint systolic murmur, no r/g, no pitting edema, pulses palpable Abdominal: prior incision well healed, HYPOACTIVE BS, tenderness to palpation lower abdomen on deep palpation, soft, voluntary guarding, without rigidity peritoneal signs MSK/Neuro: no focal deficit Psych: AOx3, cooperative with care Results & Data Results & Data Vital Signs (Past 12 Hours) Vital Signs Temp Pulse Resp BP Pulse Ox O2 Del Method 01/27/23 20:38 36.6 C 55 L 18 152/89 H 98 Room Air Laboratory Results 01/28/23 01/28/23 01/28/23 Range/Units 12:15 07:06 07:06 WBC 7.66 (4.8-10.8) K/ul RBC 5.26 (4.20-5.40) M/uL Hgb 16.0 (12.0-16.0) g/dl Hct 47.3 H (37.0-47.0) % MCV 89.9 (80.0-100.0) fL MCH 30.4 (25.0-34.0) pg MCHC 33.8 (32.0-36.0) g/dL RDW Std Deviation 45.7 (36.4-46.3) fL RDW Coeff of Xavi 13.8 (11.5-14.5) % Plt Count 196 (130-400) K/uL MPV 10.6 (9.4-12.4) fL Immature Gran % (Auto) 0.4 % Neut % (Auto) 66.0 % Lymph % (Auto) 25.6 % Spink % (Auto) 6.0 % Eos % (Auto) 1.6 % Baso % (Auto) 0.4 % Neut # (Auto) 5.06 (1.40-6.50) K/uL Lymph # (Auto) 1.96 (1.2-3.4) K/uL Spink # (Auto) 0.46 (0.11-0.59) K/uL Eos # (Auto) 0.12 (0-0.50) K/uL Baso # (Auto) 0.03 (0-0.2) K/uL Immature Gran # (Auto) 0.03 (0.01-0.20) K/uL Sodium 140 (136-145) mmol/L Potassium 4.0 (3.5-5.1) mmol/L Chloride 108 H (98-107) mmol/L Carbon Dioxide 25 (21-32) mmol/L Anion Gap 7 (3-11) BUN 8 (6-23) mg/dl Creatinine 0.55 L (0.6-1.2) mg/dl Est Cr Clr Drug Dosing 122.5 ml/min Est GFR ( Amer) 119.8 ml/min Est GFR (Non-Af Amer) 103.4 ml/min BUN/Creatinine Ratio 14.5 (10-20) Glucose 114 H (70-99(Fasting)) mg/dl POC Glucose 123 H (70-99) mg/dl Calcium 8.6 (8.6-10.3) mg/dl Magnesium 1.8 (1.7-2.4) mg/dl Stl C. cayetanensis PCR (NotDetected) Stool Rotavirus A PCR (NotDetected) Stl Adenov F 40/41 PCR (NotDetected) Stool Astrovirus (PCR) (NotDetected) Stool Campylobacter PCR (NotDetected) Stl C. diff Tox B Gene (Neg) Stool Cryptosporidium PCR (NotDetected) Stl E.coli Shiga Tox PCR (NotDetected) Stl Enterotoxigenic E PCR (NotDetected) Stool EPEC (PCR) (NotDetected) Stool EAEC (PCR) (NotDetected) Stl E. histolytica PCR (NotDetected) Stool Giardia Lamblia PCR (NotDetected) Stool Salmonella PCR (NotDetected) Stool Sapovirus (PCR) (NotDetected) Stl P. shigelloides PCR (NotDetected) Stl Shigella/EIEC PCR (NotDetected) St Y.enterocolitica PCR (NotDetected) Stool Vibrio (PCR) (NotDetected) Stl Vibrio cholerae PCR (NotDetected) Stl Norovirus GI/GII PCR (NotDetected) 01/28/23 01/28/23 01/28/23 Range/Units 06:06 00:10 00:03 WBC (4.8-10.8) K/ul RBC (4.20-5.40) M/uL Hgb (12.0-16.0) g/dl Hct (37.0-47.0) % MCV (80.0-100.0) fL MCH (25.0-34.0) pg MCHC (32.0-36.0) g/dL RDW Std Deviation (36.4-46.3) fL RDW Coeff of Xavi (11.5-14.5) % Plt Count (130-400) K/uL MPV (9.4-12.4) fL Immature Gran % (Auto) % Neut % (Auto) % Lymph % (Auto) % Spink % (Auto) % Eos % (Auto) % Baso % (Auto) % Neut # (Auto) (1.40-6.50) K/uL Lymph # (Auto) (1.2-3.4) K/uL Spink # (Auto) (0.11-0.59) K/uL Eos # (Auto) (0-0.50) K/uL Baso # (Auto) (0-0.2) K/uL Immature Gran # (Auto) (0.01-0.20) K/uL Sodium (136-145) mmol/L Potassium (3.5-5.1) mmol/L Chloride (98-107) mmol/L Carbon Dioxide (21-32) mmol/L Anion Gap (3-11) BUN (6-23) mg/dl Creatinine (0.6-1.2) mg/dl Est Cr Clr Drug Dosing ml/min Est GFR ( Amer) ml/min Est GFR (Non-Af Amer) ml/min BUN/Creatinine Ratio (10-20) Glucose (70-99(Fasting)) mg/dl POC Glucose 104 H 77 69 L* (70-99) mg/dl Calcium (8.6-10.3) mg/dl Magnesium (1.7-2.4) mg/dl Stl C. cayetanensis PCR (NotDetected) Stool Rotavirus A PCR (NotDetected) Stl Adenov F 40/41 PCR (NotDetected) Stool Astrovirus (PCR) (NotDetected) Stool Campylobacter PCR (NotDetected) Stl C. diff Tox B Gene (Neg) Stool Cryptosporidium PCR (NotDetected) Stl E.coli Shiga Tox PCR (NotDetected) Stl Enterotoxigenic E PCR (NotDetected) Stool EPEC (PCR) (NotDetected) Stool EAEC (PCR) (NotDetected) Stl E. histolytica PCR (NotDetected) Stool Giardia Lamblia PCR (NotDetected) Stool Salmonella PCR (NotDetected) Stool Sapovirus (PCR) (NotDetected) Stl P. shigelloides PCR (NotDetected) Stl Shigella/EIEC PCR (NotDetected) St Y.enterocolitica PCR (NotDetected) Stool Vibrio (PCR) (NotDetected) Stl Vibrio cholerae PCR (NotDetected) Stl Norovirus GI/GII PCR (NotDetected) 03/22/23 03/22/23 03/22/23 Range/Units 20:35 16:59 13:50 WBC (4.8-10.8) K/ul RBC (4.20-5.40) M/uL Hgb (12.0-16.0) g/dl Hct (37.0-47.0) % MCV (80.0-100.0) fL MCH (25.0-34.0) pg MCHC (32.0-36.0) g/dL RDW Std Deviation (36.4-46.3) fL RDW Coeff of Xavi (11.5-14.5) % Plt Count (130-400) K/uL MPV (9.4-12.4) fL Immature Gran % (Auto) % Neut % (Auto) % Lymph % (Auto) % Spink % (Auto) % Eos % (Auto) % Baso % (Auto) % Neut # (Auto) (1.40-6.50) K/uL Lymph # (Auto) (1.2-3.4) K/uL Spink # (Auto) (0.11-0.59) K/uL Eos # (Auto) (0-0.50) K/uL Baso # (Auto) (0-0.2) K/uL Immature Gran # (Auto) (0.01-0.20) K/uL Sodium (136-145) mmol/L Potassium (3.5-5.1) mmol/L Chloride (98-107) mmol/L Carbon Dioxide (21-32) mmol/L Anion Gap (3-11) BUN (6-23) mg/dl Creatinine (0.6-1.2) mg/dl Est Cr Clr Drug Dosing ml/min Est GFR ( Amer) ml/min Est GFR (Non-Af Amer) ml/min BUN/Creatinine Ratio (10-20) Glucose (70-99(Fasting)) mg/dl POC Glucose 79 84 (70-99) mg/dl Calcium (8.6-10.3) mg/dl Magnesium (1.7-2.4) mg/dl Stl C. cayetanensis PCR Not Detected (NotDetected) Stool Rotavirus A PCR Not Detected (NotDetected) Stl Adenov F 40/41 PCR Not Detected (NotDetected) Stool Astrovirus (PCR) Not Detected (NotDetected) Stool Campylobacter PCR Not Detected (NotDetected) Stl C. diff Tox B Gene (Neg) Stool Cryptosporidium PCR Not Detected (NotDetected) Stl E.coli Shiga Tox PCR Not Detected (NotDetected) Stl Enterotoxigenic E PCR Not Detected (NotDetected) Stool EPEC (PCR) Not Detected (NotDetected) Stool EAEC (PCR) Not Detected (NotDetected) Stl E. histolytica PCR Not Detected (NotDetected) Stool Giardia Lamblia PCR Not Detected (NotDetected) Stool Salmonella PCR Not Detected (NotDetected) Stool Sapovirus (PCR) Not Detected (NotDetected) Stl P. shigelloides PCR Not Detected (NotDetected) Stl Shigella/EIEC PCR Not Detected (NotDetected) St Y.enterocolitica PCR Not Detected (NotDetected) Stool Vibrio (PCR) Not Detected (NotDetected) Stl Vibrio cholerae PCR Not Detected (NotDetected) Stl Norovirus GI/GII PCR Not Detected (NotDetected) 01/27/23 Range/Units 13:50 WBC (4.8-10.8) K/ul RBC (4.20-5.40) M/uL Hgb (12.0-16.0) g/dl Hct (37.0-47.0) % MCV (80.0-100.0) fL MCH (25.0-34.0) pg MCHC (32.0-36.0) g/dL RDW Std Deviation (36.4-46.3) fL RDW Coeff of Xavi (11.5-14.5) % Plt Count (130-400) K/uL MPV (9.4-12.4) fL Immature Gran % (Auto) % Neut % (Auto) % Lymph % (Auto) % Spink % (Auto) % Eos % (Auto) % Baso % (Auto) % Neut # (Auto) (1.40-6.50) K/uL Lymph # (Auto) (1.2-3.4) K/uL Spink # (Auto) (0.11-0.59) K/uL Eos # (Auto) (0-0.50) K/uL Baso # (Auto) (0-0.2) K/uL Immature Gran # (Auto) (0.01-0.20) K/uL Sodium (136-145) mmol/L Potassium (3.5-5.1) mmol/L Chloride (98-107) mmol/L Carbon Dioxide (21-32) mmol/L Anion Gap (3-11) BUN (6-23) mg/dl Creatinine (0.6-1.2) mg/dl Est Cr Clr Drug Dosing ml/min Est GFR ( Amer) ml/min Est GFR (Non-Af Amer) ml/min BUN/Creatinine Ratio (10-20) Glucose (70-99(Fasting)) mg/dl POC Glucose (70-99) mg/dl Calcium (8.6-10.3) mg/dl Magnesium (1.7-2.4) mg/dl Stl C. cayetanensis PCR (NotDetected) Stool Rotavirus A PCR (NotDetected) Stl Adenov F 40/41 PCR (NotDetected) Stool Astrovirus (PCR) (NotDetected) Stool Campylobacter PCR (NotDetected) Stl C. diff Tox B Gene Negative Cdiff Gene (Neg) Stool Cryptosporidium PCR (NotDetected) Stl E.coli Shiga Tox PCR (NotDetected) Stl Enterotoxigenic E PCR (NotDetected) Stool EPEC (PCR) (NotDetected) Stool EAEC (PCR) (NotDetected) Stl E. histolytica PCR (NotDetected) Stool Giardia Lamblia PCR (NotDetected) Stool Salmonella PCR (NotDetected) Stool Sapovirus (PCR) (NotDetected) Stl P. shigelloides PCR (NotDetected) Stl Shigella/EIEC PCR (NotDetected) St Y.enterocolitica PCR (NotDetected) Stool Vibrio (PCR) (NotDetected) Stl Vibrio cholerae PCR (NotDetected) Stl Norovirus GI/GII PCR (NotDetected) Diagnostic Findings KUB X-Ray 01/28/23 07:00 XR KUB/Abdomen 1 view CLINICAL HISTORY: f/u obstruction TECHNIQUE: 1 view of the abdomen was obtained. Comparison: Comparison is made to an radiograph 01/27/[address] abdomen pelvis 123 FINDINGS: Lung bases are unremarkable. Posterior fixation hardware and bony degenerative changes are seen. Compared to the prior exam, there is more small bowel gas. Some distended loops of bowel are seen measuring up to 35 mm. Small stool burden is seen. IMPRESSION: Mildly increased small bowel gas with distended loops compatible with partial small bowel obstruction versus ileus. A small amount of stool contents remains visible. ACT 112: Negative or not required by law. Electronically signed by: Mychal Mantilla M.D. 01/28/2023 9:41 AM PG Care Time/CCT Total # of Minutes Spent Total Time Spent with Patient: Total time spent is greater than 50% in coordination of care (as documented) at patient's floor/unit and/or counseling patient: Coding Level of Care Code 70776 SUB INP/OBS CARE 3/50MIN Diagnoses Small bowel obstruction K56.609 Diarrhea R19.7 COVID-19 U07.1 Diabetes mellitus, type 2 E11.65 Diabetes mellitus complication status: with hyperglycemia Diabetes mellitus long term care administrator insulin use: without long term care administrator use GERD with esophagitis K21.0 Hyperlipidemia E78.5 Hypothyroidism E03.9 Anxiety F41.9 (4) Diabetes mellitus, type 2 Diabetes mellitus complication status: with hyperglycemia Diabetes mellitus long term care administrator insulin use: without long term care administrator use Qualified Code(s): E11.65 - Type 2 diabetes mellitus with hyperglycemia
[2023-01-28 08:10] LABS: BUN Creatinine Ratio 14.5 (10-20); Calcium 8.6 mg/dl (8.6-10.3); Creatinine Clr Calc Pharmacy 122.5 ml/min; Est GFR (African American) 119.8 ml/min; Est GFR (Non-African American) 103.4 ml/min; Magnesium 1.8 mg/dl (1.7-2.4)
--- NOTE | 2023-01-28 09:42 | XRay Report ---
XR KUB/Abdomen 1 view CLINICAL HISTORY: f/u obstruction TECHNIQUE: 1 view of the abdomen was obtained. Comparison: Comparison is made to an radiograph 01/27/[address] abdomen pelvis 123 FINDINGS: Lung bases are unremarkable. Posterior fixation hardware and bony degenerative changes are seen. Comp ared to the prior exam, there is more small bowel gas. Some distended loops of bowel are seen measuri ng up to 35 mm. Small stool burden is seen. IMPRESSION: Mildly increased small bowel gas with distended loops compatible with partial small bowel obstruction versus ileus. A small amount of stool contents remains visible. ACT 112: Negative or not required by law. Electronically signed by: Mychal Mantilla M.D. 01/28/2023 9:41 AM
[2023-01-28] MEDS: ENOXAPARIN INJ 40 MG/0.4 ML SYR SQ SCH (11:00)
[2023-01-28] MEDS: LEVOTHYROXINE SODIUM 88 MCG in SYRINGE 0 ML IV SCH (11:02)
[2023-01-28] MEDS: PANTOprazole 40 MG in SYRINGE 0 ML IV SCH (11:03)
[2023-01-28] MEDS ORDERED: Nursing to Pharmacy Communication SCH (11:15)
[2023-01-28] MEDS ORDERED: DULoxetine HCL 60 MG CAP PO SCH (12:15)
[2023-01-28] MEDS: PROMETHAZINE HCL 6.25 MG in SODIUM CHLORIDE 0.9% 50 ML IV PRN (13:13)
[2023-01-28] MEDS: DULoxetine HCL 30 MG CAP PO SCH (13:42)
[2023-01-28] MEDS: MAGNESIUM SULFATE / D5W 1 GM/100 ML BAG IV SCH ×2 (13:42→15:45)
[2023-01-28] MEDS: ONDANSETRON INJ 2 MG/ML 2 ML VIAL IV PRN (15:02)
--- NOTE | 2023-01-28 16:29 | Surgery Progress Note ---
Date of Service January 28, 2023 Assessment & Plan (1) Small bowel obstruction: Plan 58-year-old woman with small bowel obstruction, still no flatus. She is very anxious, tearful. During her interview, she was getting out of bed to get her stuff together to leave. She stated "I cannot be here anymore I have things to do at home ". No exam was able to be completed due to her agitated state and determination to leave. We stated that we would speak with the medical doctors about her concerns. We would not recommend leaving the hospital at this time. Admission and Anticipated Discharge Date Admission Date: January 26, 2023 Subjective Went to see patient this afternoon. Upon entry into the room, the patient was quite tearful and anxious. She stated over and over that she "wanted to leave and go home because she has things to do at home ". She states that she has a cat that is not being taking care of. She states she had a small bowel movement yesterday. She had nausea and vomiting overnight. Results & Data Vital Signs (Past 12 Hours) Vital Signs Temp Pulse Resp BP Pulse Ox O2 Del Method 01/28/23 08:27 37.1 C 58 L 16 159/88 H 93 Room Air
[2023-01-28] MEDS: HYDROmorphone INJ 0.5 MG/0.5 ML SYR IV PRN (23:34)
[2023-01-28] MEDS: LORazepam 2 MG/1 ML VIAL IV PRN (23:34)
[2023-01-29] MEDS: HYDROmorphone INJ 1 MG/ML SYRINGE IV PRN ×2 (02:51→07:13)
[2023-01-29] MEDS: PROMETHAZINE HCL 6.25 MG in SODIUM CHLORIDE 0.9% 50 ML IV PRN (03:09)
[2023-01-29] MEDS: D5W AND LACTATED RINGERS 1,000 ML IV SCH ×3 (03:10→18:16)
[2023-01-29] MEDS: INSULIN ASPART PER UNIT CHARGE SC SCH ×4 (05:50→21:32)
[2023-01-29 06:17] LABS: Basophils # (auto) 0.04 K/uL (0-0.2); Basophils % (auto) 0.5 %; Eosinophils # (auto) 0.14 K/uL (0-0.50); Eosinophils % (auto) 1.8 %; Hematocrit (blood only) 43.6 % (37.0-47.0); Hemoglobin 14.8 g/dl (12.0-16.0); Immature Granulocytes # (auto) 0.02 K/uL (0.01-0.20); Immature Granulocytes % (auto) 0.3 %; Lymphocytes # (auto) 1.66 K/uL (1.2-3.4); Lymphocytes % (auto) 21.5 %; Mean Corpuscular Hgb Conc 33.9 g/dL (32.0-36.0); Mean Corpuscular Volume 88.4 fL (80.0-100.0); Mean Platelet Volume 10.5 fL (9.4-12.4); Monocytes # (auto) 0.63 K/uL (0.11-0.59); Monocytes % (auto) 8.2 %; Neutrophils # (auto) 5.24 K/uL (1.40-6.50); Neutrophils % (auto) 67.7 %; Platelet Count 194 K/uL (130-400); RDW Coefficient of Variation 13.6 % (11.5-14.5); RDW Standard Deviation 43.8 fL (36.4-46.3); Red Blood Count 4.93 M/uL (4.20-5.40); White Blood Count 7.73 K/ul (4.8-10.8)
[2023-01-29 06:33] LABS: BUN Creatinine Ratio 10.7 (10-20); Calcium 8.4 mg/dl (8.6-10.3); Creatinine Clr Calc Pharmacy 120.3 ml/min; Est GFR (African American) 119.1 ml/min; Est GFR (Non-African American) 102.8 ml/min; Magnesium 1.8 mg/dl (1.7-2.4); Potassium 3.6 mmol/L (3.5-5.1)
[2023-01-29] MEDS: DULoxetine HCL 30 MG CAP PO SCH (07:11)
[2023-01-29] MEDS: ENOXAPARIN INJ 40 MG/0.4 ML SYR SQ SCH (07:12)
[2023-01-29] MEDS ORDERED: hydrALAZINE HCL 20 MG/ML VIAL IV PRN (07:47)
[2023-01-29] MEDS ORDERED: MAGNESIUM SULFATE / D5W 1 GM/100 ML BAG IV ONE (07:49)
--- NOTE | 2023-01-29 07:54 | Hospitalist Progress Note ---
Date of Service January 29, 2023 Assessment & Plan (1) Small bowel obstruction: Plan: In patient with hx SBO in 2016 requiring resection. COVID 19 positive from recent illness but not requiring supplemental O2 or other at present, no SOB reported and on room air Presented after nausea/vomiting/inability to tolerate PO intake at home CTAP w/ Distended loops of small bowel in the left abdomen may represent partial small bowel obstruction versus ileus. Of note, distal loops of large and small bowel are not completely decompressed. Repeat KUB essentially unchanged 01/28 and notes no more small bowel gas, some distended loops of bowel measuring up to 35mm Did have small BM last evening (01/27), no further flatus and hypoactive BS. Did resume Cymbalta give mood/prevent withdrawal Patient became extremely anxious evening 01/28 and wanting to leave AMA to take care of cat-- strongly advised against. She had still been complaining of significant abdominal pain and increasing nausea. Had worked herself up to vomiting but calmed down after ativan and was able to contact someone to let her cat out and agreed to stay. She initially declined eval by General surgery but then stated she was agreeable. Declined placement for NGT at present Continue IVF, D5LR to prevent hypoglycemia PPI IVP daily Pain control/antiemetics prn WBC wnl, afebrile Stool PCR/cdiff testing negative Lovenox SQ for DVT prophylaxis Ambulation encouraged Repeat KUB for AM pending-- No significant change in the mildly dilated gas- filled loops of small bowel within the abdomen. This suggests a residual partial small bowel obstruction. Discussed w/ general surgery, ordered toradol for pain control, limiting opiates. Patient initially agreeable to plan but then adamant about discharge and advised not recommended until moving bowels/symptoms improved/resolved. Patient stated that she wants to rest/move around at home and is unable to stay inpatient any longer. Offered and provided increased ativan for anxiety which seemed to help but she remained adamant about leaving. Asked supervising provider to also speak with patient and advise against signing out AMA. Then, later after lunch, was agreeable to staying and will continue current plan as outlined --> discussed KUB w/ surgery and more air in colon and can trial clear liquid diet Monitor labs/KUB on repeat (2) Diarrhea: Plan: reported, stool studies negative General surgery as above for SBO/ileus, appreciate recs rec outpt f/u for c-scope once above resolved (3) COVID-19: Plan: Patient feels she is recovering well from this, her breathing has actually improved. She is not hypoxic and no additional treatment is indicated for this at this time CTA on admission for residual cough shows peribronchial thickening possibly consistent with reactive airway disease/bronchitis, but no consolidations or effusions and no evidence of PE on RA but will add incentive spirometer to prevent pulmonary toilet Maintaining isolation precautions (4) Diabetes mellitus, type 2: Plan: Last A1c 6.0 in Dec 2022 BSG AC/HS, SSI while inpatient hypoglycemic last evening, IVF switched to D5LR and use SSI for now and adjustment as needed Monitor now on diet, add back long acting if needed (5) GERD with esophagitis: Plan: Placed on protonix IVP daily while NPO (6) Hyperlipidemia: Plan: Statin held while NPO (7) Hypothyroidism: Plan: Synthroid held while NPO and as patient has not been able to take this in several days, started at 70% IV dose conversion for AM dose 01/28 at 88mcg IV daily and continued for today and will place back on usual PO for AM if tolerating oral intake (8) Anxiety: Plan: and depression resumed Cymbalta to prevent withdrawal -- takes 90mg daily scheduled Ativan IV Q8H while npo -- timing adjusted as got dose early this morning while sleeping INCREASED ATIVAN TO 1MG Q8H SCHEDULE, ATIVAN HS ADDITIONAL 0.5MG AVAILABLE DENIED SI/HI IDEATION BUT ALMOST MANIC ABOUT LEAVING WILL CONSULT PSYCH FOR AGORAPHOBIA APPEARS NOT LEFT HOUSE SINCE COVID STARTED Plan continued inpatient stay, REC PATIENT STAY -- HAD BEEN THREATENING TO LEAVE AMA Admission and Anticipated Discharge Date Admission Date: January 26, 2023 Supervising Physician Co-Signing Physician Notes The patient was not seen by me. The chart was reviewed. Case discussed with ARIC Rodriguez. Agree with assessment and plan Subjective eval around 11, reports feels a little better than day before denies flatus but some abdominal sounds. n/v last evening but none today discussed w/ surgery and will order clear liquid diet, encouraged ambulation. she is inquiring about going home -- discussed wanting to have her move bowels prior. Also inquired about NSAIDS - denied bleeding hx, states avoids for hx "elevated liver enzymes". Discussed normal LFTs and should be able to tolerate. Will order. Encouraged to limit opiates as well as much as possible. Physical Exam Physical Exam: General: Well developed, well nourished female resting in bed, NAD, anxious at times and reporting nausea HEENT: Atraumatic, normocephalic. Vision/hearing intact. Pulm: CTAB, no w/c/r. No increased work of breathing. No respiratory distress. On RA Cardiac: RRR/slightly bradycardic, faint systolic murmur, no r/g, no pitting edema, pulses palpable Abdominal: prior incision well healed, slight improvement in bowel sounds, still hypoactive, tenderness to palpation RUQ/RLQ, soft, voluntary guarding, without rigidity peritoneal signs MSK/Neuro: no focal deficit Psych: AOx3, anxious and tearful about staying inpatient Results & Data Results & Data Vital Signs (Past 12 Hours) Vital Signs Temp Pulse Resp BP Pulse Ox O2 Del Method 01/29/23 07:08 36.9 C 69 20 162/98 H 94 Room Air 01/28/23 20:45 Room Air 01/28/23 20:51 37.0 C 73 18 127/81 95 Room Air Laboratory Results 01/29/23 01/29/23 01/29/23 Range/Units 05:38 05:33 05:33 WBC 7.73 (4.8-10.8) K/ul RBC 4.93 (4.20-5.40) M/uL Hgb 14.8 (12.0-16.0) g/dl Hct 43.6 (37.0-47.0) % MCV 88.4 (80.0-100.0) fL MCH 30.0 (25.0-34.0) pg MCHC 33.9 (32.0-36.0) g/dL RDW Std Deviation 43.8 (36.4-46.3) fL RDW Coeff of Xavi 13.6 (11.5-14.5) % Plt Count 194 (130-400) K/uL MPV 10.5 (9.4-12.4) fL Immature Gran % (Auto) 0.3 % Neut % (Auto) 67.7 % Lymph % (Auto) 21.5 % [place] % (Auto) 8.2 % Eos % (Auto) 1.8 % Baso % (Auto) 0.5 % Neut # (Auto) 5.24 (1.40-6.50) K/uL Lymph # (Auto) 1.66 (1.2-3.4) K/uL [place] # (Auto) 0.63 H (0.11-0.59) K/uL Eos # (Auto) 0.14 (0-0.50) K/uL Baso # (Auto) 0.04 (0-0.2) K/uL Immature Gran # (Auto) 0.02 (0.01-0.20) K/uL Sodium 139 (136-145) mmol/L Potassium 3.6 (3.5-5.1) mmol/L Chloride 105 (98-107) mmol/L Carbon Dioxide 27 (21-32) mmol/L Anion Gap 7 (3-11) BUN 6 (6-23) mg/dl Creatinine 0.56 L (0.6-1.2) mg/dl Est Cr Clr Drug Dosing 120.3 ml/min Est GFR ( Amer) 119.1 ml/min Est GFR (Non-Af Amer) 102.8 ml/min BUN/Creatinine Ratio 10.7 (10-20) Glucose 126 H (70-99(Fasting)) mg/dl POC Glucose 117 H (70-99) mg/dl Calcium 8.4 L (8.6-10.3) mg/dl Magnesium 1.8 (1.7-2.4) mg/dl Total Bilirubin 0.7 (0.2-1.0) mg/dl Direct Bilirubin 0.1 (0-0.2) mg/dl AST 18 (13-39) U/L ALT 16 (7-52) U/L Alkaline Phosphatase 73 (34-104) U/L Total Protein 6.4 (6.0-8.3) gm/dl Albumin 3.8 (3.4-5.0) gm/dl 01/28/23 01/28/23 01/28/23 Range/Units 23:39 20:50 17:23 WBC (4.8-10.8) K/ul RBC (4.20-5.40) M/uL Hgb (12.0-16.0) g/dl Hct (37.0-47.0) % MCV (80.0-100.0) fL MCH (25.0-34.0) pg MCHC (32.0-36.0) g/dL RDW Std Deviation (36.4-46.3) fL RDW Coeff of Xavi (11.5-14.5) % Plt Count (130-400) K/uL MPV (9.4-12.4) fL Immature Gran % (Auto) % Neut % (Auto) % Lymph % (Auto) % [place] % (Auto) % Eos % (Auto) % Baso % (Auto) % Neut # (Auto) (1.40-6.50) K/uL Lymph # (Auto) (1.2-3.4) K/uL [place] # (Auto) (0.11-0.59) K/uL Eos # (Auto) (0-0.50) K/uL Baso # (Auto) (0-0.2) K/uL Immature Gran # (Auto) (0.01-0.20) K/uL Sodium (136-145) mmol/L Potassium (3.5-5.1) mmol/L Chloride (98-107) mmol/L Carbon Dioxide (21-32) mmol/L Anion Gap (3-11) BUN (6-23) mg/dl Creatinine (0.6-1.2) mg/dl Est Cr Clr Drug Dosing ml/min Est GFR ( Amer) ml/min Est GFR (Non-Af Amer) ml/min BUN/Creatinine Ratio (10-20) Glucose (70-99(Fasting)) mg/dl POC Glucose 100 H 140 H 115 H (70-99) mg/dl Calcium (8.6-10.3) mg/dl Magnesium (1.7-2.4) mg/dl Total Bilirubin (0.2-1.0) mg/dl Direct Bilirubin (0-0.2) mg/dl AST (13-39) U/L ALT (7-52) U/L Alkaline Phosphatase (34-104) U/L Total Protein (6.0-8.3) gm/dl Albumin (3.4-5.0) gm/dl Diagnostic Findings KUB X-Ray 01/29/23 07:00 KUB HISTORY: Follow up ileus versus small bowel obstruction. COMPARISON: KUB 01/28/2023. FINDINGS: There are few mildly dilated gas-filled loops of small bowel again noted within the abdomen. There is gas and stool seen within the nondistended colon/rectum. This is similar to the prior studies. Prior cholecystectomy. Extensive posterior fusion hardware within the thoracolumbar spine. The lung bases are clear. No renal calculi. No ureteral calculi. No pneumoperitoneum or pneumatosis. IMPRESSION: No significant change in the mildly dilated gas-filled loops of small bowel within the abdomen. This suggests a residual partial small bowel obstruction. ACT 112: Negative or not required by law. Electronically signed by: Vel Fulton M.D. 01/29/2023 10:59 AM PG Care Time/CCT Total # of Minutes Spent Total Time Spent with Patient: Total time spent is greater than 50% in coordination of care (as documented) at patient's floor/unit and/or counseling patient: Coding Level of Care Code 17733 SUB INP/OBS CARE MIN Diagnoses Small bowel obstruction K56.609 Diarrhea R19.7 COVID-19 U07.1 Diabetes mellitus, type 2 E11.65 Diabetes mellitus complication status: with hyperglycemia Diabetes mellitus usp insulin use: without usp use GERD with esophagitis K21.0 Hyperlipidemia E78.5 Hypothyroidism E03.9 Anxiety F41.9 (4) Diabetes mellitus, type 2 Diabetes mellitus complication status: with hyperglycemia 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
[2023-01-29] MEDS: LORazepam 2 MG/1 ML VIAL IV SCH ×3 (08:28→20:34)
[2023-01-29] MEDS: PANTOprazole 40 MG in SYRINGE 0 ML IV SCH (08:29)
--- NOTE | 2023-01-29 10:16 | Surgery Progress Note ---
Date of Service January 29, 2023 Assessment & Plan (1) Small bowel obstruction: Plan 58-year-old woman with small bowel obstruction vs ileus, recent covid infection with n,v and diarrhea prior to admission no flatus today avss, no leukocytosis KUB initially equivocal for SBO , KUB today similar to yesterday with mild small bowel dilatation . Air and stool within colon and rectum Plan: Would continue conservative management, pain management as needed, limit narcotics, antiemetics as needed Highly encourage patient to ambulate to increase GI motility Okay for clears Could consider SBFT for diagnostic and possible therapeutic purposes however there is air in colon on KUB today. [facility] Surgery covering weekend Dr. Roy seen patient and agrees with above. Admission and Anticipated Discharge Date Admission Date: January 26, 2023 Supervising Physician Co-Signing Physician Notes I have seen and examined the patient personally, and agree with above assessment and plan. We will advance to clear liquid diet. We will continue conservative management. If she fails to improve, consider small bowel follow-through. Subjective states she is feeling a little better today than yesterday. No n,v not passing any gas though still asking about going home Nurse states she has been complaining of RUQ pain going to her back. Also tolerating some coffee without nausea Physical Exam Constitutional: WD/WN, vitals as above + obese and comfortable; no acute distress, not ill appearing and not in distress Respiratory: normal respiratory effort; no respiratory distress Gastrointestinal (Abdomen): Inspection/Auscultation: abdomen normal to inspection; abdomen not distended Percussion/Palpation: + abdomen tender (RUQ) and abdomen soft; no guarding and abdomen not rigid Skin: no rashes, warm and dry Psychiatric: Orientation: alert and oriented x 3 Affect: + anxious affect Results & Data Vital Signs (Past 12 Hours) Vital Signs Temp Pulse Resp BP Pulse Ox O2 Del Method 01/29/23 07:08 36.9 C 69 20 162/98 H 94 Room Air Laboratory Results 01/29/23 01/29/23 01/29/23 Range/Units 05:38 05:33 05:33 WBC 7.73 (4.8-10.8) K/ul RBC 4.93 (4.20-5.40) M/uL Hgb 14.8 (12.0-16.0) g/dl Hct 43.6 (37.0-47.0) % MCV 88.4 (80.0-100.0) fL MCH 30.0 (25.0-34.0) pg MCHC 33.9 (32.0-36.0) g/dL RDW Std Deviation 43.8 (36.4-46.3) fL RDW Coeff of Xavi 13.6 (11.5-14.5) % Plt Count 194 (130-400) K/uL MPV 10.5 (9.4-12.4) fL Immature Gran % (Auto) 0.3 % Neut % (Auto) 67.7 % Lymph % (Auto) 21.5 % [place] % (Auto) 8.2 % Eos % (Auto) 1.8 % Baso % (Auto) 0.5 % Neut # (Auto) 5.24 (1.40-6.50) K/uL Lymph # (Auto) 1.66 (1.2-3.4) K/uL [place] # (Auto) 0.63 H (0.11-0.59) K/uL Eos # (Auto) 0.14 (0-0.50) K/uL Baso # (Auto) 0.04 (0-0.2) K/uL Immature Gran # (Auto) 0.02 (0.01-0.20) K/uL Sodium 139 (136-145) mmol/L Potassium 3.6 (3.5-5.1) mmol/L Chloride 105 (98-107) mmol/L Carbon Dioxide 27 (21-32) mmol/L Anion Gap 7 (3-11) BUN 6 (6-23) mg/dl Creatinine 0.56 L (0.6-1.2) mg/dl Est Cr Clr Drug Dosing 120.3 ml/min Est GFR ( Amer) 119.1 ml/min Est GFR (Non-Af Amer) 102.8 ml/min BUN/Creatinine Ratio 10.7 (10-20) Glucose 126 H (70-99(Fasting)) mg/dl POC Glucose 117 H (70-99) mg/dl Calcium 8.4 L (8.6-10.3) mg/dl Magnesium 1.8 (1.7-2.4) mg/dl 01/28/23 01/28/23 01/28/23 Range/Units 23:39 20:50 17:23 WBC (4.8-10.8) K/ul RBC (4.20-5.40) M/uL Hgb (12.0-16.0) g/dl Hct (37.0-47.0) % MCV (80.0-100.0) fL MCH (25.0-34.0) pg MCHC (32.0-36.0) g/dL RDW Std Deviation (36.4-46.3) fL RDW Coeff of Xavi (11.5-14.5) % Plt Count (130-400) K/uL MPV (9.4-12.4) fL Immature Gran % (Auto) % Neut % (Auto) % Lymph % (Auto) % [place] % (Auto) % Eos % (Auto) % Baso % (Auto) % Neut # (Auto) (1.40-6.50) K/uL Lymph # (Auto) (1.2-3.4) K/uL [place] # (Auto) (0.11-0.59) K/uL Eos # (Auto) (0-0.50) K/uL Baso # (Auto) (0-0.2) K/uL Immature Gran # (Auto) (0.01-0.20) K/uL Sodium (136-145) mmol/L Potassium (3.5-5.1) mmol/L Chloride (98-107) mmol/L Carbon Dioxide (21-32) mmol/L Anion Gap (3-11) BUN (6-23) mg/dl Creatinine (0.6-1.2) mg/dl Est Cr Clr Drug Dosing ml/min Est GFR ( Amer) ml/min Est GFR (Non-Af Amer) ml/min BUN/Creatinine Ratio (10-20) Glucose (70-99(Fasting)) mg/dl POC Glucose 100 H 140 H 115 H (70-99) mg/dl Calcium (8.6-10.3) mg/dl Magnesium (1.7-2.4) mg/dl 01/28/23 Range/Units 12:15 WBC (4.8-10.8) K/ul RBC (4.20-5.40) M/uL Hgb (12.0-16.0) g/dl Hct (37.0-47.0) % MCV (80.0-100.0) fL MCH (25.0-34.0) pg MCHC (32.0-36.0) g/dL RDW Std Deviation (36.4-46.3) fL RDW Coeff of Xavi (11.5-14.5) % Plt Count (130-400) K/uL MPV (9.4-12.4) fL Immature Gran % (Auto) % Neut % (Auto) % Lymph % (Auto) % [place] % (Auto) % Eos % (Auto) % Baso % (Auto) % Neut # (Auto) (1.40-6.50) K/uL Lymph # (Auto) (1.2-3.4) K/uL [place] # (Auto) (0.11-0.59) K/uL Eos # (Auto) (0-0.50) K/uL Baso # (Auto) (0-0.2) K/uL Immature Gran # (Auto) (0.01-0.20) K/uL Sodium (136-145) mmol/L Potassium (3.5-5.1) mmol/L Chloride (98-107) mmol/L Carbon Dioxide (21-32) mmol/L Anion Gap (3-11) BUN (6-23) mg/dl Creatinine (0.6-1.2) mg/dl Est Cr Clr Drug Dosing ml/min Est GFR ( Amer) ml/min Est GFR (Non-Af Amer) ml/min BUN/Creatinine Ratio (10-20) Glucose (70-99(Fasting)) mg/dl POC Glucose 123 H (70-99) mg/dl Calcium (8.6-10.3) mg/dl Magnesium (1.7-2.4) mg/dl Diagnostic Findings KUB HISTORY: Follow up ileus versus small bowel obstruction. COMPARISON: KUB 01/28/2023. FINDINGS: There are few mildly dilated gas-filled loops of small bowel again noted within the abdomen. There is gas and stool seen within the nondistended colon/rectum. This is similar to the prior studies. Prior cholecystectomy. Extensive posterior fusion hardware within the thoracolumbar spine. The lung bases are clear. No renal calculi. No ureteral calculi. No pneumoperitoneum or pneumatosis. IMPRESSION: No significant change in the mildly dilated gas-filled loops of small bowel within the abdomen. This suggests a residual partial small bowel obstruction.
[2023-01-29] MEDS ORDERED: KETOROLAC TROMETHAMINE 15 MG/ML VIAL IV ONE ×2 (10:31→11:23)
[2023-01-29 10:45] LABS: Albumin Level 3.8 gm/dl (3.4-5.0); Bilirubin Direct 0.1 mg/dl (0-0.2); Bilirubin,Total 0.7 mg/dl (0.2-1.0)
[2023-01-29 10:51] LABS: Total Protein 6.4 gm/dl (6.0-8.3)
--- NOTE | 2023-01-29 11:00 | XRay Report ---
KUB HISTORY: Follow up ileus versus small bowel obstruction. COMPARISON: KUB 01/28/2023. FINDINGS: There are few mildly dilated gas-filled loops of small bowel again noted within the abdomen . There is gas and stool seen within the nondistended colon/rectum. This is similar to the prior stud ies. Prior cholecystectomy. Extensive posterior fusion hardware within the thoracolumbar spine. The l juice bases are clear. No renal calculi. No ureteral calculi. No pneumoperitoneum or pneumatosis. IMPRESSION: No significant change in the mildly dilated gas-filled loops of small bowel within the abdomen. This suggests a residual partial small bowel obstruction. ACT 112: Negative or not required by law. Electronically signed by: Vel Fulton M.D. 01/29/2023 10:59 AM
--- NOTE | 2023-01-29 11:30 | Discharge Summary ---
Date of Service January 29, 2023 Admission HPI Per Admitting Provider Alfreda is a 58-year-old female with a past medical history of fevers, nonbloody diarrhea with vomiting, nausea, and worsening cough after diagnosis with COVID 1 week ago. She presents clinically severely volume depleted, with nausea/vomiting, some liquid diarrhea, and CTA/P consistent with small bowel obstruction versus ileus with transition point and incompletely decompressed large bowel. Imaging was reviewed by ER with Dr. Roy prior to admission, ?SBO/ileus vs enteritis, NGT was not recommended, may be admitted for conservative management with surgical consultation. Still a little short of breath post covid but thinks this was getting better. Ws doing OK until 7 days ago when started to get stomach discomfor,t vomiting, and diarrhea +diarrhea 'so bad just running water a few times per day, at lest 6-7' and pain in her sides last episode was this AM. +fever and diffuse abdominal discomfort. vomiting several times per day. No blood. Last emesis this morning. No appetite. Hx of partial colectomy many years for a SBO ~2015 in [place]. Prior surgery of hysterectomy and appendectomy. Has not been able to keep anything or medicines down i na few days No chest pain, chest pressure. Minimal shortness of breath, improving dry cough. +lightheadedness, no syncope. She has chronic back pain at baseline, pending decompression and removal of prior hardware in [place] next month. Back pain has not changed. Medical History: Reviewed Medications: Reviewed Surgical History: Reviewed Family history: Reviewed Allergies: Reviewed Social History: No tobacco, no etoh use. no medical marijuana. Code Status: Full Code Admission Exam Per Admitting Provider General: A&Ox3. NAD. Cooperative. HEENT: Atraumatic, normocephalic. Vision/hearing intact. Pulm: CTAB A&P. -wheezes, -rales, -rhonchi. Symmetrical chest rise. No increased work of breathing. No respiratory distress. Cardiac: RRR, -mrg. Radial pulses intact and symmetrical. Abdominal: Right lower quadrant tenderness, nonrigid, no rebound. Bowel sounds increased Extremities: Warm, dry, intact. Moving equally. Cap refill intact Principal Diagnosis SBO Discharge Exam General: Well developed, well nourished female resting in bed, NAD, anxious at times and reporting nausea HEENT: Atraumatic, normocephalic. Vision/hearing intact. Pulm: CTAB, no w/c/r. No increased work of breathing. No respiratory distress. On RA Cardiac: RRR/slightly bradycardic, faint systolic murmur, no r/g, no pitting edema, pulses palpable Abdominal: prior incision well healed, HYPOACTIVE BS, tenderness to palpation RUQ/RLQ, soft, voluntary guarding, without rigidity peritoneal signs MSK/Neuro: no focal deficit Psych: AOx3, cooperative with care Discharge Data Allergies Allergy/AdvReac Type Severity Reaction Status Date / Time doxycycline [From Vibramycin] Allergy Severe TONGUE Verified 01/26/23 16:57 SWELLS, SOB, RASH Sulfa (Sulfonamide Allergy Severe HIVES/LIPS Verified 01/26/23 16:57 Antibiotics) SWELLING tetracycline Allergy Severe TONGUE Verified 01/26/23 16:57 SWELLS, SOB, RASH metformin AdvReac Intermediate Diarrhea Verified 01/26/23 16:57 Consultations 01/26/23 18:42 ED Decision to Admit Stat 01/26/23 21:29 Consult General Surgery Routine Ordered Studies Abdomen/Pelvis CT 01/26/23 15:48 CT abd pelvis IV con only CLINICAL HISTORY: covid+ wk. new fevers cough SOB diarrhea RUQ pain TECHNIQUE: Helical axial images of the abdomen and pelvis were obtained and displayed. Automated dose lowering techniques and/or adjustment according to patient size were utilized for this exam. This exam was performed with intravenous contrast. CT DOSE: 1889.39 mGy.cm COMPARISON: Comparison is made to CT abdomen pelvis 02/04/2022 FINDINGS: Lower chest: Peripheral scarring is seen in the lungs. Liver: Focal fatty change is seen about the falciform ligament. Gallbladder and biliary tree: Patient is status post cholecystectomy. No intra- or extrahepatic biliary ductal dilation. Pancreas: Unremarkable, no focal lesions. Spleen: Unremarkable. Adrenals: Unremarkable. Kidneys and ureters: Unremarkable. Bladder: Unremarkable. Reproductive organs: Patient is status post hysterectomy. Bowel: Numerous diverticula are seen. Multiple distended loops of small bowel are in the left abdomen measuring up to 34 mm in diameter with a transition point in the left mid abdomen. Some distal loops of small bowel also contain fluid and there is mild fecal content the large bowel. Lymph nodes Retroperitoneal: Unremarkable. Pelvic: Unremarkable. Mesenteric: Unremarkable. Peritoneum: Normal. Vessels: Unremarkable. Abdominal wall: Unremarkable. Bones: Degenerative changes in the visualized spine. Posterior fixation hardware is seen. There is a compression deformity of T12 which is unchanged from prior exam. IMPRESSION: 1. Distended loops of small bowel in the left abdomen may represent partial small bowel obstruction versus ileus. Of note, distal loops of large and small bowel are not completely decompressed. 2. Diverticulosis without diverticulitis. 3. Postsurgical changes and chronic deformities of the spine. ACT 112: Negative or not required by law. Electronically signed by: Mychal Mantilla M.D. 01/26/2023 5:10 PM Chest CTA 01/26/23 15:48 CT ANGIOGRAM OF THE CHEST CLINICAL HISTORY: Covid. Cough and fever. Dyspnea. Right upper quadrant abdominal pain. COMPARISON STUDY: Chest CT dated 06/12/2022. TECHNIQUE: Following the IV administration of 114 cc of Optiray 320, CT angiogram of the chest was performed from the upper abdomen to the thoracic inlet utilizing the pulmonary embolus protocol. Images are reviewed in the axial, sagittal, and coronal planes. 3-D MIPS images are created and assessed. IV contrast was administered without complication. A dose lowering technique was utilized adhering to the principles of ALARA. The examination is degraded by streak artifact from metallic spinal rods. FINDINGS: Thyroid: Atrophic. Thoracic aorta: There is atherosclerotic calcification of the thoracic aorta, which is normal in caliber and demonstrates standard 3-vessel arch anatomy. No dissection is seen. Pulmonary vasculature: The pulmonary trunk is normal in caliber. There are no filling defects identified in main, lobar, or segmental pulmonary branches to suggest pulmonary embolus. Heart: The heart is normal in size and without pericardial effusion. There are scattered coronary artery calcifications. Lungs and pleural spaces: Evaluation of the lung parenchyma is modestly degraded by motion artifact. No airspace consolidation or pleural effusion is identified. The trachea and central airways are clear. Diffuse peribronchial thickening is observed. Dependent scarring/atelectasis is seen in both lungs. Mediastinum: There is no mediastinal lymphadenopathy. Mayte: Clear. Axillae: There is no axillary lymphadenopathy. Upper abdomen: Cholecystectomy clips are noted. The liver is steatotic and cirrhotic in morphology. Skeletal structures: The skeletal structures are osteopenic. No lytic or blastic bony lesions are seen. Extensive postsurgical changes seen throughout the imaged thoracolumbar spine with spinal rods in place. Note that the left interpedicular screw at T5 is located lateral to the pedicle and vertebral body. There is a chronic compression deformity of T12. Arthritic change is seen in the shoulders. There are chronic/healed left-sided rib fractures, as was chronic posttraumatic deformity of the left proximal humerus IMPRESSION: 1. There is no evidence of pulmonary embolus in the main, lobar, or segmental pulmonary arteries. 2. There is no airspace consolidation or pleural effusion. 3. Diffuse peribronchial thickening suggests bronchitis/reactive airway disease. Clinical correlation will be required. 4. The liver steatotic and cirrhotic in morphology. 5. Additional findings as above. ACT 112: Negative or not required by law. Electronically signed by: Vinay Guillaume M.D. 01/26/2023 4:58 PM KUB X-Ray 01/27/23 08:38 XR KUB/Abdomen 1 view CLINICAL HISTORY: f/u sbo TECHNIQUE: 1 view of the abdomen was obtained. Comparison: Comparison is made to chest radiograph 12/13/[address] abdomen pelvis 01/26/2023 FINDINGS: Cholecystomy clips are seen in the right upper quadrant. Posterior fixation hardware is seen in the spine. No significant small bowel gas is seen. A small amount of gas and stool is seen in the large bowel. IMPRESSION: No significant small bowel gas is seen. Exam is equivocal for small bowel obstruction. The colon is not entirely decompressed suggesting no high-grade obstruction has been present. ACT 112: Negative or not required by law. Electronically signed by: Mychal Mantilla M.D. 01/27/2023 11:09 AM KUB X-Ray 01/28/23 07:00 XR KUB/Abdomen 1 view CLINICAL HISTORY: f/u obstruction TECHNIQUE: 1 view of the abdomen was obtained. Comparison: Comparison is made to an radiograph 01/27/[address] abdomen pelvis 123 FINDINGS: Lung bases are unremarkable. Posterior fixation hardware and bony degenerative changes are seen. Compared to the prior exam, there is more small bowel gas. Some distended loops of bowel are seen measuring up to 35 mm. Small stool burden is seen. IMPRESSION: Mildly increased small bowel gas with distended loops compatible with partial small bowel obstruction versus ileus. A small amount of stool contents remains visible. ACT 112: Negative or not required by law. Electronically signed by: Mychal Mantilla M.D. 01/28/2023 9:41 AM KUB X-Ray 01/29/23 07:00 KUB HISTORY: Follow up ileus versus small bowel obstruction. COMPARISON: KUB 01/28/2023. FINDINGS: There are few mildly dilated gas-filled loops of small bowel again noted within the abdomen. There is gas and stool seen within the nondistended colon/rectum. This is similar to the prior studies. Prior cholecystectomy. Extensive posterior fusion hardware within the thoracolumbar spine. The lung bases are clear. No renal calculi. No ureteral calculi. No pneumoperitoneum or pneumatosis. IMPRESSION: No significant change in the mildly dilated gas-filled loops of small bowel within the abdomen. This suggests a residual partial small bowel obstruction. ACT 112: Negative or not required by law. Electronically signed by: Vel Fultno M.D. 01/29/2023 10:59 AM Hospital Course (1) Small bowel obstruction: In patient with hx SBO in 2016 requiring resection. COVID 19 positive from recent illness but not requiring supplemental O2 or other at present, no SOB reported and on room air Presented after nausea/vomiting/inability to tolerate PO intake at home CTAP w/ Distended loops of small bowel in the left abdomen may represent partial small bowel obstruction versus ileus. Of note, distal loops of large and small bowel are not completely decompressed. Repeat KUB essentially unchanged 01/28 and notes no more small bowel gas, some distended loops of bowel measuring up to 35mm Did have small BM last evening (01/27), no further flatus and hypoactive BS. Did resume Cymbalta give mood/prevent withdrawal Patient became extremely anxious evening 01/28 and wanting to leave AMA to take care of cat-- strongly advised against. She had still been complaining of significant abdominal pain and increasing nausea. Had worked herself up to vomiting but calmed down after ativan and was able to contact someone to let her cat out and agreed to stay. She initially declined eval by General surgery but then stated she was agreeable. Declined placement for NGT at present Continue IVF, D5LR to prevent hypoglycemia PPI IVP daily Pain control/antiemetics prn WBC wnl, afebrile Stool PCR/cdiff testing negative Lovenox SQ for DVT prophylaxis Ambulation encouraged Repeat KUB for AM pending -- report similar but more air in colon 01/29 Discussed w/ general surgery, ordered toradol for pain control, limiting opiates. Patient iniaitlly agreeable to plan but then adamant about discharge and advised not recommended until moving bowels/symptoms improved/resolved. Patient stated that she wants to rest/move around at home and is unable to stay inpatient any longer. Offered and provided increased ativan for anxiety which seemed to help but she remained adamant about leaving. Asked supervising provider to also speak with patient and advise against signing out AMA. (2) Diarrhea: reported, stool studies negative General surgery as above for SBO/ileus, appreciate recs rec outpt f/u for c-scope once above resolved (3) COVID-19: Patient feels she is recovering well from this, her breathing has actually improved. She is not hypoxic and no additional treatment is indicated for this at this time CTA on admission for residual cough shows peribronchial thickening possibly consistent with reactive airway disease/bronchitis, but no consolidations or effusions and no evidence of PE on RA but will add incentive spirometer to prevent pulmonary toilet Maintaining isolation precautions (4) Diabetes mellitus, type 2: Last A1c 6.0 in Dec 2022 BSG AC/HS, SSI while inpatient hypoglycemic last evening, IVF switched to D5LR and use SSI for now and adjustment as needed Add back long acting once diet advanced (5) GERD with esophagitis: Placed on protonix IVP daily while NPO (6) Hyperlipidemia: Statin held while NPO (7) Hypothyroidism: Synthroid held while NPO. Patient has not been able to take this in several days, started at 70% IV dose conversion for AM dose 01/28 at 88mcg IV daily Resume PO when able (8) Anxiety: and depression resumed Cymbalta to prevent withdrawal -- takes 90mg daily scheduled Ativan IV Q8H while npo -- timing adjusted as got dose early this morning while sleeping Plan continued inpatient stay Discharge Plan Discharge Items Reason For Visit: SBO Condition on Discharge: Fair Follow-up/Referrals: Huang Renee CRNP [Primary Care Provider] - Medications and DC Order Prescriptions: No Action pregabalin [Lyrica] 200 mg capsule 200 mg PO BID Qty: 60 0RF Rx Instructions: will get from Dr. Ashley (DME) pen needle, diabetic [BD Autumn 2nd Gen Pen Needle] 32 gauge x 5/32" needle See Rx Instructions .Route Qty: 100 1RF Rx Instructions: As directed Trulicity 1.5 mg/0.5 mL pen injector 1.5 mg subcut WK Qty: 2 4RF Rx Instructions: Administer ONCE Weekly. atorvastatin 20 mg tablet 40 mg PO QDL Qty: 180 1RF levothyroxine 125 mcg tablet 125 mcg PO DAILYBB Qty: 90 1RF pantoprazole 40 mg tablet,delayed release (DR/EC) 40 mg PO DAILY Qty: 30 2RF pramipexole 1 mg tablet 1 mg PO HS Qty: 90 1RF Linzess 145 mcg capsule 145 mcg PO DAILY Qty: 30 2RF oxycodone-acetaminophen 5-325 mg tablet 1 tab PO TID PRN (Reason: Pain) morphine 30 mg capsule,extend.release pellets 30 mg PO Q12H insulin glargine [Lantus Solostar U-100 Insulin] 100 unit/mL (3 mL) insulin pen 40 unit subcut QPM (DME) blood-glucose meter [Blood Glucose Monitoring] Kit See Rx Instructions .ROUTE .MEDSUPPLY Qty: 1 0RF Rx Instructions: As directed (DME) OneTouch Verio test strips Strip See Rx Instructions .Route Qty: 50 5RF Rx Instructions: TESTING ONCE DAILY DX: E11.9 duloxetine [Cymbalta] 60 mg capsule,delayed release(DR/EC) 60 mg PO DAILY calcium citrate 200 mg (950 mg) tablet 200 mg PO BID Qty: 60 11RF aspirin 81 mg capsule 81 mg PO QAM benzonatate 100 mg capsule 100 mg PO TID PRN (Reason: cough) Qty: 60 0RF trazodone 100 mg Tablet 100 mg PO HS trazodone 300 mg tablet 300 mg PO HS lorazepam 0.5 mg tablet 0.5 mg PO TID Admission Data Admit Date/Time: 01/26/23 18:48 Attending Provider: Anson Escoto Admit Provider: Dada Vasques Primary Care Provider: Huang Renee Other Providers: Des Roy ; Dada Vasques Coding Diagnoses Small bowel obstruction K56.609 Diarrhea R19.7 COVID-19 U07.1 Diabetes mellitus, type 2 E11.65 Diabetes mellitus exterminator helper termite insulin use: without exterminator helper termite use Diabetes mellitus complication status: with hyperglycemia GERD with esophagitis K21.0 Hyperlipidemia E78.5 Hypothyroidism E03.9 Anxiety F41.9
[2023-01-29] MEDS: HYDROmorphone INJ 0.5 MG/0.5 ML SYR IV PRN ×3 (11:50→20:31)
[2023-01-29] MEDS ORDERED: LORazepam 2 MG/1 ML VIAL IV STA ×2 (11:59→18:39)
[2023-01-29] MEDS ORDERED: LORazepam 2 MG/1 ML VIAL ONE (12:03)
[2023-01-29] MEDS ORDERED: Nursing to Pharmacy Communication SCH (13:00)
[2023-01-29] MEDS: KETOROLAC TROMETHAMINE 15 MG/ML VIAL IV PRN ×2 (18:15→23:16)
[2023-01-30] MEDS: HYDROmorphone INJ 0.5 MG/0.5 ML SYR IV PRN ×5 (00:27→17:54)
[2023-01-30] MEDS: LORazepam 2 MG/1 ML VIAL IV PRN ×2 (00:37→20:47)
[2023-01-30] MEDS: KETOROLAC TROMETHAMINE 15 MG/ML VIAL IV PRN ×3 (04:17→20:46)
--- NOTE | 2023-01-30 05:32 | Surgery Progress Note ---
Date of Service January 30, 2023 Assessment & Plan (1) Small bowel obstruction: Plan: Patient has been admitted on the hospitalist service. Recommend proceeding as follows: Maintain patient on clear liquids until improvement of bowel function Continue analgesics as needed Continue antiemetics as needed KUB on 01/29/2023 showed findings consistent with a residual small bowel obstruction; KUB has been ordered for this morning will review when available Check a.m. labs when available If patient fails to progress consideration can be given to performing a small bowel follow-through for further evaluation Mobilize as able Admission and Anticipated Discharge Date Admission Date: January 26, 2023 Supervising Physician Co-Signing Physician Notes d/w ARIC Perry, agree with above. pnt with covid and partial sbo. tolerating clears though some nausea overnight. exam benign. kub pending. will cont clears. Subjective Patient is resting comfortably in bed. She did report some intermittent nausea last evening. She denies any flatus or passing bowel movement since admission. She is tolerating clears. Physical Exam Gastrointestinal (Abdomen): Abdomen is soft and nonrigid. It is nondistended. Patient did have a minor amount of pain noted with palpation in a generalized fashion. Results & Data Vital Signs (Past 12 Hours) Vital Signs Temp Pulse Resp BP Pulse Ox O2 Del Method 01/29/23 21:05 37 C 88 14 134/82 95 Room Air 01/29/23 18:18 156/88 H PG Care Time/CCT Total # of Minutes Spent Total Time Spent with Patient: Total time spent is greater than 50% in coordination of care (as documented) at patient's floor/unit and/or counseling patient: Coding Level of Care Code 78181 SUB INP/OBS CARE 12/02MIN Diagnoses Small bowel obstruction K56.609
[2023-01-30 06:22] LABS: Basophils # (auto) 0.06 K/uL (0-0.2); Basophils % (auto) 0.8 %; Eosinophils # (auto) 0.18 K/uL (0-0.50); Eosinophils % (auto) 2.4 %; Hematocrit (blood only) 45.5 % (37.0-47.0); Hemoglobin 15.7 g/dl (12.0-16.0); Immature Granulocytes # (auto) 0.02 K/uL (0.01-0.20); Immature Granulocytes % (auto) 0.3 %; Lymphocytes # (auto) 1.85 K/uL (1.2-3.4); Lymphocytes % (auto) 24.2 %; Mean Corpuscular Hemoglobin 30.5 pg (25.0-34.0); Mean Corpuscular Hgb Conc 34.5 g/dL (32.0-36.0); Mean Corpuscular Volume 88.3 fL (80.0-100.0); Mean Platelet Volume 10.6 fL (9.4-12.4); Monocytes # (auto) 0.67 K/uL (0.11-0.59); Monocytes % (auto) 8.8 %; Neutrophils # (auto) 4.86 K/uL (1.40-6.50); Neutrophils % (auto) 63.5 %; Platelet Count 214 K/uL (130-400); RDW Coefficient of Variation 13.4 % (11.5-14.5); RDW Standard Deviation 43.5 fL (36.4-46.3); Red Blood Count 5.15 M/uL (4.20-5.40); White Blood Count 7.64 K/ul (4.8-10.8)
[2023-01-30 06:38] LABS: BUN Creatinine Ratio 10.3 (10-20); Bilirubin Direct 0.1 mg/dl (0-0.2); Bilirubin,Total 0.8 mg/dl (0.2-1.0); Calcium 8.7 mg/dl (8.6-10.3); Creatinine Clr Calc Pharmacy 116.1 ml/min; Est GFR (African American) 117.8 ml/min; Est GFR (Non-African American) 101.6 ml/min; Magnesium 1.7 mg/dl (1.7-2.4); Potassium 3.4 mmol/L (3.5-5.1)
[2023-01-30] MEDS ORDERED: POTASSIUM CHLORIDE CRTAB 20 MEQ TABCR PO STA (07:32)
[2023-01-30] MEDS ORDERED: MAGNESIUM SULFATE / D5W 1 GM/100 ML BAG IV ONE (07:32)
--- NOTE | 2023-01-30 07:38 | Hospitalist Progress Note ---
Date of Service January 30, 2023 Assessment & Plan (1) Small bowel obstruction: Plan: In patient with hx SBO in 2016 requiring resection. COVID 19 positive from recent illness but not requiring supplemental O2 or other at present, no SOB reported and on room air Presented after nausea/vomiting/inability to tolerate PO intake at home CTAP w/ Distended loops of small bowel in the left abdomen may represent partial small bowel obstruction versus ileus. Of note, distal loops of large and small bowel are not completely decompressed. Repeat KUB essentially unchanged 01/28 and notes no more small bowel gas, some distended loops of bowel measuring up to 35mm Did have small BM last evening (01/27)- Stool PCR/cdiff testing negative No further flatus and hypoactive BS. Did resume Cymbalta give mood/prevent withdrawal Patient became extremely anxious evening 01/28 and wanting to leave AMA to take care of cat-- strongly advised against. She had still been complaining of significant abdominal pain and increasing nausea. Had worked herself up to vomiting but calmed down after ativan and was able to contact someone to let her cat out and agreed to stay. She initially declined eval by General surgery but then stated she was agreeable. Declined placement for NGT at present Continued issues 01/29 with wanting to leave AMA. Psych consulted for extreme anxiety/agoraphobia (not leaving house at all during covid, doesn't drive, etc) - appreciate assistance. Eventually agreed to stay, increased ativan 1mg IV q8h ordered, additional 1mg dose ordered x 1 now 01/29 Discussed KUB findings w/ surgery this morning and ok to advance to full liquid diet and monitor IVF decreased Patient reports passing flatus but no BM at present Pain control/antiemetics prn -- decreased dilaudid dosing to prevent worsening constipation, toradol available as needed as well Again, dressed and anxious for return home/demanding she is leaving today, extreme anxiety/restlessness, scratching legs (hx cutting apparently to thighs) -- Psych consulted and to see this morning Ativan increased to 1mg IV q8h and additional IV dosing as needed has been ordered. Stated only taking .5mg TID at home but could have been taking more Denied etoh use but empiric thiamine also ordered She did report req for Thorazine last evening to calm down -- defer to psych in eval Electrolyte replacement/supportive care, continued assurance staying is the right thing to do to ensure resolution Lovenox SQ for DVT Prophylaxis Consideration for SBFT tomorrow? (2) Anxiety: Plan: and depression resumed Cymbalta to prevent withdrawal -- takes 90mg daily scheduled Ativan IV Q8H while npo -- timing adjusted and additional prn dosing have been given Psych consulted as above ?sleep deprevation, psychosis, ?underlying Bipolar/PTSD Appreciate assistance from psych No SI/HI at present but does appear possibly ? manic Denies etoh but will order empiric thiamine (3) Diarrhea: Plan: reported, stool studies negative General surgery as above for SBO/ileus, appreciate recs rec outpt f/u for c-scope once above resolved (4) COVID-19: Plan: Patient feels she is recovering well from this, her breathing has actually improved. She is not hypoxic and no additional treatment is indicated for this at this time CTA on admission for residual cough shows peribronchial thickening possibly consistent with reactive airway disease/bronchitis, but no consolidations or effusions and no evidence of PE on RA but will add incentive spirometer to prevent pulmonary toilet Maintaining isolation precautions (5) Diabetes mellitus, type 2: Plan: Last A1c 6.0 in Dec 2022 BSG AC/HS, SSI while inpatient IVF w/ D5, no further hypoglycemia Monitor BSGs (6) GERD with esophagitis: Plan: Placed on protonix IVP daily while NPO (7) Hyperlipidemia: Plan: Statin held at present 2nd to above (8) Hypothyroidism: Plan: Synthroid held while NPO and as patient has not been able to take this in several days, started at 70% IV dose conversion for AM dose 01/28 at 88mcg IV daily and continued Switch to PO for AM Plan continued inpatient stay, continued reassurance/encouragement to stay/monitoring advanced diet to full liquids monitor labs/KUB in AM Psych consulted as above Admission and Anticipated Discharge Date Admission Date: January 26, 2023 Supervising Physician Co-Signing Physician Notes The patient was not seen by me. The chart was reviewed. Case discussed with ARIC Rodriguez. Agree with assessment and plan Subjective eval this morning extremely anxious, requested Thorazine last evening (messaged psych about possible need/eval pending). She is adamant about leaving, states she is doing better. Passing gas but no BM. Tolerating clear liquid diet at present and discussed I spoke w/ surgery and ok to try full liquid diet advancement and hopeful possible d/c tomorrow. Unfortunately she is again demanding to leave and states her brother will be here in 45 minuts to pick her up. Declined dose of Ativan to help her calm down and she is tremulous/tearful and scratching at her legs stating she just absolutely cannot stay any longer. Discussed risks of bowel perforation/sepsis/. She states "what are the chances of that, I'm getting better". Stated concerns and unable to predict but strongly recommended AGAINST leaving, which would be AMA and advancing diet without active bowels moving is NOT a good idea. She remains adamant that she is leaving. Psych to see as soon as they are done with current patient. Later discovered patient reported cutting at home -- psych for eval pending. Liason provided crayons/books/things to keep occupied in meantime as she did agree to stay but continued inquiring about definitive answer for dc tomorrow which cannot be predicted. Physical Exam Physical Exam: General: extremely anxious female dressed and sitting as side of bed, figiting, demanding to go home today and cannot stay, scratching her thighs bilaterally, bruising and excoriations to thighs noted Pulm: CTA, no w/c, on room air CV: RRR, no significant m/r/g or pitting edema GI: +BS (slightly hypoactive on the right but improved), soft, mild/minimal tenderness reported to palpation, but no rigidity/guarding : no brewster MSK/Neuro: no focal deficits, no slurred speech/facial droop Psych: pressured speech, anxious appearing, fidgeting, denials SI/HI ideation and states understands risks for going home but also notes that she is sure she will be fine and has been improving tearful and stating ride will be here in 45minutes Results & Data Results & Data Vital Signs (Past 12 Hours) Vital Signs Temp Pulse Resp BP Pulse Ox O2 Del Method 01/29/23 21:05 37 C 88 14 134/82 95 Room Air Laboratory Results 01/30/23 01/30/23 01/29/23 Range/Units 05:18 05:18 20:38 WBC 7.64 (4.8-10.8) K/ul RBC 5.15 (4.20-5.40) M/uL Hgb 15.7 (12.0-16.0) g/dl Hct 45.5 (37.0-47.0) % MCV 88.3 (80.0-100.0) fL MCH 30.5 (25.0-34.0) pg MCHC 34.5 (32.0-36.0) g/dL RDW Std Deviation 43.5 (36.4-46.3) fL RDW Coeff of Xavi 13.4 (11.5-14.5) % Plt Count 214 (130-400) K/uL MPV 10.6 (9.4-12.4) fL Immature Gran % (Auto) 0.3 % Neut % (Auto) 63.5 % Lymph % (Auto) 24.2 % [place] % (Auto) 8.8 % Eos % (Auto) 2.4 % Baso % (Auto) 0.8 % Neut # (Auto) 4.86 (1.40-6.50) K/uL Lymph # (Auto) 1.85 (1.2-3.4) K/uL [place] # (Auto) 0.67 H (0.11-0.59) K/uL Eos # (Auto) 0.18 (0-0.50) K/uL Baso # (Auto) 0.06 (0-0.2) K/uL Immature Gran # (Auto) 0.02 (0.01-0.20) K/uL Sodium 139 (136-145) mmol/L Potassium 3.4 L (3.5-5.1) mmol/L Chloride 103 (98-107) mmol/L Carbon Dioxide 27 (21-32) mmol/L Anion Gap 9 (3-11) BUN 6 (6-23) mg/dl Creatinine 0.58 L (0.6-1.2) mg/dl Est Cr Clr Drug Dosing 116.1 ml/min Est GFR ( Amer) 117.8 ml/min Est GFR (Non-Af Amer) 101.6 ml/min BUN/Creatinine Ratio 10.3 (10-20) Glucose 120 H (70-99(Fasting)) mg/dl POC Glucose 132 H (70-99) mg/dl Calcium 8.7 (8.6-10.3) mg/dl Magnesium 1.7 (1.7-2.4) mg/dl Total Bilirubin 0.8 (0.2-1.0) mg/dl Direct Bilirubin 0.1 (0-0.2) mg/dl AST 17 (13-39) U/L ALT 18 (7-52) U/L Alkaline Phosphatase 86 (34-104) U/L Total Protein 7.0 (6.0-8.3) gm/dl Albumin 4.0 (3.4-5.0) gm/dl 01/29/23 01/29/23 01/29/23 Range/Units 17:27 12:25 05:33 WBC (4.8-10.8) K/ul RBC (4.20-5.40) M/uL Hgb (12.0-16.0) g/dl Hct (37.0-47.0) % MCV (80.0-100.0) fL MCH (25.0-34.0) pg MCHC (32.0-36.0) g/dL RDW Std Deviation (36.4-46.3) fL RDW Coeff of Xavi (11.5-14.5) % Plt Count (130-400) K/uL MPV (9.4-12.4) fL Immature Gran % (Auto) % Neut % (Auto) % Lymph % (Auto) % [place] % (Auto) % Eos % (Auto) % Baso % (Auto) % Neut # (Auto) (1.40-6.50) K/uL Lymph # (Auto) (1.2-3.4) K/uL [place] # (Auto) (0.11-0.59) K/uL Eos # (Auto) (0-0.50) K/uL Baso # (Auto) (0-0.2) K/uL Immature Gran # (Auto) (0.01-0.20) K/uL Sodium 139 (136-145) mmol/L Potassium 3.6 (3.5-5.1) mmol/L Chloride 105 (98-107) mmol/L Carbon Dioxide 27 (21-32) mmol/L Anion Gap 7 (3-11) BUN 6 (6-23) mg/dl Creatinine 0.56 L (0.6-1.2) mg/dl Est Cr Clr Drug Dosing 120.3 ml/min Est GFR ( Amer) 119.1 ml/min Est GFR (Non-Af Amer) 102.8 ml/min BUN/Creatinine Ratio 10.7 (10-20) Glucose 126 H (70-99(Fasting)) mg/dl POC Glucose 116 H 107 H (70-99) mg/dl Calcium 8.4 L (8.6-10.3) mg/dl Magnesium 1.8 (1.7-2.4) mg/dl Total Bilirubin 0.7 (0.2-1.0) mg/dl Direct Bilirubin 0.1 (0-0.2) mg/dl AST 18 (13-39) U/L ALT 16 (7-52) U/L Alkaline Phosphatase 73 (34-104) U/L Total Protein 6.4 (6.0-8.3) gm/dl Albumin 3.8 (3.4-5.0) gm/dl Diagnostic Findings KUB X-Ray 01/29/23 07:00 KUB HISTORY: Follow up ileus versus small bowel obstruction. COMPARISON: KUB 01/28/2023. FINDINGS: There are few mildly dilated gas-filled loops of small bowel again noted within the abdomen. There is gas and stool seen within the nondistended colon/rectum. This is similar to the prior studies. Prior cholecystectomy. Extensive posterior fusion hardware within the thoracolumbar spine. The lung bases are clear. No renal calculi. No ureteral calculi. No pneumoperitoneum or pneumatosis. IMPRESSION: No significant change in the mildly dilated gas-filled loops of small bowel within the abdomen. This suggests a residual partial small bowel obstruction. ACT 112: Negative or not required by law. Electronically signed by: Vel Fulton M.D. 01/29/2023 10:59 AM PG Care Time/CCT Total # of Minutes Spent Total Time Spent with Patient: Total time spent is greater than 50% in coordination of care (as documented) at patient's floor/unit and/or counseling patient: Coding Level of Care Code 87062 SUB INP/OBS CARE 3/50MIN Diagnoses Small bowel obstruction K56.609 Anxiety F41.9 Diarrhea R19.7 COVID-19 U07.1 Diabetes mellitus, type 2 E11.65 Diabetes mellitus complication status: with hyperglycemia Diabetes mellitus emt intermediate insulin use: without chcf use GERD with esophagitis K21.0 Hyperlipidemia E78.5 Hypothyroidism E03.9 (5) Diabetes mellitus, type 2 Diabetes mellitus complication status: with hyperglycemia Diabetes mellitus emt intermediate insulin use: without chcf use Qualified Code(s): E11.65 - Type 2 diabetes mellitus with hyperglycemia
[2023-01-30] MEDS: DULoxetine HCL 30 MG CAP PO SCH (09:10)
[2023-01-30] MEDS: ENOXAPARIN INJ 40 MG/0.4 ML SYR SQ SCH (09:10)
[2023-01-30] MEDS: LORazepam 2 MG/1 ML VIAL IV SCH ×3 (09:12→20:47)
[2023-01-30] MEDS: INSULIN ASPART PER UNIT CHARGE SC SCH ×4 (09:13→21:00)
[2023-01-30] MEDS: POTASSIUM CHLORIDE 20 MEQ in D5W AND LACTATED RINGERS 1,000 ML IV SCH ×2 (09:40→21:08)
[2023-01-30] MEDS ORDERED: LORazepam 2 MG/1 ML VIAL IV STA ×2 (12:50→12:51)
[2023-01-30] MEDS ORDERED: THIAMINE HCL 200 MG in SODIUM CHLORIDE 0.9% 50 ML IV STA (12:55)
[2023-01-30] MEDS: PANTOprazole 40 MG in SYRINGE 0 ML IV SCH (14:00)
--- NOTE | 2023-01-30 17:47 | XRay Report ---
KUB CLINICAL HISTORY: Follow-up small bowel obstruction. FINDINGS: An AP supine abdominal radiograph is compared to study dated 01/29/2023 and correlated with abdominal CT dated 01/26/2023. Cholecystectomy clips are seen in the right upper quadrant. There is no radiographic evidence of high-grade obstruction. Gas is seen throughout the colon. Distention of the small bowel loops has improved from yesterday. No evidence of intraperitoneal free air is seen on th is supine image. There are no abnormal abdominal calcifications. The skeletal structures are osteop enic and appear intact. Thoracolumbar spinal rods are in place. IMPRESSION: There is no radiographic evidence of high-grade bowel obstruction on today's examination. Gaseous distention of the small bowel loops has improved from previous. Electronically signed by: Vinay Guillaume M.D. 01/30/2023 5:45 PM
[2023-01-30] MEDS: traZODone HCL 100 MG TAB PO SCH (20:46)
--- NOTE | 2023-01-31 05:16 | Surgery Progress Note ---
Date of Service January 31, 2023 Assessment & Plan (1) Small bowel obstruction: Plan: Patient has been admitted on the hospitalist service. Recommend proceeding as follows: Diet advanced yesterday to full liquids. Consideration be given to further advancing her diet based on pending KUB results this morning as well as with further improvement of bowel function Continue analgesics as needed Continue antiemetics as needed Check KUB when available Check a.m. labs when available If patient fails to progress consideration can be given to performing a small bowel follow-through for further evaluation Mobilize as able Admission and Anticipated Discharge Date Admission Date: January 26, 2023 Supervising Physician Co-Signing Physician Notes Discussed with ARIC Perry. Agree with above. Passing flatus, tolerated full liquids. Advance to low fiber. Subjective Patient is lying in bed and appears comfortable. She denies any nausea or vomiting. She does report some persistent abdominal pain near her umbilicus. She reports she is passing a small amount of flatus but has not had a bowel movement since admission. Physical Exam Gastrointestinal (Abdomen): Abdomen is soft and nondistended. There is no rebound tenderness or guarding. Slight pain noted with palpation near her umbilicus. Results & Data Vital Signs (Past 12 Hours) Vital Signs Temp Pulse Resp BP Pulse Ox O2 Del Method 01/30/23 20:39 37.1 C 76 18 162/93 H 97 Room Air PG Care Time/CCT Total # of Minutes Spent Total Time Spent with Patient: Total time spent is greater than 50% in coordination of care (as documented) at patient's floor/unit and/or counseling patient: Coding Level of Care Code 65393 SUB INP/OBS CARE 12/02MIN Diagnoses Small bowel obstruction K56.609
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
--- NOTE | 2023-01-31 07:48 | Hospitalist Progress Note ---
Date of Service January 31, 2023 Assessment & Plan (1) Small bowel obstruction: Plan: In patient with hx SBO in 2016 requiring resection. COVID 19 positive from recent illness but not requiring supplemental O2 or other at present, no SOB reported and on room air Presented after nausea/vomiting/inability to tolerate PO intake at home CTAP w/ Distended loops of small bowel in the left abdomen may represent partial small bowel obstruction versus ileus. Of note, distal loops of large and small bowel are not completely decompressed. Repeat KUB essentially unchanged 01/28 and notes no more small bowel gas, some distended loops of bowel measuring up to 35mm Stool PCR/cdiff negative Multiple attempts/demands to leave AMA but agreeable to stay 01/30 , seen by psych in evening KUB w/ improvement LARGE BM x 2 this morning Will order low fiber diet for this morning KUB official read pending but ok for low fiber per surgery Patient does want to stay overnight and monitor on advanced diet discussed likely need bowel regimen at d/c w/ chronic opiates Seen by psych last evening, trazodone 400mg HS, did sleep overnight and will continue -- appreciate assistance in management D/c further IVF Monitor status in AM/labs Lovenox SQ for DVT proph ordered (2) Anxiety: Plan: extreme anxiety/PTSD Cymbalta resumed, Ativan increased 1mg Q8H IV - continue, additional have been available prn Psych consulted -- trazodone for sleep last night Denies SI/HI to myself but reported fear for d/c and cutting at home to deal w/ anxiety Remaining inpatient overnight/monitor for any issues Empiric thiamine ordered but denies ETOH use (3) Diarrhea: Plan: reported, stool studies negative General surgery as above for SBO/ileus, appreciate recs rec outpt f/u for c-scope once above resolved (4) COVID-19: Plan: Patient feels she is recovering well from this, her breathing has actually improved. She is not hypoxic and no additional treatment is indicated for this at this time CTA on admission for residual cough shows peribronchial thickening possibly consistent with reactive airway disease/bronchitis, but no consolidations or effusions and no evidence of PE on RA but will add incentive spirometer to prevent pulmonary toilet Maintaining isolation precautions (5) Diabetes mellitus, type 2: Plan: Last A1c 6.0 in Dec 2022 BSG AC/HS, SSI while inpatient IVF w/ D5, no further hypoglycemia -- dc IVF given advanced diet Monitor BSGs (6) GERD with esophagitis: Plan: Placed on protonix IVP daily while NPO (7) Hyperlipidemia: Plan: Statin held at present 2nd to above, can resume tomorrow (8) Hypothyroidism: Plan: Resume synthroid for AM, discontinue IV replacement (had missed several days at home) Plan continued inpatient stay diet advanced to low fiber hopeful d/c tomorrow, psych to follow Admission and Anticipated Discharge Date Admission Date: January 26, 2023 Supervising Physician Co-Signing Physician Notes The patient was not seen by me. The chart was reviewed. Case discussed with ARIC Rodriguez. Agree with assessment and plan Subjective eval this morning around 11am, improved actually got some sleep with the trazodone and discussed continuing LARGE BMS this morning, discussed this is a good thing. +BS on exam and denying pain but some pain w/ palpation lower R quadrant, much improved. Discussed possible dc today if she would like but she now states she would feel more comfortable staying/monitoring on advanced diet to prevent issues at home. Discussed chronic pain meds can cause constipation and likely need to be on bowel regimen w/ them at home to prevent issues. She wants to confirm meds available for anxiety-- RN to check on her in 30-45 min to see if any needs. Questions/concerns addressed at this time. Physical Exam Physical Exam: General: WD/WN female sitting up in bed, less anxious, NAD, cooperative with exam Pulm: CTA, no w/c, on room air CV: RRR, no significant m/r/g or pitting edema GI: +BS on exam, soft, only slight tenderness RLQ on exam, no guarding/rigidity/rebound : no brewster MSK/Neuro: no focal deficits, no slurred speech/facial droop Psych: speech less pressured, less anxious appearing and more calm with exam, alert and oriented agreeable to stay \ Results & Data Results & Data Vital Signs (Past 12 Hours) Vital Signs Temp Pulse Resp BP Pulse Ox O2 Del Method 01/30/23 20:39 37.1 C 76 18 162/93 H 97 Room Air Laboratory Results 03/25/23 03/25/23 03/25/23 Range/Units 20:38 17:59 08:14 POC Glucose 158 H 112 H 126 H (70-99) mg/dl Diagnostic Findings KUB X-Ray 01/30/23 06:00 KUB CLINICAL HISTORY: Follow-up small bowel obstruction. FINDINGS: An AP supine abdominal radiograph is compared to study dated 01/29/2023 and correlated with abdominal CT dated 01/26/2023. Cholecystectomy clips are seen in the right upper quadrant. There is no radiographic evidence of high-grade obstruction. Gas is seen throughout the colon. Distention of the small bowel loops has improved from yesterday. No evidence of intraperitoneal free air is seen on this supine image. There are no abnormal abdominal calcifications. The skeletal structures are osteopenic and appear intact. Thoracolumbar spinal rods are in place. IMPRESSION: There is no radiographic evidence of high-grade bowel obstruction on today's examination. Gaseous distention of the small bowel loops has improved from previous. Electronically signed by: Vinay Guillaume M.D. 01/30/2023 5:45 PM PG Care Time/CCT Total # of Minutes Spent Total Time Spent with Patient: Total time spent is greater than 50% in coordination of care (as documented) at patient's floor/unit and/or counseling patient: Coding Level of Care Code 93937 SUB INP/OBS CARE 350MIN Diagnoses Small bowel obstruction K56.609 Anxiety F41.9 Diarrhea R19.7 COVID-19 U07.1 Diabetes mellitus, type 2 E11.65 Diabetes mellitus complication status: with hyperglycemia Diabetes mellitus halfway insulin use: without halfway use GERD with esophagitis K21.0 Hyperlipidemia E78.5 Hypothyroidism E03.9 (5) Diabetes mellitus, type 2 Diabetes mellitus complication status: with hyperglycemia Diabetes mellitus watermaster insulin use: without halfway use Qualified Code(s): E11.65 - Type 2 diabetes mellitus with hyperglycemia
[2023-01-31] MEDS: HYDROmorphone INJ 0.5 MG/0.5 ML SYR IV PRN ×4 (07:54→21:23)
[2023-01-31] MEDS: LORazepam 2 MG/1 ML VIAL IV SCH ×3 (07:54→21:22)
[2023-01-31] MEDS: DULoxetine HCL 30 MG CAP PO SCH (07:56)
[2023-01-31] MEDS: ENOXAPARIN INJ 40 MG/0.4 ML SYR SQ SCH (07:56)
[2023-01-31] MEDS: THIAMINE HCL 200 MG in SODIUM CHLORIDE 0.9% 50 ML IV SCH (07:57)
[2023-01-31 08:22] LABS: Hematocrit (blood only) 44.5 % (37.0-47.0); Hemoglobin 15.6 g/dl (12.0-16.0); Mean Corpuscular Hemoglobin 30.8 pg (25.0-34.0); Mean Corpuscular Hgb Conc 35.1 g/dL (32.0-36.0); Mean Corpuscular Volume 87.9 fL (80.0-100.0); Mean Platelet Volume 10.9 fL (9.4-12.4); Platelet Count 202 K/uL (130-400); RDW Coefficient of Variation 13.8 % (11.5-14.5); RDW Standard Deviation 44.1 fL (36.4-46.3); Red Blood Count 5.06 M/uL (4.20-5.40)
[2023-01-31 08:45] LABS: BUN Creatinine Ratio 10.1 (10-20); Calcium 8.9 mg/dl (8.6-10.3); Creatinine Clr Calc Pharmacy 97.6 ml/min; Est GFR (African American) 111.2 ml/min; Magnesium 1.8 mg/dl (1.7-2.4); Potassium 4.1 mmol/L (3.5-5.1)
[2023-01-31] MEDS: INSULIN ASPART PER UNIT CHARGE SC SCH ×4 (09:23→21:21)
[2023-01-31] MEDS: LEVOTHYROXINE SODIUM 88 MCG in SYRINGE 0 ML IV SCH (10:52)
[2023-01-31] MEDS: PANTOprazole 40 MG in SYRINGE 0 ML IV SCH (10:52)
--- NOTE | 2023-01-31 11:53 | XRay Report ---
XR KUB/Abdomen 1 view CLINICAL HISTORY: f/u sbo TECHNIQUE: 1 view of the abdomen was obtained. Comparison: Comparison is made to abdomen radiograph 01/30/2023 FINDINGS: Posterior spinal fixation hardware is seen. Right upper quadrant surgical clips are noted. Degenerati ve changes are seen in the visualized skeleton. The bowel gas pattern is nonobstructive. A moderate a mount of stool is noted within the large bowel. IMPRESSION: The bowel is again noted to be nonobstructive in appearance. ACT 112: Negative or not required by law. Electronically signed by: Mychal Mantilla M.D. 01/31/2023 11:51 AM
[2023-01-31] MEDS ORDERED: chlorproMAZINE HCL 25 MG TAB PO ONE (13:00)
[2023-01-31] MEDS ORDERED: oxyCODONE/ACETAMINOPHEN 5mg/325mg TAB PO PRN (13:02)
[2023-01-31] MEDS: ONDANSETRON INJ 2 MG/ML 2 ML VIAL IV PRN (14:43)
[2023-01-31] MEDS: DOCUSATE SODIUM/SENNA 50/8.6MG TAB PO SCH (14:49)
[2023-01-31] MEDS: chlorproMAZINE HCL 25 MG TAB PO PRN ×2 (17:44→21:51)
[2023-01-31] MEDS: traZODone HCL 100 MG TAB PO SCH (21:23)
[2023-01-31] MEDS: LORazepam 2 MG/1 ML VIAL IV PRN (21:58)
[2023-02-01] MEDS: chlorproMAZINE HCL 25 MG TAB PO PRN (05:37)
[2023-02-01] MEDS: HYDROmorphone INJ 0.5 MG/0.5 ML SYR IV PRN ×2 (05:38→13:12)
[2023-02-01] MEDS ORDERED: LEVOTHYROXINE SODIUM 125 MCG TABLET PO SCH (06:30)
[2023-02-01 07:22] LABS: Hematocrit (blood only) 43.1 % (37.0-47.0); Hemoglobin 14.4 g/dl (12.0-16.0); Mean Corpuscular Hemoglobin 30.3 pg (25.0-34.0); Mean Corpuscular Hgb Conc 33.4 g/dL (32.0-36.0); Mean Corpuscular Volume 90.7 fL (80.0-100.0); Mean Platelet Volume 11.5 fL (9.4-12.4); Platelet Count 172 K/uL (130-400); RDW Coefficient of Variation 13.8 % (11.5-14.5); RDW Standard Deviation 46.5 fL (36.4-46.3); Red Blood Count 4.75 M/uL (4.20-5.40); White Blood Count 7.58 K/ul (4.8-10.8)
[2023-02-01 07:45] LABS: Albumin Globulin Ratio 1.3 (0.9-2); Albumin Level 3.4 gm/dl (3.4-5.0); BUN Creatinine Ratio 13.3 (10-20); Bilirubin,Total 0.4 mg/dl (0.2-1.0); Calcium 8.5 mg/dl (8.6-10.3); Creatinine Clr Calc Pharmacy 81.2 ml/min; Est GFR (African American) 90.1 ml/min; Est GFR (Non-African American) 77.7 ml/min; Globulin 2.7 gm/dl (2.5-4.0); Total Protein 6.1 gm/dl (6.0-8.3)
[2023-02-01] MEDS: DULoxetine HCL 30 MG CAP PO SCH (08:56)
[2023-02-01] MEDS: THIAMINE HCL 200 MG in SODIUM CHLORIDE 0.9% 50 ML IV SCH (08:56)
[2023-02-01] MEDS: ENOXAPARIN INJ 40 MG/0.4 ML SYR SQ SCH (08:56)
[2023-02-01] MEDS: DOCUSATE SODIUM/SENNA 50/8.6MG TAB PO SCH (08:57)
[2023-02-01] MEDS ORDERED: PANTOprazole 40 MG TAB PO SCH (09:00)
[2023-02-01] MEDS: LORazepam 2 MG/1 ML VIAL IV SCH (09:02)
[2023-02-01] MEDS: INSULIN ASPART PER UNIT CHARGE SC SCH (09:56)
--- NOTE | 2023-02-01 10:50 | Communication Note ---
Date of Service: February 01, 2023 Patient not seen today. Chart reviewed from weekend and today. Afebrile, vss. + bowel function over weekend. KUB yesterday showing no obstructive signs. Low fiber diet recommended for 1-2 weeks and then slowly increase fiber back into diet. Will also need bowel regimen given chronic narcotic use to avoid constipation. If patient tolerated low fiber diet, okay for discharge from our standpoint. Our services signing off, please call with questions/concerns.
--- NOTE | 2023-02-01 10:50 | Discharge Summary ---
Date of Service February 01, 2023 Admission HPI Per Admitting Provider Alfreda is a 58-year-old female with a past medical history of fevers, nonbloody diarrhea with vomiting, nausea, and worsening cough after diagnosis with COVID 1 week ago. She presents clinically severely volume depleted, with nausea/vomiting, some liquid diarrhea, and CTA/P consistent with small bowel obstruction versus ileus with transition point and incompletely decompressed large bowel. Imaging was reviewed by ER with Dr. Roy prior to admission, ?SBO/ileus vs enteritis, NGT was not recommended, may be admitted for conservative management with surgical consultation. Still a little short of breath post covid but thinks this was getting better. Ws doing OK until 7 days ago when started to get stomach discomfor,t vomiting, and diarrhea +diarrhea 'so bad just running water a few times per day, at lest 6-7' and pain in her sides last episode was this AM. +fever and diffuse abdominal discomfort. vomiting several times per day. No blood. Last emesis this morning. No appetite. Hx of partial colectomy many years for a SBO ~[place]. Prior surgery of hysterectomy and appendectomy. Has not been able to keep anything or medicines down i na few days No chest pain, chest pressure. Minimal shortness of breath, improving dry cough. +lightheadedness, no syncope. She has chronic back pain at baseline, pending decompression and removal of prior hardware in [place] next month. Back pain has not changed. Admission Exam Per Admitting Provider General: A&Ox3. NAD. Cooperative. HEENT: Atraumatic, normocephalic. Vision/hearing intact. Pulm: CTAB A&P. -wheezes, -rales, -rhonchi. Symmetrical chest rise. No increased work of breathing. No respiratory distress. Cardiac: RRR, -mrg. Radial pulses intact and symmetrical. Abdominal: Right lower quadrant tenderness, nonrigid, no rebound. Bowel sounds increased Extremities: Warm, dry, intact. Moving equally. Cap refill intact Principal Diagnosis Small Bowel Obstruction Discharge Exam Constitutional WD/WN, vitals as above ENMT external ear and nose normal, oropharynx normal Neck trachea midline, no thyromegaly Respiratory normal respiratory effort, lungs clear to auscultation Cardiovascular RRR, no murmur, no edema Gastrointestinal (Abdomen) normal bowel sounds, soft, nontender, no hepatosplenomegaly Psychiatric Orientation: alert and oriented x 3 Eye Contact: good eye contact Affect: euthymic affect Insight: good insight Discharge Data Allergies Allergy/AdvReac Type Severity Reaction Status Date / Time doxycycline [From Vibramycin] Allergy Severe TONGUE Verified 02/02/23 10:20 SWELLS, SOB, RASH Sulfa (Sulfonamide Allergy Severe HIVES/LIPS Verified 02/02/23 10:20 Antibiotics) SWELLING tetracycline Allergy Severe TONGUE Verified 02/02/23 10:20 SWELLS, SOB, RASH metformin AdvReac Intermediate Diarrhea Verified 02/02/23 10:20 Consultations 01/26/23 18:42 ED Decision to Admit Stat 01/26/23 21:29 Consult General Surgery Routine 01/29/23 12:47 Consult Psychiatry Routine Ordered Studies 01/26/23 15:48 CT Abd and Pelvis [CT abd pelvis IV con only] Stat IMPRESSION: 1. Distended loops of small bowel in the left abdomen may represent partial small bowel obstruction versus ileus. Of note, distal loops of large and small bowel are not completely decompressed. 2. Diverticulosis without diverticulitis. 3. Postsurgical changes and chronic deformities of the spine. CT angio chest PE protocol Stat IMPRESSION: 1. There is no evidence of pulmonary embolus in the main, lobar, or segmental pulmonary arteries. 2. There is no airspace consolidation or pleural effusion. 3. Diffuse peribronchial thickening suggests bronchitis/reactive airway disease. Clinical correlation will be required. 4. 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 COVID 19 positive from recent illness but not requiring supplemental O2 or other at present, no SOB reported and on room air Presented after nausea/vomiting/inability to tolerate PO intake at home CTAP w/ Distended loops of small bowel in the left abdomen may represent partial small bowel obstruction versus ileus. Of note, distal loops of large and small bowel are not completely decompressed. Repeat KUB essentially unchanged 01/28 and notes no more small bowel gas, some distended loops of bowel measuring up to 35mm Stool PCR/cdiff negative Multiple attempts/demands to leave AMA but agreeable to stay 01/30 , seen by psych in evening KUB w/ improvement LARGE BM x 2 this morning Will order low fiber diet for this morning KUB official read pending but ok for low fiber per surgery Patient does want to stay overnight and monitor on advanced diet discussed likely need bowel regimen at d/c w/ chronic opiates Seen by psych - trazodone 400mg HS, did sleep overnight and will continue (2) Anxiety: extreme anxiety/PTSD Cymbalta resumed, Ativan increased 1mg Q8H IV - continue, additional have been available prn Psych consulted -- trazodone for sleep Also added Chlorpromazine, per nursing and patient this has helped immensely Patient is aware of the potential side effects Denies SI/HI to myself States she has a counselor and also follows with Dr Dozier as outpatient (3) Diarrhea: reported, stool studies negative General surgery as above for SBO/ileus, appreciate recs rec outpt f/u for c-scope once above resolved (4) COVID-19: Patient feels she is recovering well from this, her breathing has actually improved. She is not hypoxic and no additional treatment is indicated for this at this time CTA on admission for residual cough shows peribronchial thickening possibly consistent with reactive airway disease/bronchitis, but no consolidations or effusions and no evidence of PE on RA but will add incentive spirometer to prevent pulmonary toilet Maintained isolation precautions (5) Diabetes mellitus, type 2: Last A1c 6.0 in Dec 2022 BSG AC/HS, SSI while inpatient IVF w/ D5, no further hypoglycemia -- dc IVF given advanced diet Monitor BSGs (6) GERD with esophagitis: Placed on protonix IVP daily while NPO (7) Hyperlipidemia: Statin held at present 2nd to above, can resume today at discharge (8) Hypothyroidism: Resumed synthroid Total Time Total Time Spent Total Time Spent (In Minutes): 40 Discharge Plan Discharge Items Patient Disposition: Home - Self-Care Reason For Visit: SBO Discharge Diagnosis: small bowel obstruction severe anxiety Condition on Discharge: Fair Activity: Resume your previous activity Lifting: Gradually increase as tolerated Exercise/Sports: Gradually increase as tolerated Non-emergency contact: Primary Care Provider Call non-emergency contact if: you have any medication questions, your symptoms worsen, your pain is not controlled and you have a fever Follow-up/Referrals: Huang Renee CRNP [Primary Care Provider] - 02/08/23 10:20 am Marlo Acosta DO [Physician] - Diet: Low Fiber Addtl Attending Provider Instructions: You have been hospitalized and found to have a bowel obstruction. Stool studies were negative but imaging remained with obstruction which was managed without surgery thankfully. You moved your bowels and your diet was advanced to low fiber (information should be provided for low fiber diet) and you should continue this for 2 weeks, and then start to eat like you previously were doing. You should have follow up with GI after discharge for colonoscopy for monitoring and for chronic GI symptoms reported. Psych was consulted during inpatient stay for extreme anxiety and issues with sleeping and they have started trazodone 400mg at night which has been helpful and this can be continued. Also you were started on Chlorpromazine 50mg one every 4 hours as needed and you were educated on the potential risks of tardive dyskinesia was discussed with you You should talk about possibly switching to Klonopin with your outpatient psych provider for longer lasting anxiety control as this does tend to provide better baseline control than as needed Ativan but will have you follow up discussions with your primary provider regarding this. Opiates/pain medications will make constipation WORSE, and it is not recommended to utilize these as frequently to worsen obstruction and you ideally should be on a bowel regimen/stool softeners with pain medications to prevent consti pation/abdominal pain issues. If any worsening abdominal pain, fever, nausea, vomiting, inability to keep oral intake down you should return to ER immediately or call 911. Pending Studies at Discharge: No Stand-Alone Forms: My [facility] Polar OLED, Smoking Cessation Medications and DC Order Prescriptions: New chlorpromazine 25 mg Tablet 50 mg PO Q4H MDD 200mg PRN (Reason: psychosis) Qty: 30 0RF duloxetine 30 mg Capsule,Delayed Release(Dr/Ec) 90 mg PO QAM Qty: 90 0RF Continued pregabalin [Lyrica] 200 mg capsule 200 mg PO BID Qty: 60 0RF Rx Instructions: will get from Dr. Ashley (DME) pen needle, diabetic [BD Autumn 2nd Gen Pen Needle] 32 gauge x 5/32" needle See Rx Instructions .Route Qty: 100 1RF Rx Instructions: As directed Trulicity 1.5 mg/0.5 mL pen injector 1.5 mg subcut WK Qty: 2 4RF Rx Instructions: Administer ONCE Weekly. atorvastatin 20 mg tablet 40 mg PO QDL Qty: 180 1RF levothyroxine 125 mcg tablet 125 mcg PO DAILYBB Qty: 90 1RF pantoprazole 40 mg tablet,delayed release (DR/EC) 40 mg PO DAILY Qty: 30 2RF pramipexole 1 mg tablet 1 mg PO HS Qty: 90 1RF oxycodone-acetaminophen 5-325 mg tablet 1 tab PO TID PRN (Reason: Pain) morphine 30 mg capsule,extend.release pellets 30 mg PO Q12H (DME) blood-glucose meter [Blood Glucose Monitoring] Kit See Rx Instructions .ROUTE .MEDSUPPLY Qty: 1 0RF Rx Instructions: As directed (DME) OneTouch Verio test strips Strip See Rx Instructions .Route Qty: 50 5RF Rx Instructions: TESTING ONCE DAILY DX: E11.9 calcium citrate 200 mg (950 mg) tablet 200 mg PO BID Qty: 60 11RF benzonatate 100 mg capsule 100 mg PO TID PRN (Reason: cough) Qty: 60 0RF trazodone 100 mg Tablet 100 mg PO HS trazodone 300 mg tablet 300 mg PO HS lorazepam 0.5 mg tablet 0.5 mg PO TID Discontinued duloxetine [Cymbalta] 60 mg capsule,delayed release(DR/EC) 60 mg PO DAILY No Action Linzess 145 mcg capsule 145 mcg PO DAILY Qty: 30 2RF Rx Instructions: [facility] 02/01 - PT STATES SHE IS NOT CURRENTLY TAKING. insulin glargine [Lantus Solostar U-100 Insulin] 100 unit/mL (3 mL) insulin pen 36 unit subcut QPM Rx Instructions: [facility] 02/01, PT STATES THAT DOSE CHANGED FROM 40 UNITS TO 36 UNITS PRIOR TO BEING IN HOSPITAL. Discharge Orders: Discharge Order (Routine); Ordered 02/01/23 Ordered By: Rylie Grace Admission Data Admit Date/Time: 01/26/23 18:48 Attending Provider: Gurmeet Mendoza Admit Provider: Dada Vasques Primary Care Provider: Huang Renee Other Providers: Des Roy ; Raymond Wood ; Glenn Hills Other Interventions: Discharge Summary Assessment (RN) Last Done: 02/01/23 12:20 Supervising Physician Co-Signing Physician Notes During face to face encounter, I obtained a brief physical examination, discussed hospital stay with patient and discharge instructions with patient. I discussed discharge plan of care with BRANDI Grace. I reviewed above note and agree with it except for the following: Patient admitted for small bowel obstruction. Patient slowly improved and is now tolerating a low fiber diet. Coding Level of Care Code 51297 INP/OBS DISCH >30 MIN Diagnoses Small bowel obstruction K56.609 Anxiety F41.9 Diarrhea R19.7 COVID-19 U07.1 Diabetes mellitus, type 2 E11.65 Diabetes mellitus complication status: with hyperglycemia Diabetes mellitus half-way insulin use: without terminal supervisor use GERD with esophagitis K21.0 Hyperlipidemia E78.5 Hypothyroidism E03.9 Time Spent (min) 40
[2023-02-01] MEDS ORDERED: INSULIN ASPART PER UNIT CHARGE SC SCH (11:30)
[2023-02-01] MEDS ORDERED: INSULIN ASPART PER UNIT CHARGE SC ONE ×2 (13:54)
--- NOTE | 2023-02-01 14:56 | Electrocardiogram Report ---
Test Reason : Blood Pressure : / mmHG Vent. Rate : 060 BPM Atrial Rate : 060 BPM P-R Int : 158 ms QRS Dur : 076 ms QT Int : 436 ms P-R-T Axes : 046 044 060 degrees QTc Int : 436 ms Normal sinus rhythm Normal ECG When compared with ECG of 25-JAN-2023 20:48, No significant change was found Confirmed by Dm Scanlon ([id number]) on 02/01/2023 2:56:25 PM Referred By: Huang Renee Confirmed By:Dm Scanlon
[2023-02-01] MEDS ORDERED: LANTUS PER UNIT CHARGE SQ SCH (21:00)
--- NOTE | 2023-02-09 07:35 | Coding Query ---
CODING QUERY To promote full compliance with coding requirements relating to patient care, provider participation is requested in all cases of company driver uncertainty. Please assist us with the question(s) below: Coding Question(s): There is Small Bowel Obstruction documented through the record and on Discharge Summary and there is early documentation regarding possible gastroenteritis with the ER documenting, "Spoke with Dr. Roy (general surgery) who evaluated the scans himself. He agrees she does have some significant dilation, but feels this is more likely to be a gastroenteritis picture rather than a small bowel obstruction", and, "I discussed the case with Dr. Roy (general surgery on-call) who evaluated the images and felt this is more likely to be a gastroenteritis picture but did agree she had some fair amount of dilation of the small bowel", and the H&P documenting, "Diarrhea more consistent with gastroenteritis, will keep n.p.o. given transition point; stool PCR and C. difficile pending", and the first Progress Note on 01/27 documents, "General surgery following -- likely gastroenteritis causing transition obstruction", then the 01/27 Surgery Consultation documents small bowel obstruction and, " 58 year-old female with history of COVID diagnosis last Wednesday presented to ED with complaint of increasing abdominal pain for past 4-5 days with nausea, vomiting, and diarrhea. CT scan showing dilated SB loops in left lower abdomen with possibility of ileus/gastroenteritis vs obstruction. No leukocytosis. Abdomen tender throughout but more in the Right abdomen. no rigidity, rebound, peritonitis, not distended. KUB today showing no signifcant small bowel gas or distention, equivocal for SBO", and the remainder of the record does not mention gastroenteritis, and documents only Small Bowel Obstruction. Please specify below, in your clinical opinion, regarding Gastroenteritis: (xxx ) Gastroenteritis was Ruled-Out, and there was Small Bowel Obstruction ( ) Gastroenteritis was likely causing the Small Bowel Obstruction. Please specify further below, regarding gastroenteritis: ( ) Gastroenteritis was caused by COVID-19 ( ) Gastroenteritis was from other specified source. Please Specify ( ) Gastroenteritis Unspecified ( ) Other: Please Specify Physician's Response(s): Thank you Lisa Jamil Principal Diagnosis: "that condition established after study, to be chiefly responsible for occasioning the admission of the patient to the hospital for care." Co-Existing Principal Diagnosis: "when two or more diagnoses equally meet the criteria for principal diagnosis as determined by the circumstances of admission, diagnostic work up, and/or therapy provided, and the Alphabetic Index, Tabular List, or another coding guideline does not provide sequencing direction, any one of the diagnoses may be sequenced first." "When the physician has documented what appears to be a current diagnosis in the body of the record, but has not included the diagnosis in the final diagnostic statement, the physician should be asked whether the diagnosis should be added." (Source Coding Clinic 2 QTR90. p3-4) MATEO
== END 2023-02-01 13:55 | disposition home or self-care (01) | DRG 388 ==
LOC: ED 13:05 → SUATTDRO 18:48 → 3E 18:48

== ENCOUNTER 2023-12-01 08:46 | Observation (INO) ==
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
[2023-12-01] MEDS ORDERED: KETOROLAC TROMETHAMINE 15 MG/ML VIAL IV ONE (09:31)
[2023-12-01] MEDS ORDERED: ALBUT/IPRATROP 3MG/0.5MG NEB 3 ML VIAL INH STA (09:31)
[2023-12-01] MEDS ORDERED: methylPREDNISolone 125 MG/2 ML VIAL IV STA (09:31)
[2023-12-01] MEDS ORDERED: SODIUM CHLORIDE 0.9% 1,000 ML IV SCH (09:45)
[2023-12-01 09:47] LABS: Basophils # (auto) 0.03 K/uL (0.00-0.20); Basophils % (auto) 0.2 %; Eosinophils # (auto) 0.06 K/uL (0.00-0.50); Eosinophils % (auto) 0.5 %; Hematocrit (blood only) 48.1 % (37.0-47.0); Hemoglobin 16.1 g/dl (12.0-16.0); Immature Granulocytes # (auto) 0.12 K/uL (0.01-0.20); Immature Granulocytes % (auto) 0.9 %; Lymphocytes # (auto) 1.77 K/uL (1.20-3.40); Lymphocytes % (auto) 13.6 %; Mean Corpuscular Hemoglobin 30.7 pg (25.0-34.0); Mean Corpuscular Hgb Conc 33.5 g/dL (32.0-36.0); Mean Corpuscular Volume 91.8 fL (80.0-100.0); Mean Platelet Volume 10.5 fL (9.4-12.4); Monocytes # (auto) 0.79 K/uL (0.11-0.59); Neutrophils # (auto) 10.29 K/uL (1.40-6.50); Neutrophils % (auto) 78.8 %; Platelet Count 227 K/uL (130-400); RDW Coefficient of Variation 14.1 % (11.5-14.5); RDW Standard Deviation 47.5 fL (36.4-46.3); Red Blood Count 5.24 M/uL (4.20-5.40); White Blood Count 13.06 K/ul (4.8-10.8)
--- NOTE | 2023-12-01 10:00 | XRay Report ---
XR chest 1V portable HISTORY: 58 years-old Female Dyspnea acute shortness of breath COMPARISON: CTA chest 11/25/2023 TECHNIQUE: AP view of the chest FINDINGS: Cardiomediastinal and hilar silhouettes are within normal limits. Extensive thoracolumbar spinal fusi on hardware redemonstrated. Mild likely chronic interstitial coarsening without pneumothorax, pleural effusion, airspace consolidation or pulmonary edema. Degenerative changes of the shoulders and spine . IMPRESSION: No acute process. ACT 112: Negative or not required by law. The above report was generated using voice recognition software. It may contain grammatical, syntax o r spelling errors. Electronically signed by: Chad Jung M.D. 12/01/2023 9:58 AM
[2023-12-01 10:01] LABS: Albumin Globulin Ratio 1.1 (0.9-2); Albumin Level 4.2 gm/dl (3.4-5.0); BUN Creatinine Ratio 12.2 (10-20); Bilirubin,Total 0.8 mg/dl (0.2-1.0); Calcium 9.5 mg/dl (8.6-10.3); Creatinine Clr Calc Pharmacy 83.2 ml/min; Est GFR (African American) 103.5 ml/min; Est GFR (Non-African American) 89.3 ml/min; Globulin 3.7 gm/dl (2.5-4.0); Potassium 3.9 mmol/L (3.5-5.1); Total Protein 7.9 gm/dl (6.0-8.3)
[2023-12-01 10:07] LABS: Troponin I High Sensitivity 6.7 pg/ml (0-14)
[2023-12-01 10:13] LABS: INR 0.9 (0.9-1.1); Partial Thromboplastin Ratio 0.9; Partial Thromboplastin Time 24 Seconds (21-31); Prothrombin Time 10.3 Seconds (9.0-12.0)
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
[2023-12-01 11:14] LABS: Adenovirus PCR Not Detected (NotDetected); Bordetella parapertussis PCR Not Detected (NotDetected); Bordetella pertussis PCR Not Detected (NotDetected); Chlamydia pneumoniae PCR Not Detected (NotDetected); Coronavirus 229E PCR Not Detected (NotDetected); Coronavirus CoV-2 (COVID19)PCR Not Detected (NotDetected); Coronavirus HKU1 PCR Not Detected (NotDetected); Coronavirus NL63 PCR Not Detected (NotDetected); Coronavirus OC43PCR Not Detected (NotDetected); Human Metapneumovirus PCR Not Detected (NotDetected); Influenza A PCR Not Detected (NotDetected); Influenza B PCR Not Detected (NotDetected); Mycoplasma pneumoniae PCR Not Detected (NotDetected); Parainfluenza Virus 1 PCR Not Detected (NotDetected); Parainfluenza Virus 2 PCR Not Detected (NotDetected); Parainfluenza Virus 3 PCR Not Detected (NotDetected); Parainfluenza Virus 4 PCR Not Detected (NotDetected); Rhinovirus/Enterovirus PCR Not Detected (NotDetected)
--- NOTE | 2023-12-01 11:26 | Electrocardiogram Report ---
Test Reason : Blood Pressure : / mmHG Vent. Rate : 096 BPM Atrial Rate : 096 BPM P-R Int : 130 ms QRS Dur : 068 ms QT Int : 340 ms P-R-T Axes : 077 065 067 degrees QTc Int : 429 ms Normal sinus rhythm Normal ECG When compared with ECG of 25-NOV-2023 09:12, Nonspecific T wave abnormality no longer evident in Inferior leads Confirmed by Jose Cruz Miller ([id number]) on 12/01/2023 11:26:19 AM Referred By: Confirmed By:Rohith Miller
[2023-12-01 11:32] LABS: Respiratory Syncytial VirusPCR DETECTED (NotDetected)
[2023-12-01] MEDS ORDERED: LORazepam 0.5 MG in SYRINGE 0.25 ML IV STA (11:39)
[2023-12-01] MEDS ORDERED: LORazepam 1 MG/1 ML SYR ED Inj Use IV STA (11:52)
[2023-12-01 12:00] LABS: C Reactive Protein 3.4 mg/dl (0-0.5)
--- NOTE | 2023-12-01 12:07 | CT Scan Report ---
SINUS CT WITHOUT CONTRAST CLINICAL HISTORY: left sided maxillary sinuses pain ?acute sinusitis COMPARISON STUDY: Head CT August 27, 2020. Technique: Helical axial images of the sinuses were obtained without IV contrast according to Fusion protocol. Coronal reformats were viewed. Automated exposure control was utilized for the study. A d ose lowering technique was utilized adhering to the principles of ALARA. CT DOSE: 524.12 mGy.cm FINDINGS: Visualized portions of the intracranial contents are unremarkable on this unenhanced exam. Small amount of fluid within the bilateral mastoid air cells is present. No facial fractures are pres ent. Orbits are unremarkable on unenhanced exam. Mild mucosal thickening within the inferior left fro ntal sinus is present. The frontoethmoidal recesses are narrowed by mucosal thickening. Extensive eth moid sinus opacification is noted. Sphenoethmoidal recesses are occluded by mucosal thickening. There are secretions with moderate mucosal thickening within the sphenoid sinuses. The bilateral maxillary sinuses are nearly completely opacified. There are secretions within the maxillary sinuses. Sinus op acification is new when compared to CT of June 27, 2020. Ostiomeatal complexes are occluded by muco manuelito thickening. No bony destruction is present. There is minimal deviation of the nasal septum. IMPRESSION: Extensive sinus opacification with near complete opacification of the maxillary sinuses w ith extensive mucosal thickening within the ethmoid and sphenoid sinuses with scattered air-fluid lev els and secretions. Multiple occluded major drainage pathways. The findings suggest acute on chronic sinusitis. ACT 112: Negative or not required by law. Electronically signed by: Sundar Dumont M.D. 12/01/2023 12:06 PM
[2023-12-01] MEDS ORDERED: CARBOHYDRATES FOR HYPOGLYCEMIA PO PRN (12:44)
[2023-12-01] MEDS ORDERED: GLUCOSE 40% GEL 15 GM TUBE PO PRN (12:44)
[2023-12-01] MEDS ORDERED: GLUCAGON FOR INJ 1 MG VIAL SQ PRN (12:44)
[2023-12-01] MEDS ORDERED: DEXTROSE 50% 50 ML SYRINGE IV PRN (12:44)
[2023-12-01] MEDS ORDERED: GLUCOSE 10 TAB/TUBE PO PRN (12:44)
[2023-12-01] MEDS ORDERED: AMPICILLIN/SULBACTAM SOD 3,000 MG in SODIUM CHLOR 0.9% MINI-B 100 ML IV ONE (12:45)
[2023-12-01] MEDS: PANTOprazole 40 MG TAB PO SCH (13:53)
[2023-12-01] MEDS: INSULIN ASPART PER UNIT CHARGE SC SCH ×3 (14:58→21:13)
[2023-12-01 15:20] LABS: Appearance Urine Clear (Clear); Bilirubin Urine Negative (Negative); Blood Urine Negative (Negative); Color Urine Yellow; Glucose Urine UA 3+ (Negative); Ketones Urine 2+ (Negative); Leukocyte Esterase Urine Negative (Negative); Nitrite Urine Negative (Negative); Protein Urine Negative (Negative); Specific Gravity Urine 1.044 (1.000-1.030); Urobilinogen Urine Negative (Negative)
[2023-12-01] MEDS: ACETAMINOPHEN 325 MG TAB PO PRN ×2 (15:31→19:41)
[2023-12-01] MEDS: GABAPENTIN 400 MG CAP PO SCH ×2 (15:31→20:04)
[2023-12-01] MEDS: oxyCODONE HCL IR 5 MG TAB (IMMEDIATE RELEASE) PO PRN ×2 (15:31→19:41)
[2023-12-01] MEDS: DEXTROMETHORPHAN POLYMR COMPLX 30 MG/5 ML UDP PO PRN (15:31)
[2023-12-01] MEDS ORDERED: NovoLIN-N (NPH) PER UNIT CHARGE SC ONE (17:30)
[2023-12-01] MEDS: LORazepam 0.5 MG TAB PO PRN (19:41)
[2023-12-01] MEDS: KETOROLAC TROMETHAMINE 15 MG/ML VIAL IV PRN (19:44)
[2023-12-01] MEDS ORDERED: SODIUM CHLORIDE 0.65% NA SOLN 45 ML (OCEAN) ONE (19:54)
[2023-12-01] MEDS: PRAMIPEXOLE DIHYDROCHLO 0.5 MG TAB PO SCH (20:03)
[2023-12-01] MEDS: PREGABALIN 100 MG CAP PO SCH (20:03)
[2023-12-01] MEDS: PRAZOSIN HCL 1 MG CAP PO SCH (20:04)
[2023-12-01] MEDS: guaiFENesin 600 MG TABCR PO SCH (20:04)
[2023-12-01] MEDS: traZODone HCL 100 MG TAB PO SCH ×2 (20:04)
[2023-12-01] MEDS: FLUTICASONE PROPIONATE NA SPR 16 GM BTL SCH (20:06)
[2023-12-01] MEDS: SODIUM CHLORIDE 0.65% NA SOLN 45 ML (OCEAN) SCH (20:08)
[2023-12-01] MEDS: ENOXAPARIN INJ 40 MG/0.4 ML SYR SQ SCH (20:09)
[2023-12-01] MEDS: AMPICILLIN/SULBACTAM SOD 3,000 MG in SODIUM CHLOR 0.9% MINI-B 100 ML IV SCH (21:19)
[2023-12-01] MEDS ORDERED: HYDROmorphone INJ 0.5 MG/0.5 ML SYR IV STA (22:44)
[2023-12-02] MEDS: KETOROLAC TROMETHAMINE 15 MG/ML VIAL IV PRN ×3 (02:05→20:53)
[2023-12-02] MEDS ORDERED: COUGH DROP (SUGAR FREE) LOZ 24 LOZ/1 BOX BUCCAL ONE (02:12)
[2023-12-02] MEDS: ONDANSETRON INJ 2 MG/ML 2 ML VIAL IV PRN (02:13)
[2023-12-02] MEDS: BENZONATATE 100 MG CAPSULE PO PRN ×3 (02:13→19:59)
[2023-12-02] MEDS ORDERED: ALBUT/IPRATROP 3MG/0.5MG NEB 3 ML VIAL NEB STA (02:22)
[2023-12-02] MEDS: AMPICILLIN/SULBACTAM SOD 3,000 MG in SODIUM CHLOR 0.9% MINI-B 100 ML IV SCH ×4 (02:50→19:54)
[2023-12-02] MEDS: LORazepam 0.5 MG TAB PO PRN (03:51)
[2023-12-02] MEDS: DEXTROMETHORPHAN POLYMR COMPLX 30 MG/5 ML UDP PO PRN ×2 (03:57→17:36)
[2023-12-02] MEDS: oxyCODONE HCL IR 5 MG TAB (IMMEDIATE RELEASE) PO PRN ×4 (05:21→19:58)
[2023-12-02] MEDS: LEVOTHYROXINE SODIUM 112 MCG TABLET PO SCH (05:24)
[2023-12-02] MEDS: INSULIN ASPART PER UNIT CHARGE SC SCH ×4 (08:05→21:02)
[2023-12-02] MEDS: PREGABALIN 100 MG CAP PO SCH ×2 (08:09→20:00)
[2023-12-02] MEDS: SODIUM CHLORIDE 0.65% NA SOLN 45 ML (OCEAN) SCH ×2 (08:09→20:01)
[2023-12-02 08:22] LABS: Basophils # (auto) 0.02 K/uL (0.00-0.20); Basophils % (auto) 0.1 %; Eosinophils # (auto) 0.05 K/uL (0.00-0.50); Eosinophils % (auto) 0.4 %; Hematocrit (blood only) 39.1 % (37.0-47.0); Hemoglobin 13.4 g/dl (12.0-16.0); Immature Granulocytes # (auto) 0.11 K/uL (0.01-0.20); Immature Granulocytes % (auto) 0.8 %; Lymphocytes # (auto) 2.32 K/uL (1.20-3.40); Lymphocytes % (auto) 16.7 %; Mean Corpuscular Hemoglobin 31.2 pg (25.0-34.0); Mean Corpuscular Hgb Conc 34.3 g/dL (32.0-36.0); Mean Corpuscular Volume 90.9 fL (80.0-100.0); Mean Platelet Volume 11.1 fL (9.4-12.4); Monocytes # (auto) 1.06 K/uL (0.11-0.59); Monocytes % (auto) 7.6 %; Neutrophils # (auto) 10.33 K/uL (1.40-6.50); Neutrophils % (auto) 74.4 %; Platelet Count 178 K/uL (130-400); RDW Standard Deviation 46.5 fL (36.4-46.3); White Blood Count 13.89 K/ul (4.8-10.8)
[2023-12-02 08:48] LABS: BUN Creatinine Ratio 16.7 (10-20); Calcium 8.9 mg/dl (8.6-10.3); Creatinine Clr Calc Pharmacy 92.3 ml/min; Est GFR (African American) 112.9 ml/min; Est GFR (Non-African American) 97.4 ml/min; Potassium 3.7 mmol/L (3.5-5.1)
[2023-12-02 08:57] LABS: Estimated Average Glucose 166 mg/dl; Hemoglobin A1C 7.4 % (4.5-5.6)
[2023-12-02] MEDS ORDERED: SITagliptin PHOSPHATE 25 MG TAB PO SCH (09:00)
[2023-12-02] MEDS: GABAPENTIN 400 MG CAP PO SCH ×3 (09:12→20:00)
[2023-12-02] MEDS: ATORVASTATIN 40 MG TAB PO SCH (09:12)
[2023-12-02] MEDS: guaiFENesin 600 MG TABCR PO SCH ×2 (09:12→20:00)
[2023-12-02] MEDS: FLUTICASONE PROPIONATE NA SPR 16 GM BTL SCH ×2 (09:13→19:58)
[2023-12-02] MEDS: OXYMETAZOLINE 0.05% 30 ML BTL NAE SCH ×2 (09:17→19:58)
[2023-12-02] MEDS: DULoxetine HCL 60 MG CAP PO SCH (10:29)
[2023-12-02] MEDS: LORazepam 1 MG TAB PO PRN ×2 (12:54→20:54)
[2023-12-02] MEDS: ALBUTEROL 0.083% NEBU SOLN 3 ML VIAL NEB PRN (13:59)
[2023-12-02] MEDS: PANTOprazole 40 MG TAB PO SCH (14:16)
--- NOTE | 2023-12-02 18:08 | Hospitalist Progress Note ---
Date of Service December 02, 2023 Assessment & Plan (1) Acute sinusitis: Plan: Acute on chronic sinusitis - reviewed sinus CT, almost complete opacification of maxillary sinuses. Leukocytosis persists. Remains highly symptomatic. Left sided facial pain. Has RSV but 10 days into illness so if sinusitis only viral should have started to improve. Suspect bacterial sinusitis Continue Unasyn 3g IV q6h Ordered afrin 2 sprays bid x 72h Ordered flonase Consider oral steroids, but was recently on prednisone without benefit (2) RSV infection: Plan: With acute bronchiolitis Droplet isolation precautions Incentive spirometer, flutter valve, guaifenesin BID, dextromethorphan as needed Has had some improvement with bronchodilator - ordered PRN albuterol nebs (3) Rib pain on left side: Plan: Suspect this is musculoskeletal in nature with previous chronic/healed left rib fractures and now acute RSV infection Previously on chronic opiates for chronic back pain which appears to have been discontinued around August last year per PDMP acetaminophen 1st line Toradol 2nd line for pain - monitor for epigastric pain getting worse Oxycodone 5mg q4h PRN 3rd line (4) Abdominal pain, epigastric: Plan: Suspect musculoskeletal from coughing. Lipase normal. No pancreatitis on previous CT 6 days ago. (5) Cirrhosis of liver: Plan: Noted on previous CT imaging Recommend follow-up with gastroenterology Limit acetaminophen to 2 g daily -suitable for discharge on oral augmentin once drainage improving, symptomatically improved, leukocytosis improved (6) Diabetes mellitus, type 2: Plan: HbA1c 7.5 in October, no need to repeat this Continue her usual Januvia and Invokana Novolog for correction only as likely to be hyperglycemic for first 24 hours after steroids given in the ER: --Goal BSG Range: Low 110 mg/dL, High 140 mg/dL --Correction Factor: 45 mg/dL/unit No carb coverage --BSGs ACHS if eating, q6h if npo -BG reviewed 12/02 at goal, no changes to above (7) GERD with esophagitis: Plan: Continue pantoprazole 40 mg p.o. daily (8) Hypothyroidism: Plan: TSH 1.72 in October, no need to repeat this Continue levothyroxine 112 mcg p.o. daily (9) Restless leg syndrome: Plan: Continue pramipexole 1 mg p.o. HS Plan VTE prophylaxis - Lovenox 40 mg SQ daily Diet - gluten-free per patient preference (she notes history of celiac although no mention of this on prior pathology or GI note), type 2 diabetes mellitus Admission and Anticipated Discharge Date Admission Date: December 01, 2023 Subjective continues to have severe nasal and sinus congestion and some facial/ear pain and coughing and chest congestion. does not perceive improvement from yesterday. Physical Exam 2 Physical Exam: PHYSICAL EXAMINATION Last 24h vital signs reviewed, see documentation in flowsheet General: lying on side in bed, looks fatigued and ill HEENT: Normocephalic, atraumatic, pupils round and equal, sclerae anicteric, no conjunctival injection, moist mucus membranes. nasal congestion Lungs: Normal respiratory effort. coarse bilaterally all bazan with loose cough. No wheezing Heart: Regular rate and rhythm, no murmurs. No JVD Abdomen: Soft, nontender, nondistended. Bowel sounds present. Extremities: Warm, dry, well-perfused. No extremity edema. Neuro: Alert and oriented x 4, face symmetric, moves 4 extremities well Psych: Normal affect and behavior Results & Data Results & Data Vital Signs (Past 12 Hours) Vital Signs Temp Pulse Resp BP Pulse Ox O2 Del Method O2 Flow Rate 12/02/23 14:29 36.8 C 93 H 18 153/87 H 98 Room Air 12/02/23 14:00 104 H 21 97 Room Air 12/02/23 08:20 36.8 C 57 L 18 124/77 96 Nasal Cannula 2 12/02/23 08:05 Room Air FiO2 12/02/23 14:29 12/02/23 14:00 21 12/02/23 08:20 12/02/23 08:05 Laboratory Results 12/02/23 07:18 12/02/23 07:18 Chest X-Ray 12/01/23 09:31 XR chest 1V portable HISTORY: 58 years-old Female Dyspnea acute shortness of breath COMPARISON: CTA chest 11/25/2023 TECHNIQUE: AP view of the chest FINDINGS: Cardiomediastinal and hilar silhouettes are within normal limits. Extensive thoracolumbar spinal fusion hardware redemonstrated. Mild likely chronic interstitial coarsening without pneumothorax, pleural effusion, airspace consolidation or pulmonary edema. Degenerative changes of the shoulders and spine. IMPRESSION: No acute process. ACT 112: Negative or not required by law. The above report was generated using voice recognition software. It may contain grammatical, syntax or spelling errors. Electronically signed by: Chad Jung M.D. 12/01/2023 9:[address] 12/01/23 11:[address] WITHOUT CONTRAST CLINICAL HISTORY: left sided maxillary sinuses pain ?acute sinusitis COMPARISON STUDY: Head CT August 27, 2020. Technique: Helical axial images of the sinuses were obtained without IV contrast according to Fusion protocol. Coronal reformats were viewed. Automated exposure control was utilized for the study. A dose lowering technique was utilized adhering to the principles of ALARA. CT DOSE: 524.12 mGy.cm FINDINGS: Visualized portions of the intracranial contents are unremarkable on this unenhanced exam. Small amount of fluid within the bilateral mastoid air cells is present. No facial fractures are present. Orbits are unremarkable on unenhanced exam. Mild mucosal thickening within the inferior left frontal sinus is present. The frontoethmoidal recesses are narrowed by mucosal thickening. Extensive ethmoid sinus opacification is noted. Sphenoethmoidal recesses are occluded by mucosal thickening. There are secretions with moderate mucosal thickening within the sphenoid sinuses. The bilateral maxillary sinuses are nearly completely opacified. There are secretions within the maxillary sinuses. Sinus opacification is new when compared to CT of June 27, 2020. Ostiomeatal complexes are occluded by mucosal thickening. No bony destruction is present. There is minimal deviation of the nasal septum. IMPRESSION: Extensive sinus opacification with near complete opacification of the maxillary sinuses with extensive mucosal thickening within the ethmoid and sphenoid sinuses with scattered air-fluid levels and secretions. Multiple occluded major drainage pathways. The findings suggest acute on chronic sinusitis. ACT 112: Negative or not required by law. Electronically signed by: Sundar Dumont M.D. 12/01/2023 12:06 PM PG Care Time/CCT Total # of Minutes Spent Total Time Spent with Patient: Total time spent is greater than 50% in coordination of care (as documented) at patient's floor/unit and/or counseling patient: Coding Level of Care Code 82700 SUB INP/OBS CARE 2/35MIN Diagnoses Acute sinusitis J01.90 RSV infection B33.8 Rib pain on left side R07.81 Abdominal pain, epigastric R10.13 Cirrhosis of liver K74.60 Type 2 diabetes mellitus with hyperglycemia, without long-term current use of insulin E11.65 Diabetes mellitus usp insulin use: without terminal superintendent use Diabetes mellitus complication status: with hyperglycemia GERD with esophagitis K21.0 Hypothyroidism E03.9 Restless leg syndrome G25.81 (6) Diabetes mellitus, type 2 Diabetes mellitus terminal superintendent insulin use: without terminal superintendent use Diabetes mellitus complication status: with hyperglycemia Qualified Code(s): E11.65 - Type 2 diabetes mellitus with hyperglycemia
[2023-12-02] MEDS: PRAMIPEXOLE DIHYDROCHLO 0.5 MG TAB PO SCH (20:00)
[2023-12-02] MEDS: ENOXAPARIN INJ 40 MG/0.4 ML SYR SQ SCH (20:00)
[2023-12-02] MEDS: traZODone HCL 100 MG TAB PO SCH ×2 (20:01)
[2023-12-02] MEDS: PRAZOSIN HCL 1 MG CAP PO SCH (20:01)
[2023-12-03] MEDS: AMPICILLIN/SULBACTAM SOD 3,000 MG in SODIUM CHLOR 0.9% MINI-B 100 ML IV SCH ×4 (01:59→21:28)
[2023-12-03] MEDS: KETOROLAC TROMETHAMINE 15 MG/ML VIAL IV PRN ×3 (03:27→21:29)
[2023-12-03] MEDS: BENZONATATE 100 MG CAPSULE PO PRN ×2 (03:28→18:11)
[2023-12-03] MEDS: oxyCODONE HCL IR 5 MG TAB (IMMEDIATE RELEASE) PO PRN ×3 (03:28→22:58)
[2023-12-03] MEDS: ALBUTEROL 0.083% NEBU SOLN 3 ML VIAL NEB PRN ×3 (03:36→18:14)
[2023-12-03] MEDS: DEXTROMETHORPHAN POLYMR COMPLX 30 MG/5 ML UDP PO PRN ×2 (05:06→20:33)
[2023-12-03] MEDS: LORazepam 1 MG TAB PO PRN ×3 (05:07→20:40)
[2023-12-03] MEDS: LEVOTHYROXINE SODIUM 112 MCG TABLET PO SCH (05:10)
[2023-12-03] MEDS: INSULIN ASPART PER UNIT CHARGE SC SCH ×4 (08:19→20:33)
[2023-12-03] MEDS: PREGABALIN 100 MG CAP PO SCH ×2 (08:20→20:40)
[2023-12-03] MEDS: OXYMETAZOLINE 0.05% 30 ML BTL NAE SCH ×2 (08:21→20:35)
[2023-12-03] MEDS: DULoxetine HCL 60 MG CAP PO SCH (08:21)
[2023-12-03] MEDS: FLUTICASONE PROPIONATE NA SPR 16 GM BTL SCH ×2 (08:21→20:34)
[2023-12-03] MEDS: guaiFENesin 600 MG TABCR PO SCH ×2 (08:22→20:32)
[2023-12-03] MEDS: ATORVASTATIN 40 MG TAB PO SCH (08:22)
[2023-12-03] MEDS: GABAPENTIN 400 MG CAP PO SCH ×3 (08:23→20:34)
[2023-12-03] MEDS: SODIUM CHLORIDE 0.65% NA SOLN 45 ML (OCEAN) SCH ×2 (08:25→20:35)
[2023-12-03] MEDS ORDERED: COUGH DROP (SUGAR FREE) LOZ 24 LOZ/1 BOX BUCCAL STA (08:26)
[2023-12-03] MEDS: PANTOprazole 40 MG TAB PO SCH (12:53)
[2023-12-03] MEDS: ONDANSETRON INJ 2 MG/ML 2 ML VIAL IV PRN (12:53)
--- NOTE | 2023-12-03 17:07 | Hospitalist Progress Note ---
Date of Service December 03, 2023 Assessment & Plan (1) Acute sinusitis: Plan: Acute on chronic sinusitis - reviewed sinus CT, almost complete opacification of maxillary sinuses. Leukocytosis persists. Remains highly symptomatic. Left sided facial pain. Has RSV but 10 days into illness so if sinusitis only viral should have started to improve. Suspect bacterial sinusitis Continue Unasyn 3g IV q6h Ordered afrin 2 sprays bid x 72h Ordered flonase Consider oral steroids, but was recently on prednisone without benefit - remains highly symptomatic is starting to improve, very severe acute sinusitis warrants continued inpatient stay for intravenous antibiotics at this time - a.m. CBC -suitable for discharge on oral augmentin once drainage improving, symptomatically improved, leukocytosis improved (2) RSV infection: Plan: With acute bronchiolitis Droplet isolation precautions Incentive spirometer, flutter valve, guaifenesin BID, dextromethorphan as needed Has had some improvement with bronchodilator - ordered PRN albuterol nebs - improving (3) Rib pain on left side: Plan: this is musculoskeletal in nature with previous chronic/healed left rib fractures and now acute RSV infection Previously on chronic opiates for chronic back pain which appears to have been discontinued around August last year per PDMP acetaminophen 1st line Toradol 2nd line for pain - monitor for epigastric pain getting worse Oxycodone 5mg q4h PRN 3rd line (4) Abdominal pain, epigastric: Plan: musculoskeletal abdominal wall pain from coughing. Lipase normal. No pancreatitis on previous CT 6 days ago. eating and drinking without difficulty (5) Cirrhosis of liver: Plan: Noted on previous CT imaging Recommend follow-up with gastroenterology Limit acetaminophen to 2 g daily (6) Diabetes mellitus, type 2: Plan: HbA1c 7.5 in October, no need to repeat this Continue her usual Januvia and Invokana Novolog for correction only as likely to be hyperglycemic for first 24 hours after steroids given in the ER: --Goal BSG Range: Low 110 mg/dL, High 140 mg/dL --Correction Factor: 45 mg/dL/unit No carb coverage --BSGs ACHS if eating, q6h if npo -BG reviewed 12/03 slightly above goal, likely to improve by tomorrow as steroid effect wears off (7) GERD with esophagitis: Plan: Continue pantoprazole 40 mg p.o. daily (8) Hypothyroidism: Plan: TSH 1.72 in October, no need to repeat this Continue levothyroxine 112 mcg p.o. daily (9) Restless leg syndrome: Plan: Continue pramipexole 1 mg p.o. HS Plan VTE prophylaxis - Lovenox 40 mg SQ daily Diet - gluten-free per patient preference (she notes history of celiac although no mention of this on prior pathology or GI note), type 2 diabetes mellitus Admission and Anticipated Discharge Date Admission Date: December 03, 2023 Subjective Noris has started to improve although continues to have severe left-sided facial pain from sinusitis, she is now having sinus/nasal drainage which is an improvement, continues to have frequent coughing but that has also improved. Rib pain and abdominal wall pain from coughing still prominent but also have improved Physical Exam Physical Exam: PHYSICAL EXAMINATION Last 24h vital signs reviewed, see documentation in flowsheet General: lying on bed talking on phone looks much better today HEENT: Normocephalic, atraumatic, pupils round and equal, sclerae anicteric, no conjunctival injection, moist mucus membranes. nasal congestion left face tenderness present Lungs: Normal respiratory effort. coarse bilaterally all bazan but less so with loose cough. No wheezing Heart: Regular rate and rhythm, no murmurs. No JVD Abdomen: Soft, nondistended. upper abdominal wall tender to palpation, ribs and costochondral area tender to palpation Extremities: Warm, dry, well-perfused. No extremity edema. Neuro: Alert and oriented x 4, face symmetric, moves 4 extremities well Psych: Normal affect and behavior Results & Data Results & Data Vital Signs (Past 12 Hours) Vital Signs Temp Pulse Resp BP Pulse Ox O2 Del Method O2 Flow Rate 12/03/23 15:03 36.9 C 62 16 121/74 93 Room Air 12/03/23 10:04 70 24 96 Nasal Cannula 2 12/03/23 10:00 Room Air, Nasal Cannula 2 12/03/23 08:17 36.7 C 64 18 137/82 97 Room Air PG Care Time/CCT Total # of Minutes Spent Total Time Spent with Patient: Total time spent is greater than 50% in coordination of care (as documented) at patient's floor/unit and/or counseling patient: Coding Level of Care Code 69121 SUB INP/OBS CARE 2/35MIN Diagnoses Acute sinusitis J01.90 RSV infection B33.8 Rib pain on left side R07.81 Abdominal pain, epigastric R10.13 Cirrhosis of liver K74.60 Type 2 diabetes mellitus with hyperglycemia, without long-term current use of insulin E11.65 Diabetes mellitus manager terminal insulin use: without manager terminal use Diabetes mellitus complication status: with hyperglycemia GERD with esophagitis K21.0 Hypothyroidism E03.9 Restless leg syndrome G25.81 (6) Diabetes mellitus, type 2 Diabetes mellitus senior care insulin use: without senior care use Diabetes mellitus complication status: with hyperglycemia Qualified Code(s): E11.65 - Type 2 diabetes mellitus with hyperglycemia
[2023-12-03] MEDS: PRAZOSIN HCL 1 MG CAP PO SCH (20:32)
[2023-12-03] MEDS: PRAMIPEXOLE DIHYDROCHLO 0.5 MG TAB PO SCH (20:32)
[2023-12-03] MEDS: traZODone HCL 100 MG TAB PO SCH ×2 (20:32)
[2023-12-03] MEDS: ENOXAPARIN INJ 40 MG/0.4 ML SYR SQ SCH (20:33)
[2023-12-04] MEDS: AMPICILLIN/SULBACTAM SOD 3,000 MG in SODIUM CHLOR 0.9% MINI-B 100 ML IV SCH ×2 (03:32→08:19)
[2023-12-04] MEDS: LEVOTHYROXINE SODIUM 112 MCG TABLET PO SCH (05:22)
[2023-12-04] MEDS: KETOROLAC TROMETHAMINE 15 MG/ML VIAL IV PRN (05:22)
[2023-12-04] MEDS: LORazepam 1 MG TAB PO PRN ×2 (05:24→12:19)
[2023-12-04] MEDS: DEXTROMETHORPHAN POLYMR COMPLX 30 MG/5 ML UDP PO PRN (08:16)
[2023-12-04] MEDS: guaiFENesin 600 MG TABCR PO SCH (08:17)
[2023-12-04] MEDS: GABAPENTIN 400 MG CAP PO SCH (08:17)
[2023-12-04] MEDS: DULoxetine HCL 60 MG CAP PO SCH (08:18)
[2023-12-04] MEDS: ATORVASTATIN 40 MG TAB PO SCH (08:18)
[2023-12-04] MEDS: OXYMETAZOLINE 0.05% 30 ML BTL NAE SCH (08:19)
[2023-12-04] MEDS: FLUTICASONE PROPIONATE NA SPR 16 GM BTL SCH (08:19)
[2023-12-04] MEDS: SODIUM CHLORIDE 0.65% NA SOLN 45 ML (OCEAN) SCH (08:20)
[2023-12-04] MEDS: INSULIN ASPART PER UNIT CHARGE SC SCH ×2 (08:24→12:21)
[2023-12-04] MEDS: PREGABALIN 100 MG CAP PO SCH (08:24)
[2023-12-04 09:55] LABS: Anion Gap 4 (3-11); Blood Urea Nitrogen 13 mg/dl (6-23); Calcium 9.4 mg/dl (8.6-10.3); Carbon Dioxide 31 mmol/L (21-32); Chloride 104 mmol/L (98-107); Creatinine Clr Calc Pharmacy 93.7 ml/min; Est GFR (African American) 113.4 ml/min; Est GFR (Non-African American) 97.9 ml/min; Glucose 149 mg/dl (70-99(Fasting)); Sodium 139 mmol/L (136-145)
[2023-12-04] MEDS: oxyCODONE HCL IR 5 MG TAB (IMMEDIATE RELEASE) PO PRN (10:08)
[2023-12-04] MEDS: BENZONATATE 100 MG CAPSULE PO PRN (10:09)
[2023-12-04 10:25] LABS: Basophils # (auto) 0.02 K/uL (0.00-0.20); Basophils % (auto) 0.2 %; Eosinophils # (auto) 0.13 K/uL (0.00-0.50); Eosinophils % (auto) 1.5 %; Hematocrit (blood only) 44.7 % (37.0-47.0); Hemoglobin 14.4 g/dl (12.0-16.0); Immature Granulocytes # (auto) 0.08 K/uL (0.01-0.20); Lymphocytes # (auto) 1.98 K/uL (1.20-3.40); Lymphocytes % (auto) 23.5 %; Mean Corpuscular Hemoglobin 30.8 pg (25.0-34.0); Mean Corpuscular Hgb Conc 32.2 g/dL (32.0-36.0); Mean Corpuscular Volume 95.7 fL (80.0-100.0); Mean Platelet Volume 10.8 fL (9.4-12.4); Monocytes # (auto) 0.62 K/uL (0.11-0.59); Monocytes % (auto) 7.4 %; Neutrophils # (auto) 5.58 K/uL (1.40-6.50); Neutrophils % (auto) 66.4 %; Platelet Count 187 K/uL (130-400); RDW Coefficient of Variation 14.4 % (11.5-14.5); RDW Standard Deviation 50.3 fL (36.4-46.3); Red Blood Count 4.67 M/uL (4.20-5.40); White Blood Count 8.41 K/ul (4.8-10.8)
[2023-12-04] MEDS ORDERED: FLUCONAZOLE 50 MG TAB PO ONE (12:00)
[2023-12-04] MEDS: PANTOprazole 40 MG TAB PO SCH (12:21)
--- NOTE | 2023-12-04 18:59 | Discharge Summary ---
Date of Service December 04, 2023 Admission HPI Per Admitting Provider Alfreda Callahan is a 58-year-old female who presents to the ER with ongoing left-sided chest pain, epigastric pain, shortness of breath, diarrhea, left sided head pain, cough. She notes her symptoms been ongoing for the last 10 days (approximately Nov 21) and progressively getting worse during this time. She was seen in the emergency room on the and diagnosed with RSV with acute bronchospasm prescribed prednisone and albuterol inhaler without significant improvement. She underwent a chest x-ray at that time showing no acute pathology. She returned the following day as her symptoms became worse and underwent CT chest, abdomen, pelvis showing no evidence of pulmonary embolism, no airspace consolidation or pleural effusion, diffuse peribronchial thickening with mucous plugging noted in the lower lobes, liver steatotic and cirrhotic morphology. She was prescribed guaifenesin and reassured. She followed up with her PCP on Nov 26 and again reassured. Over the last two days however she feels she has not had any sleep and newly having left sided facial pain. She notes her ear on that side and sinuses feel full. The left sided chest pain and epigastric pain is ongoing from her prior visits. Principal Diagnosis Severe acute bacterial sinusitis, RSV bronchiolitis Discharge Exam PHYSICAL EXAMINATION Last 24h vital signs reviewed, see documentation in flowsheet General: awake, alert, looks improved HEENT: Normocephalic, atraumatic, pupils round and equal, sclerae anicteric, no conjunctival injection, moist mucus membranes. voice remains hoarse Lungs: Normal respiratory effort. slighty coarse bilaterally all bazan but much improved, no wheezing, good air mvt Heart: Regular rate and rhythm, no murmurs. No JVD Abdomen: Soft, nondistended. upper abdominal wall tender to palpation, ribs and costochondral area tender to palpation Extremities: Warm, dry, well-perfused. No extremity edema. Neuro: Alert and oriented x 4, face symmetric, moves 4 extremities well Psych: Normal affect and behavior Discharge Data Allergies Allergy/AdvReac Type Severity Reaction Status Date / Time doxycycline [From Vibramycin] Allergy Severe TONGUE Verified 12/01/23 12:09 SWELLS, SOB, RASH Sulfa (Sulfonamide Allergy Severe HIVES/LIPS Verified 12/01/23 12:09 Antibiotics) SWELLING tetracycline Allergy Severe TONGUE Verified 12/01/23 12:09 SWELLS, SOB, RASH metformin AdvReac Intermediate Diarrhea Verified 12/01/23 12:09 Consultations 12/01/23 10:43 ED Decision to Admit Stat Ordered Studies 12/01/23 11:26 CT sinus wo con Stat Chest X-Ray 12/01/23 09:31 XR chest 1V portable HISTORY: 58 years-old Female Dyspnea acute shortness of breath COMPARISON: CTA chest 11/25/2023 TECHNIQUE: AP view of the chest FINDINGS: Cardiomediastinal and hilar silhouettes are within normal limits. Extensive thoracolumbar spinal fusion hardware redemonstrated. Mild likely chronic interstitial coarsening without pneumothorax, pleural effusion, airspace consolidation or pulmonary edema. Degenerative changes of the shoulders and spine. IMPRESSION: No acute process. ACT 112: Negative or not required by law. The above report was generated using voice recognition software. It may contain grammatical, syntax or spelling errors. Electronically signed by: Chad Jung M.D. 12/01/2023 9:[address] 12/01/23 11:[address] WITHOUT CONTRAST CLINICAL HISTORY: left sided maxillary sinuses pain ?acute sinusitis COMPARISON STUDY: Head CT August 27, 2020. Technique: Helical axial images of the sinuses were obtained without IV contrast according to Fusion protocol. Coronal reformats were viewed. Automated exposure control was utilized for the study. A dose lowering technique was utilized adhering to the principles of ALARA. CT DOSE: 524.12 mGy.cm FINDINGS: Visualized portions of the intracranial contents are unremarkable on this unenhanced exam. Small amount of fluid within the bilateral mastoid air cells is present. No facial fractures are present. Orbits are unremarkable on unenhanced exam. Mild mucosal thickening within the inferior left frontal sinus is present. The frontoethmoidal recesses are narrowed by mucosal thickening. Extensive ethmoid sinus opacification is noted. Sphenoethmoidal recesses are occluded by mucosal thickening. There are secretions with moderate mucosal thickening within the sphenoid sinuses. The bilateral maxillary sinuses are nearly completely opacified. There are secretions within the maxillary sinuses. Sinus opacification is new when compared to CT of June 27, 2020. Ostiomeatal complexes are occluded by mucosal thickening. No bony destruction is present. There is minimal deviation of the nasal septum. IMPRESSION: Extensive sinus opacification with near complete opacification of the maxillary sinuses with extensive mucosal thickening within the ethmoid and sphenoid sinuses with scattered air-fluid levels and secretions. Multiple occluded major drainage pathways. The findings suggest acute on chronic sinusitis. ACT 112: Negative or not required by law. Electronically signed by: Sundar Dumont M.D. 12/01/2023 12:06 PM 12/04/23 09:43 12/04/23 10:02 Hospital Course (1) Acute sinusitis: Had greater than a week of viral upper respiratory symptoms then developed worsening left facial pain, left ear pain, headache, sinus and nasal congestion On admission had leukocytosis of 20K Had been on prednisone prior to admission but was not helping sinus CT obtained, severe acute on chronic sinusitis, almost complete opacification of maxillary sinuses. Has RSV but 10 days into illness so if sinusitis only viral should have started to improve. Strongly suspect bacterial sinusitis treated with Unasyn 3g IV q6h, afrin 2 sprays bid x 72h, flonase -after several days of this had significant improvement in symptoms, leukocytosis resolved, sinuses began draining, facial pain resolved -Rx for augmentin on discharge for 10 more days (14d total course) -continue flonase - consider continuing termination clerk given chronic sinusitis findings on CT -discussed return precautions (2) RSV infection: With acute bronchiolitis Incentive spirometer, flutter valve, guaifenesin BID, dextromethorphan as needed Has had some improvement with bronchodilator - ordered PRN albuterol nebs - improved - not requiring supplemental O2 - continue PRN bronchodilators - rx for prednisone to have "on hand" if worsening wheezing/tightness develops and call primary care for close follow up appointment (3) Rib pain on left side: this is musculoskeletal in nature with previous chronic/healed left rib fractures and now acute RSV infection Previously on chronic opiates for chronic back pain which appears to have been discontinued around August last year per PDMP -improved with analgesics, but still symptomatic (4) Abdominal pain, epigastric: musculoskeletal abdominal wall pain from coughing. Lipase normal. No pancreatitis on previous CT 6 days ago. eating and drinking without difficulty (5) Cirrhosis of liver: Noted on previous CT imaging Recommend follow-up with gastroenterology - has appointment with Dr. Acosta next week and she will discuss with him -labs reviewed -denies alcohol history -has risk factors for NAFLD (6) Diabetes mellitus, type 2: HbA1c 7.5 in October, no need to repeat this Continue her usual Januvia and Invokana (7) GERD with esophagitis: Continue pantoprazole 40 mg p.o. daily (8) Hypothyroidism: TSH 1.72 in October, no need to repeat this Continue levothyroxine 112 mcg p.o. daily (9) Restless leg syndrome: Continue pramipexole 1 mg p.o. HS Total Time Total Time Spent Total Time Spent (In Minutes): I personally spent: 35-minute today on clinical care activities including: reviewing chart notes and vital signs reviewing labs examining and counseling the patient writing orders documentation, patient instructions Discharge Plan Discharge Items Patient Disposition: Home - Self-Care Reason For Visit: RSV Discharge Diagnosis: RSV, acute bacterial sinusitis Condition on Discharge: Good Activity: Resume your previous activity Non-emergency contact: Primary Care Provider Call non-emergency contact if: you have any medication questions, your pain is worsening and your temperature is above 101 Follow-up/Referrals: Huang Renee CRNP [Primary Care Provider] - 12/14/23 8:20 am Diet: Carb Consistent or DM2 Addtl Attending Provider Instructions: You were treated for RSV infection - an upper respiratory virus that causes cough, wheezing, nasal congestion, sore throat etc -continue using the flutter valve 4-5X a day until cough is better -continue using your inhalers / nebulizers as directed -I gave you a prescription for prednisone to have on hand - if you are getting more tight/wheezy you can start taking the prednisone and call your primary care for an appointment to be seen as soon as possible You were treated for acute bacterial sinusitis - this was triggered by the RSV which clogged up your sinuses and ear canal and allowed bacterial infection to get started -keep taking flonase spray and nasal saline spray twice a day for the next 2 weeks or until sinuses are clear. You might benefit from this medication [facility] -you can repeat a round of afrin-type nose spray in about a week if necessary - 2 sprays each nostril twice a day for three days. If you use it for more than three days or so, you can get bad rebound congestion when you try to stop it, so its best to only use for a few days at a time -you can take [id number] cold medicine for cough and congestion -I gave a prescription for amoxicillin-clavulanate to complete a total 14-day course for sinusitis (including the days you got antibiotics in the hospital) -seek medical attention if you have worsening facial pain or ear pain, vision or hearing changes, trouble swallowing, any neurological symptoms Follow up with Dr. Acosta next week and ask whether you need any additional testing for liver cirrhosis Addtl Cheese Specialist Provider Instructions: To Whom It May Concern: Ms. Callahan has had RSV for greater than 10 days therefore she is no longer considered infectious. 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 Hanna Gonzalez MD Pending Studies at Discharge: No Stand-Alone Forms: My [facility], Work/School Release, Smoking Cessation Medications and DC Order Prescriptions: New acetaminophen 325 mg Tablet 650 mg PO Q4H PRNQty: 0 0RF fluticasone propionate 50 mcg/actuation Scotts,Suspension 2 spray NA BID Qty: 0 0RF Saline Mist 0.65 % Aerosol,Scotts 2 spray NA BID Qty: 0 0RF amoxicillin-pot clavulanate 875-125 mg tablet 1 tab PO BID Qty: 21 0RF prednisone 20 mg tablet 20 mg PO DAILY 5 Days Qty: 5 0RF Continued pramipexole 1 mg tablet 1 mg PO HS Qty: 90 1RF levothyroxine 112 mcg tablet 112 mcg PO DAILY Qty: 30 3RF Januvia 50 mg tablet 50 mg PO DAILY Qty: 90 3RF atorvastatin 80 mg tablet 80 mg PO QAM Qty: 90 1RF hydrocortisone 2.5 % cream with perineal applicator 1 applic SC DAILY PRN (Reason: hemorrhoids) Qty: 30 2RF albuterol sulfate 90 mcg/actuation HFA aerosol inhaler 1 inh inhalation QID PRN (Reason: shortness of breath or wheezing) Qty: 8.5 3RF albuterol sulfate 1.25 mg/3 mL solution for nebulization 1.25 mg inhalation QID PRN (Reason: shortness of breath or wheezing) Qty: 90 0RF benzonatate 100 mg capsule 100 mg PO TID PRN (Reason: cough) Qty: 60 0RF (DME) nebulizer accessories Kit See Rx Instructions .Route Qty: 1 0RF Rx Instructions: As directed (DME) blood-glucose meter [Blood Glucose Monitoring] Kit See Rx Instructions .ROUTE .MEDSUPPLY Qty: 1 0RF Rx Instructions: As directed (DME) OneTouch Verio test strips Strip See Rx Instructions .Route Qty: 50 5RF Rx Instructions: TESTING ONCE DAILY DX: E11.9 Meredith-Dorian Kit 2-2 % kit See Rx Instructions SC .COMPLEX PRN (Reason: hemorrhoids) 7 Days Qty: 1 0RF Rx Instructions: not on list from pharmacy 11/25/23 clean area with WIPE; insert applicatorful of HYDROCORTISONE-LIDOCAINE CREAM rectally 2 times daily or as directed SC PRN; trazodone 100 mg Tablet 100 mg PO HS Rx Instructions: takes with 300mg to equal 400mg trazodone 300 mg tablet 300 mg PO HS Rx Instructions: takes with 100mg tablet for combined total of 400mg. lorazepam 0.5 mg tablet 0.5 mg PO TID PRN (Reason: anxiety ) gabapentin 400 mg capsule 400 mg PO TID duloxetine 60 mg capsule,delayed release(DR/EC) 120 mg PO QAM Linzess 145 mcg capsule 145 mcg PO .@NOON Invokana 300 mg tablet 300 mg PO QAM pantoprazole 40 mg tablet,delayed release (DR/EC) 40 mg PO .@NOON prazosin 1 mg capsule 1 mg PO HS pregabalin 100 mg Capsule 100 mg PO BID guaifenesin 100 mg/5 mL liquid 200 mg PO Q6H PRN (Reason: cough) Qty: 1000 0RF Discharge Orders: Discharge Order (Routine); Ordered 12/04/23 Ordered By: Hanna Liu/Other Patient Handouts: Managing Type 2 Diabetes Admission Data Admit Date/Time: 12/03/23 14:29 Attending Provider: Hanna Gonzalez Admit Provider: Minesh Bowden Primary Care Provider: Huang Renee Other Providers: Minesh Bowden Other Interventions: Discharge Summary Assessment (RN) Last Done: 12/04/23 12:57 Coding Level of Care Code 32841 INP/OBS DISCH >30 MIN Diagnoses Acute sinusitis J01.90 RSV infection B33.8 Rib pain on left side R07.81 Abdominal pain, epigastric R10.13 Cirrhosis of liver K74.60 Type 2 diabetes mellitus with hyperglycemia, without long-term current use of insulin E11.65 Diabetes mellitus termination clerk insulin use: without termination clerk use Diabetes mellitus complication status: with hyperglycemia GERD with esophagitis K21.0 Hypothyroidism E03.9 Restless leg syndrome G25.81
== END 2023-12-04 14:04 | disposition home or self-care (01) ==
LOC: ED 08:46 → EDINP 08:46 → SUATTDRO 11:03 → 3W 12:38
DX: E11.65 Type 2 diabetes mellitus with hyperglycemia; F17.210 Nicotine dependence, cigarettes, uncomplicated; R19.7 Diarrhea, unspecified; K21.00 Gastro-esophageal reflux disease with esophagitis, without bleeding; Z86.16 Personal history of COVID-19; J21.0 Acute bronchiolitis due to respiratory syncytial virus; R07.81 Pleurodynia; Z88.2 Allergy status to sulfonamides; Z88.1 Allergy status to other antibiotic agents; Z88.8 Allergy status to other drugs, medicaments and biological substances; K74.60 Unspecified cirrhosis of liver; H92.02 Otalgia, left ear; R10.13 Epigastric pain; G25.81 Restless legs syndrome; J01.90 Acute sinusitis, unspecified; B96.89 Other specified bacterial agents as the cause of diseases classified elsewhere; E03.9 Hypothyroidism, unspecified; Z79.899 Other long term (current) drug therapy; Z79.84 Long term (current) use of oral hypoglycemic drugs

== ENCOUNTER 2024-06-02 12:09 | Inpatient (IN) ==
--- NOTE | 2024-06-02 12:33 | Emergency Department Note ---
Impression & Plan Gastroenteritis, Nausea vomiting and diarrhea, Abdominal pain, acute, epigastric ED Provider Note Provider: Isaias Green MD DATE OF SERVICE: 06/02/2024 CHIEF COMPLAINT: Abdominal pain, nausea vomiting diarrhea HISTORY OF PRESENT ILLNESS: Patient is a 59-year-old female history of pancreatitis in 2011, gastroparesis, hernia, diabetes, hypothyroidism, and GERD presenting here today reporting worsening symptoms overnight of significant abdominal discomfort and nausea vomiting and diarrhea. On antibiotics for UTI several weeks ago. Symptoms have been ongoing since this past Wednesday and seen in the ER yesterday. Evidently she states the pharmacy did not have any nausea medicine for her and symptoms worsened overnight. Patient is a history of abdominal issues in the past. Denies any recent travel or suspect food intake. No sick contact. No fevers reported or syncope or trauma. PAST MEDICAL HISTORY: As noted above MEDICATIONS: Reviewed home medications SOCIAL HISTORY: Lives alone, smoker PHYSICAL EXAM: GENERAL: alert and oriented appears uncomfortable on the stretcher Head: normocephalic and atraumatic EYES: No injection, discharge or icterus. NECK: Trachea midline. ENT: Mucous membranes pink and moist. LUNGS: Airway patent. No retractions. Breath sounds clear HEART: Regular rate and rhythm. No chest wall tenderness ABDOMEN: Soft diffuse upper abdominal tenderness with some radiation to the left flank. No masses appreciable. No significant lower abdominal tenderness. SKIN: Acyanotic, warm, dry, without rashes EXTREMITIES: Without swelling, tenderness or deformity NEUROLOGICAL: No focal deficits. No aphasia. No facial droop or slurred speech. Ambulatory although hunched over some holding her abdomen EK bpm normal sinus rhythm. No PVC or PAC. No acute ST segment elevation or depression with a QTc of 438. CONTINUOUS CARDIAC MONITORING: was ordered and showed a heart rate of 60s to 70s bpm in normal sinus rhythm PDMP was checked without noted issue. Patient's laboratory studies and imaging reviewed. Differential includes Appendicitis, infections, diverticulitis, UTI, obstruction, mesenteric ischemia, aortic pathology, inflammatory bowel disease, renal colic, PUD, pancreatitis, biliary pathology, hernia, volvulus, constipation, as well as other pathologies. IMPRESSION/MEDICAL DECISION MAKING: Reviewed notes from yesterday and her visit here in the ER. Patient notable elevation of lipase of [address] findings of pancreatitis. Given her reported diarrhea will order stool testing but no significant travel. Was on antibiotics several weeks ago by her report could possibly represent C. difficile. Testing pending collection of sample. Blood work was repeated. Still some tenderness in the abdomen given that she had a CT 24 hours ago do not feel initially at this time I need her repeated. Treated symptomatically with IV fluids and antiemetics and pain medication. Question what component of this may be a gastroenteritis versus pancreatitis as etiology given the diarrheal symptoms. Patient with underlying GI symptoms as well as use of Ozempic. Blood work without significant anemia leukocytosis today. No evidence of acute hepatitis or pancreatitis with a lipase falling to 150 today from 300 yesterday. Given some additional morphine and Compazine to help with nausea and pain symptoms. Some improvement with this. Could still be just gastroenteritis but given her significant discomfort and pain and nausea she wished to be observed to ensure improvement. Hospitalist team was contacted. Do not feel we need to repeat imaging today. DIAGNOSIS: Abdominal pain, nausea and vomiting DISPOSITION: Hospitalist will evaluate Patient was agreeable with this plan. Past Med/Surg History Problem List (Updated 06/02/24 @ 17:25 by Isaias Green M.D.) Abdominal pain, acute, epigastric (Acute) Gastroenteritis (Acute) Back pain Nausea vomiting and diarrhea (Acute) Elevated lipase (Acute) Aphthous stomatitis Diabetic peripheral neuropathy Upper extremity neuropathy Lower extremity neuropathy Failed back syndrome of lumbar spine Incarcerated ventral hernia Gastroparesis RSV infection (Acute) MYRANDA (generalized anxiety disorder) Panic disorder with agoraphobia Osteoporosis Osteopenia Chronic diarrhea Hematochezia Carpal tunnel syndrome on both sides Lumbosacral radiculopathy Psychosis (Acute) Chronic pain (Acute) Gram positive sepsis Epidural abscess MSSA bacteremia Tobacco use Elevated liver enzymes Flat back syndrome, acquired Kyphosis, acquired Abdominal hernia Cirrhosis of liver as evidence from CT scan on 01/26/2023 Hepatic steatosis PTSD (post-traumatic stress disorder) (Chronic) Neuropathy Chronic back pain (Acute) Hyperlipidemia BORDERLINE Migraine HX OF Restless leg syndrome Hypothyroidism Diabetes mellitus, type 2 IN THE PAST (LOST OVER 150 LBS)>currently on Invokana and ozempic Obesity (BMI 30.0-34.9) Diverticula of colon hx GERD with esophagitis Anemia hx Opioid dependence (Chronic) Recurrent cold sores Medical History History of COVID-19 01/2023, q-care test, not hosp; "flu" symptoms for 2 days>resolved.>still has inhaler as needed Scoliosis Compression fracture hx Small bowel obstruction hx of 2015 > with surgical intervention; hospitalized at [facility] in 01/2023>no surgical intervention Broken back FELL FROM TRUCK 1993 Pancreatitis 2011/FEEDING TUBE FOR 6 MONTHS Depression Surgical History H/O ventral hernia repair (01/04/24) Open Incarcerated Ventral Hernia Primary Repair and Excision of Incarcerated Tissue(Not Applicable) - Abhijit Beauchamp MD, FACS History of spinal fusion (08/2019) per pt x5 fusions---Removal of hardware, extension of fusion T2-S1 History of total abdominal hysterectomy and bilateral salpingo-oophorectomy History of esophagogastroduodenoscopy (EGD) History of colonoscopy History of bowel resection D/T BOWEL OBSTRUCTION History of cholecystectomy History of appendectomy History of tooth extraction History of tonsillectomy Salivary gland abscess REMOVED D/T INFECTION, L side Family History Mother Drug abuse Diabetes Anxiety Depression Heart disease Kidney disease Myocardial infarction Breast cancer, Onset Age: 50 Hypertension Gallbladder disease Sister Anxiety Depression Kidney disease Father Brain cancer Diabetes Alcohol abuse Depression Heart disease Cancer Hypertension Grandfather Heart disease Myocardial infarction Stroke Aunt Stroke Brother Diabetes Other No family history of adverse response to anesthesia Social History Smoking Status: Current every day smoker Tobacco Type: Cigarettes Cigarettes Per Day: 2; Second Hand Exposure: No; Do You Dip or Chew Tobacco: No; Hx Alcohol Use: No Hx Substance Use: Yes Prescribed Medications: Marijuana Last Used Substance: Days (ago) Last Used Substance Other:: daily use; advised Substance Use Type Other:: Medical marijuana Preferred Language: Turkish Communication Ability: Effective Visual Impairment: No Limitations Hearing Ability: Normal Head Of Mobile Required: No Beliefs That Will Affect Care: None marital status: Single Current Living Situation: Alone 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 current occupational status: disabled Feels Safe at Home: Yes Safety Concerns: Feels Safe At This Time Childhood Exposure to Second-Hand Smoke: Yes Diet: regular caffeine: Yes during the past year weight has: remained stable Dental Care, Regularly: Yes Physical Activity Frequency: Other Physical Activity Frequency Comment: Limited by physical condition Seatbelt Use: always Sunscreen Use: No Assistive Devices: Glasses Allergies Allergies Allergy/AdvReac Type Severity Reaction Status Date / Time doxycycline [From Vibramycin] Allergy Severe TONGUE Verified 06/02/24 16:04 SWELLS, SOB, RASH Sulfa (Sulfonamide Allergy Severe HIVES/LIPS Verified 06/02/24 16:04 Antibiotics) SWELLING tetracycline Allergy Severe TONGUE Verified 06/02/24 16:04 SWELLS, SOB, RASH metformin AdvReac Intermediate Diarrhea Verified 06/02/24 16:04 Home Meds Home Medications Medication Instructions Recorded Confirmed trazodone 300 mg tablet 300 mg PO HS 07/08/20 06/02/24 lorazepam 0.5 mg tablet 0.5 mg PO QID PRN anxiety 01/27/23 06/02/24 canagliflozin 300 mg tablet 300 mg PO QAM 11/25/23 06/02/24 (Invokana) duloxetine 60 mg capsule,delayed 120 mg PO QAM 11/25/23 06/02/24 release (Cymbalta) Medical Marijuana 1 inh inhalation TID PRN prn 12/22/23 06/02/24 semaglutide 0.25 mg or 0.5 mg (2 0.5 mg subcut WK 12/22/23 06/02/24 mg/3 mL) subcutaneous pen injector (Ozempic) vitamin B complex 1 tab PO DAILY 12/30/23 06/02/24 pantoprazole 40 mg tablet,delayed 40 mg PO DAILY 06/02/24 06/02/24 release prazosin 1 mg capsule 1 mg PO HS 06/02/24 06/02/24 valacyclovir 1 gram tablet 1,000 mg PO BID PRN .Breakouts 06/02/24 06/02/24 (Valtrex) Previous Rx's Medication Instructions Recorded fluticasone propionate 50 2 spray NA BID #0 grams 12/04/23 mcg/actuation nasal spray,suspension pramipexole 1 mg tablet 1 mg PO HS #90 tabs 12/15/23 tiotropium bromide 2.5 2 puff inhalation DAILY #4 grams 01/31/24 mcg/actuation mist for inhalation (Spiriva Respimat) varenicline 0.5 mg (11)-1 mg (42) See Rx Instructions .Route 04/12/24 tablets in a dose pack (Chantix .COMPLEX #53 ea Starting Month Box) atorvastatin 80 mg tablet 80 mg PO QAM #90 tabs 04/13/24 levothyroxine 112 mcg tablet 112 mcg PO QAM #30 tabs 04/14/24 pregabalin 150 mg capsule 150 mg PO BID 30 days #60 caps 04/20/24 Magic Mouthwash 300 mL mouthwash See Rx Instructions .Route 05/10/24 .COMPLEX 2 weeks #300 mL promethazine 12.5 mg tablet 12.5 mg PO TID PRN nausea and 05/18/24 vomiting #90 tabs trazodone 100 mg tablet 100 mg PO HS #30 tabs 05/23/24 promethazine 25 mg rectal 25 mg OK Q6H PRN sedation #12 ea 06/01/24 suppository Results & Data (ED) Vital Signs Vital Signs - 24 hr 06/02/24 12:14 06/02/24 12:39 06/02/24 12:57 Temperature 36.8 C 36.8 C Temperature Source Temporal Artery Scan Oral Pulse Rate 73 70 Pulse Rate [Right Finger] 63 Respiratory Rate 16 18 Respiratory Effort / Characteristics Non-Labored Non-Labored Respiratory Depth Normal Blood Pressure 129/76 Blood Pressure [Left Arm] 130/82 Blood Pressure Mean 93 Blood Pressure Mean [Left Arm] 98 Blood Pressure Position [Left Arm] Lying Pulse Oximetry 97 95 Oxygen Delivery Method Room Air Sepsis Recent Fever Within 48 Hours No Sepsis New/Unexplained Change in Mental Status No Sepsis Action Taken by Nursing No Action Required 06/02/24 12:57 06/02/24 14:18 Temperature Temperature Source Pulse Rate 61 Pulse Rate [Right Finger] 64 Respiratory Rate 18 22 Respiratory Effort / Characteristics Non-Labored Respiratory Depth Blood Pressure Blood Pressure [Left Arm] 130/82 Blood Pressure Mean Blood Pressure Mean [Left Arm] 98 Blood Pressure Position [Left Arm] Lying Pulse Oximetry 95 96 Oxygen Delivery Method Room Air Sepsis Recent Fever Within 48 Hours Sepsis New/Unexplained Change in Mental Status Sepsis Action Taken by Nursing Laboratory Data 06/02/24 12:43 06/02/24 12:43 Lab Results 06/02/24 06/02/24 06/02/24 Range/Units 12:36 12:43 13:53 WBC 9.46 (4.8-10.8) K/ul RBC 5.00 (4.20-5.40) M/uL Hgb 15.1 (12.0-16.0) g/dl Hct 45.7 (37.0-47.0) % MCV 91.4 (80.0-100.0) fL MCH 30.2 (25.0-34.0) pg MCHC 33.0 (32.0-36.0) g/dL RDW Std Deviation 47.8 H (36.4-46.3) fL RDW Coeff of Xavi 14.1 (11.5-14.5) % Plt Count 244 (130-400) K/uL MPV 10.7 (9.4-12.4) fL Immature Gran % (Auto) 0.3 % Neut % (Auto) 73.1 % Lymph % (Auto) 20.9 % [place] % (Auto) 3.9 % Eos % (Auto) 1.5 % Baso % (Auto) 0.3 % Neut # (Auto) 6.91 H (1.40-6.50) K/uL Lymph # (Auto) 1.98 (1.20-3.40) K/uL [place] # (Auto) 0.37 (0.11-0.59) K/uL Eos # (Auto) 0.14 (0.00-0.50) K/uL Baso # (Auto) 0.03 (0.00-0.20) K/uL Immature Gran # (Auto) 0.03 (0.01-0.20) K/uL PT 10.3 (9.0-12.0) Seconds INR 0.9 (0.9-1.1) Sodium 138 (136-145) mmol/L Potassium 4.1 (3.5-5.1) mmol/L Chloride 104 (98-107) mmol/L Carbon Dioxide 29 (21-32) mmol/L Anion Gap 5 (3-11) BUN 7 (6-23) mg/dl Creatinine 0.75 (0.6-1.2) mg/dl Est Cr Clr Drug Dosing 80.6 ml/min Est GFR ( Amer) 101.1 ml/min Est GFR (Non-Af Amer) 87.2 ml/min BUN/Creatinine Ratio 9.3 L (10-20) Glucose 138 H (70-99(Fasting)) mg/dl Calcium 9.4 (8.6-10.3) mg/dl Total Bilirubin 0.5 (0.2-1.0) mg/dl AST 26 (13-39) U/L ALT 33 (7-52) U/L Alkaline Phosphatase 111 H (34-104) U/L Troponin I High Sens 2.4 (0-14) pg/ml Total Protein 7.9 (6.0-8.3) gm/dl Albumin 4.5 (3.4-5.0) gm/dl Globulin 3.4 (2.5-4.0) gm/dl Albumin/Globulin Ratio 1.3 (0.9-2) Lipase 150 H (11-82) U/L Urine Color Yellow Urine Appearance Clear (Clear) Urine pH 5.5 (4.5-7.5) Ur Specific [place] 1.006 (1.000-1.030) Urine Protein Negative (Negative) Urine Glucose (UA) Negative (Negative) Urine Ketones Negative (Negative) Urine Blood Negative (Negative) Urine Nitrite Negative (Negative) Urine Bilirubin Negative (Negative) Urine Urobilinogen Negative (Negative) Ur Leukocyte Esterase Negative (Negative) SARS-CoV-2, RNA, NAAT NEGATIVE (NEGATIVE) Administered Medications Acetaminophen (Acetaminophen 325 Mg Tab) 650 mg PO Q6H MADELYN Stop: 07/02/24 15:29 Last Admin: 06/02/24 16:13 Dose: Not Given Documented By: JOSÉ MIGUEL Lactated Ringer's (Lr) 1,000 mls @ 125 mls/hr IV .Q8H MADELYN Stop: 06/03/24 07:29 Last Admin: 06/02/24 16:09 Dose: 125 mls/hr Documented By: JOSÉ MIGUEL Insulin Aspart (Insulin Aspart Per Unit Charge) 0 units SC Q6 MADELYN Stop: 07/02/24 15:29 Last Admin: 06/02/24 16:25 Dose: Not Given Documented By: LIANNA Co-signed By: JOSÉ MIGUEL Morphine Sulfate (Morphine Sulfate 2 Mg/Ml Carp) 2 mg IV Q4H PRN PRN Reason: Pain(5+) Stop: 06/16/24 15:18 Last Admin: 06/02/24 16:20 Dose: 2 mg Documented By: JOSÉ MIGUEL Discontinued Medications Lactated Ringer's (Lr) 1,000 mls @ 999 mls/hr IV .Q1H1M ONE Stop: 06/02/24 13:25 Last Infusion: 06/02/24 14:49 Dose: Infused Documented By: Admin: 06/02/24 12:53 Dose: 999 mls/hr Documented By: MEGHA Prochlorperazine (Compazine) 2 mls @ 1 mls/min IV ONE ONE Stop: 06/02/24 13:35 Last Admin: 06/02/24 13:59 Dose: 1 mls/min Documented By: LIANNA Famotidine (Pepcid 20mg Iv Push) 20 mg in 5 mls @ 2.5 mls/min IV NOW STA Stop: 06/02/24 15:21 Last Admin: 06/02/24 16:11 Dose: 2.5 mls/min Documented By: JOSÉ MIGUEL Pantoprazole Sodium 40 mg/ (Syringe) 10 mls @ 5 mls/min IV NOW ONE Stop: 06/02/24 15:31 Last Admin: 06/02/24 16:12 Dose: 5 mls/min Documented By: JOSÉ MIGUEL Lidocaine (Lidocaine 5% 1 Patch) 1 patch TD NOW STA Stop: 06/02/24 15:40 Last Admin: 06/02/24 16:08 Dose: 1 patch Documented By: JOSÉ MIGUEL Morphine Sulfate (Morphine Sulfate 4 Mg/Ml 1 Ml Carp\\Vial) 4 mg IV NOW STA Stop: 06/02/24 12:26 Last Admin: 06/02/24 12:50 Dose: 4 mg Documented By: MEGHA Morphine Sulfate (Morphine Sulfate 4 Mg/Ml 1 Ml Carp\\Vial) 4 mg IV NOW STA Stop: 06/02/24 13:35 Last Admin: 06/02/24 13:58 Dose: 4 mg Documented By: LIANNA Ondansetron HCl (Ondansetron Inj 2 Mg/Ml 2 Ml Vial) 4 mg IV NOW STA Stop: 06/02/24 12:26 Last Admin: 06/02/24 12:46 Dose: 4 mg Documented By: MEGHA Discharge Plan Visit Data Chief Complaint: Abdominal Pain Stated Complaint: PANCREATITIS ED Provider: Isaias Green Discharge Problem: Gastroenteritis, Nausea vomiting and diarrhea, Abdominal pain, acute, epigastric Patient Disposition: Admitted As Inpatient Discharge Instructions Interventions: ED Discharge Assessment Last Done: 06/02/24 16:28
[2024-06-02] MEDS: ONDANSETRON INJ 2 MG/ML 2 ML VIAL IV STA (12:46)
[2024-06-02] MEDS: MoRPHine SULFATE 4 MG/ML 1 ML CARP\\VIAL IV STA ×3 (12:50→19:29)
[2024-06-02] MEDS: LACTATED RINGER'S 1,000 ML IV ONE (12:53)
[2024-06-02 13:17] LABS: Basophils # (auto) 0.03 K/uL (0.00-0.20); Basophils % (auto) 0.3 %; Eosinophils # (auto) 0.14 K/uL (0.00-0.50); Eosinophils % (auto) 1.5 %; Hematocrit (blood only) 45.7 % (37.0-47.0); Hemoglobin 15.1 g/dl (12.0-16.0); Immature Granulocytes # (auto) 0.03 K/uL (0.01-0.20); Immature Granulocytes % (auto) 0.3 %; Lymphocytes # (auto) 1.98 K/uL (1.20-3.40); Lymphocytes % (auto) 20.9 %; Mean Corpuscular Hemoglobin 30.2 pg (25.0-34.0); Mean Corpuscular Volume 91.4 fL (80.0-100.0); Mean Platelet Volume 10.7 fL (9.4-12.4); Monocytes # (auto) 0.37 K/uL (0.11-0.59); Monocytes % (auto) 3.9 %; Neutrophils # (auto) 6.91 K/uL (1.40-6.50); Neutrophils % (auto) 73.1 %; Platelet Count 244 K/uL (130-400); RDW Coefficient of Variation 14.1 % (11.5-14.5); RDW Standard Deviation 47.8 fL (36.4-46.3); White Blood Count 9.46 K/ul (4.8-10.8)
[2024-06-02 13:35] LABS: Troponin I High Sensitivity 2.4 pg/ml (0-14)
[2024-06-02 13:36] LABS: Albumin Globulin Ratio 1.3 (0.9-2); Albumin Level 4.5 gm/dl (3.4-5.0); BUN Creatinine Ratio 9.3 (10-20); Bilirubin,Total 0.5 mg/dl (0.2-1.0); Calcium 9.4 mg/dl (8.6-10.3); Creatinine Clr Calc Pharmacy 80.6 ml/min; Est GFR (African American) 101.1 ml/min; Est GFR (Non-African American) 87.2 ml/min; Globulin 3.4 gm/dl (2.5-4.0); Total Protein 7.9 gm/dl (6.0-8.3)
[2024-06-02 13:38] LABS: INR 0.9 (0.9-1.1); Prothrombin Time 10.3 Seconds (9.0-12.0)
[2024-06-02 13:41] LABS: Potassium 4.1 mmol/L (3.5-5.1)
[2024-06-02] MEDS: PROCHLORPERAZINE 2 ML IV ONE (13:59)
[2024-06-02 14:18] LABS: Appearance Urine Clear (Clear); Bilirubin Urine Negative (Negative); Blood Urine Negative (Negative); Color Urine Yellow; Glucose Urine UA Negative (Negative); Ketones Urine Negative (Negative); Leukocyte Esterase Urine Negative (Negative); Nitrite Urine Negative (Negative); Protein Urine Negative (Negative); Specific Gravity Urine 1.006 (1.000-1.030); Urobilinogen Urine Negative (Negative); pH Urine 5.5 (4.5-7.5)
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
[2024-06-02] MEDS ORDERED: DEXTROSE 50% 50 ML SYRINGE IV PRN (15:17)
[2024-06-02] MEDS ORDERED: GLUCAGON FOR INJ 1 MG VIAL SQ PRN (15:17)
[2024-06-02] MEDS ORDERED: GLUCOSE 10 TAB/TUBE PO PRN (15:17)
[2024-06-02] MEDS ORDERED: GLUCOSE 40% GEL 15 GM TUBE PO PRN (15:17)
[2024-06-02] MEDS ORDERED: CARBOHYDRATES FOR HYPOGLYCEMIA PO PRN (15:17)
[2024-06-02] MEDS ORDERED: NALOXONE HCL 0.4 MG/1 ML VIAL/CARP IV PRN (15:20)
[2024-06-02] MEDS: LIDOCAINE 5% 1 PATCH TD STA (16:08)
[2024-06-02] MEDS: LACTATED RINGER'S 1,000 ML IV SCH (16:09)
[2024-06-02] MEDS: FAMOTIDINE 20MG IV PUSH 20 MG/5 ML SYR IV STA (16:11)
[2024-06-02] MEDS: PANTOprazole 40 MG in SYRINGE DAILY IV ONE (16:12)
[2024-06-02] MEDS: ACETAMINOPHEN 325 MG TAB PO SCH (16:13)
[2024-06-02] MEDS: MoRPHine SULFATE 2 MG/ML CARP IV PRN (16:20)
--- NOTE | 2024-06-02 16:21 | XRay Report ---
XR thoracic spine 3V routine CLINICAL HISTORY: back pain after vomiting TECHNIQUE: 3 views of the thoracic spine were obtained. Comparison: Comparison is made to thoracic spine radiographs 06/01/[address] abdomen pelvis FINDINGS: Posterior fixation hardware is seen in the thoracic spine. T12 compression deformity is unchanged fro m prior CT abdomen pelvis. Alignment appears unremarkable. Prevertebral soft tissues are within phoebe l limits. IMPRESSION: Degenerative changes as above without acute fracture or subluxation. ACT 112: Negative or not required by law. Electronically signed by: Mychal Mantilla M.D. 06/02/2024 4:20 PM
[2024-06-02] MEDS: INSULIN ASPART PER UNIT CHARGE SC SCH (16:25)
--- NOTE | 2024-06-02 16:27 | XRay Report ---
XR lumbar spine 2-3V HISTORY: 59 years-old Female back pain after vomiting acute low back pain COMPARISON: Thoracic spine radiographs of same day, CT abdomen and pelvis 06/01/2024 TECHNIQUE: 3 views of the lumbar spine. FINDINGS: Cholecystectomy. Demineralized appearance of the bones. Degenerative and postoperative changes redemo nstrated with extensive posterior interbody claudio and screw fusion hardware. L3-L4 and L4-L5 discectomy . Chronic T12 and L1 compression deformities. No acute fracture or subluxation identified. Mild lumba r levoscoliosis. Fractured right L1 screw redemonstrated. IMPRESSION: 1. No acute fracture or subluxation. 2. Degenerative and postoperative changes with chronic T12 and L1 compression fractures. 3. Fractured right L1 pedicle screw redemonstrated. ACT 112: Negative or not required by law. The above report was generated using voice recognition software. It may contain grammatical, syntax o r spelling errors. Electronically signed by: Chad Jung M.D. 06/02/2024 4:25 PM
[2024-06-02] MEDS: LORazepam 0.5 MG TAB PO PRN (21:19)
[2024-06-02] MEDS: PREGABALIN 150 MG CAP PO SCH (21:19)
[2024-06-02] MEDS: FAMOTIDINE 20MG IV PUSH 20 MG/5 ML SYR IV SCH (21:20)
[2024-06-02] MEDS: PANTOprazole 40 MG in SYRINGE 0 ML IV SCH (21:20)
--- NOTE | 2024-06-02 21:23 | Electrocardiogram Report ---
Test Reason : Blood Pressure : / mmHG Vent. Rate : 065 BPM Atrial Rate : 065 BPM P-R Int : 144 ms QRS Dur : 076 ms QT Int : 422 ms P-R-T Axes : 046 063 058 degrees QTc Int : 438 ms Normal sinus rhythm Low voltage QRS Borderline ECG When compared with ECG of 01-DEC-2023 09:08, No significant change was found Confirmed by Enrico Marin ([id number]) on 06/02/2024 9:23:19 PM Referred By: REFERRED SELF Confirmed By:Enrico Marin
[2024-06-02] MEDS: PRAZOSIN HCL 1 MG CAP PO SCH (21:47)
[2024-06-02] MEDS: PRAMIPEXOLE DIHYDROCHLO 0.5 MG TAB PO SCH (21:52)
[2024-06-02] MEDS: PROCHLORPERAZINE 5 MG in SYRINGE 4 ML IV PRN (23:54)
[2024-06-03] MEDS: LEVOTHYROXINE SODIUM 112 MCG TABLET PO SCH (06:22)
[2024-06-03] MEDS: ATORVASTATIN 40 MG TAB PO SCH (07:46)
[2024-06-03] MEDS: DULoxetine HCL 60 MG CAP PO SCH (07:46)
[2024-06-03 07:50] LABS: Basophils # (auto) 0.02 K/uL (0.00-0.20); Basophils % (auto) 0.3 %; Eosinophils # (auto) 0.09 K/uL (0.00-0.50); Eosinophils % (auto) 1.4 %; Hematocrit (blood only) 38.3 % (37.0-47.0); Hemoglobin 12.8 g/dl (12.0-16.0); Immature Granulocytes # (auto) 0.02 K/uL (0.01-0.20); Immature Granulocytes % (auto) 0.3 %; Lymphocytes # (auto) 1.68 K/uL (1.20-3.40); Lymphocytes % (auto) 25.4 %; Mean Corpuscular Hemoglobin 30.1 pg (25.0-34.0); Mean Corpuscular Hgb Conc 33.4 g/dL (32.0-36.0); Mean Corpuscular Volume 90.1 fL (80.0-100.0); Mean Platelet Volume 10.6 fL (9.4-12.4); Monocytes # (auto) 0.48 K/uL (0.11-0.59); Monocytes % (auto) 7.3 %; Neutrophils # (auto) 4.32 K/uL (1.40-6.50); Neutrophils % (auto) 65.3 %; Platelet Count 193 K/uL (130-400); RDW Coefficient of Variation 14.1 % (11.5-14.5); RDW Standard Deviation 46.6 fL (36.4-46.3); Red Blood Count 4.25 M/uL (4.20-5.40); White Blood Count 6.61 K/ul (4.8-10.8)
[2024-06-03 08:10] LABS: Prothrombin Time 10.4 Seconds (9.0-12.0)
[2024-06-03 08:17] LABS: Albumin Globulin Ratio 1.4 (0.9-2); Albumin Level 3.6 gm/dl (3.4-5.0); Bilirubin,Total 0.7 mg/dl (0.2-1.0); Calcium 8.5 mg/dl (8.6-10.3); Creatinine Clr Calc Pharmacy 101.8 ml/min; Est GFR (African American) 115.6 ml/min; Est GFR (Non-African American) 99.8 ml/min; Globulin 2.5 gm/dl (2.5-4.0); Magnesium 1.6 mg/dl (1.7-2.4); Potassium 4.1 mmol/L (3.5-5.1); Total Protein 6.1 gm/dl (6.0-8.3)
[2024-06-03] MEDS: METOCLOPRAMIDE HCL INJ 5 MG/ML 2 ML VIAL IV SCH (09:37)
[2024-06-03] MEDS: MAGNESIUM SULFATE / D5W 1 GM/100 ML BAG IV ONE (09:38)
[2024-06-03] MEDS: KETOROLAC TROMETHAMINE 15 MG/ML VIAL IV ONE (10:48)
--- NOTE | 2024-06-03 11:03 | XRay Report ---
KUB HISTORY: Acute generalized abdominal pain abdominal pain, diarrhea, eval for stool burden COMPARISON: CT abdomen and pelvis 06/01/2024 FINDINGS: Cholecystectomy. Nonobstructive bowel gas pattern. Scattered right colonic air-fluid levels . No renal calculi. No ureteral calculi. No pneumoperitoneum or pneumatosis. Degenerative with exten sive postoperative changes of the thoracolumbar spine redemonstrated.. IMPRESSION: Scattered colonic air-fluid levels compatible with reported history of diarrheal illness. Nonobstruct kendy bowel gas pattern. ACT 112: Negative or not required by law. The above report was generated using voice recognition software. It may contain grammatical, syntax o r spelling errors. Electronically signed by: Chad Jung M.D. 06/03/2024 11:02 AM
[2024-06-03] MEDS: UMECLIDINIUM BROMIDE 62.5MCG/BLISTER 7 PUFFS/INHALER INH SCH (11:16)
--- NOTE | 2024-06-03 11:19 | Hospitalist Progress Note ---
Date of Service June 03, 2024 Assessment & Plan (1) Nausea vomiting and diarrhea: Plan: Patient presented to the ED on 06/02/24 due to abdominal pain, nausea, vomiting, and diarrhea. She was recently in ED on 06/01 for similar symptoms and was agreeable to be sent home with medications to help her symptoms. Per GI note from 06/01 patient has had significant workup regarding her symptoms. She had colonoscopy 06/30 which resulted in poor prep, no abnormalities on random colon biopsy. She had an EGD 08/30 consistent with gastritis. At that time a trial of Reglan and promethazine suppositories was recommended to the patient along with checking pancreatic elastase. If ongoing symptoms, a tertiary care center referral was considered as well. -etiology: pancreatitis vs gastroparesis vs gastritis vs cannabis hyperemesis syndrome vs Ozempic use -pancreatitis less likely given absence on CT scan. Patient does have history of pancreatitis w/ pseduocyst formation. -recommend avoiding GLP-1 agonists in future given they can worsen her pre- existing GI complaints -recommend marijuana cessation -Started Carafate QID -Continue IV Protonix and Pepcid -stool studies ordered -added fecal calprotectin and pancreatic elastase -await results -started Reglan 10mg Q6h -discussed with patient that morphine should only be used in instance of severe pain as it will worsen her pre-established gastroparesis -also per GI concern for constipation w/ overflow due to colonoscopy results -reviewed abdominal KUB 06/03: negative for constipation -avoid increasing narcotics -trial clear liquid diet for dinner, 06/03. (2) Elevated lipase: Plan: Initial lipase elevated at 300 on 06/01/2024, down to [address] abdomen pelvis with contrast on 06/01/2024 was negative for acute findings Rest of care per abdominal pain plan (3) Back pain: Plan: Patient reports increase in her chronic low back pain after multiple episodes of vomiting No focal findings on exam No red flag symptoms Obtain x-ray of the thoracic and lumbar spine for further evaluation - Reviewed X-ray of thoracic and lumbar spine: no acute pathology Lidocaine patch, morphine prn - Patient refuses Tylenol due to her underlying cirrhosis and this worsens her diarrhea (4) PTSD (post-traumatic stress disorder): Plan: Continue Cymbalta, Myla lorazepam, Abilify (5) Diabetes mellitus, type 2: Plan: Monitor BSG every 6 hours while NPO, goal is [id number] Will start with CF of 50 and CR 15 every 6 hours for now Adjust regimen as needed Plan Chronic conditions: Smoking abuse: denies use of nicotine patch. Cessation encouraged PTSD: continue Cymbalta, as needed Lorazepam, and Abilify Type 2 Diabetes: monitor while NPO, adjust regimen as needed -CF of 50 and CR 15 every 6 hours Diet: Clear liquid diet starting 06/03 Dinner Code status: conditional Disposition: continue inpatient stay until pain controlled Admission and Anticipated Discharge Date Admission Date: June 02, 2024 Supervising Physician Co-Signing Physician Notes The patient was not seen by me. The chart was reviewed. Case discussed with ARIC Zepeda. Agree with assessment and plan Subjective Patient seen and examined this morning at bedside. Patient reports her symptoms have been ongoing for at least 1-2 weeks. She reports severe pain in her LLQ area along with epigastric region. She has remained NPO overnight and states she was dry heaving this morning. She states that the morphine was not helping her pain. She admits to feeling nauseous as well. She has had significant diarrhea recently. She states she had an episode of fecal incontinence overnight and was unable to collect stool sample due to this. She denied melena or hematochezia. She states she moves her bowels so much she uses one roll of toilet paper daily. Admits to nocturnal defecation frequently as well. She states she has family history of IBS. lightly palpated patients abdomen which caused her to become tearful. Physical Exam 2 Constitutional: WD/WN, vitals as above Eyes: PERRL, conjunctivae normal, anicteric sclerae Respiratory: normal respiratory effort, lungs clear to auscultation Cardiovascular: RRR, no murmur, no edema Gastrointestinal (Abdomen): minimal bowel sounds. + tenderness in epigastric area to light palpation Results & Data Results & Data Vital Signs (Past 12 Hours) Vital Signs Temp Pulse Resp BP Pulse Ox O2 Del Method 06/03/24 08:27 36.5 C 61 16 90/59 L 92 Room Air 06/03/24 03:58 37 C 53 L 18 118/70 97 Room Air 06/02/24 23:21 36.8 C 54 L 18 120/77 95 Room Air Laboratory Results 06/03/24 07:10 07/27/24 07:10 Diagnostic Findings Lumbar Spine X-Ray 06/02/24 15:27 IMPRESSION: 1. No acute fracture or subluxation. 2. Degenerative and postoperative changes with chronic T12 and L1 compression fractures. 3. Fractured right L1 pedicle screw redemonstrated. Electronically signed by: Chad Jung M.D. 06/02/2024 4:25 PM Thoracic Spine X-Ray 06/02/24 15:27 IMPRESSION: Degenerative changes as above without acute fracture or subluxation. Electronically signed by: Mychal Mantilla M.D. 06/02/2024 4:20 PM KUB X-Ray 06/03/24 10:15 IMPRESSION: Scattered colonic air-fluid levels compatible with reported history of diarrheal illness. Nonobstructive bowel gas pattern. Electronically signed by: Chad Jung M.D. 06/03/2024 11:02 AM PG Care Time/CCT Total # of Minutes Spent Total Time Spent with Patient: Total time spent is greater than 50% in coordination of care (as documented) at patient's floor/unit and/or counseling patient: Coding Level of Care Code 59570 SUB INP/OBS CARE 3/50MIN Diagnoses Nausea vomiting and diarrhea R11.2; R19.7 Elevated lipase R74.8 Chronic low back pain, unspecified back pain laterality, unspecified whether sciatica present M54.50; G89.29 Back pain laterality: unspecified Back pain location: low back pain Chronicity: chronic Sciatica presence: unspecified whether sciatica present PTSD (post-traumatic stress disorder) F43.10 Type 2 diabetes mellitus with hyperglycemia, without long-term current use of insulin E11.65 Diabetes mellitus complication status: with hyperglycemia Diabetes mellitus [facility] insulin use: without exterminator helper termite use (3) Back pain Back pain laterality: unspecified Back pain location: low back pain C hronicity: chronic Sciatica presence: unspecified whether sciatica present Qualified Code(s): M54.50 - Low back pain, unspecified; G89.29 - Other chronic pain (5) Diabetes mellitus, type 2 Diabetes mellitus complication status: with hyperglycemia Diabetes mellitus [facility] insulin use: without exterminator helper termite use Qualified Code(s): E11.65 - Type 2 diabetes mellitus with hyperglycemia
[2024-06-03] MEDS: SUCRALFATE 1 GM/10 ML UDC PO SCH (11:56)
[2024-06-03] MEDS ORDERED: Nursing to Pharmacy Communication SCH (16:15)
[2024-06-03] MEDS: INSULIN ASPART PER UNIT CHARGE SC SCH (17:10)
[2024-06-03] MEDS: LACTATED RINGER'S 1,000 ML IV SCH (17:52)
[2024-06-03] MEDS: LIDOCAINE 5% 1 PATCH TD SCH (20:33)
[2024-06-04 01:36] LABS: Adenovirus F 40/41 PCR Not Detected (NotDetected); Astrovirus PCR Not Detected (NotDetected); Campylobacter PCR Not Detected (NotDetected); Cryptosporidium PCR Not Detected (NotDetected); Cyclospora cayetanensis PCR Not Detected (NotDetected); Entamoeba histolytica PCR Not Detected (NotDetected); Enteroaggregative E.coli(EAEC) Not Detected (NotDetected); Enteropathogenic E.coli (EPEC) Not Detected (NotDetected); Enterotoxigenic E.coli (ETEC) Not Detected (NotDetected); Norovirus GI/GII PCR Not Detected (NotDetected); Plesiomonas shigelloides PCR Not Detected (NotDetected); Rotavirus A PCR Not Detected (NotDetected); Salmonella PCR Not Detected (NotDetected); Sapovirus PCR Not Detected (NotDetected); Shiga-like Toxin E.coli (STEC) Not Detected (NotDetected); Shigella/Enteroinvasive E.coli Not Detected (NotDetected); Vibrio cholerae PCR Not Detected (NotDetected); Vibrio species PCR Not Detected (NotDetected); Yersinia enterocolitica PCR Not Detected (NotDetected)
[2024-06-04 01:41] LABS: Giardia lamblia PCR DETECTED (NotDetected)
[2024-06-04 06:44] LABS: Basophils # (auto) 0.03 K/uL (0.00-0.20); Basophils % (auto) 0.4 %; Eosinophils # (auto) 0.11 K/uL (0.00-0.50); Eosinophils % (auto) 1.6 %; Hematocrit (blood only) 40.2 % (37.0-47.0); Hemoglobin 13.5 g/dl (12.0-16.0); Immature Granulocytes # (auto) 0.01 K/uL (0.01-0.20); Immature Granulocytes % (auto) 0.1 %; Lymphocytes # (auto) 1.62 K/uL (1.20-3.40); Lymphocytes % (auto) 23.6 %; Mean Corpuscular Hemoglobin 30.3 pg (25.0-34.0); Mean Corpuscular Hgb Conc 33.6 g/dL (32.0-36.0); Mean Corpuscular Volume 90.1 fL (80.0-100.0); Mean Platelet Volume 10.7 fL (9.4-12.4); Monocytes # (auto) 0.53 K/uL (0.11-0.59); Monocytes % (auto) 7.7 %; Neutrophils # (auto) 4.55 K/uL (1.40-6.50); Neutrophils % (auto) 66.6 %; Platelet Count 190 K/uL (130-400); RDW Coefficient of Variation 13.7 % (11.5-14.5); RDW Standard Deviation 45.5 fL (36.4-46.3); Red Blood Count 4.46 M/uL (4.20-5.40); White Blood Count 6.85 K/ul (4.8-10.8)
[2024-06-04 07:07] LABS: Albumin Globulin Ratio 1.5 (0.9-2); Albumin Level 4.1 gm/dl (3.4-5.0); BUN Creatinine Ratio 7.7 (10-20); Bilirubin,Total 0.7 mg/dl (0.2-1.0); Calcium 8.8 mg/dl (8.6-10.3); Creatinine Clr Calc Pharmacy 94.1 ml/min; Est GFR (African American) 112.6 ml/min; Est GFR (Non-African American) 97.2 ml/min; Globulin 2.8 gm/dl (2.5-4.0); Magnesium 1.8 mg/dl (1.7-2.4); Potassium 3.9 mmol/L (3.5-5.1); Total Protein 6.9 gm/dl (6.0-8.3)
[2024-06-04 07:23] LABS: Prothrombin Time 10.5 Seconds (9.0-12.0)
[2024-06-04] MEDS: metroNIDAZOLE 500 MG TAB PO SCH (08:34)
--- NOTE | 2024-06-04 10:16 | Hospitalist Progress Note ---
Date of Service June 04, 2024 Assessment & Plan (1) Nausea vomiting and diarrhea: Plan: Patient presented to the ED on 06/02/24 due to abdominal pain, nausea, vomiting, and diarrhea. She was recently in ED on 06/01 for similar symptoms and was agreeable to be sent home with medications to help her symptoms. Per GI note from 06/01 patient has had significant workup regarding her symptoms. She had colonoscopy 06/30 which resulted in poor prep, no abnormalities on random colon biopsy. She had an EGD 08/30 consistent with gastritis. At that time a trial of Reglan and promethazine suppositories was recommended to the patient along with checking pancreatic elastase. If ongoing symptoms, a tertiary care center referral was considered as well. -etiology: pancreatitis vs gastroparesis vs gastritis vs cannabis hyperemesis syndrome vs Ozempic use -stool study + for Giardia -pancreatitis less likely given absence on CT scan. Patient does have history of pancreatitis w/ pseduocyst formation. -recommend avoiding GLP-1 agonists in future given they can worsen her pre- existing GI complaints -recommend marijuana cessation -Started Carafate QID -Continue IV Protonix and Pepcid -stool studies ordered -added fecal calprotectin and pancreatic elastase -positive for Giardia. -originally started on Flagyl PO BID but due to N/V switched to IV -started Reglan 10mg Q6h -discussed with patient that morphine should only be used in instance of severe pain as it will worsen her pre-established gastroparesis -also per GI concern for constipation w/ overflow due to colonoscopy results -reviewed abdominal KUB 06/03: negative for constipation -avoid increasing narcotics -trial clear liquid diet for dinner, 06/03. -reviewed CBC/BMP 06/04: stable AM CBC, BMP (2) Elevated lipase: Plan: Initial lipase elevated at 300 on 06/01/2024, down to 150 CT abdomen pelvis with contrast on 06/01/2024 was negative for acute findings Rest of care per abdominal pain plan (3) Back pain: Plan: Patient reports increase in her chronic low back pain after multiple episodes of vomiting No focal findings on exam No red flag symptoms Obtain x-ray of the thoracic and lumbar spine for further evaluation - Reviewed X-ray of thoracic and lumbar spine: no acute pathology Lidocaine patch, morphine prn - Patient refuses Tylenol due to her underlying cirrhosis and this worsens her diarrhea Plan Chronic conditions: Smoking abuse: denies use of nicotine patch. Cessation encouraged PTSD: continue Cymbalta, as needed Lorazepam, and Abilify Type 2 Diabetes: monitor while NPO, adjust regimen as needed -CF of 50 and CR 15 every 6 hours Diet: Clear liquid diet starting 06/03 Dinner Code status: conditional Disposition: continue inpatient stay until pain controlled Admission and Anticipated Discharge Date Admission Date: June 04, 2024 Supervising Physician Co-Signing Physician Notes The patient was not seen by me. The chart was reviewed. Case discussed with ARIC Zepeda. Agree with assessment and plan Subjective Patient seen and examined this morning. Patient reports to be in a significant amount of abdominal pain again. Her most recent BM was overnight. She also had her morning pills and tried clear liquids for breakfast. She states she vomited everything back up. She denies using well water at home. Patient unsure of how she came in contact with Giardia. Physical Exam 2 Constitutional: WD/WN, vitals as above Eyes: PERRL, conjunctivae normal, anicteric sclerae Respiratory: normal respiratory effort, lungs clear to auscultation Cardiovascular: RRR, no murmur, no edema Gastrointestinal (Abdomen): +bowel sounds, epigastric tenderness to palpation Skin: no rashes, warm and dry Psychiatric: A+Ox3, euthymic affect Results & Data Results & Data Vital Signs (Past 12 Hours) Vital Signs Temp Pulse Pulse Resp BP Pulse Ox O2 Del Method 06/04/24 09:38 73 06/04/24 07:00 37.1 C 59 L 16 123/68 94 Room Air 06/04/24 03:59 37 C 58 L 16 103/66 91 Room Air 06/03/24 23:14 36.9 C 62 16 124/70 91 Room Air Laboratory Results 06/04/24 06:04 06/04/24 06:04 PG Care Time/CCT Total # of Minutes Spent Total Time Spent with Patient: Total time spent is greater than 50% in coordination of care (as documented) at patient's floor/unit and/or counseling patient: Coding Level of Care Code 95872 SUB INP/OBS CARE 2/35MIN Diagnoses Nausea vomiting and diarrhea R11.2; R19.7 Elevated lipase R74.8 Chronic low back pain, unspecified back pain laterality, unspecified whether sciatica present M54.50; G89.29 Back pain laterality: unspecified Back pain location: low back pain Chronicity: chronic Sciatica presence: unspecified whether sciatica present (3) Back pain Back pain laterality: unspecified Back pain location: low back pain C hronicity: chronic Sciatica presence: unspecified whether sciatica present Qualified Code(s): M54.50 - Low back pain, unspecified; G89.29 - Other chronic pain
[2024-06-04] MEDS: KETOROLAC TROMETHAMINE 15 MG/ML VIAL IV ONE (16:33)
[2024-06-04] MEDS: metroNIDAZOLE 500 MG/100 ML BAG IV SCH (20:25)
[2024-06-05 07:44] LABS: Basophils # (auto) 0.05 K/uL (0.00-0.20); Basophils % (auto) 0.7 %; Eosinophils # (auto) 0.13 K/uL (0.00-0.50); Eosinophils % (auto) 1.7 %; Hematocrit (blood only) 39.3 % (37.0-47.0); Hemoglobin 13.5 g/dl (12.0-16.0); Immature Granulocytes # (auto) 0.01 K/uL (0.01-0.20); Immature Granulocytes % (auto) 0.1 %; Lymphocytes # (auto) 1.62 K/uL (1.20-3.40); Lymphocytes % (auto) 21.7 %; Mean Corpuscular Hemoglobin 30.3 pg (25.0-34.0); Mean Corpuscular Hgb Conc 34.4 g/dL (32.0-36.0); Mean Corpuscular Volume 88.3 fL (80.0-100.0); Mean Platelet Volume 10.6 fL (9.4-12.4); Monocytes # (auto) 0.52 K/uL (0.11-0.59); Neutrophils # (auto) 5.13 K/uL (1.40-6.50); Neutrophils % (auto) 68.8 %; Platelet Count 201 K/uL (130-400); RDW Coefficient of Variation 13.2 % (11.5-14.5); RDW Standard Deviation 43.3 fL (36.4-46.3); Red Blood Count 4.45 M/uL (4.20-5.40); White Blood Count 7.46 K/ul (4.8-10.8)
[2024-06-05 08:04] LABS: Albumin Globulin Ratio 1.4 (0.9-2); BUN Creatinine Ratio 6.6 (10-20); Bilirubin,Total 0.7 mg/dl (0.2-1.0); Calcium 8.5 mg/dl (8.6-10.3); Creatinine Clr Calc Pharmacy 100.3 ml/min; Est GFR (Non-African American) 99.2 ml/min; Globulin 2.8 gm/dl (2.5-4.0); Magnesium 1.7 mg/dl (1.7-2.4); Potassium 4.1 mmol/L (3.5-5.1); Total Protein 6.8 gm/dl (6.0-8.3)
[2024-06-05 08:10] LABS: Prothrombin Time 10.4 Seconds (9.0-12.0)
--- NOTE | 2024-06-05 16:11 | Hospitalist Progress Note ---
Date of Service June 05, 2024 Assessment & Plan (1) Nausea vomiting and diarrhea: Plan: Patient presented to the ED on 06/02/24 due to abdominal pain, nausea, vomiting, and diarrhea. Per GI note from 06/01 patient has had significant workup regarding her symptoms. She had colonoscopy 06/30 which resulted in poor prep, no abnormalities on random colon biopsy. She had an EGD 08/30 consistent with gastritis. At that time a trial of Reglan and promethazine suppositories was recommended to the patient along with checking pancreatic elastase. Has hepatology appointment in August. Also with concern for alpha-1 antitrypsin deficiency and hx of Hep A -etiology: pancreatitis vs gastroparesis vs gastritis vs cannabis hyperemesis syndrome vs Ozempic use -stool study + for Giardia -pancreatitis less likely given absence on CT scan. Patient does have history of pancreatitis w/ pseduocyst formation. -recommend avoiding GLP-1 agonists in future given they can worsen her pre- existing GI complaints -recommend marijuana cessation -Started Carafate QID -Continue IV Protonix and Pepcid BID -stool studies ordered -fecal calprotectin and pancreatic elastase pending -positive for Giardia. -originally started on Flagyl PO BID but due to N/V switched to IV - reglan not tolerated well. Switched to home promethazine - has been taking morphine q4H. Will add oxycodone as patient has been tolerating advanced diet No stools 06/05 AM CBC, BMP (2) Elevated lipase: Plan: Initial lipase elevated at 300 on 06/01/2024, down to 150 CT abdomen pelvis with contrast on 06/01/2024 was negative for acute findings patient with elevated LFTs but downtrending lipase. Pain remains LUQ (3) Back pain: Plan: Patient reports increase in her chronic low back pain after multiple episodes of vomiting No focal findings on exam, No red flag symptoms - X-ray of thoracic and lumbar spine: no acute pathology Lidocaine patch - Patient refuses Tylenol due to her underlying cirrhosis and this worsens her diarrhea Plan Chronic conditions: Smoking abuse: denies use of nicotine patch. Cessation encouraged HLD - continue statin hypothyroid - continue synthroid PTSD: continue Cymbalta,lyrica, as needed Lorazepam, and Abilify Type 2 Diabetes: home regiment invokana and ozempic. SSI -CF of 50 and CR 15 every 6 hours Cirrhosis-secondary to A1AT, pending Hepatology eval Diet: advanced to diabetic Code status: conditional Disposition: continue inpatient stay until pain controlled Admission and Anticipated Discharge Date Admission Date: June 04, 2024 Supervising Physician Co-Signing Physician Notes ARIC Supervision Note: I did not personally see or examine the patient today, but I verified all snyder points of ARIC Gonzalez's assessment and plan with the following exceptions/additions: None Subjective patient visited multiple times during the day. Nausea with no vomiting. Do not like how the reglan makes her feel - shaking. Supposed to see hepatology in august was unaware of her hx of Hep A no bowel movements today does report foul smelling burps wanting to use medical marijuana for pain - has been able to get off chronic narcoitcs using this Review of Systems Review of Systems: All systems reviewed & are unremarkable except as noted in Subjective Physical Exam Physical Exam: General: NAD, VS as above Resp: normal respiratory effort, lungs clear to auscultation CV: RRR, no murmur, Abd: normal bowel sounds, tenderness LUQ Extremities: Moves all extremities, no edema Neuro: A&O x3, tremor of LE Results & Data Results & Data Vital Signs (Past 12 Hours) Vital Signs Temp Pulse Pulse Resp BP Pulse Ox O2 Del Method 06/05/24 12:52 36.9 C 65 18 146/88 H 98 Room Air 06/05/24 08:28 36.9 C 60 18 130/82 94 Room Air 06/05/24 07:01 36.7 C 58 L 16 123/75 95 Room Air Laboratory Results CBC, chemistry, LFts and lipase reviewed PG Care Time/CCT Total # of Minutes Spent Total Time Spent with Patient: Total time spent is greater than 50% in coordination of care (as documented) at patient's floor/unit and/or counseling patient: Coding Level of Care Code 65036 SUB INP/OBS CARE 3/50MIN Diagnoses Nausea vomiting and diarrhea R11.2; R19.7 Elevated lipase R74.8 Chronic low back pain, unspecified back pain laterality, unspecified whether sciatica present M54.50; G89.29 Back pain laterality: unspecified Back pain location: low back pain Chronicity: chronic Sciatica presence: unspecified whether sciatica present (3) Back pain Back pain laterality: unspecified Back pain location: low back pain Chronicity: chronic Sciatica presence: unspecified whether sciatica present Qualified Code(s): M54.50 - Low back pain, unspecified; G89.29 - Other chronic pain
[2024-06-05] MEDS: oxyCODONE HCL IR 5 MG TAB (IMMEDIATE RELEASE) PO PRN (16:13)
[2024-06-05] MEDS: PROMETHAZINE HCL 12.5 MG/10 ML UDP PO PRN (16:35)
[2024-06-05] MEDS: PROMETHAZINE HCL 25 MG TAB PO PRN (17:38)
[2024-06-05] MEDS: MoRPHine SULFATE 2 MG/ML CARP IV PRN (17:38)
[2024-06-05] MEDS: PROCHLORPERAZINE MALEATE 5 MG TAB PO ONE (20:05)
[2024-06-06 07:32] LABS: Basophils # (auto) 0.06 K/uL (0.00-0.20); Basophils % (auto) 0.7 %; Eosinophils # (auto) 0.15 K/uL (0.00-0.50); Eosinophils % (auto) 1.8 %; Hematocrit (blood only) 43.3 % (37.0-47.0); Hemoglobin 15.1 g/dl (12.0-16.0); Immature Granulocytes # (auto) 0.02 K/uL (0.01-0.20); Immature Granulocytes % (auto) 0.2 %; Lymphocytes # (auto) 1.56 K/uL (1.20-3.40); Lymphocytes % (auto) 18.6 %; Mean Corpuscular Hemoglobin 30.2 pg (25.0-34.0); Mean Corpuscular Hgb Conc 34.9 g/dL (32.0-36.0); Mean Corpuscular Volume 86.6 fL (80.0-100.0); Mean Platelet Volume 10.8 fL (9.4-12.4); Monocytes # (auto) 0.57 K/uL (0.11-0.59); Monocytes % (auto) 6.8 %; Neutrophils # (auto) 6.01 K/uL (1.40-6.50); Neutrophils % (auto) 71.9 %; Platelet Count 208 K/uL (130-400); RDW Coefficient of Variation 13.2 % (11.5-14.5); RDW Standard Deviation 41.7 fL (36.4-46.3); White Blood Count 8.37 K/ul (4.8-10.8)
[2024-06-06 07:47] LABS: Albumin Globulin Ratio 1.5 (0.9-2); Albumin Level 4.4 gm/dl (3.4-5.0); BUN Creatinine Ratio 8.3 (10-20); Bilirubin,Total 0.8 mg/dl (0.2-1.0); Calcium 8.9 mg/dl (8.6-10.3); Est GFR (African American) 115.6 ml/min; Est GFR (Non-African American) 99.8 ml/min; Potassium 3.7 mmol/L (3.5-5.1); Total Protein 7.4 gm/dl (6.0-8.3)
[2024-06-06] MEDS: OPTIRAY 320 100ml IV ONE (13:07)
--- NOTE | 2024-06-06 13:33 | CT Scan Report ---
ABDOMEN AND PELVIS CT WITH IV CONTRAST CT DOSE: 1220.05 mGy.cm HISTORY: Acute left upper quadrant abdominal pain worsening LUQ pain, radiating to back TECHNIQUE: Multiaxial CT images of the abdomen and pelvis were performed following the IV administrat ion of 94 cc of Optiray, A dose lowering technique was utilized adhering to the principles of ALARA. COMPARISON STUDY: CT 06/01/2024 FINDINGS: Lung bases are generally clear. No pneumoperitoneum. No pneumatosis. Old compression deform ities and postoperative changes again noted within the thoracolumbar spine. The right L1 pedicle scre w appears fractured. This is difficult to assess due to the metallic artifact but remains unchanged. Prior cholecystectomy. This likely accounts for the mild intra and extrahepatic bile duct dilatation, unchanged. No hepatic or splenic masses. Subtle nodular contour to the liver consistent with cirrhos is. This is similar to the prior study. The pancreas enhances normally. No hydronephrosis. Normal adr enal glands. The main portal vein is patent. Normal caliber abdominal aorta with moderate calcified p laque. The bladder is unremarkable. The uterus is surgically absent. Colonic diverticulosis. Minimal inflammatory stranding is noted adjacent to the splenic flexure/mid d escending colon. No bowel wall thickening or obstruction. No retroperitoneal or pelvic lymphadenopath y. No pelvic free fluid. Focal thickening and fat stranding within the left upper quadrant anterior a bdominal wall. This likely represents the site of the prior abdominal wall fluid collection. This als o remains unchanged. Mild pelvic floor collapse. IMPRESSION: 1. Colonic diverticulosis. There is trace inflammatory stranding interposed between the splenic flexu re and pancreatic tail which may represent mild acute diverticulitis versus pancreatitis. 2. No bowel obstruction or pneumoperitoneum. 3. Additional findings as above. ACT 112: Negative or not required by law. The above report was generated using voice recognition software. It may contain grammatical, syntax o r spelling errors. Electronically signed by: Chad Jung M.D. 06/06/2024 1:32 PM
[2024-06-06 13:34] LABS: Influenza A virus by PCR Negative (Neg); Influenza B virus by PCR Negative (Neg); RSV by PCR Negative (Neg); SARS CoV2 RNA(COVID-19) Ceph NEGATIVE (Negative)
[2024-06-06] MEDS: LACTATED RINGER'S 1,000 ML IV SCH (13:49)
[2024-06-06 14:21] LABS: Appearance Urine Clear (Clear); Bilirubin Urine Negative (Negative); Blood Urine Negative (Negative); Color Urine Yellow; Glucose Urine UA Negative (Negative); Ketones Urine Negative (Negative); Leukocyte Esterase Urine Negative (Negative); Nitrite Urine Negative (Negative); Protein Urine Negative (Negative); Specific Gravity Urine > 1.045 (1.000-1.030); Urobilinogen Urine Negative (Negative)
[2024-06-06] MEDS ORDERED: CIPROFLOXACIN / D5W 400 MG/200 ML BAG IV SCH (15:45)
--- NOTE | 2024-06-06 16:49 | Hospitalist Progress Note ---
Date of Service June 06, 2024 Assessment & Plan (1) Nausea vomiting and diarrhea: Plan: Patient presented to the ED on 06/02/24 due to abdominal pain, nausea, vomiting, and diarrhea. Per GI note from 06/01 patient has had significant workup regarding her symptoms. She had colonoscopy 06/30 which resulted in poor prep, no abnormalities on random colon biopsy. She had an EGD 08/30 consistent with gastritis. At that time a trial of Reglan and promethazine suppositories was recommended to the patient along with checking pancreatic elastase. Has hepatology appointment in August. Also with concern for alpha-1 antitrypsin deficiency and hx of Hep A -etiology: pancreatitis vs gastroparesis vs gastritis vs cannabis hyperemesis syndrome vs Ozempic use -stool study + for Giardia -recommend avoiding GLP-1 agonists in future given they can worsen her pre- existing GI complaints -recommend marijuana cessation -Started Carafate QID -Continue IV Protonix and Pepcid BID -stool studies ordered -fecal calprotectin and pancreatic elastase pending -positive for Giardia. -originally started on Flagyl PO BID but due to N/V switched to IV - reglan not tolerated well. Switched to home promethazine - has been taking morphine q4H. Will add oxycodone for PO option Worsening abdominal pain with cold sweats 06/06 - UA and quad respiratory screen negative - repeat CT: Diverticulosis with trace inflammatory stranding interposed between the splenic flexure and pancreatic tail which may represent diverticulitis vs pancreatitis - diet changed to clear liquids - IVFs started - Cefepime added for diverticular coverage (cipro deferred d/t interaction with cymbalta) AM CBC, BMP (2) Elevated lipase: Plan: Initial lipase elevated at 300 on 06/01/2024, down to 150 CT abdomen pelvis with contrast on 06/01/2024 was negative for acute findings patient with elevated LFTs but downtrending lipase. Pain remains LUQ. Repeat CT as above (3) Back pain: Plan: Patient reports increase in her chronic low back pain after multiple episodes of vomiting No focal findings on exam, No red flag symptoms - X-ray of thoracic and lumbar spine: no acute pathology Lidocaine patch - Patient refuses Tylenol due to her underlying cirrhosis and this worsens her diarrhea Back pain has improved Plan Chronic conditions: Smoking abuse: denies use of nicotine patch. Cessation encouraged HLD - continue statin hypothyroid - continue synthroid PTSD: continue Cymbalta,lyrica, as needed Lorazepam, holding trazodone while on opioids due to excessive sedation Type 2 Diabetes: home regimen invokana and ozempic. SSI -CF of 50 and CR 15 every 6 hours Cirrhosis-secondary to A1AT, pending Hepatology eval Code status: conditional Disposition: continue inpatient stay until pain controlled Admission and Anticipated Discharge Date Admission Date: June 04, 2024 Supervising Physician Co-Signing Physician Notes PA Supervision Note: I did not personally see or examine the patient today, but I verified all snyder points of ARIC Gonzalez's assessment and plan with the following exc eptions/additions: None Subjective patient seen sitting on side of bed, prior to lunch. States that the pain is getting worse in the left upper quadrant and she has now developed cold sweats. Got worse with the shower. Does not think she has had fevers. Has vomited about 5 times this morning. Has some chronic nausea and vomiting, but states it is never been this bad does follow gluten-free diet at home smokes about 3 cigarettes a day Review of Systems Review of Systems: All systems reviewed & are unremarkable except as noted in Subjective Physical Exam Physical Exam: General: NAD, VS as above, appears quite anxious Resp: normal respiratory effort, lungs clear to auscultation CV: RRR, no murmur, Abd: normal bowel sounds, worsening tenderness LUQ Extremities: Moves all extremities, no edema Neuro: A&O x3, tremor of LE has resolved Results & Data Results & Data Vital Signs (Past 12 Hours) Vital Signs Temp Pulse Resp BP Pulse Ox O2 Del Method 06/06/24 14:09 36.4 C L 58 L 16 166/81 H 96 Room Air 06/06/24 07:13 36.9 C 63 16 175/102 H 95 Room Air Laboratory Results CBC and chemistry reviewed LFTs reviewed Diagnostic Findings CT abdomen pelvis reviewed PG Care Time/CCT Total # of Minutes Spent Total Time Spent with Patient: Total time spent is greater than 50% in coordination of care (as documented) at patient's floor/unit and/or counseling patient: Coding Level of Care Code 46881 SUB INP/OBS CARE 3/50MIN Diagnoses Nausea vomiting and diarrhea R11.2; R19.7 Elevated lipase R74.8 Chronic low back pain, unspecified back pain laterality, unspecified whether sciatica present M54.50; G89.29 Back pain laterality: unspecified Back pain location: low back pain Chronicity: chronic Sciatica presence: unspecified whether sciatica present (3) Back pain Back pain laterality: unspecified Back pain location: low back pain Chronicity: chronic Sciatica presence: unspecified whether sciatica present Qualified Code(s): M54.50 - Low back pain, unspecified; G89.29 - Other chronic pain
[2024-06-06] MEDS: CEFEPIME 2,000 MG in SYRINGE 0 ML IV SCH (18:46)
[2024-06-07 07:53] LABS: Basophils # (auto) 0.04 K/uL (0.00-0.20); Basophils % (auto) 0.5 %; Eosinophils # (auto) 0.14 K/uL (0.00-0.50); Eosinophils % (auto) 1.7 %; Hematocrit (blood only) 41.9 % (37.0-47.0); Hemoglobin 14.4 g/dl (12.0-16.0); Immature Granulocytes # (auto) 0.02 K/uL (0.01-0.20); Immature Granulocytes % (auto) 0.2 %; Lymphocytes # (auto) 2.04 K/uL (1.20-3.40); Lymphocytes % (auto) 24.4 %; Mean Corpuscular Hemoglobin 29.9 pg (25.0-34.0); Mean Corpuscular Hgb Conc 34.4 g/dL (32.0-36.0); Mean Corpuscular Volume 87.1 fL (80.0-100.0); Mean Platelet Volume 10.6 fL (9.4-12.4); Monocytes # (auto) 0.71 K/uL (0.11-0.59); Monocytes % (auto) 8.5 %; Neutrophils % (auto) 64.7 %; Platelet Count 210 K/uL (130-400); RDW Coefficient of Variation 13.2 % (11.5-14.5); RDW Standard Deviation 42.4 fL (36.4-46.3); Red Blood Count 4.81 M/uL (4.20-5.40); White Blood Count 8.35 K/ul (4.8-10.8)
[2024-06-07 08:36] LABS: Albumin Globulin Ratio 1.5 (0.9-2); BUN Creatinine Ratio 9.5 (10-20); Bilirubin,Total 0.7 mg/dl (0.2-1.0); Calcium 8.9 mg/dl (8.6-10.3); Creatinine Clr Calc Pharmacy 97.1 ml/min; Est GFR (African American) 113.8 ml/min; Est GFR (Non-African American) 98.2 ml/min; Globulin 2.7 gm/dl (2.5-4.0); Potassium 3.7 mmol/L (3.5-5.1); Total Protein 6.7 gm/dl (6.0-8.3)
--- NOTE | 2024-06-07 12:01 | Hospitalist Progress Note ---
Date of Service June 07, 2024 Assessment & Plan (1) Nausea vomiting and diarrhea: Plan: Patient presented to the ED on 06/02/24 due to abdominal pain, nausea, vomiting, and diarrhea. Per GI note from 06/01 patient has had significant workup regarding her symptoms. She had colonoscopy 06/30 which resulted in poor prep, no abnormalities on random colon biopsy. She had an EGD 08/30 consistent with gastritis. At that time a trial of Reglan and promethazine suppositories was recommended to the patient along with checking pancreatic elastase. Has hepatology appointment in August. Also with concern for alpha-1 antitrypsin deficiency and hx of Hep A -etiology: pancreatitis vs gastroparesis vs gastritis vs cannabis hyperemesis syndrome vs Ozempic use -stool study + for Giardia -recommend avoiding GLP-1 agonists in future given they can worsen her pre- existing GI complaints -recommend marijuana cessation -Started Carafate QID -Continue IV Protonix and Pepcid BID -stool studies ordered -fecal calprotectin and pancreatic elastase pending -positive for Giardia. -originally started on Flagyl PO BID but due to N/V switched to IV - reglan not tolerated well. Switched to home promethazine - has been taking morphine q4H. oxycodone PO increased to 10mg to try to limit IV Worsening abdominal pain with cold sweats 06/06 - UA and quad respiratory screen negative - repeat CT: Diverticulosis with trace inflammatory stranding interposed between the splenic flexure and pancreatic tail which may represent diverticulitis vs pancreatitis - diet changed to clear liquids - IVFs started - Cefepime added for diverticular coverage (cipro deferred d/t interaction with cymbalta) Positive fecal occult with reported coffee ground emesis --> GI consulted - continue treatment for diverticulitis and pancreatitis - pt denied bloody emesis during GI interview. - with recent EGD, would be no plan to scope. Conservative measures, BID PPI AM CBC, CMP (2) PTSD (post-traumatic stress disorder): Plan: Home medications: continue Cymbalta, lyrica, as needed Lorazepam, holding trazodone while on opioids due to excessive sedation Patient with acute worsening after dealing with social stressors related to her living situation. Found hitting herself with hospital phone. Denies suicidal ideations - will place on 1:1 for now - Behavioral health liason and psych consulted - provided with one time dose extra ativan - provided resources book regarding legality (3) Elevated lipase: Plan: Initial lipase elevated at 300 on 06/01/2024, down to 150 CT abdomen pelvis with contrast on 06/01/2024 was negative for acute findings patient with elevated LFTs but downtrending lipase. Pain remains LUQ. Repeat CT as above (4) Back pain: Plan: Patient reports increase in her chronic low back pain after multiple episodes of vomiting No focal findings on exam, No red flag symptoms - X-ray of thoracic and lumbar spine: no acute pathology Lidocaine patch - Patient refuses Tylenol due to her underlying cirrhosis and this worsens her diarrhea Plan Chronic conditions: Smoking abuse: denies use of nicotine patch. Cessation encouraged HLD - continue statin hypothyroid - continue synthroid Type 2 Diabetes: home regimen invokana and ozempic. SSI -CF of 50 and CR 15 every 6 hours Cirrhosis-secondary to A1AT, pending Hepatology eval Code status: conditional Disposition: continue inpatient stay Discussed with MUKESH Concepcion TRINH Admission and Anticipated Discharge Date Admission Date: June 04, 2024 Supervising Physician Co-Signing Physician Notes PA Supervision Note: I did not personally see or examine the patient today, but I verified all snyder points of ARIC Gonzalez's assessment and plan with the following exceptions/additions: None Subjective Patient visited multiple times throughout the day - this morning she was ambulating in the room, but immediately felt worse when i walked in. Pain has now spread more to her back. Revisited this afternoon as she was requesting to leave, as her landlord has threanted to evict her from her apartment today. She ultimately decided to stay. I was called to come to her bedside again when she was requesting to leave, when i told her it would be AMA, she did not want to go through with this. Then was contacted by nursing that patient had been hitting herself with a phon e. Nursing staff spoke with james bazan that states this is her regular behavior before she engages in self harm. at this time, she did not want to be a 1:1 but explained this had to be done for her safety. She denies suicidal thoughts Review of Systems Review of Systems: All systems reviewed & are unremarkable except as noted in Subjective Physical Exam Physical Exam: General: NAD, VS as above, appears quite anxious Resp: normal respiratory effort, lungs clear to auscultation CV: RRR, no murmur, Abd: normal bowel sounds, worsening tenderness LUQ Extremities: Moves all extremities, no edema Neuro: A&O x3, tremor of LE has resolved Results & Data Results & Data Vital Signs (Past 12 Hours) Vital Signs Temp Pulse Resp BP Pulse Ox O2 Del Method 06/07/24 07:53 36.8 C 66 18 147/88 H 95 Room Air Laboratory Results CBC, chemistry, lipase and lfts reviewed PG Care Time/CCT Total # of Minutes Spent Total Time Spent with Patient: Total time spent is greater than 50% in coordination of care (as documented) at patient's floor/unit and/or counseling patient: Coding Level of Care Code 31840 SUB INP/OBS CARE 3/50MIN Diagnoses Nausea vomiting and diarrhea R11.2; R19.7 PTSD (post-traumatic stress disorder) F43.10 Elevated lipase R74.8 Chronic low back pain, unspecified back pain laterality, unspecified whether sciatica present M54.50; G89.29 Back pain laterality: unspecified Back pain location: low back pain Chronicity: chronic Sciatica presence: unspecified whether sciatica present (4) Back pain Back pain laterality: unspecified Back pain location: low back pain Chronicity: chronic Sciatica presence: unspecified whether sciatica present Qualified Code(s): M54.50 - Low back pain, unspecified; G89.29 - Other chronic pain
[2024-06-07] MEDS: LACTATED RINGER'S 1,000 ML IV SCH (12:45)
[2024-06-07] MEDS: oxyCODONE HCL IR 5 MG TAB (IMMEDIATE RELEASE) PO PRN (13:46)
[2024-06-07] MEDS: LORazepam 0.5 MG TAB PO STA (14:32)
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
[2024-06-07] MEDS: ONDANSETRON INJ 2 MG/ML 2 ML VIAL IV PRN (22:08)
[2024-06-08 09:05] LABS: Albumin Globulin Ratio 1.6 (0.9-2); Albumin Level 4.1 gm/dl (3.4-5.0); BUN Creatinine Ratio 7.9 (10-20); Bilirubin,Total 0.6 mg/dl (0.2-1.0); Calcium 8.6 mg/dl (8.6-10.3); Creatinine Clr Calc Pharmacy 97.1 ml/min; Est GFR (African American) 113.8 ml/min; Est GFR (Non-African American) 98.2 ml/min; Globulin 2.6 gm/dl (2.5-4.0); Potassium 3.6 mmol/L (3.5-5.1); Total Protein 6.7 gm/dl (6.0-8.3)
--- NOTE | 2024-06-08 11:48 | Gastroenterology Progress Note ---
<Statement entered by Davida Salinas MD - 06/08/24 15:20> I have examined the patient, reviewed the History & Physical and in the interval since the performance of the History & Physical I have noted the following changes of clinical significance: no changes noted. I agree with the documentation provided by ARIC Carreon with no additional comments. Alfreda reports ongoing severe pain more in the upper mid and left abdomen. She had solid food which led to worsening pain. She denies vomiting of coffee ground emesis. She asked about a feeding tube as she had one during a severe pancreatitis episode ~12 years ago in [place]. Looking at her abdomen, there is a small scar which could related to a jejunal tube but no PEG like scar. Will attempt to obtain/review old records. Review of labs is notable for a mild elevation in her alk phos and transaminases. Suggest proceeding with clear diet and MRI abd w contrast and MRCP for better understanding of her pancreatic anatomy and to rule out various forms of hepatobiliary mischief. Date of Service June 08, 2024 Assessment & Plan (1) Abdominal pain, acute, epigastric: Plan: -Continue to treat for possible pancreatitis given lipase elevation, imaging findings, & reported pain. Will need outpatient EUS. -Continue to treat for possible diverticulitis given reports of LLQ pain; She continues IV Cefepime & Flagyl. -Liquid diet -Continue Protonix 40 mg IV BID; hospitalist reported coffee ground emesis yesterday. H/H was 14.4/41.9. EGD in 08/2023. Patient has history of gastritis & esophagitis in the past. Would advise following H/H and monitoring for overt bleeding. She is in the midst of outpatient GI work-up with Rasta Sanches PA-C. Admission and Anticipated Discharge Date Admission Date: June 04, 2024 Subjective Patient is a 59 yo female with pancreatitis vs diverticulitis. Hospitalist reached out with concerns of an episode of reported coffee ground emesis. Patient denied this to me, however she does have a history of this. H/H was fortunately normal at 14.4/41.9 yesterday. Awaiting labs from today. No elevation of BUN. She is on PPI. Last EGD was August 2023. She notes persistent epigastric & left sided abdominal pain. Review of Systems Gastrointestinal: + abdominal pain Physical Exam Constitutional: well developed Respiratory: normal respiratory effort Gastrointestinal (Abdomen): Percussion/Palpation: + abdomen tender Psychiatric: Orientation: alert Results & Data Results & Data Vital Signs (Past 12 Hours) Vital Signs Temp Pulse Resp BP Pulse Ox O2 Del Method 06/08/24 07:31 36.7 C 64 18 118/82 95 Room Air PG Care Time/CCT Total # of Minutes Spent Total Time Spent with Patient: Total time spent is greater than 50% in coordination of care (as documented) at patient's floor/unit and/or counseling patient: Coding Level of Care Code 96712 SUB INP/OBS CARE 3/50MIN Diagnoses Abdominal pain, acute, epigastric R10.13
[2024-06-08] MEDS: PROMETHAZINE HCL 25 MG TAB PO SCH (13:35)
--- NOTE | 2024-06-08 15:50 | Hospitalist Progress Note ---
Date of Service June 08, 2024 Assessment & Plan (1) Nausea vomiting and diarrhea: Plan: Patient presented to the ED on 06/02/24 due to abdominal pain, nausea, vomiting, and diarrhea. Per GI note from 06/01 patient has had significant workup regarding her symptoms. She had colonoscopy 06/30 which resulted in poor prep, no abnormalities on random colon biopsy. She had an EGD 08/30 consistent with gastritis. At that time a trial of Reglan and promethazine suppositories was recommended to the patient along with checking pancreatic elastase. Has hepatology appointment in August. Also with concern for alpha-1 antitrypsin deficiency and hx of Hep A -etiology: pancreatitis vs gastroparesis vs gastritis vs cannabis hyperemesis syndrome vs Ozempic use -stool study + for Giardia -recommend avoiding GLP-1 agonists in future given they can worsen her pre- existing GI complaints -recommend marijuana cessation -Started Carafate QID -Continue IV Protonix and Pepcid BID -stool studies ordered -fecal calprotectin and pancreatic elastase pending -positive for Giardia. -originally started on Flagyl PO BID but due to N/V switched to IV - reglan not tolerated well. Switched to home promethazine - will try scheduled (more similar to what she takes at home) - Pain control: oxycodone. morphine discontinued 06/08 Worsening abdominal pain with cold sweats 06/06 - UA and quad respiratory screen negative - repeat CT: Diverticulosis with trace inflammatory stranding interposed between the splenic flexure and pancreatic tail which may represent diverticulitis vs pancreatitis - diet changed to clear liquids - IVFs started - Cefepime added for diverticular coverage (cipro deferred d/t interaction with cymbalta) Positive fecal occult with reported coffee ground emesis --> GI consulted - continue treatment for diverticulitis and pancreatitis - with recent EGD, would be no plan to scope. Conservative measures, BID PPI - check MRCP and MRI abdomen with contrast AM CBC, CMP (2) PTSD (post-traumatic stress disorder): Plan: Home medications: continue Cymbalta, lyrica, as needed Lorazepam, holding trazodone while on opioids due to excessive sedation but will now restart 100 mg at bedtime due to insomnia Patient with acute worsening after dealing with social stressors related to her living situation. Found hitting herself with hospital phone. Denies suicidal ideations - will place on 1:1 for now - Behavioral health liaison consulted - provided with one time dose extra ativan - CM provided resources book regarding legality Does not have a therapist. follows with james bazan - comp field case manager, Hilaria. has granted permission to talk to her if needed (3) Elevated lipase: Plan: Initial lipase elevated at 300 on 06/01/2024, down to 150 CT abdomen pelvis with contrast on 06/01/2024 was negative for acute findings patient with elevated LFTs but downtrending lipase. Pain remains LUQ. Repeat CT as above (4) Back pain: Plan: Patient reports increase in her chronic low back pain after multiple episodes of vomiting No focal findings on exam, No red flag symptoms - X-ray of thoracic and lumbar spine: no acute pathology Lidocaine patch - Patient refuses Tylenol due to her underlying cirrhosis and this worsens her diarrhea Plan Chronic conditions: Smoking abuse: denies use of nicotine patch. Cessation encouraged HLD - continue statin hypothyroid - continue synthroid, TSH normal in 04/2024 Type 2 Diabetes: home regimen invokana and ozempic. SSI -CF of 50 and CR 15 every 6 hours Cirrhosis-secondary to A1AT, pending Hepatology eval Code status: conditional Disposition: continue inpatient stay Discussed with Dr. Fontaine, GI Admission and Anticipated Discharge Date Admission Date: June 04, 2024 Supervising Physician Co-Signing Physician Notes PA Supervision Note: I did not personally see or examine the patient today, but I verified all snyder points of ARIC Gonzalez's assessment and plan with the following exce ptions/additions: None Subjective Patient seen sitting up in bed. Had been outside to see her dog this morning - discussed that this needs to be done safely and communicated with staff. Also she is not to be smoking when she is outside. abdomnal pain improving slightly. She reports that she takes her antinausea medication three times a day at home and will plan to schedule her promethazine trazadone added back Review of Systems Review of Systems: All systems reviewed & are unremarkable except as noted in Subjective Physical Exam Physical Exam: General: NAD, VS as above, appears quite anxious Resp: normal respiratory effort, lungs clear to auscultation CV: RRR, no murmur, Abd: normal bowel sounds, worsening tenderness LUQ Extremities: Moves all extremities, large red bruise over right leg, Neuro: A&O x3, tremor of LE has resolved Results & Data Results & Data Vital Signs (Past 12 Hours) Vital Signs Temp Pulse Resp BP Pulse Ox O2 Del Method 06/08/24 07:31 36.7 C 64 18 118/82 95 Room Air Laboratory Results CMP reviewed PG Care Time/CCT Total # of Minutes Spent Total Time Spent with Patient: Total time spent is greater than 50% in coordination of care (as documented) at patient's floor/unit and/or counseling patient: Coding Level of Care Code 87263 SUB INP/OBS CARE 3/50MIN Diagnoses Nausea vomiting and diarrhea R11.2; R19.7 PTSD (post-traumatic stress disorder) F43.10 Elevated lipase R74.8 Chronic low back pain, unspecified back pain laterality, unspecified whether sciatica present M54.50; G89.29 Back pain laterality: unspecified Back pain location: low back pain Chronicity: chronic Sciatica presence: unspecified whether sciatica present (4) Back pain Back pain laterality: unspecified Back pain location: low back pain Chronicity: chronic Sciatica presence: unspecified whether sciatica present Qualified Code(s): M54.50 - Low back pain, unspecified; G89.29 - Other chronic pain
[2024-06-08] MEDS: traZODone HCL 100 MG TAB PO SCH (21:09)
[2024-06-08] MEDS: LORazepam 0.5 MG in SYRINGE 0.25 ML IV STA (23:51)
[2024-06-09] MEDS: GADOBUTROL 65ML VIAL IV ONE (01:24)
--- NOTE | 2024-06-09 05:13 | Magnetic Resonance Report ---
Exam(s): MRI ABDOMEN W/WO Contrast IV Amt: 7.5 gadavist EXAM: MR Abdomen Without and With Intravenous Contrast CLINICAL HISTORY: abd pain, increasing lfts. TECHNIQUE: Multiplanar magnetic resonance images of the abdomen without and with intravenous contrast. CONTRAST: Patient received 7.5 Gadavist of IV contrast COMPARISON: No relevant prior studies available. FINDINGS: Lung bases: Unremarkable. No mass. No consolidation. Liver: The liver demonstrates mildly lobular contours anteriorly. No focal abnormal enhancement following contrast administration noted. Gallbladder and bile ducts: Cholecystectomy. No choledocholithiasis. Mild ectasia of the proximal common bile duct near the gracie hepatis measuring 8.7 mm. No intrahepatic biliary dilatation. There is a gradual tapering of the distal common bile duct. Pancreas: Unremarkable. No ductal dilation. No mass. Spleen: Unremarkable. No splenomegaly. Adrenals: Unremarkable. No mass. Kidneys and ureters: Unremarkable. No hydronephrosis. No solid mass. Stomach and bowel: Unremarkable. No obstruction. Intraperitoneal space: Unremarkable. No significant fluid collection. Bones/joints: Artifacts throughout the spine from spinal hardware is noted. Soft tissues: Unremarkable. Vasculature: Unremarkable. No abdominal aortic aneurysm. Lymph nodes: Unremarkable. No enlarged lymph nodes. IMPRESSION: 1. No choledocholithiasis. Mild ectasia of the proximal common bile duct near the gracie hepatis measuring 8.7 mm. No intrahepatic biliary dilatation. There is a gradual tapering of the distal common bile duct. Suspect normal variation postcholecystectomy. 2. Lobular contours to the liver. No abnormal enhancement following contrast administration. Electronically signed by: Huang Scherer MD 06/09/24 05:12 AM
[2024-06-09 10:33] LABS: Albumin Globulin Ratio 1.5 (0.9-2); Albumin Level 4.2 gm/dl (3.4-5.0); BUN Creatinine Ratio 10.8 (10-20); Bilirubin,Total 0.6 mg/dl (0.2-1.0); Calcium 9.2 mg/dl (8.6-10.3); Creatinine Clr Calc Pharmacy 82.7 ml/min; Est GFR (African American) 102.8 ml/min; Est GFR (Non-African American) 88.7 ml/min; Globulin 2.8 gm/dl (2.5-4.0); Potassium 3.2 mmol/L (3.5-5.1)
--- NOTE | 2024-06-09 11:17 | Discharge Summary ---
Discharge Summary Date of Service June 09, 2024 Principal Dx & Hospital Course #1 = Principal Diagnosis (1) Nausea vomiting and diarrhea: She tested positive for Giardia enteritis. She is on IV Flagyl. Unfortunately she did not tolerate oral metronidazole. She will be treated with nitazoxamide 500 mg twice a day for 3 days at discharge. (2) PTSD (post-traumatic stress disorder): Supportive care. Continue current medical management (3) Elevated lipase: Mild on admission. She does not appear to have acute pancreatitis. (4) Back pain: Chronic. X-rays reveal no new findings. Continue current medical management. Plan Home todayJune 09 Admission HPI Per Admitting Provider Noris is a 59-year-old female with a past medical history significant for recurrent pancreatitis, cirrhosis of the liver, DM type II, GERD with esophagitis, hypothyroidism, restless leg syndrome, panic disorder, and opioid dependence who presented to the [facility] ED for the second time in 24 hours on 06/02/2024 due to ongoing abdominal pain. The patient presented to the ED on 06/01/2024 with the same complaint. At that time labs were significant for lipase of 300. CT of the abdomen pelvis with IV contrast on 06/01/2024 was read as negative for bowel thickening or obstruction, colonic diverticulosis no evidence of acute diverticulitis. Cirrhotic liver again noted. It noted the pancreas to be enhance normally. The patient was given 1 L normal saline, 75 mcg IV fentanyl, 25 mg IV and IV diphenhydramine, 25 mg Phenergan, a dose of Compazine, and 4 mg IV morphine was subsequently discharged home. She returns today with ongoing symptoms. Patient remained stable in the ED today. Labs today were significant for an improving lipase from 300-1 50. Patient was given 1 L LR, 1 dose of Phenergan, 2 doses 4 mg IV morphine and 1 dose IV Zofran prior to admission. Patient was lying in bed on her right side no acute distress at time of exam. She states that she started to develop her left upper quadrant/epigastric abdominal pain approximately 10 days ago. Symptoms started with nausea, nonbloody emesis, left lower quadrant abdominal pain. She also developed multiple episodes (greater than 3/day), of nonbloody, foul-smelling diarrhea. When asked, she does feel as though her diarrhea has been dark/black at times. Denies bloody emesis or coffee-ground emesis. No recent fevers, chills, chest pain, shortness of breath, dysuria, lower extremity swelling or recent trauma. Denies recent alcohol use and currently smoking 2 cigarettes daily. When asked, she normally uses her medical marijuana 3 times a day. She has been on Ozempic for approximately 3 months and is unsure if symptoms are associated with use. She is only on Ozempic for her diabetes not for weight loss. Symptoms are currently improved but have not resolved. She also notes that she has been experiencing mid to low back pain after multiple episodes of vomiting earlier today. She explains that she feels as though she heard/felt a pop. Denies saddle anesthesia, paresthesias, unilateral weakness, or loss of bowel or bladder function. We discussed CODE STATUS, she is a conditional code as she would only want a trial of intubation in the event of respiratory arrest. She would not want CPR or cardiac defibrillation in the event of cardiac arrest. Her brother is her primary decision maker if she cannot make decisions for self. Please refer to Dr. Vasques's attestation for any changes to the treatment plan. Discharge Exam General-alert and oriented x3, no fever, no chills HEENT-head atraumatic and normocephalic, pupils equal and reactive to light, extraocular muscles intact Neck-no lymphadenopathy or thyromegaly, trachea midline Chest-clear to auscultation. No rales, wheezing or rhonchi Cardiac-regular rate and rhythm, normal S1 and S2 Abdomen-normal bowel sounds, no hepatosplenomegaly Extremities-no cyanosis, clubbing, or edema Neuro-cranial nerves II through XII intact, motor and sensory function within normal limits, strength symmetrical, no focal deficits Psych-normal affect, normal mood Updated Medication List Medication Instructions Recorded Confirmed Type trazodone 300 mg tablet 300 mg PO HS 07/08/20 06/02/24 History lorazepam 0.5 mg tablet 0.5 mg PO QID PRN anxiety 01/27/23 06/02/24 History canagliflozin 300 mg tablet 300 mg PO QAM 11/25/23 06/02/24 History (Invokana) duloxetine 60 mg capsule,delayed 120 mg PO QAM 11/25/23 06/02/24 History release (Cymbalta) fluticasone propionate 50 2 spray NA BID #0 grams 12/04/23 06/02/24 Rx mcg/actuation nasal spray,suspension pramipexole 1 mg tablet 1 mg PO HS #90 tabs 12/15/23 06/02/24 Rx Medical Marijuana 1 inh inhalation TID PRN prn 12/22/23 06/02/24 History semaglutide 0.25 mg or 0.5 mg (2 0.5 mg subcut WK 12/22/23 06/02/24 History mg/3 mL) subcutaneous pen injector (Ozempic) vitamin B complex 1 tab PO DAILY 12/30/23 06/02/24 History tiotropium bromide 2.5 2 puff inhalation DAILY #4 grams 01/31/24 06/02/24 Rx mcg/actuation mist for inhalation (Spiriva Respimat) varenicline 0.5 mg (11)-1 mg (42) See Rx Instructions .Route 04/12/24 06/02/24 Rx tablets in a dose pack (Extend Mediatix .COMPLEX #53 ea Starting Month Box) atorvastatin 80 mg tablet 80 mg PO QAM #90 tabs 04/13/24 06/02/24 Rx levothyroxine 112 mcg tablet 112 mcg PO QAM #30 tabs 04/14/24 06/02/24 Rx pregabalin 150 mg capsule 150 mg PO BID 30 days #60 caps 04/20/24 06/02/24 Rx Magic Mouthwash 300 mL mouthwash See Rx Instructions .Route 05/10/24 06/02/24 Rx .COMPLEX 2 weeks #300 mL promethazine 12.5 mg tablet 12.5 mg PO TID PRN nausea and 05/18/24 06/02/24 Rx vomiting #90 tabs trazodone 100 mg tablet 100 mg PO HS #30 tabs 05/23/24 06/02/24 Rx promethazine 25 mg rectal 25 mg NE Q6H PRN sedation #12 ea 06/01/24 06/02/24 Rx suppository pantoprazole 40 mg tablet,delayed 40 mg PO DAILY 06/02/24 06/02/24 History release prazosin 1 mg capsule 1 mg PO HS 06/02/24 06/02/24 History valacyclovir 1 gram tablet 1,000 mg PO BID PRN .Breakouts 06/02/24 06/02/24 History (Valtrex) nitazoxanide 500 mg tablet 500 mg PO BID 3 days #6 tabs 06/09/24 Rx Hospital Stay Data Consultations 06/02/24 15:16 ED Decision to Admit Stat 06/07/24 08:00 Consult Gastroenterology Routine 06/07/24 14:11 Consult Behavioral Health Liaison Routine Diagnostic Imagining Performed 06/06/24 12:14 CT Abd and Pelvis [CT abd pelvis IV con only] Urgent 06/08/24 15:17 MRI Abdomen [MR abdomen wo/w con] Stat Pending Results Patient Have Any Pending Studies at Discharge: No Discharge Instructions Given to Patient (Per Discharging Provider) take Nitazoxamide 500mg twice a day for 3 days for giardia Total Time Total Time Spent Total Time Spent (In Minutes): 45 minutes Coding Level of Care Code 47393 INP/OBS DISCH >30 MIN Diagnoses Nausea vomiting and diarrhea R11.2; R19.7 PTSD (post-traumatic stress disorder) F43.10 Elevated lipase R74.8 Chronic low back pain, unspecified back pain laterality, unspecified whether sciatica present M54.50; G89.29 Back pain location: low back pain Chronicity: chronic Back pain laterality: unspecified Sciatica presence: unspecified whether sciatica present
[2024-06-09] MEDS: POTASSIUM CHLORIDE CRTAB 20 MEQ TABCR PO STA (11:42)
== END 2024-06-09 12:02 | disposition home or self-care (01) | DRG 373 ==
LOC: ED 12:09 → 2W 12:09 → SUATTDRO 15:17 → 2W 16:28 → SUATTDRO 06-04 07:59 → 3W 06-04 10:04